=== PATIENT | female | born 1945 | race Caucasian/White ===

== ENCOUNTER 2019-10-23 05:58 | Day surgery (SDC) | payer OTHER, MEDICARE ==
--- NOTE | 2019-10-15 12:07 | RAD REPORT ---
EXAM DESCRIPTION: Stephanie Neves (2 Views)10/15/2019 11:53 am CLINICAL HISTORY: Preop for rotator cuff surgery COMPARISON: 2018 FINDINGS: The lungs appear clear of acute infiltrate. The heart is normal size IMPRESSION: No acute abnormalities displayed
[2019-10-15 12:09] LABS: Absolute Lymphocytes (CBC) 1.6 K/uL (0.7-4.9); Basophils % 0.6 % (0-1.3); Hematocrit 43.5 % (36.0-45.0); Lymphocytes % 20.1 % (15.3-44.8); RBC Red Blood Cell Count 5.59 M/uL (3.86-4.86)
[2019-10-15 12:25] LABS: Protime INR 0.98
[2019-10-15 12:26] LABS: Potassium 3.7 mmol/L (3.5-5.1)
--- OUTSIDE RECORDS SUMMARY | 2019-10-23 05:59 | XMS REPORT | Summary of Care ---
:1945 Author Organization [facility] Address [address] [place], [place] [address]- Encounter HQ June(LLOYD) [id number] Date(s): 06/29/16 - 06/29/16 [facility] [address] [place] [address]- Discharge Disposition: Home or Self Care Attending Physician: Dao Schuler MD Admitting Physician: Dao Schuler MD Referring Physician: Dao Schuler MD Vital Signs No data available for this section Problem List No data available for this section Allergies, Adverse Reactions, Alerts No data available for this section Medications No data available for this section Results CHEM PANEL Most recent to oldest [Reference Range]: 1 eGFR 32 mL/min/1.73m2 1 *NA* (06/29/16 11:10 AM) POC Creatinine [0.5-1.4 mg/dL] 1.6 mg/dL *HI* (06/29/16 11:10 AM) 1Result Comment: The eGFR is calculated using the CKD-EPI formula. In most young, healthy individualsthe eGFR will be >90 mL/min/1.73m2. The eGFR declines with age. An eGFR of 60-89 may be normal in some populations, particularly the elderly, for whom the CKD-EPI formula has not been extensively validated. Use of the eGFR is not recommended in the following populations: Individuals with unstable creatinine concentrations, including patients and those with serious co-morbid conditions. Patients with extremes in muscle mass or diet. The data above are obtained from the National Kidney Disease Education Program (NKDEP) which additionally recommends that when the eGFR is used in patients with extremes of body mass index for purposesof drug dosing, the eGFR should be multiplied by the estimated BMI. Immunizations No data available for this section Procedures No data available for this section Social History No data available for this section Assessment and Plan No data available for this section
--- OUTSIDE RECORDS SUMMARY | 2019-10-23 05:59 | XMS REPORT | Clinical Summary ---
:1945 Author Organization [facility] Address [address] [place] [address] Care Team Providers Name Role Phone Elisabeth Jenkins Primary Care Provider Allergies Not on File Medications Not on file Active Problems Not on file Social History Tobacco Use Types Packs/Day Years Used Date Never Assessed Sex Assigned at Date Recorded Not on file Job Start Date Occupation Industry Not on file Not on file Not on file Travel History Travel Start Travel End No recent travel history available. 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
--- OUTSIDE RECORDS SUMMARY | 2019-10-23 05:59 | XMS REPORT | Continuity of Care Document ---
:1945 Author Organization [employer] Care Team Providers Name Role Phone [employer] Unavailable Un available Problems Problem Status Onset Classification Date Comments Sourc e Date Reported 07 Active [facility] st 6 CHEST PAIN, Active [facility] UNSPECIFIED Medications No Data Provided for This Section Allergies, Adverse Reactions, Alerts No Known Medication Allergies Immunizations No Data Provided for This Section Results Order Results Value Reference Date Interpretation Comments Source Name Range CHEM eGFR 32 06/29/ Result PANEL 2017 Comment: [facility] eGFR is calculated using the CKD-EPI formula. In most young, healthy individuals the eGFR will be >90 mL/min/1.73m2. The eGFR declines with age. An eGFR of 60-89 may be normal in some populations, particularly the elderly, for whom the CKD-EPI formula has not been extensively validated. Use of the eGFR is not recommended in the following populations:<b r/>
Indivi duals with unstable creatinine concentrations , including patients and those with serious co-morbid conditions.

Patient s with extremes in muscle mass or diet.

The data above are obtained from the National Kidney Disease Education Program (NKDEP) which additionally recommends that when the eGFR is used in patients with extremes of body mass index for purposes of drug dosing, the eGFR should be multiplied by the estimated BMI. CHEM POC 1.6 0.5 - 1.4 06/29/ PANEL Creatinine 2017 [facility] Pathology Reports No Data Provided for This Section Diagnostic Reports Report Value Date Source Chest wo contrast CT Study: CT CHEST WITHOUT CONTRAST 06/29/2016 [facility] Clinical Indication: shortne ss of breath gfr too low for iv contrast creat 1.6 gfr 32 Comparison: None Technique: Axial images with sagittal and coronal reconstructions were obtained without contrast, due to compromised renal function. CT Radiation Dose: DLP = 253 mGy-cm. FINDINGS: The lungs are emphysematous. No mass or airspace consolidation is identified. No endobronchial obstructing lesion, bronchiectasis or groundglass opacity is identified. Minor coronary artery calcifications and aortic atherosclerosis are noted. There is no gross hilar or m ediastinal adenopathy. No pleural or pericardial effusion is seen. Images of the upper abdomen are remarkable for gastric bypass surgery and cholecystectomy. IMPRESSION: 1. No acute abnormality. 2. Emphysema. SL: [id number] Consultation Notes No Data Provided for This Section Discharge Summaries No Data Provided for This Section History and Physicals No Data Provided for This Section Vital Signs No Data Provided for This Section Encounters Location Location Encounter Encounter Reason Attending ADM PR Stat Source Details Type Number For Provider Date Date Visit [facility] Outpatient [id number] Dao 06/29 06/30 Shan Schuler /2016 [facility] Procedures No Data Provided for This Section Assessment and Plan No Data Provided for This Section Plan of Care No Data Provided for This Section Social History Social History Date Source No data available for this 06/30/2016 [facility] section Family History No Data Provided for This Section Advance Directives No Data Provided for This Section Functional Status No Data Provided for This Section
--- OUTSIDE RECORDS SUMMARY | 2019-10-23 06:00 | XMS REPORT ---
:1945 Author Organization [facility] t Address [address] [place] [address] [address] [place] [address] Care Team Providers Name Role Phone Unavailable Unavailable Unavailable Problems Condition Condition Condition Status Onset Resolution Last Treatin g Comments Name Details Category Date Date Treatment Clinician Date Primary Primary Problem Active osteoarthri osteoarthri tis of tis of right knee right knee Arthritis Arthritis Problem Active of left of left knee knee Tear of Tear of Problem Active left left rotator rotator cuff, cuff, unspecified unspecified tear tear extent, extent, unspecified unspecified whether whether traumatic traumatic Allergies, Adverse Reactions, Alerts Allergy Allergy Status Severity Reaction(s) Onset Inactive Treating C omments Name Type Date Date Clinician Foradil Adverse Active Info Not Aerolizer Reaction Available Ambien Adverse Active Info Not Reaction Available Medications Ordered Filled Start Stop Current Ordering Indication Dosage Frequency Signature Comments Components Medication Medication Date Date Medication? Clinician (SIG) Name Name Metoprolol Metoprolol Yes Dao as Tartrate Tartrate Cuenca directed Voltaren Voltaren Yes Dao apply Cuenca small amount to affected joint Aspirin Aspirin Yes Dao 1 tablet Cuenca Pilocarpine Pilocarpine Yes Dao 1 drop HCl HCl Cuenca into affected eye Cyanocobala Cyanocobala Yes Dao as min min Cuenca directed Sertraline Sertraline Yes Dao 1 tablet HCl HCl Cuenc[place] Jardiance Jardiance Yes Dao not Cuenca defined Myrbetriq Myrbetriq Yes Dao not Cuenca defined Rosuvastati Rosuvastati Yes Dao 1 tabl et n Calcium n Calcium Cuenca Encounters Start End Encounter Admission Attending Care Care Encounter Date/Time Date/Time Type Type Clinicians Facility Department ID 2019-10-13 2019-10-13 [id number] 09:44:00 09:44:00 [facility] 2019-10-12 2019-10-12 [id number] 10:00:00 10:00:00 [facility] 2019-09-02 2019-09-02 [id number] 11:29:00 11:29:00 [facility] 2019-08-26 2019-08-26 [id number] 09:55:00 09:55:00 [facility] 2019-08-21 2019-08-21 [id number] 08:15:00 08:15:00 [facility] 2019-08-11 2019-08-11 [id number] 08:31:00 08:31:00 [facility] 2019-08-10 2019-08-10 [id number] 09:37:00 09:37:00 [facility] 2019-08-07 2019-08-07 [id number] 15:44:00 15:44:00 [facility] 2019-07-27 2019-07-27 [id number] 09:30:00 09:30:00 [facility] 2018-02-13 2018-02-13 [facility] [id number] 14:30:00 14:30:00 [facility]
--- OUTSIDE RECORDS SUMMARY | 2019-10-23 06:01 | XMS REPORT ---
:1945 Author Organization [employer] Care Team Providers Name Role Phone Dao Cuenca Provider Role Unavailable Allergies No Known Allergies Problems Problem Type Condition Code Onset Dates Condition Statu s Problem Primary osteoarthritis of left knee M17.12 Active Problem Primary osteoarthritis of right M17.11 Active knee Problem Tear of left rotator cuff, M75.102 A ctive unspecified tear extent, unspecified whether traumatic Problem Arthritis of left knee M17.12 Activ e Medications No Known Medications Results No Known Results Summary Purpose [employer] Submission
--- OUTSIDE RECORDS SUMMARY | 2019-10-23 06:01 | XMS REPORT ---
:1945 Author Organization [employer] Care Team Providers Name Role Phone Dao Cuenca Provider Role Unavailable Allergies, Adverse Reactions, Alerts Substance Reaction Event Type Foradil Aerolizer Info Not Available Drug Allergy Ambien Info Not Available Drug Allergy Problems Problem Type Condition Code Onset Dates Condition Statu s Assessment Cervical radiculopathy M54.12 Activ e Problem Primary osteoarthritis of left knee M17.12 Active Problem Primary osteoarthritis of right M17.11 Active knee Problem Tear of left rotator cuff, M75.102 A ctive unspecified tear extent, unspecified whether traumatic Assessment Pain, joint, shoulder, left M25.512 Active Assessment Tear of left rotator cuff, M75.102 A ctive unspecified tear extent, unspecified whether traumatic Problem Arthritis of left knee M17.12 Activ e Medications Medication Code Code Instructions Start End Status Dosage System Date Date Cyanocobalamin [facility] [address]-52 100 MCG Orally Acti ve as directed Aspirin ND 29858823140 81 MG Orally Active 1 table t Once a day Jardiance [facility] [address]-15 Active not defined Sertraline HCl [facility] 85443156192 100 MG Orally Active 1 tablet Once a day Metoprolol ND 39023767862 5 MG/5ML Active as Tartrate Intravenous directed Pilocarpine HCl [facility] 15068145822 1 % Ophthalmic Activ e 1 drop Three times a into day affected eye Tramadol HCl ND 80462823696 50 MG Orally Active 1 tablet every 6 hrs as needed Myrbetriq [facility] [address]-48 Active not defined Toujeo SoloStar [facility] 38054993332 300u/ml Active not subcutaneously defined once daily Rosuvastatin ND 47546575846 10 MG Orally Active 1 tablet Calcium Once a day Voltaren [facility] 22550057575 1 % Transdermal Active melvi ly qid small amount to affected joint Results No Known Results Summary Purpose [employer] Submission
--- OUTSIDE RECORDS SUMMARY | 2019-10-23 06:02 | XMS REPORT ---
:1945 Author Organization [employer] Care Team Providers Name Role Phone Dao Cuenca Provider Role Unavailable Allergies, Adverse Reactions, Alerts Substance Reaction Event Type Foradil Aerolizer Info Not Available Drug Allergy Ambien Info Not Available Drug Allergy Problems Problem Type Condition Code Onset Dates Condition Statu s Assessment Impingement syndrome, shoulder, M75.42 Active left Assessment Bicipital tendinitis of left M75.22 Active shoulder Problem Primary osteoarthritis of left knee M17.12 [...] End Status Dosage System Date Date Cyanocobalamin [facility] [address]-77 100 MCG Orally Acti ve as directed Sertraline HCl [facility] 04869485095 100 MG Orally Active 1 tablet Once a day Metoprolol ND 50968297288 5 MG/5ML Active as Tartrate Intravenous directed Pilocarpine HCl [facility] 84590466840 1 % Ophthalmic Activ e 1 drop Three times a into day affected eye Voltaren [facility] 01767970362 1 % Transdermal Active melvi ly qid small amount to affected joint Jardiance [facility] [address]-50 Active not defined Myrbetriq [facility] [address]-74 Active not defined Rosuvastatin [facility] 53799533084 10 MG Orally Active 1 tablet Calcium Once a day Aspirin ND 41655113476 81 MG Orally Active 1 table t Once a day Results No Known Results Summary Purpose [employer] Submission
--- OUTSIDE RECORDS SUMMARY | 2019-10-23 06:03 | XMS REPORT ---
[...] Start End Status Dosage System Date Date Pilocarpine HCl [facility] 24293526349 1 % Ophthalmic Activ e 1 drop Three times a into day affected eye Myrbetriq [facility] [address]-79 Active not defined Jardiance [facility] [address]-18 Active not defined Metoprolol [facility] 92346088823 5 MG/5ML Active as Tartrate Intravenous directed Rosuvastatin [facility] 66006090684 10 MG Orally Active 1 tablet Calcium Once a day Cyanocobalamin [facility] [address]-73 100 MCG Orally Acti ve as directed Aspirin ND 34733918361 81 MG Orally Active 1 table t Once a day Voltaren [facility] 75520505081 1 % Transdermal Active melvi ly qid small amount to affected joint Sertraline HCl ND 14158109212 100 MG Orally Active 1 tablet Once a day Results No Known Results Summary Purpose [employer] Submission
[2019-10-23] MEDS ORDERED: CEFAZOLIN/SWI 1gm 1 GM/10 ML SYR ONE (06:25)
[2019-10-23] MEDS ORDERED: NA CHLORIDE 0.9% 1,000 ML ONE (06:25)
[2019-10-23] MEDS ORDERED: EPINEPHRINE/PF 1 MG/ML AMP ONE (06:52)
[2019-10-23] MEDS ORDERED: Ringers Lactate 1,000 ML IV ONE (06:52)
[2019-10-23] MEDS ORDERED: LIDOCAINE 2% MPF 5 ML VIAL ONE (06:57)
[2019-10-23] MEDS ORDERED: MIDAZOLAM HCL 2 MG/2 ML INJ ONE (06:57)
[2019-10-23] MEDS ORDERED: propofoL 200 MG/20 ML VIAL IV ONE (06:57)
[2019-10-23] MEDS ORDERED: ROCURONIUM 50 MG/5 ML VIAL IV ONE (06:57)
[2019-10-23] MEDS ORDERED: FENTANYL CITR 250 MCG/5 ML ONE (06:57)
[2019-10-23] MEDS ORDERED: dexAMETHasone 4 MG/ML VIAL ONE (07:22)
[2019-10-23] MEDS ORDERED: ROPLVACAINE HCL 20 ML ONE (07:23)
[2019-10-23] MEDS ORDERED: EPHEDRINE SULF 50 MG/ML VIAL ONE (08:08)
[2019-10-23] MEDS ORDERED: Phenylephrine HCl 10 MG/ML 1 ML VIAL ONE (08:28)
[2019-10-23] MEDS ORDERED: GLYCOPYRROLATE 0.2 MG/ML SYR ONE (08:32)
[2019-10-23] MEDS ORDERED: ALBUMIN HUM 5% 250 ML IV ONE (08:55)
[2019-10-23] MEDS ORDERED: KETOROLAC 30 MG/ML INJ ONE (09:44)
--- NOTE | 2019-10-23 10:19 | P.BOP ---
Preoperative diagnosis: left shoulder rotator cuff tear Postoperative diagnosis: same, left shoulder SLAP tear Primary procedure: left shoulder arthrocopic rotator cuff repair Secondary procedure: left shoulder arthroscopic SLAP debridement Machine Engineer: NONE,NONE Estimated blood loss: <10 cc Specimen: none Findings: see dictation Anesthesia: General Complications: None Implants: 1 - 5.5 mm Arthrex Corkscrew, 2 - 4.75 mm Arthrex Swivelock Fluids & blood products: per anesthesia record Transferred to: Recovery Room Condition: Good
[2019-10-23] MEDS ORDERED: ONDANSETRON 4 MG/2 ML VIAL ONE (10:57)
--- NOTE | 2019-10-23 11:25 | RAD REPORT ---
EXAM DESCRIPTION: RAD - Shoulder 1 View - 10/23/2019 11:19 am CLINICAL HISTORY: S P ROTATOR CUFF REPAIR Status post left shoulder surgery COMPARISON: Shoulder Left Wo Cont dated 08/07/2019 FINDINGS: Single projection of the left shoulder is submitted. No fracture or dislocation seen.
[2019-10-23 11:40] VITALS: TEMP 98.2
[2019-10-23] MEDS ORDERED: HYDROCODONE/APAP 7.5/325 MG TAB ONE (12:17)
[2019-10-23 12:18] VITALS: BP 134/58; O2SAT 96
--- NOTE | 2019-10-24 10:19 | OP ---
Date of Procedure: 10/23/2019 Surgeon: Dao Cuenca MD Preoperative Diagnosis: Left shoulder rotator cuff tear. Postoperative Diagnoses: 1.Left shoulder rotator cuff tear. 2.Left shoulder superior labrum anterior and posterior tear. Surgeries: 1.Left shoulder arthroscopic rotator cuff repair. 2.Left shoulder arthroscopic superior labrum anterior and posterior tear debridement. Anesthesia: General endotracheal. Fluids: Per Anesthesia record. Estimated Blood Loss: Less than 10 cc. Complications: None. Implants: 1.One 5.5 mm Arthrex corkscrew. 2.Two 4.75 mm Arthrex SwiveLocks. Indication For Procedure: Genny is a 74-year-old female presenting to my clinic with signs and sympt oms and MRI findings consistent with rotator cuff tear of the left shoulder. The patient failed cons ervative treatment measures and reported continued pain, loss of function, range of motion as well as weakness. I discussed with the patient at length risks and benefits associated with operative and n onoperative treatment. She expressed understanding and elected to proceed with operative treatment. Description Of Procedure: After informed consent was obtained, the patient was identified in the pre operative holding area. The left upper extremity was marked. The patient was then taken back to the PACU where she underwent an interscalene block to the left upper extremity. She was then taken back to the operating room, transferred to the operating table in supine fashion, placed under general en dotracheal anesthesia. She was then placed in the beach chair position with her extremities well pad ded. Her left upper extremity was then examined. The patient had full range of motion. No instabil ity noted. Description Of Procedure: The patient's left upper extremity was prepped and draped in usual sterile fashion. A time-out was initiated. The correct patient and procedure were confirmed and identified . The patient did receive a preoperative prophylactic antibiotics. Via the posterior portal positio n, a spinal needle was introduced in the glenohumeral joint. The shoulder was injected with 30 cc of normal saline as to distend the capsule. A posterior portal was created and arthroscope was brought in via the posterior portal position. A diagnostic arthroscopy was performed. The patient was note d to have significant fraying over the undersurface of her supraspinatus, some fraying of the superio r edge of her subscapularis, which was debrided using an arthroscopic shaver via the anterior portal. The anterior portal was created under direct visualization. A cannula was placed. The patient was noted to have had a lateral rupture of biceps tendon with no biceps tendon anchor noted at the super ior labrum. There was noted to be a type 2 SLAP tear with some fraying of the superior labrum. The SLAP tear was then debrided using an arthroscopic shaver to stable borders. Anterior and posterior l abrum were found to be stable to probe. No loose bodies were noted in the axillary pouch. The under surface of the supraspinatus was identified. There was significant fraying and a full-thickness tear was noted. A lateral portal was created and an obturator was brought in via the lateral portal and brought into the shoulder joint consistent with a full-thickness rotator cuff tear. The undersurface of the supraspinatus was debrided using an arthroscopic shaver as well as the greater tuberosity to create a bleeding bony bed. The arthroscope was then brought in the subacromial space with a subacro mial bursectomy was performed. The rotator cuff tear was then identified and debrided again on the b ursal side using an arthroscopic shaver. A stab incision was made just lateral to the acromion and a 5.5 mm Arthrex corkscrew medial row anchor was placed. It was double loaded. The suture was then p assed through the supraspinatus in an anterior posterior fashion and horizontal mattress fashion. Th ey were tied down for medial row fixation to increase superior surface area contact of the rotator cu ff onto the greater tuberosity. Lateral row fixation was also selected. The sutures were passed in a crisscross fashion and 2 lateral anchors were placed using the 4.75 mm SwiveLocks. There was good overall reduction of the rotator cuff tear and the greater tuberosity. There was no significant fray ing of the coracoacromial ligament. Arthroscopic instruments were then removed without complication. Wounds were then irrigated thoroughly with normal saline. The subcutaneous tissue was approximated using a 2-0 Vicryl. Skin was approximated using a 3-0 Monocryl. Sterile dressings were placed. Th e patient was placed in a shoulder immobilizer, awakened, and transferred to PACU in stable condition . Postoperative Plan: She will be nonweightbearing of the left upper extremity, will be in the shoulde r immobilizer for 6 weeks. She will follow medium rotator cuff repair protocol beginning at 4 weeks postop. FIGUEROA/HALINA Voice ID: [id number] Report ID: [id number]
== END 2019-10-23 13:00 | disposition home or self-care (01) ==
LOC: OR 05:58
PROVIDERS: ATTEND Orthopaedic Surgery Sports Medicine
PROC: 0RHK44Z Insertion of Internal Fixation Device into Left Shoulder Joint, Percutaneous Endoscopic Approach (ICD-10-PCS; 2019-10-23)
PROC: 0RBK4ZZ Excision of Left Shoulder Joint, Percutaneous Endoscopic Approach (ICD-10-PCS; 2019-10-23)
PROC: 0LQ24ZZ Repair Left Shoulder Tendon, Percutaneous Endoscopic Approach (ICD-10-PCS; principal; 2019-10-23 07:30)
DX: M75.102 Unspecified rotator cuff tear or rupture of left shoulder, not specified as traumatic (principal); S43.432A Superior glenoid labrum lesion of left shoulder, initial encounter; M75.42 Impingement syndrome of left shoulder; M75.22 Bicipital tendinitis, left shoulder; M19.90 Unspecified osteoarthritis, unspecified site; E11.9 Type 2 diabetes mellitus without complications; I10 Essential (primary) hypertension; K21.9 Gastro-esophageal reflux disease without esophagitis; M35.00 Sjogren syndrome, unspecified; D64.9 Anemia, unspecified; F98.8 Other specified behavioral and emotional disorders with onset usually occurring in childhood and adolescence; Z79.82 Long term (current) use of aspirin; Z88.3 Allergy status to other anti-infective agents; Z88.8 Allergy status to other drugs, medicaments and biological substances; Z91.040 Latex allergy status; Z83.3 Family history of diabetes mellitus; Z82.49 Family history of ischemic heart disease and other diseases of the circulatory system
CPT/HCPCS: 85025; 80048; 36415; 85610; 82947 ×2; 85730; 71046; 73020; 29827; 29822; J2704; J0171; J2370; J2250; J3010; P9045; J2795; J0690; J7120; J7030; J2405

== ENCOUNTER 2020-01-11 11:47 | Emergency (ER) | payer OTHER, MEDICARE ==
[2020-01-11 13:20] LABS: Hematocrit 38.1 % (36.0-45.0); Lymphocytes % 20.7 % (15.3-44.8); MPV 9.2 fL (7.6-11.3); RBC Red Blood Cell Count 4.77 M/uL (3.86-4.86)
[2020-01-11 14:10] LABS: BUN Blood Urea Nitrogen 16 mg/dL (7-18); Bicarbonate 23 mmol/L (21-32); C-Reactive Protein 8.05 mg/L (<3.00); Ferritin 22.6 ng/mL (8-388); Glucose Level 136 mg/dL (74-106); Potassium 3.6 mmol/L (3.5-5.1); Sodium Level 139 mmol/L (136-145); Troponin (Emerg Dept Use Only) < 0.02 ng/mL (0.0-0.045)
[2020-01-11] MEDS ORDERED: ACETAMINOPHEN 325 MG TABLET ONE (14:51)
[2020-01-11] MEDS ORDERED: dexAMETHasone 10 MG/ML VIAL ONE (17:30)
[2020-01-11 17:41] VITALS: TEMP 98.6
[2020-01-11 17:48] VITALS: BP 126/63; O2SAT 95
--- OUTSIDE RECORDS SUMMARY | 2020-01-11 21:31 | XMS REPORT | Continuity of Care Document ---
:1945 Author Organization [employer] Care Team Providers Name Role Phone [employer] Unavailable Un available Problems Problem Status Onset Classification Date Comments Sourc e Date Reported 07 Active [facility] st 6 CHEST PAIN, Active [facility] UNSPECIFIED Medications No Data Provided for This [...] CT Study: CT CHEST WITHOUT CONTRAST 06/29/2016 [facility] Clinical Indication: shortne ss of breath gfr [...] 1. No acute abnormality. 2. Emphysema. SL: [id number] Consultation Notes No Data Provided for This Section Discharge Summaries No Data Provided for This Section History and Physicals No Data Provided for This Section Vital Signs No Data Provided for This Section Encounters Location Location Encounter Encounter Reason Attending ADM [place] Stat Source Details Type Number For Provider Date Date Visit [facility] Outpatient [id number] Dao 06/29 06/30 Shan Schuler /2016 [facility] Procedures No Data Provided for This Section Assessment and Plan No Data Provided for This Section Plan of Care No Data Provided for This Section Social History Social History Date Source No data available for this 06/30/2016 [facility] section Family History No Data Provided for This Section Advance Directives No Data Provided for This Section Functional Status No Data Provided for This Section
--- OUTSIDE RECORDS SUMMARY | 2020-01-11 21:31 | XMS REPORT | Clinical Summary ---
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
--- OUTSIDE RECORDS SUMMARY | 2020-01-11 21:32 | XMS REPORT ---
:1945 Author Organization eClinicalWorks Care Team Providers Name Role Phone CuencaDao Provider Role Unavailable Allergies, Adverse Reactions, Alerts [...] Start End Status Dosage System Date Date Rosuvastatin [facility] 52196024640 10 MG Orally Active 1 tablet Calcium Once a day Metoprolol ND 57325824591 5 MG/5ML Active as Tartrate Intravenous directed Aspirin ND 05929873976 81 MG Orally Active 1 table t Once a day Jardiance [facility] [address]-00 Active not defined Cyanocobalamin [facility] [address]-68 100 MCG Orally Acti ve as directed Pilocarpine HCl ND 05357458754 1 % Ophthalmic Activ e 1 drop Three times [place] [address]-59 Active not defined Hydrocodone-Aceta ND 23428531662 7.5-325 MG Oral Ac tive (Schedule minophen II Drug) TK 1 T PO Q 4 H PRN P Voltaren ND 08060991795 1 % Transdermal Active melvi ly qid small amount to affected joint Sertraline HCl ND 00668617410 100 MG Orally Active 1 tablet Once a day Results No Known Results Summary Purpose eClinicalWorks Submission
--- OUTSIDE RECORDS SUMMARY | 2020-01-11 21:32 | XMS REPORT ---
:1945 Author Organization eClinicalWorks Care Team Providers Name Role Phone Dao Cuenca Provider Role Unavailable Allergies No Known Allergies Problems Problem Type Condition Code Onset Dates Condition Statu s Problem Tear of left rotator cuff, M75.102 A ctive unspecified tear extent, unspecified whether traumatic Problem Primary osteoarthritis of left knee M17.12 Active Problem Pain, joint, shoulder, left M25.512 Active Problem Primary osteoarthritis of right M17.11 Active knee Problem Arthritis of left knee M17.12 Activ e Medications No Known Medications Results No Known Results Summary Purpose eClinicalWorks Submission
--- OUTSIDE RECORDS SUMMARY | 2020-01-11 21:32 | XMS REPORT ---
[...] End Status Dosage System Date Date Rosuvastatin [facility] 40467700241 10 MG Orally Active 1 tablet Calcium Once a day Metoprolol ND 49141929363 5 MG/5ML Active as Tartrate Intravenous directed Jardiance [facility] [address]-59 Active not defined Myrbetriq [facility] [address]-76 Active not defined Pilocarpine HCl [facility] 57840614566 1 % Ophthalmic Activ e 1 drop Three times a into day affected eye Cyanocobalamin [facility] [address]-10 100 MCG Orally Acti ve as directed Voltaren ND 74483744646 1 % Transdermal Active melvi ly qid small amount to affected joint Aspirin ND 17499164277 81 MG Orally Active 1 table t Once a day Hydrocodone-Aceta ND 15385241564 7.5-325 MG Oral Ac tive (Schedule minophen II Drug) TK 1 T PO Q 4 H PRN P Sertraline HCl ND 14979002023 100 MG Orally Active 1 tablet Once a day Results No Known Results Summary Purpose eClinicalWorks Submission
--- OUTSIDE RECORDS SUMMARY | 2020-01-11 21:32 | XMS REPORT | Continuity of Care Document ---
:1945 Author Organization [facility] t Address [address] [place] [address] Care Team Providers Name Role Phone Gregory LESTER Primary Care Physician Kory Larios Attending Clinician Tommy Schuler Attending Clinician Tommy Schuler Admitting Clinician Problems Condition Condition Condition Status Onset Resolution Last Treating Co mments Source Name Details Category Date Date Treatment Clinician Date 07 Diagnosis Active 2015-062016-06-29 [facility] 2-27 09:48:00 l 07 00:00: Shan 00 Active 06/12/2016 [facility] Primary Primary Problem Active [facility] osteoarthr osteoarthr Ivette kes - itis of itis [facility] right knee right knee [facility] Arthritis Arthritis Problem Active [facility] left [facility] Tear of Tear of Problem Active [facility] left left [facility] rotator rotator [facility] cuff, cuff, l unspecifie unspecifie Ou tpati d tear d tear ent extent, extent, Clinics unspecifie unspecifie d whether d whether traumatic traumatic Pain, Pain, Problem Active [facility] joint, joint, [facility] - shoulder, shoulder, Krishna glenis left left l [facility] CHEST Diagnosis Active 2016-06-29 [facility] PAIN, 09:48:00 l UNSPECIFIE CHEST Svitlana nn D PAIN, UNSPECIFIE D Active [facility] Allergies, Adverse Reactions, Alerts Allergy Allergy Status Severity Reaction(s) Onset Inactive Treating Comm ents Source Name Type Date Date Clinician Foradil Adverse Active Info Not [facility] Aerolize Reaction Available [facility] Ambien Adverse Active Info Not [facility] Reaction Available [facility] Social History Social Habit Start Date Stop Date Quantity Comments Source Sex Assigned [place] [facility] ethodist Social History 2016-06-30 2016-06-30 [facility] 05:59:00 05:59:00 Medications Ordered Filled Start Stop Current Ordering Indication Dosage Frequency Signature Comments Components Source Medication Medication Date Date Medication? Clinician (SIG) Name Name Metoprolol Metoprolol Yes Dao as [facility] Tartrate Tartrate Cuenca directed [facility] Voltaren Voltaren Yes Dao apply [facility] small [facility] - amount to [facility] affected l joint [facility] Aspirin Aspirin Yes Dao [address] [facility] Pilocarpine Pilocarpine Yes Dao [address] [facility] HCl HCl [facility] into [facility] affected [facility] Cyanocobala Cyanocobala Yes Dao as [facility] min min [facility] directed [facility] Sertraline Sertraline Yes Dao [address] [facility] HCl HCl [facility] Jardiance Jardiance Yes Dao not [facility] defined [facility] Myrbetriq Myrbetriq Yes Dao not [facility] defined [facility] Rosuvastati Rosuvastati Yes Dao [address] [facility] n Calcium n Calcium [facility] Hydrocodone Hydrocodone Yes Dao (Schedule [facility] -Acetaminop -Acetaminop [facility]a II Drug) [facility] hen hen TK 1 T PO [facility] Q 4 H PRN l P Outpati ent Clinics Procedures This patient has no known procedures. Plan of Care Planned Activity Planned Date Details Comments Source Future Scheduled 2020-01-16 INFLUENZA VACCINE Bhargav rodas [facility] 00:00:00 [code = INFLUENZA VACCINE] Future Scheduled 2011 65+ PNEUMOCOCCAL [facility] 00:00:00 VACCINE (1 of 2 - PCV13) [code = 65+ PNEUMOCOCCAL VACCINE (1 of 2 - PCV13)] Future Scheduled 1996 BREAST CANCER [facility] 00:00:00 SCREENING [code = BREAST CANCER SCREENING] Future Scheduled 1996 COLONOSCOPY SCREENING Ho justin [facility] 00:00:00 [code = COLONOSCOPY SCREENING] Future Scheduled 1996 SHINGLES VACCINES (#1) H anne-marie [facility] 00:00:00 [code = SHINGLES VACCINES (#1)] Encounters Start End Encounter Admission Attending Care Care Encounter Source Date/Time Date/Time Type Type Clinicians Facility Department ID 2019-12-24 2019-12-24 [facility] [id number] [facility] 14:32:00 14:32[facility]00 [facility] 2019-11-30 2019-11-30 Out[facility] [id number] [facility] 09:30:00 09:30:00 [facility] 2019-11-30 2019-11-30 Outpatient [facility] [id number] [facility] [facility] 08:27:00 08:27:00 [facility] 2019-11-12 2019-11-12 Outpatient [facility] [id number] [facility] 10:30:00 10:30:00 [facility] 2019-11-04 2019-11-04 [facility] [id number] [facility] 15:17:00 15:17:00 [facility] 2019-10-29 2019-10-29 [facility] [id number] [facility] 09:45:00 09:45:00 [facility] 2019-10-26 2019-10-26 [facility] [id number] [facility] 11:02:00 11:02:00 [facility] 2019-10-13 2019-10-13 [facility] [id number] [facility] [facility] 09:44:00 09:44:00 [facility] 2019-10-12 2019-10-12 [facility] [id number] 10:00:00 10:00:00 [facility] 2019-09-11 2019-09-11 Telephone Gramm, [facility] [id number] 00:00:00 00:00:00 Avril Rico [id number] [place] [id number] [id number] [address] 2019-09-02 2019-09-02 [facility] [id number] [address] 11:29:00 11:29:00 [facility] 2019-08-26 2019-08-26 [facility] [id number] 09:55:00 09:55:00 t [facility] 2019-08-21 2019-08-21 [facility] [id number] 08:15:00 08:15:00 t [facility] 2019-08-11 2019-08-11 [facility] [id number] [facility] 08:31:00 08:31:00 t [facility] 2019-08-10 2019-08-10 [facility] [id number] [facility] 09:37:00 09:37:00 t [facility] 2019-08-07 2019-08-07 [facility] [id number] 15:44:00 15:44:00 t [facility] 2019-07-27 2019-07-27 [facility] [id number] 09:30:00 09:30:00 t [facility] 2019-02-11 2019-02-11 Office Gramm, [facility] [id number] 14:32:34 15:19:14 Visit Avril Rico [id number] [place] [id number] [facility] [id number] [facility] 204 [facility] 2018-02-13 2018-02-13 [place] [place] [id number] 14:30:00 14:30:00 t [facility] 2016-06-29 2016-06-29 Outpatient [place] [id number] 09:39:00 23:59:00 , Dao 00 Tommy Results Test Description Test Time Test Comments Results Result Comments Source CHEM PANEL 2016-06-29 32 Pati garcia 17:10:00 CHEM PANEL 2016-06-29 1.6 Pati garcia 17:10:00
--- OUTSIDE RECORDS SUMMARY | 2020-01-11 21:32 | XMS REPORT ---
[...] Status Dosage System Date Date Pilocarpine HCl [facility] 26050030846 1 % Ophthalmic Activ e 1 drop Three times a into day affected eye Myrbetriq [facility] [address]-09 Active not defined Jardiance [facility] [address]-84 Active not defined Metoprolol [facility] 40184194807 5 MG/5ML Active as Tartrate Intravenous directed Rosuvastatin [facility] 74711783059 10 MG Orally Active 1 tablet Calcium Once a day Cyanocobalamin [facility] [address]-41 100 MCG Orally Acti ve as directed Aspirin ND 19376452558 81 MG Orally Active 1 table t Once a day Voltaren [facility] 27288148951 1 % Transdermal Active melvi ly qid small amount to affected joint Sertraline HCl ND 38790088897 100 MG Orally Active 1 tablet Once a day Results No Known Results Summary Purpose eClinicalWorks Submission
--- OUTSIDE RECORDS SUMMARY | 2020-01-11 21:32 | XMS REPORT ---
:1945 Author Organization eClinicalWorks Care Team Providers Name Role Phone CuencaDao Provider Role Unavailable Allergies, Adverse Reactions, Alerts Substance Reaction Event Type Foradil Aerolizer Info Not Available Drug Allergy Ambien Info Not Available Drug Allergy Problems Problem Type Condition Code Onset Dates Condition Statu s Assessment Bicipital tendinitis of left M75.22 Active shoulder Assessment Tear of left rotator cuff, M75.102 A ctive unspecified tear extent, unspecified whether traumatic Assessment Impingement syndrome, shoulder, M75.42 Active left Problem Tear of left rotator cuff, M75.102 A ctive unspecified tear extent, unspecified whether traumatic Problem Primary osteoarthritis of left knee M17.12 Active Problem Pain, joint, shoulder, left M25.512 Active Assessment Pain in joint of left shoulder M25.512 Active Problem Primary osteoarthritis of right M17.11 Active knee Problem Arthritis of left knee M17.12 Activ e Medications Medication Code Code Instructions Start End Status Dosage System Date Date Pilocarpine HCl [facility] 28900507247 1 % Ophthalmic Activ e 1 drop Three times a into day affected eye Cyanocobalamin [facility] [address]-31 100 MCG Orally Acti ve as directed Aspirin ND 49607299931 81 MG Orally Active 1 table t Once a day Voltaren [facility] 03526689674 1 % Transdermal Active melvi ly qid small amount to affected joint Rosuvastatin [facility] 33864407254 10 MG Orally Active 1 tablet Calcium Once a day Metoprolol ND 12957462028 5 MG/5ML Active as Tartrate Intravenous directed Hydrocodone-Aceta [facility] 29891943507 7.5-325 MG Oral Ac tive (Schedule minophen II Drug) TK 1 T PO Q 4 H PRN P Myrbetriq [facility] [address]-47 Active not defined Jardiance [facility] [address]-64 Active not defined Sertraline HCl ND 07099532386 100 MG Orally Active 1 tablet Once a day Results No Known Results Summary Purpose eClinicalWorks Submission
--- NOTE | 2020-01-11 21:35 | EDPHYS ---
Physician Documentation [facility] Name: Genny Mccall Age: 74 yrs Sex: Female : 1945 Arrival Date: 01/11/2020 Time: 11:50 Bed 20 Private MD: ED Physician Jeff Arredondo HPI: 01/10 12:59 This 74 yrs old Female presents to ER via Ambulatory with complaints of rn Fever, Chest Congestion, Pain All Over, Cough, Vomiting. 12:59 The patient reports fever, that was measured at 99.5 degrees Fahrenheit. Onset: The rn symptoms/episode began/occurred 2 day(s) ago. Modifying factors: there are no obvious modifying factors. Severity of symptoms: At their worst the symptoms were mild in the emergency department the symptoms are unchanged. The patient has not experienced similar symptoms in the past. Reports fever to 99.5, 2 days of cough/sore throat/weakness, reports mild sob. No known contacts of COVID-19.. 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 - Social history:: Smoking status: Patient denies any tobacco usage or history of. Patient/guardian denies using alcohol, street drugs, tobacco products. - Family history:: not pertinent. - Hospitalizations: : No recent hospitalization is reported. ROS: 12:59 Constitutional: + fever Eyes: Negative for injury, pain, redness, and discharge, ENT: + rn sore throat Neck: Negative for injury, pain, and swelling, Cardiovascular: Negative for chest pain, palpitations, and edema, Respiratory: + sob and cough Abdomen/GI: Negative for abdominal pain, nausea, vomiting, diarrhea, and constipation, MS/Extremity: Negative for injury and deformity, Skin: Negative for injury, rash, and discoloration, Neuro: Negative for headache, numbness, tingling, and seizure. Exam: 12:59 Constitutional: This is a well developed, well nourished patient who is awake, alert, rn and in no acute distress. Head/Face: Normocephalic, atraumatic. ENT: No stridor Cardiovascular: Regular rate and rhythm. No pulse deficits. Respiratory: Mild tachypnea, no retractions Abdomen/GI: soft, non-tender MS/ Extremity: Pulses equal, no cyanosis Neuro: Awake and alert, GCS 15 Vital Signs: 12:05 BP 130 / 86; Pulse 68; Resp 17; Temp 98.6; Pulse Ox 97% ; Weight 73.94 kg; Height 5 ft. ll1 5 in. (165.10 cm); Pain 8/10; 13:30 BP 128 / 65; Pulse 63; Resp 17; Pulse Ox 94% on R/A; jl7 14:30 BP 121 / 66; Pulse 67; Resp 19 S; Pulse Ox 95% on R/A; jl7 15:30 BP 126 / 56; Pulse 66; Resp 15; Pulse Ox 93% ; jl7 16:30 BP 131 / 63; Pulse 69; Resp 17; Pulse Ox 97% ; jl7 17:15 BP 126 / 63; Pulse 97; Resp 16; Pulse Ox 95% ; jl7 12:05 Body Mass Index 27.12 (73.94 kg, 165.10 cm) ll1 MDM: 12:11 Patient medically screened. rn 13:03 ED course: + loss of sense of smell and taste. rn 16:46 Differential diagnosis: viral Infection, bacterial infection, pneumonia. Data reviewed: rn vital signs, nurses notes, lab test result(s), radiologic studies, CT scan, plain films, and as a result, I will discharge patient. Counseling: I had a detailed discussion with the patient and/or guardian regarding: the historical points, exam findings, and any diagnostic results supporting the discharge/admit diagnosis, lab results, radiology results, the need for outpatient follow up, to return to the emergency department if symptoms worsen or persist or if there are any questions or concerns that arise at home. Special discussion: I discussed with the patient/guardian in detail that at this point there is no indication for admission to the hospital. It is understood, however, that if the symptoms persist or worsen the patient needs to return immediately for re-evaluation. ED course: No oxygen requirement, most likely COVID given low grade temp and loss of taste and smell, will dc home with steroids given autoimmune disease, and return precautions given, pt with pulse oximeter at home. . 16:46 ED course: Neg CT PE protocol for PE per Dr. May, + mild bilateral ground glass rn opacities, possible early COVID. 01/10 12:20 Order name: Troponin (emerg Dept Use Only); Complete Time: 14:42 rn 01/10 12:20 Order name: Strep; Complete Time: 14:42 rn 01/10 12:20 Order name: Blood Culture Adult (2) rn 01/10 12:20 Order name: BMP; Complete Time: 14:42 rn 01/10 12:20 Order name: C-Reactive Protein; Complete Time: 14:42 rn 01/10 12:20 Order name: CBC with Diff; Complete Time: 13:23 rn 01/10 12:20 Order name: COVID-19 01/10 12:20 Order name: D-Dimer; Complete Time: 14:42 rn 01/10 12:20 Order name: Ferritin; Complete Time: 14:42 rn 01/10 12:20 Order name: Flu; Complete Time: 14:42 01/10 12:20 Order name: Lactate; Complete Time: 14:42 rn 01/10 12:20 Order name: Procalcitonin; Complete Time: 14:42 rn 01/10 12:20 Order name: CXR XRAY rn 01/10 14:26 Order name: Throat Culture EDWA 01/10 12:20 Order name: EKG; Complete Time: 12:21 01/10 12:20 Order name: Cardiac monitoring; Complete Time: 16:01 rn 01/10 12:20 Order name: Droplet/Contact Precautions; Complete Time: 13:11 rn 01/10 12:20 Order name: EKG - Nurse/Tech; Complete Time: 17:30 rn 01/10 12:20 Order name: IV Start; Complete Time: 13:11 rn 01/10 12:20 Order name: Labs collected and sent; Complete Time: 13:11 rn 01/10 12:20 Order name: O2 Per Protocol; Complete Time: 13:11 rn 01/10 12:20 Order name: O2 Sat Monitoring; Complete Time: 13:11 rn 01/10 14:43 Order name: CT Chest For PE Angio rn Administered Medications: 17:25 Drug: Decadron - Dexamethasone 10 mg Route: IVP; Site: right wrist; jl7 17:30 Follow up: Response: No adverse reaction jl7 Disposition: 01/11/20 16:48 Discharged to Home. Impression: Cough, Viral syndrome. - Condition is Stable. - Discharge Instructions: Cough, Adult, COVID-19. - Prescriptions for dexamethasone 6 mg Oral tablet - take 1 tablet by ORAL route once daily for 10 days; 10 tablet. - Medication Reconciliation Form, Thank You Letter, Antibiotic Education, Prescription Opioid Use form. - Follow up: Private Physician; When: As needed; Reason: Recheck today's complaints, Re-evaluation by your physician. - Problem is new. - Symptoms have improved. Signatures: Dispatcher [employer] EDMS Jeff Arredondo MD MD rn Leal, Jahala, RN RN jl7 Enrrique Abreu RN RN ll1 Corrections: (The following items were deleted from the chart) 17:36 16:48 01/11/2020 16:48 Discharged to Home. Impression: Cough; Viral syndrome. Condition jl7 is Stable. Forms are Medication Reconciliation Form, Thank You Letter, Antibiotic Education, Prescription Opioid Use. Follow up: Private Physician; When: As needed; Reason: Recheck today's complaints, Re-evaluation by your physician. Problem is new. Symptoms have improved. rn
--- NOTE | 2020-01-11 21:35 | ER ---
Nurse's Notes [facility] Name: Genny Mccall Age: 74 yrs Sex: Female : 1945 Arrival Date: 01/11/2020 Time: 11:50 Bed 20 Private MD: Diagnosis: Cough;Viral syndrome Presentation: 01/10 12:05 Chief complaint: Patient states: Cough/runny nose since Saturday. + sore throat, fever, ll1 body aches, headache. Fever 99.5 at home. Coronavirus screen: Patient reports a cough. Patient reports shortness of breath or difficulty breathing. Patient denies measured and/or subjective temperature greater than 100.4F prior to today's visit. Patient denies travel on a cruise ship or to a country the [facility] currently lists as an affected area. Patient denies contact with known and/or suspected case of COVID-19. Patient instructed to continue to wear a mask when interacting with others. Patient moved to private room, placed in contact and droplet isolation with eye protection until further assessment. Ebola Screen: Patient denies travel to an Ebola-affected area in the 21 days before illness onset. Initial Sepsis Screen: Does the patient meet any 2 criteria? No. Patient's initial sepsis screen is negative. Risk Assessment: Do you want to hurt yourself or someone else? Patient reports no desire to harm self or others. Onset of symptoms was January 09, 2020. 12:05 Method Of Arrival: Ambulatory ll1 12:05 Acuity: [place] 3 ll1 17:36 Initial Sepsis Screen: Does the patient have a suspected source of infection? No. jl7 Patient's initial sepsis screen is negative. 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 - Social history:: Smoking status: Patient denies any tobacco usage or history of. Patient/guardian denies using alcohol, street drugs, tobacco products. - Family history:: not pertinent. - Hospitalizations: : No recent hospitalization is reported. Screenin:30 Abuse screen: Denies threats or abuse. Denies injuries from another. Nutritional jl7 screening: No deficits noted. Tuberculosis screening: No symptoms or risk factors identified. Fall Risk IV access (20 points). Total Hunter Fall Scale indicates No Risk (0-24 pts). Assessment: 12:30 General: Appears in no apparent distress. uncomfortable, Behavior is calm, cooperative, jl7 appropriate for age. Pain: Complains of pain in sore throat, body aches, TAYLOR Pain currently is 8 out of 10 on a pain scale. Neuro: Level of Consciousness is awake, alert, obeys commands, Oriented to person, place, time, situation. Cardiovascular: Patient's skin is warm and dry. Respiratory: Reports cough that is Airway is patent Respiratory effort is even, unlabored, Respiratory pattern is regular, symmetrical. GI: Abdomen is non-distended. EENT:. Derm: Skin is pink, warm \T\ dry. 13:30 Reassessment: Patient appears in no apparent distress at this time. No changes from jl7 previously documented assessment. Patient and/or family updated on plan of care and expected duration. Pain level reassessed. Patient is alert, oriented x 3, equal unlabored respirations, skin warm/dry/pink. 14:30 Reassessment: Patient appears in no apparent distress at this time. No changes from jl7 previously documented assessment. Patient and/or family updated on plan of care and expected duration. Pain level reassessed. Patient is alert, oriented x 3, equal unlabored respirations, skin warm/dry/pink. 15:30 Reassessment: Patient appears in no apparent distress at this time. No changes from jl7 previously documented assessment. Patient and/or family updated on plan of care and expected duration. Pain level reassessed. Patient is alert, oriented x 3, equal unlabored respirations, skin warm/dry/pink. 16:30 Reassessment: Patient appears in no apparent distress at this time. No changes from jl7 previously documented assessment. Patient and/or family updated on plan of care and expected duration. Pain level reassessed. Patient is alert, oriented x 3, equal unlabored respirations, skin warm/dry/pink. 16:45 Reassessment: Dr. Arredondo at bedside discussing results and POC. 7 Vital Signs: 12:05 BP 130 / 86; Pulse 68; Resp 17; Temp 98.6; Pulse Ox 97% ; Weight 73.94 kg; Height 5 ft. ll1 5 in. (165.10 cm); Pain 8/10; 13:30 BP 128 / 65; Pulse 63; Resp 17; Pulse Ox 94% on R/A; jl7 14:30 BP 121 / 66; Pulse 67; Resp 19 S; Pulse Ox 95% on R/A; jl7 15:30 BP 126 / 56; Pulse 66; Resp 15; Pulse Ox 93% ; jl7 16:30 BP 131 / 63; Pulse 69; Resp 17; Pulse Ox 97% ; jl7 17:15 BP 126 / 63; Pulse 97; Resp 16; Pulse Ox 95% ; jl7 12:05 Body Mass Index 27.12 (73.94 kg, 165.10 cm) ll1 ED Course: 11:50 Patient arrived in ED. fj1 12:07 Triage completed. ll1 12:09 Arm band placed on Patient placed in an exam room, on a stretcher. ll1 12:11 Jeff Arredondo MD is Attending Physician. rn 12:20 Elena Conrad, JAZZ is Primary Nurse. jl7 12:42 Flu and/or RSV swab sent to lab. Strep swab sent to lab. Pt swabbed for COVID-19. jp3 Patient maintains SpO2 saturation greater than 95% on room air. 12:45 First set of blood cultures drawn. jp3 12:55 Initial lab(s) drawn, by me, sent to lab. Second set of blood cultures drawn by me. jp3 Inserted saline lock: 20 gauge in right wrist, using aseptic technique. Blood collected. 13:11 Placed in gown. Bed in low position. Call light in reach. Side rails up X 1. Verbal jp3 reassurance given. Pulse ox on. NIBP on. 13:23 Notified ED physician of a critical lab result(s). D dimer 709. jr10 13:45 CXR XRAY In Process Unspecified. EDMS 14:44 EKG done, by career technical education teacher. reviewed by Jeff Arredondo MD. at1 16:01 Throat Culture Sent. jl7 17:36 No provider procedures requiring assistance completed. IV discontinued, intact, jl7 bleeding controlled, No redness/swelling at site. Pressure dressing applied. Administered Medications: 17:25 Drug: Decadron - Dexamethasone 10 mg Route: IVP; Site: right wrist; jl7 17:30 Follow up: Response: No adverse reaction jl7 Outcome: 16:48 Discharge ordered by . rn 17:36 Discharged to home ambulatory. jl7 17:36 Condition: stable 17:36 Discharge instructions given to patient, Instructed on discharge instructions, follow up and referral plans. medication usage, Demonstrated understanding of instructions, follow-up care, medications, Prescriptions given X 1. 17:36 Patient left the ED. jl7 Addendum: 01/13/2020 17:38 Addendum: COVID-19 Result: Positive result giiven to ED physician to notify pt. a a5 Physician: Rashid Quiroz MD Physician was able to contact pt and pt was notified of positive COVID-19 swab result. Physician answered pt questions. Signatures: Dispatcher [employer] EDMS Jeff Arredondo MD MD rn Calderon, Audri, RN RN aa5 Carol Sandhu, enterprise software engineer EKG Tat1 Elena Conrad RN RN jl7 Nuno Schulte jp3 Flash Pearce1 Enrrique Abreu, RN RN ll1 Tianna Johnston, RN RN jr10
--- NOTE | 2020-01-11 21:47 | RAD REPORT ---
EXAM DESCRIPTION: CT - Chest For Pe Angio - 01/11/2020 9:39 pm CLINICAL HISTORY: Chest pain. COUGH COMPARISON: No comparisons TECHNIQUE: CT angiogram of the pulmonary arteries was performed with MIP. All CT scans are performed using dose optimization technique as appropriate and may include automated exposure control or mA/KV adjustment according to patient size. FINDINGS: No evidence of pulmonary thromboembolism. No acute aortic finding demonstrated. Bilateral ground-glass opacities are nonspecific. No significant pericardial or pleural fluid. No concerning bony finding. Mild left thyroid goiter. IMPRESSION: No evidence of pulmonary thromboembolism. Mild bilateral ground-glass lung opacities are seen which are nonspecific but can be seen in cases of COVID-19.
== END 2020-01-11 17:36 | disposition home or self-care (01) ==
LOC: ER 11:47
DX: U07.1 COVID-19 (principal); B34.9 Viral infection, unspecified; Z88.1 Allergy status to other antibiotic agents; Z88.8 Allergy status to other drugs, medicaments and biological substances; Z91.040 Latex allergy status; Z91.048 Other nonmedicinal substance allergy status
CPT/HCPCS: 93005; 87040 ×2; 87070; 85025; 80048; 36415; 85379; 87081; 83605; 84484; 82728; 84145; 86140; 87804 ×2; 71275; 71045; 96374; 99285; U0001; Q9967; J1100

== ENCOUNTER 2021-02-23 16:06 | Emergency (ER) | payer OTHER ==
--- OUTSIDE RECORDS SUMMARY | 2021-02-23 16:19 | XMS REPORT | Continuity of Care Document ---
:1945 Author Organization [facility] t Address [address] [place] [place] [address] Care Team Providers Name Role Phone Gregory LESTER Primary Care Physician Amaris BUI Attending Clinician Unavailable MERRY HUGHES Attending Clinician Unavailable BRODIE OLMEDO Attending Clinician Unavailable LAB47 Attending Clinician Unavailable Neptali CASTANEDA Attending Clinician Unavailable FADY Attending Clinician Unavailable Chato SCHULZ, T Attending Clinician Unavailable Lab, Fam Pob I Attending Clinician Unavailable Doctor Unassigned, Name Attending Clinician Unavailable Joseph JIN, Kory Attending Clinician Tommy Schuler Attending Clinician Tommy Schuler Admitting Clinician Payers Payer Name Policy Type Policy Number Effective Date Expiration Date Lakisha haywood [employer] - HMO 7 [id number] 2021 00:00:00 2020 R2T Problems Condition Condition Condition Status Onset Resolution Last Treating Co mments Source Name Details Category Date Date Treatment Clinician Date 07 Diagnosis Active 2015-062016-06-29 Mem oria 2-27 09:48:00 l 07 00:00: Shan 00 Active 06/12/2016 [place] CHEST Diagnosis Active 2016-06-29 Mem oria PAIN, 09:48:00 l UNSPECIFIE CHEST Svitlana nn D PAIN, UNSPECIFIE D Active [facility] Allergies, Adverse Reactions, Alerts Allergy Allergy Status Severity Reaction(s) Onset Inactive Treating Comm ents Source Name Type Date Date Clinician Foradil Adverse Active Info Not [facility] Aerolize Reaction Available [facility] Ambien Adverse Active Info Not [facility] Reaction [facility] Social History Social Habit Start Date Stop Date Quantity Comments Source Sex Assigned [birth year] [facility] 00:00:00 00:00:00 Smoking Status Start Date Stop Date Source Unknown if ever smoked [facility] Medications Ordered Filled Start Stop Current Ordering [...] Yes Dao (Schedule [facility] -Acetaminop -Acetaminop Ucenca II Drug) [facility] TK 1 T PO [facility] Q 4 H PRN l P [facility]pat[facility] ent Clinics Procedures This patient has no known procedures. Plan of Care Planned Activity Planned Date Details Comments Source Future Scheduled Test COVID-19 VACCINE (1) [facility] [code = COVID-19 VACCINE (1)] Future Scheduled Test BREAST CANCER SCREENING [facility] [code = BREAST CANCER SCREENING] Future Scheduled Test COLONOSCOPY SCREENING [facility] [code = COLONOSCOPY SCREENING] Future Scheduled Test SHINGLES VACCINES (#1) [facility] [code = SHINGLES VACCINES (#1)] Future Scheduled Test 65+ PNEUMOCOCCAL Me [facility] VACCINE (1 of 1 - PPSV23) [code = 65+ PNEUMOCOCCAL VACCINE (1 of 1 - PPSV23)] Future Scheduled Test INFLUENZA VACCINE [code [facility] = INFLUENZA VACCINE] Encounters Start End Encounter Admission Attending Care Care Encounter Source Date/Time Date/Time Type Type Clinicians Facility Department ID 2021-04-07 2021-04-07 Outpatient ANISHA BUI [id number] Anisha 09:00:00 09:00:00 SILKE Seybol d 2021-02-23 2021-02-23 Outpatient ANISHA HUGHES [id number] Anisha 15:00:00 15:00:00 LD Seybol d 2021-02-23 2021-02-23 Outpatient ANISHA HUGHES [id number] Anisha 00:00:00 00:00:00 LD Seybol d 2021-02-22 2021-02-22 Outpatient ANISHA HUGHES [id number] Anisha 00:00:00 00:00:00 LD Seybol d 2021-02-17 2021-02-17 Outpatient ANISHA HUGHES [id number] Anisha 00:00:00 00:00:00 LD Seybol d 2021-02-16 2021-02-16 Outpatient SUZANNE OLMEDO [id number] Anisha 13:30:00 13:30:00 Seybol d 2021-02-16 2021-02-16 Outpatient ANISHA HUGHES [id number] Anisha 10:45:00 10:45:00 LD Seybol d 2021-02-13 2021-02-13 Outpatient AMRIT JACKSON [id number] Anisha 15:45:00 15:45:00 Seybol d 2021-02-13 2021-02-13 Outpatient AUNG CASTANEDA 100 [id number] Anisha 15:00:00 15:00:00 Seybol d 2021-02-08 2021-02-08 Outpatient ANISHA SHRESTHA [id number] Anisha 14:40:00 14:40:00 LAZ Seybol d 2021-01-24 2021-01-24 Outpatient ANISHA HUGHES [id number] Anisha 00:00:00 00:00:00 LD Seybol d 2021-01-17 2021-01-17 Outpatient ANISHA HUGHES [id number] Anisha 13:30:00 13:30:00 LD Seybol d 2020-05-05 2020-05-05 Outpatient [facility] [id number] [facility] 2020-03-16 2020-03-16 [facility] [id number] [facility] 2020-03-11 2020-03-11 Out[facility] [id number] [facility] 2020-02-17 2020-02-17 Letter GENE Reis [id number] 00:00:00 00:00:00 (Out) Salima T CARMELA [id number] [place] [id number] 2020-02-16 2020-02-16 Laboratory Lab, [facility] [id number] 11:36:48 11:56:48 Only Fam P[facility] I Health [id number] [place] [id number] Professio [id number] nal [address] 2020-02-16 2020-02-16 Orders Doctor GENE [id number] 00:00:00 00:00:00 Only Unassigned, CARMELA [id number] [place] [id number] 2020-01-14 2020-01-14 [facility] [id number] [facility] [address] 09:58:00 09:58:00 [facility] 2020-01-11 2020-01-11 [facility] [id number] [address] 10:11:00 10:11:00 t [facility] 2019-12-24 2019-12-24 [facility] [id number] [address] 14:32:00 14:32:00 t [facility] 2019-11-30 2019-11-30 [facility] [id number] 09:30:00 09:30:00 t [facility] 2019-11-30 2019-11-30 [facility] [id number] [address] 08:27:00 08:27:00 t [facility] 2019-11-12 2019-11-12 [facility] [id number] [address] 10:30:00 10:30:00 t [facility] 2019-11-04 2019-11-04 [facility] [id number] [facility] 15:17:00 15:17:00 t [facility] 2019-10-29 2019-10-29 [facility] [id number] 09:45:00 09:45:00 t [facility] 2019-10-26 2019-10-26 [facility] [id number] 11:02:00 11:02:00 t [facility] 2019-10-13 2019-10-13 [facility] [id number] 09:44:00 09:44:00 t [facility] 2019-10-12 2019-10-12 [facility] [id number] 10:00:00 10:00:00 t [facility] 2019-09-11 2019-09-11 [facility], [facility] [id number] 00:00:00 00:00:00 Avril Rico [id number] [place] [id number] [facility] [id number] [address] 2019-09-02 2019-09-02 [facility] [id number] 11:29:00 11:29:00 t [facility] 2019-08-26 2019-08-26 [facility] [id number] 09:55:00 09:55:00 t [facility] 2019-08-21 2019-08-21 [facility] [id number] [address] 08:15:00 08:15:00 t [facility] 2019-08-11 2019-08-11 [facility] [id number] 08:31:00 08:31:00 t [facility] 2019-08-10 2019-08-10 [facility] [id number] 09:37:00 09:37:00 t Bone [facility] 2019-08-07 2019-08-07 [facility] [id number] 15:44:00 15:44:00 t [facility] 2019-07-27 2019-07-27 [facility] [id number] 09:30:00 09:30:00 t [facility] Clin[facility] 2019-02-11 2019-02-11 Office [facility], [facility] [id number] 14:32:34 15:19:14 Visit Avril Horn Trisha [id number] [place] [id number] [facility] [id number] 204 [facility] 2018-02-13 2018-02-13 [facility] [id number] 14:30:00 14:30:00 [facility] Clin[facility] 2016-06-29 2016-06-30 Outpatient [facility] [id number] [facility] 15:39:00 05:59:00 chris Torrez 00 l [facility] 2016-06-29 2016-06-29 Outpatient [place] [facility] [id number] 09:39:00 23:59:00 Dao Results Test Description Test Time Test Comments Results Result Comments Source CHEM PANEL 2016-06-29 32 Pati garcia 17:10:00 CHEM PANEL 2016-06-29 1.6 Pati garcia 17:10:00
[2021-02-23 19:14] LABS: Absolute Lymphocytes (CBC) 1.2 K/uL (0.7-4.9); Basophils % 0.3 % (0-1.3); Hematocrit 35.8 % (36.0-45.0); Lymphocytes % 17.2 % (15.3-44.8); MPV 7.9 fL (7.6-11.3); RBC Red Blood Cell Count 4.53 M/uL (3.86-4.86)
[2021-02-23 19:23] LABS: Albumin 3.4 g/dL (3.4-5.0); Bilirubin Direct 0.2 mg/dL (0-0.2); Bilirubin Total 0.7 mg/dL (0.2-1.0); Potassium 4.1 mmol/L (3.5-5.1); Protein, Total 6.6 g/dL (6.4-8.2)
[2021-02-23] MEDS ORDERED: DIPHENHYDRAMINE 50 MG/ML VIAL ONE (19:24)
[2021-02-23] MEDS ORDERED: FAMOTIDINE 20 MG/2 ML VIAL IV ONE (19:24)
[2021-02-23 19:32] LABS: Protime INR 1.11
--- NOTE | 2021-02-23 20:06 | RAD REPORT ---
EXAM DESCRIPTION: US - Extrem Venous W Compress Clarence - 02/23/2021 7:32 pm CLINICAL HISTORY: Pain COMPARISON: None. TECHNIQUE: Real-time sonographic evaluation of the bilateral lower extremity deep venous systems was performed. FINDINGS: Normal compressibility, flow augmentation, phasic flow and spontaneous flow is identified in both the left and right lower extremity deep venous systems. No intraluminal filling defects seen. IMPRESSION: No DVT in either lower extremity.
--- NOTE | 2021-02-23 20:55 | EDPHYS ---
Physician Documentation [facility] Name: Genny Mccall Age: 75 yrs Sex: Female : 1945 Arrival Date: 02/23/2021 Time: 16:10 Bed 17 Private MD: ED Physician Rashid Quiroz HPI: 02/23 18:05 This 75 yrs old Female presents to ER via Ambulatory with complaints of Leg jmm Pain, Leg Swelling. 20:47 Onset: The symptoms/episode began/occurred gradually, 1 day(s) ago. Modifying factors: jmm The symptoms are alleviated by nothing. the symptoms are aggravated by nothing. Associated signs and symptoms: Pertinent positives: swelling. This is a 75-year-old female with a history of diabetes mellitus that presents to the emergency department with complaints of bilateral leg swelling and pain as well as itching. Patient states she has had similar episodes to her trunk.. Historical: - Allergies: 16:17 Ciprofloxacin; tw2 16:17 formoterol fumarate; tw2 16:17 Latex, Natural Rubber; tw2 16:17 zolpidem; tw2 - Home Meds: 16:17 pilocarpine HCl 5 mg oral tab 1 tab 3 times per day [Active]; Omeprazole Oral [Active]; tw2 Zoloft 100 mg Oral tab 1 tab once daily [Active]; 16:20 albuterol sulfate 2 mg Oral tab 1 tab 3 times per day [Active]; amlodipine 2.5 mg tab 1 tw2 tab once daily [Active]; aspirin 81 mg Oral chew 1 tab once daily [Active]; azelastine 137 mcg (0.1 %) nasal spra 1 spray 2 times per day [Active]; cholecalciferol (vitamin D3) 50 mcg (2,000 unit) oral cap [Active]; magnesium oxide 250 mg magnesium Oral tab [Active]; metoprolol tartrate 25 mg Oral tab 1 tab once daily [Active]; montelukast 10 mg oral tab 1 tab once daily [Active]; multivitamin with minerals oral [Active]; Novolin N NPH U-100 Insulin 100 unit/mL Sub-Q crtg 12 units [Active]; - PMHx: 16:17 R BBB, irrregular heart rate; schrogrens; Diabetes mellitus; Gastroesophageal reflux tw2 disease; - Social history:: Smoking status: . ROS: 20:47 Constitutional: Negative for fever, chills, and weight loss, Cardiovascular: Negative [facility] for chest pain, palpitations, and edema, Respiratory: Negative for shortness of breath, cough, wheezing, and pleuritic chest pain. 20:47 MS/extremity: Positive for pain, swelling. 20:47 All other systems are negative. Exam: 20:47 Constitutional: This is a well developed, well nourished patient who is awake, alert, jmm and in no acute distress. Head/Face: atraumatic. Eyes: EOMI, no conjunctival erythema appreciated ENT: Moist Mucus Membranes Neck: Trachea midline, Supple Chest/axilla: Normal chest wall appearance and motion. Cardiovascular: Regular rate and rhythm. No edema appreciated Respiratory: Normal respirations, no respiratory distress appreciated Abdomen/GI: Non distended, soft Back: Normal ROM 20:47 Musculoskeletal/extremity: Mild edema noted to the legs bilaterally, full dorsalis pulses appreciated bilaterally, compartments are soft, neurovascular intact. 20:47 Skin: Purpura are noted bilaterally to the legs diffusely, nontender to palpation, do not sasha. 20:47 Neuro: Orientation: is normal, Mentation: is normal, Memory: is normal. 20:47 Psych: Behavior/mood is pleasant, cooperative. Vital Signs: 16:24 BP 119 / 47; Pulse 100; Resp 20; Temp 98.6(TE); Pulse Ox 97% on R/A; Weight 77.29 kg; tw2 Height 5 ft. 5 in. (165.10 cm) (R); Pain 9/10; 17:55 BP 113 / 66; Pulse 86; Resp 18 S; Pulse Ox 98% on R/A; jd3 19:08 BP 127 / 64; Pulse 81; Resp 16 S; Pulse Ox 98% on R/A; jd3 21:17 BP 107 / 61; Pulse 83; Resp 16 S; Temp 98.6(O); Pulse Ox 97% on R/A; Pain 0/10; bb 16:24 Body Mass Index 28.36 (77.29 kg, 165.10 cm) tw2 MDM: 18:05 Patient medically screened. [facility] 20:47 Data reviewed: vital signs, nurses notes. Counseling: I had a detailed discussion with vanessa the patient and/or guardian regarding: the historical points, exam findings, and any diagnostic results supporting the discharge/admit diagnosis, lab results, radiology results, the need for outpatient follow up, to return to the emergency department if symptoms worsen or persist or if there are any questions or concerns that arise at home. ED course: Patient is alert nontoxic in appearance in the ED. Ultrasound reveals no signs of DVT. 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 Will treat with medication to help with this. Patient is otherwise advised to follow-up with hematology. Patient understood and agrees plan of care.. 02/23 18:09 Order name: Basic Metabolic Panel; Complete Time: 19:24 [facility] 02/23 18:09 Order name: CBC with Diff; Complete Time: 19:37 [facility] 02/23 18:09 Order name: Hepatic Function; Complete Time: 19:24 [facility] 02/23 18:09 Order name: Lipase; Complete Time: 19:24 [facility] 02/23 18:09 Order name: US Extremity Venous W Compression Clarence; Complete Time: 20:08 [facility] 02/23 18:12 Order name: PT-INR; Complete Time: 19:37 [facility] 02/23 18:09 Order name: IV Saline Lock; Complete Time: 18:50 [facility] 02/23 18:09 Order name: Labs collected and sent; Complete Time: 18:50 [facility] Administered Medications: 19:12 Drug: Pepcid (famotidine) 20 mg Route: IVP; Site: left antecubital; jd3 21:18 Follow up: Response: No adverse reaction bb 19:13 Drug: Benadryl (diphenhydrAMINE) 12.5 mg Route: IVP; Site: left antecubital; jd3 21:18 Follow up: Response: No adverse reaction bb Disposition: 02/24 04:48 Co-signature as Attending Physician, Rashid Quiroz MD I agree with the assessment and kdr plan of care. Disposition Summary: 02/23/21 20:55 Discharge Ordered Location: Home jmm Condition: Stable jmm Diagnosis - Purpura jmm Followup: jmm - With: Private Physician - When: 2 - 3 days - Reason: Recheck today's complaints, Continuance of care, Re-evaluation by your physician Discharge Instructions: - Discharge Summary Sheet jmm - Henoch-Schonlein Purpura, Adult jmm Forms: - Medication Reconciliation Form [facility] - Thank You Letter jm - Antibiotic Education [facility] - Prescription Opioid Use [facility] Prescriptions: - Hydroxyzine HCl 25 mg Oral Tablet - take 1 tablet by ORAL route every 6 hours As needed; 30 tablet; Refills: 0, [facility] Product Selection Permitted - Medrol (Kunal) 4 mg Oral Tablets, Dose Pack - take 1 tablet by ORAL route as directed - follow package instructions; 1 [facility] packet; Refills: 0, Product Selection Permitted Signatures: Dispatcher [employer] Rashid Pendleton MD MD kdr Mickail, Joel, PA PA jmm Wise, Tara RN RN tw2 Talha Abreu RN RN jRadha Márquez RN bb Corrections: (The following items were deleted from the chart) 02/23 16:24 16:17 Home Meds: nanolin 12 units once nightly; tw2 tw2
--- NOTE | 2021-02-23 20:55 | ER ---
Nurse's Notes [facility] Name: Genny Mccall Age: 75 yrs Sex: Female : 1945 Arrival Date: 02/23/2021 Time: 16:10 Bed 17 Private MD: Diagnosis: Purpura Presentation: 02/23 16:16 Chief complaint: Patient states: i have this redness and swelling on both my legs. it tw2 is up to my pubic area and on my back. my feet are swollen and i am having a hard time breathing. Coronavirus screen: difficulty breathing, Client presents with at least one sign or symptom that may indicate coronavirus-19. Standard/surgical mask placed on the client. Provider contacted for isolation considerations. Coronavirus screen: congestion, cough unrelated to allergies. Ebola Screen: Patient denies travel to an Ebola-affected area in the 21 days before illness onset. Initial Sepsis Screen: Does the patient meet any 2 criteria? HR > 90 bpm. No. Patient's initial sepsis screen is negative. Does the patient have a suspected source of infection? No. Patient's initial sepsis screen is negative. Risk Assessment: Do you want to hurt yourself or someone else? Patient reports no desire to harm self or others. Onset of symptoms was February 23, 2021. 16:16 Method Of Arrival: Ambulatory tw2 16:16 Acuity: [place] 3 tw2 Triage Assessment: 16:24 General: Appears in no apparent distress. obese, well groomed, Behavior is calm, tw2 cooperative, appropriate for age. Pain: Complains of pain in right leg and left leg. Historical: - Allergies: 16:17 Ciprofloxacin; tw2 16:17 formoterol fumarate; tw2 16:17 Latex, Natural Rubber; tw2 16:17 zolpidem; tw2 - Home Meds: 16:17 pilocarpine HCl 5 mg oral tab 1 tab 3 times per day [Active]; Omeprazole Oral [Active]; tw2 Zoloft 100 mg Oral tab 1 tab once daily [Active]; 16:20 albuterol sulfate 2 mg Oral tab 1 tab 3 times per day [Active]; amlodipine 2.5 mg tab 1 tw2 tab once daily [Active]; aspirin 81 mg Oral chew 1 tab once daily [Active]; azelastine 137 mcg (0.1 %) nasal spra 1 spray 2 times per day [Active]; cholecalciferol (vitamin D3) 50 mcg (2,000 unit) oral cap [Active]; magnesium oxide 250 mg magnesium Oral tab [Active]; metoprolol tartrate 25 mg Oral tab 1 tab once daily [Active]; montelukast 10 mg oral tab 1 tab once daily [Active]; multivitamin with minerals oral [Active]; Novolin N NPH U-100 Insulin 100 unit/mL Sub-Q crtg 12 units [Active]; - PMHx: 16:17 R BBB, irrregular heart rate; schrogrens; Diabetes mellitus; Gastroesophageal reflux tw2 disease; - Social history:: Smoking status: . Screenin:55 Abuse screen: Denies threats or abuse. Nutritional screening: No deficits noted. jd3 Tuberculosis screening: No symptoms or risk factors identified. Fall Risk Ambulatory Aid- None/Bed Rest/Nurse Assist (0 pts). Gait- Normal/Bed Rest/Wheelchair (0 pts) Mental Status- Oriented to own ability (0 pts). Total Hunter Fall Scale indicates No Risk (0-24 pts). Assessment: 17:51 General: Appears in no apparent distress. comfortable, Behavior is calm, cooperative, jd3 appropriate for age. Pain: Complains of pain in left hip, right hip, right leg and left leg Quality of pain is described as aching, radiating, tender. Neuro: Level of Consciousness is awake, alert, obeys commands, Oriented to person, place, time, situation. Cardiovascular: Denies chest pain, Capillary refill < 3 seconds Patient's skin is warm and dry. Respiratory: Reports cough that is dry, X 2 days Airway is patent Respiratory effort is even, unlabored, Respiratory pattern is regular, symmetrical. GI: No signs and/or symptoms were reported involving the gastrointestinal system. : No signs and/or symptoms were reported regarding the genitourinary system. EENT: No signs and/or symptoms were reported regarding the EENT system. Derm: Skin is intact, Skin is dry, Skin is normal, Skin temperature is warm Rash noted that is on right leg and left leg. Musculoskeletal: Circulation, motion, and sensation intact. Range of motion: intact in all extremities. 18:50 Reassessment: Patient appears in no apparent distress at this time. Patient and/or jd3 family updated on plan of care and expected duration. Pain level reassessed. Patient is alert, oriented x 3, equal unlabored respirations, skin warm/dry/pink. 21:16 Reassessment: Patient is alert, oriented x 3, equal unlabored respirations, skin bb warm/dry/pink. pt verbalized understanding of and agrees to plan of care discharge instructions given pt ambulated with steady gait to exit accompanied by spouse. Vital Signs: 16:24 BP 119 / 47; Pulse 100; Resp 20; Temp 98.6(TE); Pulse Ox 97% on R/A; Weight 77.29 kg; tw2 Height 5 ft. 5 in. (165.10 cm) (R); Pain 9/10; 17:55 BP 113 / 66; Pulse 86; Resp 18 S; Pulse Ox 98% on R/A; jd3 19:08 BP 127 / 64; Pulse 81; Resp 16 S; Pulse Ox 98% on R/A; jd3 21:17 BP 107 / 61; Pulse 83; Resp 16 S; Temp 98.6(O); Pulse Ox 97% on R/A; Pain 0/10; bb 16:24 Body Mass Index 28.36 (77.29 kg, 165.10 cm) tw2 ED Course: 16:10 Patient arrived in ED. as 16:17 Triage completed. tw2 16:24 Arm band placed on. tw2 17:09 Talha Abreu, RN is Primary Nurse. jd3 17:28 Jl Benz PA is PHCP. [facility] 17:29 Rashid Quiroz MD is Attending Physician. [facility] 17:55 Patient has correct armband on for positive identification. Bed in low position. Call jd3 light in reach. Side rails up X 1. Adult w/ patient. Pulse ox on. NIBP on. Warm blanket given. 18:50 Inserted saline lock: 22 gauge in left antecubital area, using aseptic technique. Blood jd3 collected. 19:32 US Extremity Venous W Compression Clarence In Process Unspecified. EDMS 21:16 No provider procedures requiring assistance completed. IV discontinued, intact, bb bleeding controlled, No redness/swelling at site. Pressure dressing applied. Administered Medications: 19:12 Drug: Pepcid (famotidine) 20 mg Route: IVP; Site: left antecubital; jd3 21:18 Follow up: Response: No adverse reaction bb 19:13 Drug: Benadryl (diphenhydrAMINE) 12.5 mg Route: IVP; Site: left antecubital; jd3 21:18 Follow up: Response: No adverse reaction bb Outcome: 20:55 Discharge ordered by MD. mendez 21:17 Discharged to home ambulatory, with family. bb 21:17 Condition: stable 21:17 Discharge instructions given to patient, Instructed on discharge instructions, follow up and referral plans. medication usage, Demonstrated understanding of instructions, follow-up care, medications, Prescriptions given X 1. 21:18 Patient left the ED. bb Signatures: Dispatcher [employer] EDMS Jl Benz PA PA jmm Martinez, Amelia as Ballard, Brenda RN RN bb Sabrina Marcos, RN RN tw2 Talha Abreu RN RN jd3 Corrections: (The following items were deleted from the chart) 16:24 16:17 Home Meds: nanolin 12 units once nightly; tw
[2021-02-23 21:25] VITALS: TEMP 98.6
[2021-02-23 21:29] VITALS: BP 107/61; O2SAT 97
== END 2021-02-23 21:18 | disposition home or self-care (01) ==
LOC: ER 16:06
DX: D69.2 Other nonthrombocytopenic purpura (principal); E11.9 Type 2 diabetes mellitus without complications; K21.9 Gastro-esophageal reflux disease without esophagitis; I45.10 Unspecified right bundle-branch block; Z88.3 Allergy status to other anti-infective agents; Z88.8 Allergy status to other drugs, medicaments and biological substances; Z91.040 Latex allergy status
CPT/HCPCS: 85025; 80048; 36415; 85610; 80076; 83690; 93970; 96375; 96374; 99284; J1200

== ENCOUNTER 2022-03-08 11:43 | Emergency (ER) | payer OTHER ==
--- OUTSIDE RECORDS SUMMARY | 2022-03-08 11:50 | XMS REPORT | Continuity of Care Document ---
:1945 Author Organization [facility] t Address [address] [place] [address] Dr. Horner [address] [place] [address] Care Team Providers Name Role Phone Greta Younger Primary Care Physician GRETA WARNER Attending Clinician Unavailable AUNG CASTANEDA Attending Clinician Unavailable SHRUTHI RUBY Attending Clinician Unavailable RAVEN COY Attending Clinician Unavailable LD HUGHES Attending Clinician Unavailable DOREEN MISTRY Attending Clinician Unavailable LAB90 Attending Clinician Unavailable Raven Lerma Attending Clinician Ld Hughes MD Attending Clinician [phone] Yordan Ho DO Attending Clinician YORDAN HO Attending Clinician Unavailable JOSE A PITTS Attending Clinician Unavailable MD MARINA Attending Clinician Unavailable [id number] Attending Clinician Unavailable TESTING, PL COVID Attending Clinician Unavailable Aung Castaneda DO Attending Clinician SILKE BUI Attending Clinician Unavailable Candido RN,Hunter GAFFNEY Attending Clinician Unavailable HUNTER REY Attending Clinician Unavailable EDUARDO OLMEDO Attending Clinician Unavailable LAB47 Attending Clinician Unavailable LAZ SHRESTHA Attending Clinician Unavailable LENY GALLAGHER Attending Clinician Unavailable AVRIL SPRAGUE Attending Clinician Unavailable Chato SCHULZ, Salima Landis Attending Clinician Unavailable Lab, Adc Fam Pob I Attending Clinician Unavailable Alicia Montemayor Attending Clinician ALICIA STONE Attending Clinician Unavailable Doctor Unassigned, [place] Attending Clinician Unavailable Avril Larios Attending Clinician Dao Schuler Attending Clinician [phone] Dao Schuler Admitting Clinician Payers Payer Name Policy Type Policy Number Effective Date Expiration Date Lakisha haywood [place] [place] 7 [id number] 2021 00:00:00 MEDICARE PART A \\T\\ [id number] 2011 B 00:00:00 [facility] [id number] 2017 MEDICARE SUPPLEMENT 00:00:00 Problems Condition Condition Condition Status Onset Resolution Last Treating Co mments Source Name Details Category Date Date Treatment Clinician Date 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 Seybold vasculitis vasculitis 00:00: 00 GERD GERD Disease Active Anisha (gastroeso (gastroeso 9-02 Se ybold phageal phageal 00:00: reflux reflux 00 disease) disease) DM type 2 DM type 2 Disease Active Wendy sey with with 9 Seybold diabetic diabetic 00:00: mixed mixed 00 hyperlipid hyperlipid emia emia Mixed Mixed Disease Active Anisha hyperlipid hyperlipid 8-30 Se ybold emia emia 00:00: 00 Diabetes Diabetes Disease Active Kelse y mellitus mellitus 8-25 Seybol d type 2 type 2 00:00: without without 00 retinopath retinopath y y Essential Essential Disease Active Wendy sey hypertensi hypertensi 8-03 Se ybold on on 00:00: 00 RENA RENA Disease Active Overview: Univer s (stress (stress 8-30 Added ity of urinary urinary 00:00: automatic [place] incontinen incontinen 00 ally from Medical ce, ce, request Branch female) female) for surgery [id number] Diagnosis Active 2015-062016-06-29 Mem oria Active 08-13 09:48:00 l 06/12/2016 00:00: Keven rodas 00 [facility] CHEST CHEST Diagnosis Active 2016-06-29 Mem oria PAIN, PAIN, 09:48:00 l UNSPECIFIE UNSPECIFIE He donna D D Active [facility] Allergies, Adverse Reactions, Alerts Allergy Allergy Status Severity Reaction(s) Onset Inactive Treating Comm ents Source Name Type Date Date Clinician Atorvast Propensi Active Myalgia 2020-06 Kelse y atin ty to 1-15 Seybold adverse 00:00: reaction 00 s to drug Acyclovi Propensi Active Rash 2017-0 Univer s r ty to 8-15 ity of adverse 00:00: [place] reaction 00 Medical s to Branch drug Ciproflo Propensi Active Rash 2017-0 Univer s xacin ty to 8-15 ity of adverse 00:00: [place] reaction 00 Medical s to Branch drug Atorvast Propensi Active Other - See 0 U nivers atin ty to comments 8-15 ity of adverse 00:00: [place] reaction 00 Medical s to Branch drug Ketorola Propensi Active Rash 2017-0 Univer s c ty to 8-15 ity of adverse 00:00: [place] reaction 00 Medical s to Branch drug ACYCLOVI DRUG Active Rash 2018-0 Univers R INGREDI 8-15 ity of 00:00: [place] 00 Medical Branch CIPROFLO DRUG Active Rash 2017-0 Univers XACIN INGREDI 8-15 ity of 00:00: [place] 00 Medical Branch ATORVAST DRUG Active Other-Cmnt [id number] Univ ers ATIN INGREDI 8-15 ity of 00:00: [place] 00 Medical Branch KETOROLA DRUG Active Rash 2018-0 Univers C INGREDI 8-15 ity of 00:00: [place] 00 Medical Branch Adhesive Propensi Active Rash 2018-0 Univer s Tape-Giselle ty to 8-13 ity of icones adverse 00:00: [place] reaction 00 Medical s Branch Latex Propensi Active Rash 2018-0 Univers ty to 8-13 ity of adverse 00:00: [place] reaction 00 Medical s Branch ADHESIVE DRUG Active Rash 2017-0 Univers TAPE-GISELLE 8-13 ity of ICONES 00:00: [place] 00 Medical Branch LATEX DRUG Active Rash 2018-0 Univers INGREDI 8-13 ity of 00:00: [place] 00 Medical Branch Mirtazap Propensi Active Other - See Night U nivers ine ty to comments 01-10 daigle ity of adverse 00:00: [place] reaction 00 Medical s Branch MIRTAZAP DRUG Active Hallucinates Un kitty INE INGREDI 01-10 ity of 00:00: [place] 00 Medical Branch Zolpidem Propensi Active Hallucinatio Univers Tartrate ty to ns 11-14 ity of adverse 00:00: [place] reaction 00 Medical s to Branch drug ZOLPIDEM DRUG Active Med Hallucinates Un kitty TARTRATE INGREDI 11-14 ity of 00:00: [place] 00 Medical Branch Zolpidem Propensi Active Hallucinatio Anisha ty to ns 09-23 Seybold adverse 00:00: reaction 00 s Foradil Adverse Active Info Not Common Aerolize Reaction Available [facility] Ambien Adverse Active Info Not Common Reaction Available Spiri t [facility] Social History Social Habit Start Date Stop Date Quantity Comments Source Exposure to Yes Anisha harry SARS-CoV-2 (event) Tobacco use and 2021-01-17 2021-01-17 Smokeless tobacco Ke lucioey Seybold exposure 00:00:00 00:00:00 non-user Alcohol intake 2019-02-11 2019-02-11 Current University of 00:00:00 00:00:00 non-drinker of [facility] alcohol (finding) Branch Sex Ass[birth year] [facility] 00:00:00 00:00:00 Smoking Status Start Date Stop Date Source Tobacco smoking consumption unknown [facility] Never smoked tobacco Anisha Treviño old Medications Ordered Filled Start Stop Current Ordering Indication Dosage Frequency Signature Comments Components Source Medication Medication Date Date Medication? Clinician (SIG) Name Name Multiple 2021- No [id number] Take by Anisha Vitamin 11-16 00 mouth Seybold (MULTIVITAM 13:39: 00:00 IN ADULT 40 :00 OR) Aspirin 81 Yes [id number] 81mg Take 81 mg Anisha MG oral 11-16 by mouth Seybold Tablet 13:26: daily Delayed 34 Response Azelastine Yes 1{spray 1 spray by Anisha HCl 0.15 % 11-16 } nasal Seybold nasal 13:26: route 2 Solution 34 times daily Diclofenac Yes every 6 Kathleen ey Sodium 1 % 11-16 (six) Seybold apply 13:26: hours externally 34 Gel Magnesium Yes Take by Kelse y 250 MG oral 11-16 mouth Seybold Tablet 13:26: 34 Mupirocin Yes [id number] Apply 1 Anisha (BACTROBAN) 11-16 applicatio Se ybold 2 % apply 00:00: n externally 00 topically Ointment 2 times daily Amoxicillin 2021- No [id number] 1{tbl} Take 1 Anisha -Pot 11-16 tablet by Seybold Clavulanate 00:00: 04:59 mouth 3 500-125 MG 00 :00 times oral Tablet daily for 10 days Triamcinolo 2021- No [id number] Apply 1 Anisha ne 11-16 applicatio Seybold Acetonide 00:00: 04:59 n 0.1 % apply 00 :00 topically externally 2 times Cream daily for 7 days Aspirin 81 Yes [id number] 81mg Take 81 mg Anisha MG oral 5-05 00 by mouth Seybold Tablet 10:05: daily Delayed 44 Response Azelastine Yes 1{spray 1 spray by Anisha HCl 0.15 % 10-19 } nasal Seybold nasal 10:05: route 2 Solution 44 times daily Diclofenac Yes every 6 Kathleen ey Sodium 1 % 05 (six) Seybold apply 10:05: hours externally 44 Gel Magnesium Yes Take by Kelse y 250 MG oral 5-05 mouth Seybold Tablet 10:05: 44 Metoprolol Yes 25mg Take 1 Kelse y Tartrate 25 4-15 tablet (25 Se ybold MG oral 00:00: mg total) Tablet 00 by mouth daily with food Metoprolol Yes 25mg Take 1 Kelse y Tartrate 25 4-15 tablet (25 Se ybold MG oral 00:00: mg total) Tablet 00 by mouth daily with food Aspirin 81 Yes [id number] 81mg Take 81 mg Anisha MG oral 06-29 00 by mouth Seybold Tablet 11:11: daily Delayed 07 Response Multiple Yes [id number] Take by Anisha Vitamin 06-29 00 mouth Seybold (MULTIVITAM 11:11: IN ADULT 07 OR) Azelastine 0 Yes 1{spray 1 spray by Anisha HCl 0.15 % 06-29 } nasal Seybold nasal 11:11: route 2 Solution 07 times daily Cholecalcif Yes Take by Wendy sey andrei 50 MCG 06-29 mouth Seybold (1999) 11:11: oral 07 Capsule Diclofenac Yes every 6 Kathleen ey Sodium 06-29 (six) Seybold (Voltaren) 11:11: hours 1 % apply 07 externally Gel Magnesium Yes Take by Tawanna y 250 MG oral 06-29 mouth Seybold Tablet 11:11: 07 Multiple Yes [id number] Take by Anisha Vitamin 06-29 00 mouth Seybold (MULTIVITAM 11:11: IN ADULT 07 OR) Cholecalcif Yes Take by Wendy sey andrei 50 MCG 06-29 mouth Seybold (1999) 11:11: oral 07 Capsule Cholecalcif Yes Take by Wendy sey andrei 50 MCG 06-29 mouth Seybold (1999) 11:11: oral 07 Capsule Celecoxib Yes [id number] 200mg Take 1 Anisha (CeleBREX) 06-29 9104 capsule Seybol d 200 MG oral 00:00: (200 mg Capsule 00 total) by mouth 2 times daily Celecoxib Yes [id number] 200mg Take 1 Anisha (CeleBREX) 06-29 4105 capsule Seybol d 200 MG oral 00:00: (200 mg Capsule 00 total) by mouth 2 times daily Celecoxib 2021-0 2021- No [id number] 200mg Take 1 Anisha (CeleBREX) 06-29-02 4105 capsule Seybo ld 200 MG oral 00:00: 00:00 (200 mg Capsule 00 :00 total) by mouth 2 times daily Aspirin 81 2020-06 Yes [id number] 81mg Take 81 mg Anisha MG oral 2-16 00 by mouth Seybold Tablet 10:52: daily Delayed 56 Response Multiple 2020-06 Yes [id number] Take by Anisha Vitamin 2-16 00 mouth Seybold (MULTIVITAM 10:52: IN ADULT 56 OR) Azelastine 2020-06 Yes 1{spray 1 spray by Anisha HCl 0.15 % 2-16 } nasal Seybold nasal 10:52: route 2 Solution 56 times daily Cholecalcif 2020-06 Yes Take by Wendy sey andrei 50 MCG 2-16 mouth Seybold (1999) 10:52: oral 56 Capsule Diclofenac 2020-06 Yes every 6 Kathleen ey Sodium 2-16 (six) Seybold (Voltaren) 10:52: hours 1 % apply 56 externally Gel Magnesium 2020-06 Yes Take by Kelse y 250 MG oral 2-16 mouth Seybold Tablet 10:52: 56 Aspirin 81 2020-06 Yes [id number] 81mg Take 81 mg Anisha MG oral 1-15 00 by mouth Seybold Tablet 13:30: daily Delayed 57 Response Multiple 2020-06 Yes [id number] Take by Anisha Vitamin 1-15 00 mouth Seybold (MULTIVITAM 13:30: IN ADULT 57 OR) Azelastine 2020-06 Yes 1{spray 1 spray by Anisha HCl 0.15 % -15 } nasal Seybold nasal 13:30: route 2 Solution 57 times daily Cholecalcif 2020-06 Yes Take by Wendy sey andrei 50 MCG 1-15 mouth Seybold (1999) 13:30: oral 57 Capsule Diclofenac 2020-06 Yes every 6 Kathleen ey Sodium 1-15 (six) Seybold (Voltaren) 13:30: hours 1 % apply 57 externally Gel Magnesium 2020-06 Yes Take by Kelse y 250 MG oral 1-15 mouth Seybold Tablet 13:30: 57 Aspirin 2020-06- No 1{tbl} Take 1 Kelse y Buf,CaCarb- 1-15 11-15 tablet by Se ybold MgCarb-MgO, 13:29: 00:00 mouth 81 MG oral 34 :00 daily Tablet Sertraline 2020-06 Yes 100mg Take 1 Kathleen ey HCl 100 MG 0-25 tablet Seybold oral Tablet 00:00: (100 mg 00 total) by mouth daily Pravastatin 2020-06 Yes 40mg Take 1 Kathleen ey Sodium 40 0-25 tablet (40 Seyb old MG oral 00:00: mg total) Tablet 00 by mouth daily Sertraline 2020-06 Yes 100mg Take 1 Kathleen ey HCl 100 MG 0-25 tablet Seybold oral Tablet 00:00: (100 mg 00 total) by mouth daily Pravastatin 2020-06 Yes 40mg Take 1 Kathleen ey Sodium 40 0-25 tablet (40 Seyb old MG oral 00:00: mg total) Tablet 00 by mouth daily Sertraline 2020-06 Yes 100mg Take 1 Kathleen ey HCl 100 MG 0-25 tablet Seybold oral Tablet 00:00: (100 mg 00 total) by mouth daily Pravastatin 2020-06 Yes 40mg Take 1 Kathleen ey Sodium 40 0-25 tablet (40 Seyb old MG oral 00:00: mg total) Tablet 00 by mouth daily Sertraline 2020-06 Yes 100mg Take 1 Kathleen ey HCl 100 MG 0-25 tablet Seybold oral Tablet 00:00: (100 mg 00 total) by mouth daily Pravastatin 2020-06 Yes 40mg Take 1 Kathleen ey Sodium 40 0-25 tablet (40 Seyb old MG oral 00:00: mg total) Tablet 00 by mouth daily Sertraline 2020-06 Yes 100mg Take 1 Kathleen ey HCl 100 MG 0-25 tablet Seybold oral Tablet 00:00: (100 mg 00 total) by mouth daily Pravastatin 2020-06 Yes 40mg Take 1 Kathleen ey Sodium 40 0-25 tablet (40 Seyb old MG oral 00:00: mg total) Tablet 00 by mouth daily Montelukast 2020-06- No 10mg Take 10 mg Anisha (SINGULAIR) 0-20 10-20 by mouth Sey bold 10 MG oral 13:39: 00:00 Tablet 32 :00 tablet Pravastatin 2020-06- No Kelse y Sodium 10 0-20 10-20 Seybold MG oral 13:38: 00:00 Tablet 48 :00 Aspirin 81 2020-06 Yes [id number] 81mg Take 81 mg Anisha MG oral 0-20 00 by mouth Seybold Tablet 13:37: daily Delayed 27 Response Multiple 2020-06 Yes [id number] Take by Anisha Vitamin 0-20 00 mouth Seybold (MULTIVITAM 13:37: IN ADULT 27 OR) Aspirin 2020-06 Yes 1{tbl} Take 1 Anisha Buf,CaCarb- 0-20 tablet by Dee bold MgCarb-MgO, 13:37: mouth 81 MG oral 27 daily Tablet Azelastine 2020-06 Yes 1{spray 1 spray by Anisha HCl 0.15 % 0-20 } nasal Seybold nasal 13:37: route 2 Solution 27 times daily Cholecalcif 2020-06 Yes Take by Wendy griffiny andrei 50 MCG 0-20 mouth Seybold (1999 [place]) 13:37: oral 27 Capsule Diclofenac 2020-06 Yes every 6 Kathleen ey Sodium 0-20 (six) Seybold (Voltaren) 13:37: hours 1 % apply 27 externally Gel Magnesium 2020-06 Yes Take by Tawanna y 250 MG oral 0-20 mouth Seybold Tablet 13:37: 27 Pravastatin 2020-06 Yes [id number] 40mg Take 1 Anisha Sodium 40 0-18 tablet (40 Seyb old MG oral 00:00: mg total) Tablet 00 by mouth daily Sertraline 2020-06 Yes 100mg Take 1 Kathleen ey HCl 100 MG 0-18 tablet Seybold oral Tablet 00:00: (100 mg 00 total) by mouth daily Pravastatin 2020-06- No [id number] 40mg Take 1 Anisha Sodium 40 0-18 10-20 tablet (40 Sey bold MG oral 00:00: 00:00 mg total) Tablet 00 :00 by mouth daily Sertraline 2020-06- No 100mg Take 1 Wendy sey HCl 100 MG 0-18 10-20 tablet Seybol d oral Tablet 00:00: 00:00 (100 mg 00 :00 total) by mouth daily Metoprolol 2020-06 Yes 25mg Take 1 Kelse y Tartrate 25 0-04 tablet (25 Se ybold MG oral 00:00: mg total) Tablet 00 by mouth daily with food Glucose 2020-06 Yes 1{each} 1 each by Sudhir muse Blood 0-04 other Seybold (OneTouch 00:00: route 3 Ultra) in 00 times vitro Strip daily TEST Metoprolol 2020-06 Yes 25mg Take 1 Kelse y Tartrate 25 0-04 tablet (25 Se ybold MG oral 00:00: mg total) Tablet 00 by mouth daily with food Glucose 2020-06 Yes 1{each} 1 each by Ke lsey Blood 0-04 other Seybold (OneTouch 00:00: route 3 Ultra) in 00 times vitro Strip daily TEST Metoprolol 2020-06 Yes 25mg Take 1 Kelse y Tartrate 25 0-04 tablet (25 Se ybold MG oral 00:00: mg total) Tablet 00 by mouth daily with food Glucose 2020-06 Yes 1{each} 1 each by Ke lsey Blood 0-04 other Seybold (OneTouch 00:00: route 3 Ultra) in 00 times vitro Strip daily TEST Metoprolol 2020-06 Yes 25mg Take 1 Kelse y Tartrate 25 0-04 tablet (25 Se ybold MG oral 00:00: mg total) Tablet 00 by mouth daily with food Glucose 2020-06 Yes 1{each} 1 each by Ke lsey Blood 0-04 other Seybold (OneTouch 00:00: route 3 Ultra) in 00 times vitro Strip daily TEST Metoprolol 2020-06 Yes 25mg Take 1 Kelse y Tartrate 25 0-04 tablet (25 Se ybold MG oral 00:00: mg total) Tablet 00 by mouth daily with food Glucose 2020-06 Yes 1{each} 1 each by Ke lsey Blood 0-04 other Seybold (OneTouch 00:00: route 3 Ultra) in 00 times vitro Strip daily TEST Glucose 2020-06 Yes 1{each} 1 each by Ke lsey Blood 0-04 other Seybold (OneTouch 00:00: route 3 Ultra) in 00 times vitro Strip daily TEST Glucose 2020-06 Yes 1{each} 1 each by Ke lsey Blood 0-04 other Seybold (OneTouch 00:00: route 3 Ultra) in 00 times vitro Strip daily TEST Amoxicillin Yes [id number] 500mg Take 1 Anisha 500 MG oral 9-17 capsule Seybo ld Capsule 00:00: (500 mg 00 total) by mouth 3 times daily Amoxicillin Yes [id number] 500mg Take 1 Anisha 500 MG oral 9-17 capsule Seybo ld Capsule 00:00: (500 mg 00 total) by mouth 3 times daily Amoxicillin 2020- No [id number] 500mg Take 1 Anisha 500 MG oral 03-03 11-15 capsule Seyb old Capsule 00:00: 00:00 (500 mg 00 :00 total) by mouth 3 times daily Cyanocobala 2020- No Inject Wendy ray (VIT 02-23 into the Seybol d B12) 1000 14:31: 00:00 muscle MCG/ML 33 :00 once injection Solution Multiple 2020- No 2{each} Take 2 Wendy dee Vitamins-Mi 02-23 each by Seyb old nerals 14:31: 00:00 mouth (Alive 33 :00 daily Womens Gummy) oral Chewable Tablet Empaglifloz 2020- No Tawanna y in 02-23 Seybold (Jardiance) 14:31: 00:00 10 MG oral 33 :00 Tablet Mirabegron 2020- No Anisha ER 02-23 Seybold (Myrbetriq) 14:31: 00:00 25 MG oral 33 :00 TABLET SR 24 HR Magnesium Yes Take by Tawanna y 250 MG oral 02 mouth Seybold Tablet 10:22: 12 Pravastatin Yes Anisha Sodium 10 02-16 Seybold MG oral 10:22: Tablet 12 Magnesium Yes Take by Tawanna y 250 MG oral -02 mouth Seybold Tablet 10:22: 12 Pravastatin Yes Anisha Sodium 10 02-16 Seybold MG oral 10:22: Tablet 12 Aspirin Yes 1{tbl} Take 1 Anisha Buf,CaCarb- 02-16 tablet by Dee montez MgCarb-MgO, 10:20: mouth 81 MG oral 16 daily Tablet Azelastine Yes 1{spray 1 spray by Anisha HCl 0.15 % 02-16 } nasal Seybold nasal 10:20: route 2 Solution 16 times daily Cholecalcif Yes Take by Wendy fitch andrei 50 MCG 02-16 mouth Seybold (2000 [place]) 10:20: oral 16 Capsule Diclofenac Yes every 6 Kathleen ey Sodium 02-16 (six) Seybold (Voltaren) 10:20: hours 1 % apply 16 externally Gel Montelukast Yes 10mg Take 10 mg Anisha (SINGULAIR) 02-16 by mouth Seyb old 10 MG oral 10:20: Tablet 16 tablet Aspirin 81 Yes 81mg Take 81 mg K elsey MG oral 02 by mouth Seybold Tablet 10:20: daily Delayed 16 Response Multiple Yes Take by Anisha Vitamin 02-16 mouth Seybold (MULTIVITAM 10:20: IN ADULT 16 OR) Aspirin Yes 1{tbl} Take 1 Anisha Buf,CaCarb- 02-16 tablet by Dee bold MgCarb-MgO, 10:20: mouth 81 MG oral 16 daily Tablet Azelastine Yes 1{spray 1 spray by Anisha HCl 0.15 % 02-16 } nasal Seybold nasal 10:20: route 2 Solution 16 times daily Cholecalcif Yes Take by Wendy fitch andrei 50 MCG 02-16 mouth Seybold (1999 [place]) 10:20: oral 16 Capsule Diclofenac Yes every 6 Kathleen ey Sodium 02-16 (six) Seybold (Voltaren) 10:20: hours 1 % apply 16 externally Gel Montelukast Yes 10mg Take 10 mg Anisha (SINGULAIR) 02-16 by mouth Seyb old 10 MG oral 10:20: Tablet 16 tablet Aspirin 81 Yes [id number] 81mg Take 81 mg Anisha MG oral 02-16 00 by mouth Seybold Tablet 10:20: daily Delayed 16 Response Multiple Yes [id number] Take by Anisha Vitamin 02-16 00 mouth Seybold (MULTIVITAM 10:20: IN ADULT 16 OR) Insulin Pen Yes [id number] Takes Anisha Needle 31G 02-13 00 insulin Seybol d X 5 MM does 00:00: once not apply 00 nightly Misc B-D Yes Anisha ULTRAFINE 30 Seybold III SHORT 00:00: PEN 31G X 8 00 MM does not apply Misc Pravastatin Yes [id number] 20mg Take 1 Anisha Sodium 20 02-13 00 tablet (20 Seyb old MG oral 00:00: mg total) Tablet 00 by mouth daily Insulin 2020-0 Yes [id number] Takes up Anisha NPH, 8-30 00 to 15 Seybold Human,, 00:00: units SQ Isophane, 00 once (NovoLIN N nightly at FlexPen) bedtime 100 UNIT/ML subcutaneou s Suspension Pen-injecto r Insulin Pen 2020-0 Yes [id number] Takes Anisha Needle 31G 8-30 00 insulin Seybol d X 5 MM does 00:00: once not apply 00 nightly Misc B-D 2020-0 Yes Anisha ULTRAFINE 8-30 Seybold III SHORT 00:00: PEN 31G X 8 00 MM does not apply Misc Insulin 2020-0 Yes [id number] Takes up Anisha NPH, 8-30 00 to 15 Seybold Human,, 00:00: units SQ Isophane, 00 once (NovoLIN N nightly at FlexPen) bedtime 100 UNIT/ML subcutaneou s Suspension Pen-injecto r Insulin Pen 2020-0 Yes [id number] Takes Anisha Needle 31G 8-30 00 insulin Seybol d X 5 MM does 00:00: once not apply 00 nightly Misc B-D 2020-0 Yes Anisha ULTRAFINE 8-30 Seybold III SHORT 00:00: PEN 31G X 8 00 MM does not apply Misc Insulin 2020-0 Yes [id number] Takes up Anisha NPH, 8-30 00 to 15 Seybold Human,, 00:00: units SQ Isophane, 00 once (NovoLIN N nightly at FlexPen) bedtime 100 UNIT/ML subcutaneou s Suspension Pen-injecto r Insulin Pen 2020-0 Yes [id number] Takes Anisha Needle 31G 8-30 00 insulin Seybol d X 5 MM does 00:00: once not apply 00 nightly Misc B-D 2020-0 Yes Anisha ULTRAFINE 8-30 Seybold III SHORT 00:00: PEN 31G X 8 00 MM does not apply Misc Insulin 2020-0 Yes [id number] Takes up Anisha NPH, 8-30 00 to 15 Seybold Human,, 00:00: units SQ Isophane, 00 once (NovoLIN N nightly at FlexPen) bedtime 100 UNIT/ML subcutaneou s Suspension Pen-injecto r Insulin Pen 0 Yes [id number] Takes Anisha Needle 31G 8-30 00 insulin Seybol d X 5 MM does 00:00: once not apply 00 nightly Misc B-D 2020-0 Yes Anisha ULTRAFINE 8-30 Seybold III SHORT 00:00: PEN 31G X 8 00 MM does not apply Misc Insulin 2020-0 Yes [id number] Takes up Anisha NPH, 8 to 15 Seybold Human,, 00:00: units SQ Isophane, 00 once (NovoLIN N nightly at FlexPen) bedtime 100 UNIT/ML subcutaneou s Suspension Pen-injecto r Insulin Pen Yes [id number] Takes Anisha Needle 31G 8-30 00 insulin Seybol d X 5 MM does 00:00: once not apply 00 nightly Misc B-D 0 Yes Anisha ULTRAFINE 8-30 Seybold III SHORT 00:00: PEN 31G X 8 00 MM does not apply Misc Insulin 0 Yes [id number] Takes up Anisha NPH, 02-13 to 15 Seybold Human,, 00:00: units SQ Isophane, 00 once (NovoLIN N nightly at FlexPen) bedtime 100 UNIT/ML subcutaneou s Suspension Pen-injecto r Insulin Pen 0 Yes [id number] Takes Anisha Needle 31G 8-30 00 insulin Seybol d X 5 MM does 00:00: once not apply 00 nightly Misc B-D 0 Yes Anisha ULTRAFINE 8-30 Seybold III SHORT 00:00: PEN 31G X 8 00 MM does not apply Misc Pravastatin 0 Yes [id number] 20mg Take 1 Anisha Sodium 20 02-13 tablet (20 Seyb old MG oral 00:00: mg total) Tablet 00 by mouth daily Insulin Yes [id number] Takes up Anisha NPH, 8 00 to 15 Seybold Human,, 00:00: units SQ Isophane, 00 once (NovoLIN N nightly at FlexPen) bedtime 100 UNIT/ML subcutaneou s Suspension Pen-injecto r Insulin Pen Yes [id number] Takes Anisha Needle 31G 02-13 00 insulin Seybol d X 5 MM does 00:00: once not apply 00 nightly Misc B-D Yes Anisha ULTRAFINE 02-13 Seybold III SHORT 00:00: PEN 31G X 8 00 MM does not apply Misc Pravastatin Yes [id number] 20mg Take 1 Anisha Sodium 20 02-13 tablet (20 Seyb old MG oral 00:00: mg total) Tablet 00 by mouth daily Insulin Yes [id number] Takes up Anisha NPH, 02-13 00 to 15 Seybold Human,, 00:00: units SQ Isophane, 00 once (NovoLIN N nightly at FlexPen) bedtime 100 UNIT/ML subcutaneou s Suspension Pen-injecto r Pravastatin 2020- No [id number] 20mg Take 1 Anisha Sodium 20 02-13- 00 tablet (20 Sey bold MG oral 00:00: 00:00 mg total) Tablet 00 :00 by mouth daily Montelukast Yes 10mg Take 1 Kathleen ey (SINGULAIR) 8-11 tablet (10 Se ybold 10 MG oral 00:00: mg total) Tablet 00 by mouth tablet daily Montelukast Yes 10mg Take 1 Kathleen ey (SINGULAIR) 8-11 tablet (10 Se ybold 10 MG oral 00:00: mg total) Tablet 00 by mouth tablet daily Montelukast Yes 10mg Take 1 Kathleen ey (SINGULAIR) 8-11 tablet (10 Se ybold 10 MG oral 00:00: mg total) Tablet 00 by mouth tablet daily Montelukast Yes 10mg Take 1 Kathleen ey (SINGULAIR) 8-11 tablet (10 Se ybold 10 MG oral 00:00: mg total) Tablet 00 by mouth tablet daily Montelukast Yes 10mg Take 1 Kathleen ey (SINGULAIR) 8-11 tablet (10 Se ybold 10 MG oral 00:00: mg total) Tablet 00 by mouth tablet daily Sertraline Yes 50mg Take 0.5 Wendy sey HCl 100 MG 8-11 tablets Seybol d oral Tablet 00:00: (50 mg 00 total) by mouth daily PILOCARPINE Yes [id number] 5mg Take 1 Anisha HCL, ORAL, 8-11 tablet (5 Seyb old 5 MG oral 00:00: mg total) Tablet 00 by mouth 3 times daily Montelukast Yes 10mg Take 1 Kathleen ey (SINGULAIR) 8-11 tablet (10 Se ybold 10 MG oral 00:00: mg total) Tablet 00 by mouth tablet daily Montelukast Yes 10mg Take 1 Kathleen ey (SINGULAIR) 8-11 tablet (10 Se ybold 10 MG oral 00:00: mg total) Tablet 00 by mouth tablet daily PILOCARPINE Yes [id number] 5mg Take 1 Anisha HCL, ORAL, 8-11 tablet (5 Seyb old 5 MG oral 00:00: mg total) Tablet 00 by mouth 3 times daily Montelukast Yes 10mg Take 1 Kathleen ey (SINGULAIR) 8-11 tablet (10 Se ybold 10 MG oral 00:00: mg total) Tablet 00 by mouth tablet daily PILOCARPINE No [id number] 5mg Take 1 Anisha HCL, ORAL, 8-11 10-20 tablet (5 Sey bold 5 MG oral 00:00: 00:00 mg total) Tablet 00 :00 by mouth 3 times daily Alcohol Yes USE TWO Anisha Swabs 7-08 TIMES Seybold (Alcohol 00:00: DAILY Prep) 70 % 00 does not apply Pads Blood Yes See Admin Anisha Glucose 7-08 Instructio Seybol d Calibration 00:00: ns (OT 00 ULTRA/FASTT K CNTRL SOLN) in vitro Solution Blood Yes See Admin Anisha Glucose 7-08 Instructio Seybol d Monitoring 00:00: ns Suppl (ONE 00 TOUCH ULTRA 2) w/Device does not apply Kit Lancet Yes See Admin Anisha Devices 7-08 Instructio Seybol d (Easy Mini 00:00: ns Eject 00 Lancing Device) does not apply Misc Easy 2020-0 Yes 2 times Anisha Comfort 7-08 daily TEST Seybol d Lancets 00:00: does not 00 apply Misc Alcohol Yes USE TWO Anisha Swabs 7-08 TIMES Seybold (Alcohol 00:00: DAILY Prep) 70 % 00 does not apply Pads Blood 2021-0 Yes See Admin Anisha Glucose 7-08 Instructio Seybol d Calibration 00:00: ns (OT 00 ULTRA/FASTT K CNTRL SOLN) in vitro Solution Blood 2021-0 Yes See Admin Anisha Glucose 7-08 Instructio Seybol d Monitoring 00:00: ns Suppl (ONE 00 TOUCH ULTRA 2) w/Device does not apply Kit Lancet 2021-0 Yes See Admin Anisha Devices 7-08 Instructio Seybol d (Easy Mini 00:00: ns Eject 00 Lancing Device) does not apply Misc Easy 2021-0 Yes 2 times Anisha Comfort 7-08 daily TEST Seybol d Lancets 00:00: does not 00 apply Misc Alcohol 2021-0 Yes USE TWO Anisha Swabs 7-08 TIMES Seybold (Alcohol 00:00: DAILY Prep) 70 % 00 does not apply Pads Blood 2021-0 Yes See Admin Anisha Glucose 7-08 Instructio Seybol d Calibration 00:00: ns (OT 00 ULTRA/FASTT K CNTRL SOLN) in vitro Solution Blood 2021-0 Yes See Admin Anisha Glucose 7-08 Instructio Seybol d Monitoring 00:00: ns Suppl (ONE 00 TOUCH ULTRA 2) w/Device does not apply Kit Lancet 2021-0 Yes See Admin Anisha Devices 7-08 Instructio Seybol d (Easy Mini 00:00: ns Eject 00 Lancing Device) does not apply Misc Easy 2021-0 Yes 2 times Anisha Comfort 7-08 daily TEST Seybol d Lancets 00:00: does not 00 apply Misc Alcohol 2021-0 Yes USE TWO Anisha Swabs 7-08 TIMES Seybold (Alcohol 00:00: DAILY Prep) 70 % 00 does not apply Pads Blood 2021-0 Yes See Admin Anisha Glucose 7-08 Instructio Seybol d Calibration 00:00: ns (OT 00 ULTRA/FASTT K CNTRL SOLN) in vitro Solution Blood 2021-0 Yes See Admin Anisha Glucose 7-08 Instructio Seybol d Monitoring 00:00: ns Suppl (ONE 00 TOUCH ULTRA 2) w/Device does not apply Kit Lancet 2021-0 Yes See Admin Anisha Devices 7-08 Instructio Seybol d (Easy Mini 00:00: ns Eject 00 Lancing Device) does not apply Misc Easy 2021-0 Yes 2 times Anisha Comfort 7-08 daily TEST Seybol d Lancets 00:00: does not 00 apply Misc Alcohol 2021-0 Yes USE TWO Anisha Swabs 7-08 TIMES Seybold (Alcohol 00:00: DAILY Prep) 70 % 00 does not apply Pads Blood 2021-0 Yes See Admin Anisha Glucose 7-08 Instructio Seybol d Calibration 00:00: ns (OT 00 ULTRA/FASTT K CNTRL SOLN) in vitro Solution Blood 2021-0 Yes See Admin Anisha Glucose 7-08 Instructio Seybol d Monitoring 00:00: ns Suppl (ONE 00 TOUCH ULTRA 2) w/Device does not apply Kit Lancet 2021-0 Yes See Admin Anisha Devices 7-08 Instructio Seybol d (Easy Mini 00:00: ns Eject 00 Lancing Device) does not apply Misc Easy 2021-0 Yes 2 times Anisha Comfort 7-08 daily TEST Seybol d Lancets 00:00: does not 00 apply Misc Alcohol 2021-0 Yes USE TWO Anisha Swabs 7-08 TIMES Seybold (Alcohol 00:00: DAILY Prep) 70 % 00 does not apply Pads Blood 2021-0 Yes See Admin Anisha Glucose 7-08 Instructio Seybol d Calibration 00:00: ns (OT 00 ULTRA/FASTT K CNTRL SOLN) in vitro Solution Blood 2021-0 Yes See Admin Anisha Glucose 7-08 Instructio Seybol d Monitoring 00:00: ns Suppl (ONE 00 TOUCH ULTRA 2) w/Device does not apply Kit Lancet 2021-0 Yes See Admin Anisha Devices 7-08 Instructio Seybol d (Easy Mini 00:00: ns Eject 00 Lancing Device) does not apply Misc Easy 2021-0 Yes 2 times Anisha Comfort 7-08 daily TEST Seybol d Lancets 00:00: does not 00 apply Misc Alcohol 2021-0 Yes USE TWO Anisha Swabs 7-08 TIMES Seybold (Alcohol 00:00: DAILY Prep) 70 % 00 does not apply Pads Blood 2021-0 Yes See Admin Anisha Glucose 7-08 Instructio Seybol d Calibration 00:00: ns (OT 00 ULTRA/FASTT K CNTRL SOLN) in vitro Solution Blood 2020-0 Yes See Admin Anisha Glucose 7-08 Instructio Seybol d Monitoring 00:00: ns Suppl (ONE 00 TOUCH ULTRA 2) w/Device does not apply Kit Lancet 2020-0 Yes See Admin Anisha Devices 7-08 Instructio Seybol d (Easy Mini 00:00: ns Eject 00 Lancing Device) does not apply Misc Easy 2020-0 Yes 2 times Anisha Comfort 7-08 daily TEST Seybol d Lancets 00:00: does not 00 apply Misc Alcohol 2020-0 Yes USE TWO Anisha Swabs 7-08 TIMES Seybold (Alcohol 00:00: DAILY Prep) 70 % 00 does not apply Pads Blood 2020-0 Yes See Admin Anisha Glucose 7-08 Instructio Seybol d Calibration 00:00: ns (OT 00 ULTRA/FASTT K CNTRL SOLN) in vitro Solution Blood 2020-0 Yes See Admin Anisha Glucose 7-08 Instructio Seybol d Monitoring 00:00: ns Suppl (ONE 00 TOUCH ULTRA 2) w/Device does not apply Kit OneTouch 2020-0 Yes 2 times Anisha Ultra in 7-08 daily TEST Seybo ld vitro Strip 00:00: 00 Lancet 2020-0 Yes See Admin Anisha Devices 7-08 Instructio Seybol d (Easy Mini 00:00: ns Eject 00 Lancing Device) does not apply Misc Easy 2020-0 Yes 2 times Anisha Comfort 7-08 daily TEST Seybol d Lancets 00:00: does not 00 apply Misc Metoprolol 2020-0 Yes 20mg Take 20 mg K elsey Tartrate 25 6-14 by mouth Seyb old MG oral 00:00: daily with Tablet 00 food Omeprazole 2020-0 Yes 40mg Take 40 mg K elsey 40 MG oral 6-08 by mouth Seybo ld Delayed 00:00: daily Release 00 Capsule Omeprazole 2020-0 Yes 40mg Take 40 mg K elsey 40 MG oral 6-08 by mouth Seybo ld Delayed 00:00: daily Release 00 Capsule Omeprazole 2020-0 Yes 40mg Take 40 mg K elsey 40 MG oral 6-08 by mouth Seybo ld Delayed 00:00: daily Release 00 Capsule Omeprazole 2020-0 Yes 40mg Take 40 mg K elsey 40 MG oral 6-08 by mouth Seybo ld Delayed 00:00: daily Release 00 Capsule Omeprazole 2020-0 Yes 40mg Take 40 mg K elsey 40 MG oral 6-08 by mouth Seybo ld Delayed 00:00: daily Release 00 Capsule Omeprazole 2020-0 Yes 40mg Take 40 mg K elsey 40 MG oral 6-08 by mouth Seybo ld Delayed 00:00: daily Release 00 Capsule Omeprazole 2020-0 Yes 40mg Take 40 mg K elsey 40 MG oral 6-08 by mouth Seybo ld Delayed 00:00: daily Release 00 Capsule Omeprazole 2020-0 Yes 40mg Take 40 mg K elsey 40 MG oral 6-08 by mouth Seybo ld Delayed 00:00: daily Release 00 Capsule Sertraline 2020-0 Yes 50mg Take 50 mg K elsey HCl 100 MG 4-07 by mouth Seybo ld oral Tablet 00:00: daily 00 Sertraline 2020-0 Yes 100mg Take 100 Ke lsey HCl 100 MG 4-07 mg by Seybold oral Tablet 00:00: mouth 00 daily Sertraline 2020-0 Yes 50mg Take 50 mg K elsey HCl 100 MG 4-07 by mouth Seybo ld oral Tablet 00:00: daily 00 oxybutynin 2020-0 Yes [id number] 5mg Take 1 Univers XL 5 mg 24 3-27 tablet by ity of hr tablet 00:00: mouth [place] 00 daily. Medical Branch oxybutynin 2020-0 Yes [id number] 5mg Take 1 Univers XL 5 mg 24 3-27 tablet by ity of hr tablet 00:00: mouth [place] 00 daily. Medical Branch oxybutynin 2020-0 Yes [id number] 5mg Take 1 [facility] XL 5 mg 24 3-27 tablet by ity of hr tablet 00:00: mouth [place] 00 daily. Medical Branch oxybutynin 2020-0 Yes [id number] 5mg Take 1 [facility] XL 5 mg 24 3-27 tablet by ity of hr tablet 00:00: mouth [place] 00 daily. Medical Branch Amlodipine 2018-06 Yes TAKE 1 Kelse y Besylate 0-22 TABLET BY Seybol d 2.5 MG oral 00:00: MOUTH Tablet 00 EVERY DAY. HOLD IF TOP BLOOD PRESSURE NUMBER IS LESS THAN 140. Amlodipine 2018-06 Yes TAKE 1 Kelse y Besylate 0-22 TABLET BY Seybol d 2.5 MG oral 00:00: MOUTH Tablet 00 EVERY DAY. HOLD IF TOP BLOOD PRESSURE NUMBER IS LESS THAN 140. Amlodipine 2018-06 Yes TAKE 1 Kelse y Besylate 0-22 TABLET BY Seybol d 2.5 MG oral 00:00: MOUTH Tablet 00 EVERY DAY. HOLD IF TOP BLOOD PRESSURE NUMBER IS LESS THAN 140. Amlodipine 2018-06- No TAKE 1 Kathleen ey Besylate 0-22 11-15 TABLET BY Seybo ld 2.5 MG oral 00:00: 00:00 MOUTH Tablet 00 :00 EVERY DAY. HOLD IF TOP BLOOD PRESSURE NUMBER IS LESS THAN 140. mirabegron 2018-06 Yes [id number] 50mg Take 1 U nivers (MYRBETRIQ) 0-21 tablet by ity of 50 mg 00:00: mouth [place] tablet 00 daily. [facility] Branch mirabegron 2018-06 Yes [id number] 50mg Take 1 U nivers (MYRBETRIQ) 0-21 tablet by ity of 50 mg 00:00: mouth [place] tablet 00 daily. [facility] Branch mirabegron 2018-06 Yes [id number] 50mg Take 1 U nivers (MYRBETRIQ) 0-21 tablet by ity of 50 mg 00:00: mouth [place] tablet 00 daily. [facility] Branch mirabegron 2018-06 Yes [id number] 50mg Take 1 U nivers (MYRBETRIQ) 0-21 tablet by ity of 50 mg 00:00: mouth [place] tablet 00 daily. [facility] Branch PILOCARPINE 2018-06 Yes TK 1 T PO K elsey HCL, ORAL, 0-15 TID. Seybold 5 MG oral 00:00: Tablet 00 PILOCARPINE 2018-06 Yes TK 1 T PO K elsey HCL, ORAL, 0-15 TID. Seybold 5 MG oral 00:00: Tablet 00 PILOCARPINE 2018-06 Yes TK 1 T PO K elsey HCL, ORAL, 0-15 TID. Seybold 5 MG oral 00:00: Tablet 00 PILOCARPINE 2018-06 Yes TK 1 T PO K elsey HCL, ORAL, 0-15 TID. Seybold 5 MG oral 00:00: Tablet 00 PILOCARPINE 2018-06 Yes TK 1 T PO K elsey HCL, ORAL, 0-15 TID. Seybold 5 MG oral 00:00: Tablet 00 PILOCARPINE 2018-06 Yes TK 1 T PO K elsey HCL, ORAL, 0-15 TID. Seybold 5 MG oral 00:00: Tablet 00 PILOCARPINE 2018-06 Yes TK 1 T PO K elsey HCL, ORAL, 0-15 TID. Seybold 5 MG oral 00:00: Tablet 00 PILOCARPINE 2018-06 Yes TK 1 T PO K elsey HCL, ORAL, 0-15 TID. Seybold 5 MG oral 00:00: Tablet 00 conjugated Yes [id number] .5g Insert 0.5 Univers estrogens 8-28 101 g into ity of (PREMARIN) 00:00: vagina 2 [place] 0.625 00 (two) Medical mg/gram times per Branch vaginal week cream (dryness). conjugated Yes [id number] .5g Insert 0.5 Univers estrogens 8-28 101 g into ity of (PREMARIN) 00:00: vagina 2 [place] 0.625 00 (two) Medical mg/gram times per Branch vaginal week cream (dryness). conjugated Yes [id number] .5g Insert 0.5 [facility] estrogens 8-28 101 g into ity of (PREMARIN) 00:00: vagina 2 [place] 0.625 00 (two) Medical mg/gram times per Branch vaginal week cream (dryness). conjugated Yes [id number] .5g Insert 0.5 [facility] estrogens 8-28 101 g into ity of (PREMARIN) 00:00: vagina 2 [place] 0.625 00 (two) Medical mg/gram times per Branch vaginal week cream (dryness). conjugated Yes [id number] .5g Insert 0.5 [facility] estrogens 8-28 101 g into ity of (PREMARIN) 00:00: vagina 2 [place] 0.625 00 (two) Medical mg/gram times per Branch vaginal week cream (dryness). conjugated Yes [id number] .5g Insert 0.5 [facility] estrogens 8-28 101 g into ity of (PREMARIN) 00:00: vagina 2 [place] 0.625 00 (two) Medical mg/gram times per Branch vaginal week cream (dryness). ESTROGENS, Yes INSERT 0.5 K elsey CONJUGATED 8-28 GRAMS Seybold VAGINAL 00:00: VAGINALLY (Premarin) 00 TWICE 0.625 MG/GM WEEKLY. vaginal Cream ESTROGENS, Yes INSERT 0.5 K elsey CONJUGATED 8-28 GRAMS Seybold VAGINAL 00:00: VAGINALLY (Premarin) 00 TWICE 0.625 MG/GM WEEKLY. vaginal Cream ESTROGENS, Yes INSERT 0.5 K elsey CONJUGATED 8-28 GRAMS Seybold VAGINAL 00:00: VAGINALLY (Premarin) 00 TWICE 0.625 MG/GM WEEKLY. vaginal Cream ESTROGENS, Yes INSERT 0.5 K elsey CONJUGATED 8-28 GRAMS Seybold VAGINAL 00:00: VAGINALLY (Premarin) 00 TWICE 0.625 MG/GM WEEKLY. vaginal Cream ESTROGENS, Yes INSERT 0.5 K elsey CONJUGATED 8-28 GRAMS Seybold VAGINAL 00:00: VAGINALLY (Premarin) 00 TWICE 0.625 MG/GM WEEKLY. vaginal Cream ESTROGENS, Yes INSERT 0.5 K elsey CONJUGATED 8-28 GRAMS Seybold VAGINAL 00:00: VAGINALLY (Premarin) 00 TWICE 0.625 MG/GM WEEKLY. vaginal Cream ESTROGENS, Yes INSERT 0.5 K elsey CONJUGATED 8-28 GRAMS Seybold VAGINAL 00:00: VAGINALLY (Premarin) 00 TWICE 0.625 MG/GM WEEKLY. vaginal Cream ESTROGENS, Yes INSERT 0.5 K elsey CONJUGATED 8-28 GRAMS Seybold VAGINAL 00:00: VAGINALLY (Premarin) 00 TWICE 0.625 MG/GM WEEKLY. vaginal Cream Omeprazole Yes TK 1 C PO Ke lsey 40 MG oral 8-05 ONCE D. Seybol d Delayed 00:00: Release 00 Capsule Omeprazole Yes TK 1 C PO Ke lsey 40 MG oral 8-05 ONCE D. Seybol d Delayed 00:00: Release 00 Capsule Omeprazole 2020- No TK 1 C PO K elsey 40 MG oral 8-05 10-20 ONCE D. Seybo ld Delayed 00:00: 00:00 Release 00 :00 Capsule mirabegron Yes [id number] 50mg Take 1 U nivers (MYRBETRIQ) 2-20 tablet by ity of 50 mg 00:00: mouth [place] tablet 00 daily. [facility] Branch mirabegron Yes [id number] 50mg Take 1 U nivers (MYRBETRIQ) 2-20 tablet by ity of 50 mg 00:00: mouth [place] tablet 00 daily. Medical Branch conjugated Yes [id number] .5g Insert 0.5 Univers estrogens 2-20 101 g into ity of (PREMARIN) 00:00: vagina 2 [place] 0.625 00 (two) Medical mg/gram times per Branch vaginal week cream (dryness). mirabegron Yes [id number] 50mg Take 1 U nivers (MYRBETRIQ) 2-20 tablet by ity of 50 mg 00:00: mouth [place] tablet 00 daily. Medical Branch conjugated 2019- No [id number] .5g Insert 0.5 Univers estrogens 2-20 08-28 101 g into ity of (PREMARIN) 00:00: 00:00 vagina 2 [place] 0.625 00 :00 (two) Medical mg/gram times per Branch vaginal week cream (dryness). conjugated 2018- No [id number] .5g Insert 0.5 Univers estrogens 2-20 08-28 101 g into ity of (PREMARIN) 00:00: 00:00 vagina 2 [place] 0.625 00 :00 (two) Medical mg/gram times per Branch vaginal week cream (dryness). SERTraline Yes 100mg Take 100 Un kitty (ZOLOFT) 1-18 mg by ity of 100 mg 19:30: mouth [place] tablet 45 daily. Medical Branch omeprazole Yes 40mg Take 40 mg U nivers (PRILOSEC) 1-18 by mouth ity o f 20 mg 19:30: daily. [place] capsule 45 Medical Branch aspirin 81 Yes 81mg Take 81 mg U nivers mg EC 1-18 by mouth ity of tablet 19:30: daily. [place] [address] Medical Branch metoprolol Yes [id number] 50mg Take 50 mg Univers succinate 1-18 by mouth ity of XL 50 mg 24 19:30: [place]. [place] hr tablet 45 [facility] insulin Yes 14U inject 14 Unive rs degludec 1-18 Units ity of (TRESIBA 19:30: [place] FLEXTOUCH 45 skin. Medical U-100 SC) Branch SERTraline 2019-0 Yes 100mg Take 100 Un kitty (ZOLOFT) 1-18 mg by ity of 100 mg 19:30: mouth [place] tablet 45 daily. Medical Branch omeprazole 2018-0 Yes 40mg Take 40 mg U nivers (PRILOSEC) 1-18 by mouth ity o f 20 mg 19:30: daily. [place] capsule 45 Medical Branch aspirin 81 0 Yes 81mg Take 81 mg U nivers mg EC 1-18 by mouth ity of tablet 19:30: daily. [place] [address] Medical Branch metoprolol 0 Yes [id number] 50mg Take 50 mg Univers succinate 1-18 by mouth ity of XL 50 mg 24 19:30: daily. [place] hr tablet 45 [facility] insulin 0 Yes 14U inject 14 Unive rs degludec 1-18 Units ity of (TRESIBA 19:30: [place] FLEXTOUCH 45 skin. Medical U-100 SC) Branch SERTraline 0 Yes 100mg Take 100 Un kitty (ZOLOFT) 1-18 mg by ity of 100 mg 19:30: mouth [place] tablet 45 daily. Medical Branch omeprazole 0 Yes 40mg Take 40 mg U nivers (PRILOSEC) 1-18 by mouth ity o f 20 mg 19:30: daily. [place] [address] Medical Branch aspirin 81 0 Yes 81mg Take 81 mg U nivers mg EC 1-18 by mouth ity of tablet 19:30: daily. [place] [address] Medical Branch metoprolol 0 Yes [id number] 50mg Take 50 mg Univers succinate 1-18 by mouth ity of XL 50 mg 24 19:30: daily. [place] hr tablet 45 [facility] insulin 2018-0 Yes 14U inject 14 Unive rs degludec 1-18 Units ity of (TRESIBA 19:30: [place] FLEXTOUCH 45 skin. Medical U-100 SC) Branch SERTraline 2018-0 Yes 100mg Take 100 Un kitty (ZOLOFT) 1-18 mg by ity of 100 mg 19:30: mouth [place] tablet 45 daily. Medical Branch omeprazole 2018-0 Yes 40mg Take 40 mg U nivers (PRILOSEC) 1-18 by mouth ity o f 20 mg 19:30: daily. [place] capsule 45 Medical Branch aspirin 81 Yes 81mg Take 81 mg U nivers mg EC 1-18 by mouth ity of tablet 19:30: daily. [place] [address] Medical Branch metoprolol 0 Yes [id number] 50mg Take 50 mg Univers succinate 1-18 by mouth ity of XL 50 mg 24 19:30: daily. [place] tablet 45 [facility] Branch insulin 2018-0 Yes 14U inject 14 Unive rs degludec 1-18 Units ity of (TRESIBA 19:30: under the [facility] FLEXTOUCH 45 skin. Medical U-100 SC) Branch SERTraline 0 Yes 100mg Take 100 Un kitty (ZOLOFT) 1-18 mg by ity of 100 mg 19:30: mouth [place] tablet 45 daily. Medical Branch omeprazole Yes 40mg Take 40 mg U nivers (PRILOSEC) 1-18 by mouth ity o f 20 mg 19:30: daily. [place] capsule [address] [place] [address] Branch aspirin 81 Yes 81mg Take 81 mg U nivers mg EC 1-18 by mouth ity of tablet 19:30: daily. [address] Branch metoprolol Yes [id number] 50mg Take 50 mg Univers succinate 1-18 by mouth ity of XL 50 mg 24 19:30: daily. [place] tablet 45 [facility] Branch insulin 0 Yes 14U inject 14 Unive rs degludec 1-18 Units ity of (TRESIBA 19:30: [facility] skin. Medical U-100 SC) Branch SERTraline 0 Yes 100mg Take 100 Un kitty (ZOLOFT) 1-18 mg by ity of 100 mg 19:30: mouth [place] tablet 45 daily. Medical Branch omeprazole 0 Yes 40mg Take 40 mg U nivers (PRILOSEC) 1-18 by mouth ity o f 20 mg 19:30: daily. [place] capsule Medical Branch aspirin 81 0 Yes 81mg Take 81 mg U nivers mg EC 1-18 by mouth ity of tablet 19:30: daily. [address] Branch metoprolol Yes [id number] 50mg Take 50 mg Univers succinate 1-18 by mouth ity of XL 50 mg 24 19:30: daily. [place] hr tablet 45 [facility] Branch insulin 2019-0 Yes 14U inject 14 Unive rs degludec 1-18 Units ity of (TRESIBA 19:30: [place] the [place] FLEXTOUCH 45 skin. Medical U-100 SC) Branch SERTraline Yes 100mg Take 100 Un kitty (ZOLOFT) 1-18 mg by ity of 100 mg 19:30: mouth [place] tablet 45 daily. Medical Branch omeprazole Yes 40mg Take 40 mg U nivers (PRILOSEC) 1-18 by mouth ity o f 20 mg 19:30: daily. [place] [address] Medical Branch aspirin 81 Yes 81mg Take 81 mg U nivers mg EC 1-18 by mouth ity of tablet 19:30: daily. [place] [address] Medical Branch metoprolol Yes [id number] 50mg Take 50 mg Univers succinate -18 by mouth ity of XL 50 mg 24 19:30: daily. [facility] hr tablet 45 Medical Branch insulin Yes 14U inject 14 Unive rs degludec 1-18 Units ity of (TRESIBA 19:30: [facility] FLE[facility]CH [facility] skin. Medical U-100 SC) Branch multivit-mi 2017-06 Yes 2{each} Take 2 U nivers n-FA-herbal 1-14 Each by ity o f no.245 18:17: mouth [place] (ALIVE 58 daily. Medical WOMEN'S Branch GUMMY VITAMINS) 200 mcg- 37.5 mg Chew PILOCARPINE 2017-06 Yes Take by Uni vers HCL ORAL 1-14 mouth. ity of 18:17: [place] [address] Medical Branch dulaglutide 2017-06 Yes [id number] inject Univers (TRULICITY) 1-14 under the ity of 0.75 mg/0.5 18:17: skin. [place] mL PnIj 58 Medical Branch cyanocobala 2017-06 Yes [id number] by Un kitty min 1,000 1-14 Intramuscu ity of mcg/mL 18:17: lar route [place] injection 58 once now. Medic al Branch montelukast 2017-06 Yes [id number] 10mg Take 10 mg Univers 10 mg 1-14 by mouth. ity of tablet 18:17: [place] [address] Medical Branch Cholecalcif 2017-06 Yes [id number] Take by Univers andrei, 1-14 mouth. ity of Vitamin D3, 18:17: [place] (VITAMIN 58 Medical D3) 2,000 [place] unit capsule Magnesium 2017-06 Yes [id number] Take by U nivers 250 mg Tab 1-14 mouth. ity of 18:17: [address] docusate 2017-06 Yes [id number] 100mg Take 100 Univers (STOOL 1-14 mg by ity of SOFTENER) 18:17: mouth [place] 100 mg 58 daily. Medical capsule Branch OMEGA 2017-06 Yes [id number] Take by Unive rs 3-DHA-EPA-F 1-14 mouth. ity of REINA OIL 18:17: [address] Branch L gasseri/B 2017-06 Yes [id number] Take by Univers bifidum/B 1-14 mouth. ity of longum 18:17: [place] (PROBIOTIC [address] [place] [address] COLON CARE [place] ORAL) insulin 2017-06 Yes 50U inject [address] [facility] glargine 1-14 Units ity of (TOUJEO 18:17: under the [place] SOLOSTAR 58 skin Medical U-300 daily. [place] INSULIN) 300 unit/mL (1.5 mL) InPn multivit-mi 2017-06 Yes 2{each} Take 2 U nivers n-FA-herbal 1-14 Each by ity o f no.245 18:17: mouth [place] (ALIVE 58 daily. Medical WOMEN'S [place] GUMMY VITAMINS) 200 mcg- 37.5 mg Chew PILOCARPINE 2017-06 Yes Take by Uni vers HCL ORAL 1-14 mouth. ity of 18:17: [address] dulaglutide 2017-06 Yes [id number] inject Univers (TRULICITY) 1-14 under the ity of 0.75 mg/0.5 18:17: skin. [place] mL PnIj [address] [place] [address] cyanocobala 2017-06 Yes [id number] by Un kitty min 1,000 1-14 Intramuscu ity of mcg/mL 18:17: lar route [place] injection 58 once now. Medic al [place] montelukast 2017-06 Yes [id number] 10mg Take 10 mg Univers 10 mg 1-14 by mouth. ity of tablet 18:17: [address] Cholecalcif 2017-06 Yes [id number] Take by Univers andrei, 1-14 mouth. ity of Vitamin D3, 18:17: [place] (VITAMIN 58 Medical D3) 2,000 Branch unit capsule Magnesium 2017-06 Yes [id number] Take by U nivers 250 mg Tab 1-14 mouth. ity of 18:17: [address] docusate 2017-06 Yes [id number] 100mg Take 100 Univers (STOOL 1-14 mg by ity of SOFTENER) 18:17: mouth [place] 100 mg 58 daily. Medical capsule Branch OMEGA 2017-06 Yes [id number] Take by [facility] rs 3-DHA-EPA-F 1-14 mouth. ity of REINA OIL 18:17: [place] ORAL Medical Branch L gasseri/B 2017-06 Yes [id number] Take by [place] [facility] bifidum/B 1-14 mouth. ity of longum 18:17: [place] (PROBIOTIC Medical COLON CARE Branch ORAL) insulin 2017-06 Yes 50U inject 50 [facility] rs glargine 1-14 Units ity of (TOUJEO 18:17: under the [place] SOLOSTAR 58 skin Medical U-300 daily. [place] INSULIN) 300 unit/mL (1.5 mL) InPn multivit-mi 2017-06 Yes 2{each} Take 2 U nivers n-FA-herbal 1-14 Each by ity o f no.245 18:17: mouth [place] (ALIVE 58 daily. Medical WOMEN'S Branch GUMMY VITAMINS) 200 mcg- 37.5 mg Chew PILOCARPINE 2017-06 Yes Take by Uni vers HCL ORAL 1-14 mouth. ity of 18:17: [address] dulaglutide 2017-06 Yes [id number] inject Univers (TRULICITY) 1-14 under the ity of 0.75 mg/0.5 18:17: skin. [place] mL PnIj [address] [place] [address] Branch cyanocobala 2017-06 Yes [id number] by Un kitty min 1,000 1-14 Intramuscu ity of mcg/mL 18:17: lar route [place] injection 58 once now. Medic al Branch montelukast 2017-06 Yes [id number] 10mg Take 10 mg Univers 10 mg 1-14 by mouth. ity of tablet 18:17: [address] Cholecalcif 2017-06 Yes [id number] Take by [place] [facility] andrei, 1-14 mouth. ity of Vitamin D3, 18:17: [place] (VITAMIN Medical D3) 2,000 Branch unit capsule Magnesium 2017-06 Yes [id number] Take by U nivers 250 mg Tab 1-14 mouth. ity of 18:17: [address] docusate 2017-06 Yes [id number] 100mg Take 100 Univers (STOOL 1-14 mg by ity of SOFTENER) 18:17: mouth [place] 100 mg 58 daily. Medical capsule Branch OMEGA 2017-06 Yes [id number] Take by [facility] rs 3-DHA-EPA-F 1-14 mouth. ity of REINA OIL 18:17: [place] ORAL [address] [place] [address] Branch L gasseri/B 2017-06 Yes [id number] Take by [place] [facility] bifidum/B 1-14 mouth. ity of longum 18:17: [place] (PROBIOTIC Medical COLON CARE Branch ORAL) insulin 2017-06 Yes 50U inject 50 [facility] rs glargine 1-14 Units ity of (TOUJEO 18:17: under the [place] SOLOSTAR skin Medical U-300 daily. [place] INSULIN) 300 unit/mL (1.5 mL) InPn multivit-mi 2017-06 Yes 2{each} Take 2 U nivers n-FA-herbal 1-14 Each by ity o f no.245 18:17: mouth [place] (ALIVE 58 daily. Medical WOMEN'S Branch GUMMY VITAMINS) 200 mcg- 37.5 mg Chew PILOCARPINE 2017-06 Yes Take by Uni vers HCL ORAL 1-14 mouth. ity of 18:17: [address] dulaglutide 2017-06 Yes [id number] inject Univers (TRULICITY) 1-14 under the ity of 0.75 mg/0.5 18:17: skin. [place] mL PnIj [address] [place] [address] cyanocobala 2017-06 Yes [id number] by Un kitty min 1,000 1-14 Intramuscu ity of mcg/mL 18:17: lar route [place] injection 58 once now. Medic al [place] montelukast 2017-06 Yes [id number] 10mg Take 10 mg Univers 10 mg 1-14 by mouth. ity of tablet 18:17: [address] Cholecalcif 2017-06 Yes [id number] Take by [place] [facility] andrei, 1-14 mouth. ity of Vitamin D3, 18:17: [place] (VITAMIN Medical D3) 2,000 [place] unit capsule Magnesium 2017-06 Yes [id number] Take by U nivers 250 mg Tab 1-14 mouth. ity of 18:17: [address] docusate 2017-06 Yes [id number] 100mg Take 100 Univers (STOOL 1-14 mg by ity of SOFTENER) 18:17: mouth [place] 100 mg 58 daily. Medical capsule Branch OMEGA 2017-06 Yes [id number] Take by [facility] 3-DHA-EPA-F 1-14 mouth. ity of REINA OIL 18:17: [place] ORAL [address] [place] [address] Branch L gasseri/B 2017-06 Yes [id number] Take by [facility] bifidum/B 1-14 mouth. ity of longum 18:17: [place] (PROBIOTIC [address] [place] [address] COLON CARE [place] ORAL) insulin 2017-06 Yes 50U inject 50 [facility] rs glargine 1-14 Units ity of (TOUJEO 18:17: under the [place] SOLOSTAR skin Medical U-300 daily. [place] INSULIN) 300 unit/mL (1.5 mL) InPn multivit-mi 2017-06 Yes 2{each} Take 2 U nivers n-FA-herbal 1-14 Each by ity o f no.245 18:17: mouth [place] (ALIVE 58 daily. Medical WOMEN'S Branch GUMMY VITAMINS) 200 mcg- 37.5 mg Chew PILOCARPINE 2017-06 Yes Take by Un kitty HCL ORAL 1-14 mouth. ity of 18:17: [address] dulaglutide 2017-06 Yes [id number] inject Univers (TRULICITY) 1-14 under the ity of 0.75 mg/0.5 18:17: skin. [place] mL PnIj [address] [place] [address] cyanocobala 2017-06 Yes [id number] by Un kitty min 1,000 1-14 Intramuscu ity of mcg/mL 18:17: lar route [place] injection 58 once now. Medic al [place] montelukast 2017-06 Yes [id number] 10mg Take 10 mg Univers 10 mg 1-14 by mouth. ity of tablet 18:17: [address] Cholecalcif 2017-06 Yes [id number] Take by [facility] andrei, 1-14 mouth. ity of Vitamin D3, 18:17: [place] (VITAMIN [address] [place] [address] D3) 2,000 [place] unit capsule Magnesium 2017-06 Yes [id number] Take by U nivers 250 mg Tab 1-14 mouth. ity of 18:17: [address] docusate 2017-06 Yes [id number] 100mg Take 100 [facility] (STOOL 1-14 mg by ity of SOFTENER) 18:17: mouth [place] 100 mg 58 daily. Medical capsule Branch OMEGA 2017-06 Yes [id number] Take by Unive rs 3-DHA-EPA-F 1-14 mouth. ity of REINA OIL 18:17: [address] Branch L gasseri/B 2017-06 Yes [id number] Take by Univers bifidum/B 1-14 mouth. ity of longum 18:17: [place] (PROBIOTIC Medical COLON CARE Branch ORAL) insulin 2017-06 Yes 50U inject 50 Unive rs glargine 1-14 Units ity of (TOUJEO 18:17: under the [place] SOLOSTAR 58 skin Medical U-300 daily. [place] INSULIN) 300 unit/mL (1.5 mL) InPn multivit-mi 2017-06 Yes 2{each} Take 2 U nivers n-FA-herbal 1-14 Each by ity o f no.245 18:17: mouth [place] (ALIVE 58 daily. Medical WOMEN'S [place] GUMMY VITAMINS) 200 mcg- 37.5 mg Chew PILOCARPINE 2017-06 Yes Take by Uni vers HCL ORAL 1-14 mouth. ity of 18:17: [address] dulaglutide 2017-06 Yes [id number] inject Univers (TRULICITY) 1-14 under the ity of 0.75 mg/0.5 18:17: skin. [place] mL PnIj [address] [place] [address] cyanocobala 2017-06 Yes [id number] by Un kitty min 1,000 1-14 Intramuscu ity of mcg/mL 18:17: lar route [place] injection 58 once now. Medic al [place] montelukast 2017-06 Yes [id number] 10mg Take 10 mg Univers 10 mg 1-14 by mouth. ity of tablet 18:17: [address] Cholecalcif 2017-06 Yes [id number] Take by [facility] andrei, 1-14 mouth. ity of Vitamin D3, 18:17: [place] (VITAMIN [address] [place] [address] D3) 2,000 [place] unit capsule Magnesium 2017-06 Yes [id number] Take by U nivers 250 mg Tab 1-14 mouth. ity of 18:17: [address] docusate 2017-06 Yes [id number] 100mg Take 100 Univers (STOOL 1-14 mg by ity of SOFTENER) 18:17: mouth [place] 100 mg 58 daily. Medical capsule Branch OMEGA 2017-06 Yes [id number] Take by [facility] rs 3-DHA-EPA-F 1-14 mouth. ity of REINA OIL 18:17: [place] ORAL [address] [place] [address] Branch L gasseri/B 2017-06 Yes [id number] Take by [facility] bifidum/B 1-14 mouth. ity of longum 18:17: [place] (PROBIOTIC Medical COLON CARE Branch ORAL) insulin 2017-06 Yes 50U inject 50 [facility] rs glargine 1-14 Units ity of (TOUJEO 18:17: under the [place] SOLOSTAR 58 skin Medical U-300 daily. Branch INSULIN) 300 unit/mL (1.5 mL) In multivit-mi 2017-06 Yes 2{each} Take 2 U nivers n-FA-herbal 1-14 Each by ity o f no.245 18:17: mouth [place] (ALIVE 58 daily. Medical WOMEN'S Branch GUMMY VITAMINS) 200 mcg- 37.5 mg Chew PILOCARPINE 2017-06 Yes Take by [facility] [place] [facility] vers HCL ORAL 1-14 mouth. ity of 18:17: [address] dulaglutide 2017-06 Yes [id number] inject Univers (TRULICITY) 1-14 under the ity of 0.75 mg/0.5 18:17: skin. [place] mL PnIj [address] [place] [address] cyanocobala 2017-06 Yes [id number] by Un kitty min 1,000 1-14 Intramuscu ity of mcg/mL 18:17: lar route [place] injection 58 once now. Medic al Branch montelukast 2017-06 Yes [id number] 10mg Take 10 mg Univers 10 mg 1-14 by mouth. ity of tablet 18:17: [address] Cholecalcif 2017-06 Yes [id number] Take by [facility] andrei, 1-14 mouth. ity of Vitamin D3, 18:17: [place] (VITAMIN Medical D3) 2,000 [place] unit capsule Magnesium 2017-06 Yes [id number] Take by U nivers 250 mg Tab 1-14 mouth. ity of 18:17: [address] docusate 2017-06 Yes [id number] 100mg Take 100 Univers (STOOL 1-14 mg by ity of SOFTENER) 18:17: mouth [place] 100 mg 58 daily. Medical capsule Branch OMEGA 2017-06 Yes [id number] Take by [facility] rs 3-DHA-EPA-F 1-14 mouth. ity of REINA OIL 18:17: [place] ORAL 58 Medical Branch L gasseri/B 2017-06 Yes [id number] Take by Univers bifidum/B 1-14 mouth. ity of longum 18:17: [place] (PROBIOTIC 58 Medical COLON CARE Branch ORAL) insulin 2017-06 Yes 50U inject 50 Unive rs glargine 1-14 Units ity of (TOUJEO 18:17: under the [place] SOLOSTAR 58 skin Medical U-300 daily. Branch INSULIN) 300 unit/mL (1.5 mL) InPn docusate 2017-06 Yes 100mg Take 1 Univer s 100 mg 1-14 capsule by ity of capsule 00:00: mouth [place] 00 daily. Medical Branch traMADOL 50 2017-06 Yes 50mg Take 1 Univ ers mg tablet 1-14 tablet by ity o f 00:00: mouth [place] 00 every 6 Medical (six) Branch hours as needed for Pain (scale 4-6) or Pain (scale 7-10). HYDROcodone 2017-06 Yes 1{tbl} Take 1 Un kitty -acetaminop 1-14 tablet by ity of hen 5-325 00:00: mouth [place] mg tablet 00 every 6 Medical (six) Branch hours as needed for Pain (scale 7-10). docusate 2017-06 Yes 100mg Take 1 Univer s 100 mg 1-14 capsule by ity of capsule 00:00: mouth [place] 00 daily. Medical Branch traMADOL 50 2017-06 Yes 50mg Take 1 Univ ers mg tablet 1-14 tablet by ity o f 00:00: mouth [place] 00 every 6 Medical (six) Branch hours as needed for Pain (scale 4-6) or Pain (scale 7-10). HYDROcodone 2017-06 Yes 1{tbl} Take 1 Un kitty -acetaminop 1-14 tablet by ity of hen 5-325 00:00: mouth [place] mg tablet 00 every 6 Medical (six) Branch hours as needed for Pain (scale 7-10). docusate 2017-06 Yes 100mg Take 1 Univer s 100 mg 1-14 capsule by ity of capsule 00:00: mouth [place] 00 daily. Medical Branch traMADOL 50 2017-06 Yes 50mg Take 1 Univ ers mg tablet 1-14 tablet by ity o f 00:00: mouth [place] 00 every 6 Medical (six) Branch hours as needed for Pain (scale 4-6) or Pain (scale 7-10). HYDROcodone 2017-06 Yes 1{tbl} Take 1 Un kitty -acetaminop 1-14 tablet by ity of hen 5-325 00:00: mouth [place] mg tablet 00 every 6 Medical (six) Branch hours as needed for Pain (scale 7-10). docusate 2017-06 Yes 100mg Take 1 Univer s 100 mg 1-14 capsule by ity of capsule 00:00: mouth [place] 00 daily. Medical Branch traMADOL 50 2017-06 Yes 50mg Take 1 Univ ers mg tablet 1-14 tablet by ity o f 00:00: mouth [place] 00 every 6 Medical (six) Branch hours as needed for Pain (scale 4-6) or Pain (scale 7-10). HYDROcodone 2017-06 Yes 1{tbl} Take 1 Un kitty -acetaminop 1-14 tablet by ity of hen 5-325 00:00: mouth [place] mg tablet 00 every 6 Medical (six) Branch hours as needed for Pain (scale 7-10). docusate 2017-06 Yes 100mg Take 1 Univer s 100 mg 1-14 capsule by ity of capsule 00:00: mouth [place] 00 daily. Medical Branch traMADOL 50 2017-06 Yes 50mg Take 1 Univ ers mg tablet 1-14 tablet by ity o f 00:00: mouth [place] 00 every 6 Medical (six) Branch hours as needed for Pain (scale 4-6) or Pain (scale 7-10). HYDROcodone 2017-06 Yes 1{tbl} Take 1 Un kitty -acetaminop 1-14 tablet by ity of hen 5-325 00:00: mouth [place] mg tablet 00 every 6 Medical (six) Branch hours as needed for Pain (scale 7-10). docusate 2017-06 Yes 100mg Take 1 Univer s 100 mg 1-14 capsule by ity of capsule 00:00: mouth [place] 00 daily. Medical Branch traMADOL 50 2017-06 Yes 50mg Take 1 Univ ers mg tablet 1-14 tablet by ity o f 00:00: mouth [place] 00 every 6 Medical (six) Branch hours as needed for Pain (scale 4-6) or Pain (scale 7-10). HYDROcodone 2017-06 Yes 1{tbl} Take 1 Un kitty -acetaminop 1-14 tablet by ity of hen 5-325 00:00: mouth [place] mg tablet 00 every 6 Medical (six) Branch hours as needed for Pain (scale 7-10). docusate 2017-06 Yes 100mg Take 1 Univer s 100 mg 1-14 capsule by ity of capsule 00:00: mouth [place] 00 daily. Medical Branch traMADOL 50 2017-06 Yes 50mg Take 1 Univ ers mg tablet 1-14 tablet by ity o f 00:00: mouth [place] 00 every 6 Medical (six) Branch hours as needed for Pain (scale 4-6) or Pain (scale 7-10). HYDROcodone 2017-06 Yes 1{tbl} Take 1 Un kitty -acetaminop 1-14 tablet by ity of hen 5-325 00:00: mouth [place] mg tablet 00 every 6 Medical (six) Branch hours as needed for Pain (scale 7-10). Docusate 2017-06- No 100mg Take 100 Wendy sey Sodium 1-14 09-09 mg by [place] (DSS) 100 00:00: 00:00 mouth MG oral 00 :00 daily Capsule Albuterol Yes Comments: Wendy griffiny HFA 108 (90 5-26 | Filled [employer]) 00:00: Date: October MCG/ACT IN 2016 AERS 12:00AM | Patient Notes: INL 1 TO 2 PFS PO Q 4 H PRF SOB OR WHZ Duration: 16 Albuterol 0 Yes Comments: Wendy griffiny HFA 108 (90 5-26 | Filled [employer]) 00:00: Date: October MCG/ACT 2016 AERS 12:00AM | Patient Notes: INL 1 TO 2 PFS PO Q 4 H PRF SOB OR WHZ Duration: 16 Albuterol 0 Yes Comments: Wendy sey HFA 108 (90 5-26 | Filled [employer]) 00:00: Date: October MCG/ACT IN 2016 AERS 12:00AM | Patient Notes: INL 1 TO 2 PFS PO Q 4 H PRF SOB OR WHZ Duration: 16 Albuterol 2016-0 Yes Comments: Wendy sey HFA 108 (90 5-26 | Filled [employer]) 00:00: Date: October MCG/ACT 2016 AERS 12:00AM | Patient Notes: INL 1 TO 2 PFS PO Q 4 H PRF SOB OR WHZ Duration: 16 Albuterol 2017 Yes Comments: Wendy KEEN 108 (90 5-26 | Filled [employer]) 00:00: Date: October MCG/ACT IN 2016 AERS 12:00AM | Patient Notes: INL 1 TO 2 PFS PO Q 4 H PRF SOB OR WHZ Duration: 16 Albuterol 2017 Yes Comments: Wendy KEEN 108 (90 526 | Filled [employer]) 00:00: Date: October MCG/ACT 2016 AERS 12:00AM | Patient Notes: INL 1 TO 2 PFS PO Q 4 H PRF SOB OR WHZ Duration: 16 Albuterol 2017 Yes Comments: Wendy KEEN 108 (90 526 | Filled [employer]) 00:00: Date: October MCG/ACT 2016 AERS 12:00AM | Patient Notes: INL 1 TO 2 PFS PO Q 4 H PRF SOB OR WHZ Duration: 16 Albuterol Yes Comments: Wendy KEEN 108 (90 526 | Filled [employer]) 00:00: Date: October MCG/ACT 2016 AERS 12:00AM | Patient Notes: INL 1 TO 2 PFS PO Q 4 H PRF SOB OR WHZ Duration: 16 Metoprolol Metoprolol Yes [place] as Common Tartrate Tartrate [place] directed Spi rit [facility] Voltaren Voltaren Yes [place] apply Com mon [place] [facility] amount to - [facility] Aspirin Aspirin Yes [place]ao 1 tablet Co mmon [place] [facility] Pilocarpine Pilocarpine Yes Dao 1 drop Common HCl HCl [place] into Spirit affected - [facility] eye [facility] Cyanocobala Cyanocobala Yes [place]ao as Common min min [place] directed [facility] Sertraline Sertraline Yes Dao 1 tablet Common HCl HCl [place] [facility] Jardiance Jardiance Yes Dao not Co mmon [place] defined [facility] Myrbetriq Myrbetriq Yes Dao not Co mmon [place] defined [facility] Rosuvastati Rosuvastati Yes Dao 1 tablet Common n Calcium n Calcium [place] Spiri t - [facility] Hydrocodone Hydrocodone Yes Dao (Schedule Common -Acetaminop -Acetaminop [place] II Drug) Spirit hen hen TK 1 T PO - [facility] Q 4 H PRN [facility] Immunizations Ordered Immunization Filled Immunization Date Status Commen ts Source Name Name Influenza Virus 2021-02-16 Completed Anisha Se ybold Vaccine, 00:00:00 Quadrivalent, High Dose, Age 65 And Up Influenza Virus 2021-02-16 Completed Anisha Se ybold Vaccine, 00:00:00 Quadrivalent, High Dose, Age 65 And Up Influenza Virus 2021-02-16 Completed Anisha Se ybold Vaccine, 00:00:00 Quadrivalent, High Dose, Age 65 And Up Influenza Virus 2021-02-16 Completed Anisha Se ybold Vaccine, 00:00:00 Quadrivalent, High Dose, Age 65 And Up Influenza Virus 2021-02-16 Completed Anisha Se ybold Vaccine, 00:00:00 Quadrivalent, High Dose, Age 65 And Up Influenza Virus 2021-02-16 Completed Anisha Se ybold Vaccine, 00:00:00 Quadrivalent, High Dose, Age 65 And Up Influenza Virus 2021-02-16 Completed Anisha Se ybold Vaccine, 00:00:00 Quadrivalent, High Dose, Age 65 And Up Influenza Virus 2021-02-16 Completed Anisha Se ybold Vaccine, 00:00:00 Quadrivalent, High Dose, Age 65 And Up Covid-19 Vaccine 2020-09-11 Completed Anisha pazbold (Moderna), Mrna-lnp, 00:00:00 Tray Protein, Pf, 100 Mcg/0.5ml,IM Covid-19 Vaccine 2020-09-11 Completed Anisha S eybold (Moderna), Mrna-lnp, 00:00:00 Tray Protein, Pf, 100 Mcg/0.5ml,IM Covid-19 Vaccine 2020-09-11 Completed Anisha S eybold (Moderna), Mrna-lnp, 00:00:00 Tray Protein, Pf, 100 Mcg/0.5ml,IM Covid-19 Vaccine 2020-09-11 Completed Anisha S eybold (Moderna), Mrna-lnp, 00:00:00 Tray Protein, Pf, 100 Mcg/0.5ml,IM Covid-19 Vaccine 2020-09-11 Completed Anisha Banuelos eybold (Moderna), Mrna-lnp, 00:00:00 Tray Protein, Pf, 100 Mcg/0.5ml,IM Covid-19 Vaccine 2020-09-11 Completed Anisha Banuelos eybold (Moderna), Mrna-lnp, 00:00:00 Tray Protein, Pf, 100 Mcg/0.5ml,IM Covid-19 Vaccine 2020-09-11 Completed Anisha Banuelos eybold (Moderna), Mrna-lnp, 00:00:00 Tray Protein, Pf, 100 Mcg/0.5ml,IM Covid-19 Vaccine 2020-09-11 Completed Anisha pazbold (Moderna), Mrna-lnp, 00:00:00 Tray Protein, Pf, 100 Mcg/0.5ml,IM Covid-19 Vaccine 2020-09-11 Completed Anisha eliasld (Moderna), Mrna-lnp, 00:00:00 Tray Protein, Pf, 100 Mcg/0.5ml,IM Covid-19 Vaccine 2020-09-11 Completed Anisha pazbold Moderna (Spikevax), 00:00:00 Mrna-lnp, Tray Protein, Pf Covid-19 Vaccine 2020-09-11 Completed Anisha pazbold Moderna (Spikevax), 00:00:00 Mrna-lnp, Tray Protein, Pf Covid-19 Vaccine 2020-09-11 Completed Anisha pazboarpan Moderna (Spikevax), 00:00:00 Mrna-lnp, Tray Protein, Pf Covid-19 Vaccine 2020-09-11 Completed Anisha Banuelos eybold Moderna (Spikevax), 00:00:00 Mrna-lnp, Tray Protein, Pf Covid-19 Vaccine 2020-09-11 Completed Anisha Banuelos eybold (Moderna), Mrna-lnp, 00:00:00 Tray Protein, Pf, 100 Mcg/0.5ml,IM Covid-19 Vaccine 2020-08-14 Completed Anisha Banuelos eybold (Moderna), Mrna-lnp, 00:00:00 Tray Protein, Pf, 100 Mcg/0.5ml,IM Covid-19 Vaccine 2020-08-14 Completed Anisha S eybold (Moderna), Mrna-lnp, 00:00:00 Tray Protein, Pf, 100 Mcg/0.5ml,IM Covid-19 Vaccine 2020-08-14 Completed Anisha S eybold (Moderna), Mrna-lnp, 00:00:00 Tray Protein, Pf, 100 Mcg/0.5ml,IM Covid-19 Vaccine 2020-08-14 Completed Anisha S eybold (Moderna), Mrna-lnp, 00:00:00 Tray Protein, Pf, 100 Mcg/0.5ml,IM Covid-19 Vaccine 2020-08-14 Completed Anisha S eybold (Moderna), Mrna-lnp, 00:00:00 Tray Protein, Pf, 100 Mcg/0.5ml,IM Covid-19 Vaccine 2020-08-14 Completed Anisha S eybold (Moderna), Mrna-lnp, 00:00:00 Tray Protein, Pf, 100 Mcg/0.5ml,IM Covid-19 Vaccine 2020-08-14 Completed Anisha S eybold (Moderna), Mrna-lnp, 00:00:00 Tray Protein, Pf, 100 Mcg/0.5ml,IM Covid-19 Vaccine 2020-08-14 Completed Anisha S eybold (Moderna), Mrna-lnp, 00:00:00 Tray Protein, Pf, 100 Mcg/0.5ml,IM Covid-19 Vaccine 2020-08-14 Completed Anisha S eybold (Moderna), Mrna-lnp, 00:00:00 Tray Protein, Pf, 100 Mcg/0.5ml,IM Covid-19 Vaccine 2020-08-14 Completed Anisha S eybold Moderna (Spikevax), 00:00:00 Mrna-lnp, Tray Protein, Pf Covid-19 Vaccine 2020-08-14 Completed Anisha S eybold Moderna (Spikevax), 00:00:00 Mrna-lnp, Tray Protein, Pf Covid-19 Vaccine 2020-08-14 Completed Anisha S eybold Moderna (Spikevax), 00:00:00 Mrna-lnp, Tray Protein, Pf Covid-19 Vaccine 2020-08-14 Completed Anisha bates Moderna (Spikevax), 00:00:00 Mrna-lnp, Tray Protein, Pf Covid-19 Vaccine 2020-08-14 Completed Anisha bates (Moderna), Mrna-lnp, 00:00:00 Tray Protein, Pf, 100 Mcg/0.5ml,IM Shingles SQ 2019-06-01 Completed Anisha Seybol d (Zostavax) 00:00:00 Shingles SQ 2019-06-01 Completed Anisha Seybol d (Zostavax) 00:00:00 Shingles SQ 2019-06-01 Completed Anisha Seybol d (Zostavax) 00:00:00 Shingles SQ 2019-06-01 Completed Anisha Seybol d (Zostavax) 00:00:00 Shingles SQ 2019-06-01 Completed Anisha Seybol d (Zostavax) 00:00:00 Shingles SQ 2019-06-01 Completed Anisha Seybol d (Zostavax) 00:00:00 Shingles SQ 2019-06-01 Completed Anisha Seybol d (Zostavax) 00:00:00 Shingles SQ 2019-06-01 Completed Anisha Seybol d (Zostavax) 00:00:00 Influenza Virus 2019-04-04 Completed Anisha Se ybold Vaccine, High Dose, 00:00:00 Age 65 And Up Influenza Virus 2019-04-04 Completed Anisha Se ybold Vaccine, High Dose, 00:00:00 Age 65 And Up Influenza Virus 2019-04-04 Completed Anisha Se ybold Vaccine, High Dose, 00:00:00 Age 65 And Up Influenza Virus 2019-04-04 Completed Anisha Se ybold Vaccine, High Dose, 00:00:00 Age 65 And Up Influenza Virus 2019-04-04 Completed Anisha Se ybold Vaccine, High Dose, 00:00:00 Age 65 And Up Influenza Virus 2019-04-04 Completed Anisha Se ybold Vaccine, High Dose, 00:00:00 Age 65 And Up Influenza Virus 2019-04-04 Completed Anisha Se ybold Vaccine, High Dose, 00:00:00 Age 65 And Up Influenza Virus 2019-04-04 Completed Anisha Se ybold Vaccine, High Dose, 00:00:00 Age 65 And Up Influenza Virus 2017-09-03 Completed Anisha Se ybold Vaccine, High Dose, 00:00:00 Age 65 And Up Influenza Virus 2017-09-03 Completed Anisha Se ybold Vaccine, High Dose, 00:00:00 Age 65 And Up Influenza Virus 2017-09-03 Completed Anisha Se ybold Vaccine, High Dose, 00:00:00 Age 65 And Up Influenza Virus 2017-09-03 Completed Anisha Se ybold Vaccine, High Dose, 00:00:00 Age 65 And Up Influenza Virus 2017-09-03 Completed Anisha Se ybold Vaccine, High Dose, 00:00:00 Age 65 And Up Influenza Virus 2017-09-03 Completed Anisha Se ybold Vaccine, High Dose, 00:00:00 Age 65 And Up Influenza Virus 2017-09-03 Completed Anisha Se ybold Vaccine, High Dose, 00:00:00 Age 65 And Up Influenza Virus 2017-09-03 Completed Anisha Se ybold Vaccine, High Dose, 00:00:00 Age 65 And Up Influenza Virus 2016-03-07 Completed Anisha Se ybold Vaccine, High Dose, 00:00:00 Age 65 And Up Influenza Virus 2016-03-07 Completed Anisha Se ybold Vaccine, High Dose, 00:00:00 Age 65 And Up Influenza Virus 2016-03-07 Completed Anisha Se ybold Vaccine, High Dose, 00:00:00 Age 65 And Up Influenza Virus 2016-03-07 Completed Anisha Se ybold Vaccine, High Dose, 00:00:00 Age 65 And Up Influenza Virus 2016-03-07 Completed Anisha Se ybold Vaccine, High Dose, 00:00:00 Age 65 And Up Influenza Virus 2016-03-07 Completed Anisha Se ybold Vaccine, High Dose, 00:00:00 Age 65 And Up Influenza Virus 2016-03-07 Completed Anisha Se ybold Vaccine, High Dose, 00:00:00 Age 65 And Up Influenza Virus 2016-03-07 Completed Anisha Se ybold Vaccine, High Dose, 00:00:00 Age 65 And Up Influenza Virus 2015-04-17 Completed Anisha Se ybold Vaccine, High Dose, 00:00:00 Age 65 And Up Influenza Virus 2015-04-17 Completed Anisha Se ybold Vaccine, High Dose, 00:00:00 Age 65 And Up Influenza Virus 2015-04-17 Completed Anisha Se ybold Vaccine, High Dose, 00:00:00 Age 65 And Up Influenza Virus 2015-04-17 Completed Anisha Se ybold Vaccine, High Dose, 00:00:00 Age 65 And Up Influenza Virus 2015-04-17 Completed Anisha Se ybold Vaccine, High Dose, 00:00:00 Age 65 And Up Influenza Virus 2015-04-17 Completed Anisha Se ybold Vaccine, High Dose, 00:00:00 Age 65 And Up Influenza Virus 2015-04-17 Completed Anisha Se ybold Vaccine, High Dose, 00:00:00 Age 65 And Up Influenza Virus 2015-04-17 Completed Anisha Se ybold Vaccine, High Dose, 00:00:00 Age 65 And Up Vital Signs Vital Name Observation Time Observation Value Comments Source Systolic blood 2021-11-16 18:22:00 128 mm[Hg] Anisha Seybold pressure Diastolic blood 2021-11-16 18:22:00 64 mm[Hg] Kelse y Seybold pressure Heart rate 2021-11-16 18:22:00 77 /min Anisha S eybold Body temperature 2021-11-16 18:22:00 36.56 Re Kathleen ey Seybold Respiratory rate 2021-11-16 18:22:00 16 /min Kathleen ey Seybold Body height 2021-11-16 18:22:00 165.1 cm Anisha S eybold Body weight 2021-11-16 18:22:00 79.379 kg Anisha S eybold BMI 2021-11-16 18:22:00 29.12 kg/m2 Anisha S eybold Body weight 2021-10-19 15:05:00 78.472 kg Anisha S eybold BMI 2021-10-19 15:05:00 28.79 kg/m2 Anisha S eybold Systolic blood 2021-06-29 17:09:00 117 mm[Hg] Anisha Seybold pressure Diastolic blood 2021-06-29 17:09:00 62 mm[Hg] Kelse y Seybold pressure Heart rate 2021-06-29 17:09:00 68 /min Anisha S eybold Body temperature 2021-06-29 17:09:00 36.78 Re Kathleen ey Seybold Respiratory rate 2021-06-29 17:09:00 16 /min Kathleen ey Seybold Body height 2021-06-29 17:09:00 165.1 cm Anisha S eybold Body weight 2021-06-29 17:09:00 79.017 kg Anisha S eybold BMI 2021-06-29 17:09:00 28.99 kg/m2 Anisha S eybold Systolic blood 2021-06-01 16:47:00 152 mm[Hg] Anisha Seybold pressure Diastolic blood 2021-06-01 16:47:00 72 mm[Hg] Kelse y Seybold pressure Heart rate 2021-06-01 16:47:00 80 /min Anisha S eybold Body temperature 2021-06-01 16:47:00 36.56 Re Kathleen ey Seybold Respiratory rate 2021-06-01 16:47:00 16 /min Kathleen ey Seybold Body height 2021-06-01 16:47:00 165.1 cm Anisha S eybold Body weight 2021-06-01 16:47:00 78.472 kg Anisha S eybold BMI 2021-06-01 16:47:00 28.79 kg/m2 Anisha S eybold Systolic blood 2021-05-01 19:24:00 126 mm[Hg] Anisha Seybold pressure Diastolic blood 2021-05-01 19:24:00 79 mm[Hg] Kelse y Seybold pressure Heart rate 2021-05-01 19:24:00 68 /min Anisha S eybold Respiratory rate 2021-05-01 19:24:00 16 /min Kathleen ey Seybold Body height 2021-05-01 19:24:00 165.1 cm Anisha S eybold Body weight 2021-05-01 19:24:00 77.111 kg Anisha S eybold BMI 2021-05-01 19:24:00 28.29 kg/m2 Anisha S eybold Systolic blood 2021-04-05 18:32:00 128 mm[Hg] Anisha Seybold pressure Diastolic blood 2021-04-05 18:32:00 76 mm[Hg] Kelse y Seybold pressure Heart rate 2021-04-05 18:32:00 79 /min Anisha pazbold Body temperature 2021-04-05 18:32:00 36.67 Re Kathleen paz Seybold Respiratory rate 2021-04-05 18:32:00 20 /min Kathleen paz Seybold Body height 2021-04-05 18:32:00 165.1 cm Anisha pazboarpan Body weight 2021-04-05 18:32:00 77.111 kg Anisha pazbold BMI 2021-04-05 18:32:00 28.29 kg/m2 Anisha Banuelos eybold Systolic blood 2021-02-23 19:28:00 138 mm[Hg] Anisha Seybold pressure Diastolic blood 2021-02-23 19:28:00 74 mm[Hg] Kelse y Seybold pressure Heart rate 2021-02-23 19:28:00 98 /min Anisha pazboarpan Body temperature 2021-02-23 19:28:00 36.89 Re Kathleen paz Seybold Respiratory rate 2021-02-23 19:28:00 16 /min Kathleen paz Seybmonika Body height 2021-02-23 19:28:00 165.1 cm Anisha pazboarpan Body weight 2021-02-23 19:28:00 77.293 kg Anisha pazboarpan BMI 2021-02-23 19:28:00 28.36 kg/m2 Anisha pazboarpan Oxygen saturation in 2021-02-23 19:28:00 95 /min Anisha Pringle Arterial blood by Pulse oximetry Systolic blood 2019-02-11 19:52:00 135 mm[Hg] [facility] Diastolic blood 2019-02-11 19:52:00 77 mm[Hg] Unive [facility] Heart rate 2019-02-11 19:52:00 80 /min [facility] Body temperature 2019-02-11 19:52:[address] [facility] 2019-02-11 19:49:00 18 /min [facility] Body height 2019-02-11 19:49:00 167.6 cm [facility] Body weight 2019-02-11 19:49:00 83.462 kg [facility] BMI 2019-02-11 19:49:00 29.70 kg/m2 [facility] Systolic blood 2019-02-11 19:52:00 135 mm[Hg] Univer [facility]ity [facility] Diastolic blood 2019-02-11 19:52:00 77 mm[Hg] [facility] 2019-02-11 19:52:00 80 /min [facility] Body temperature 2019-02-11 19:52:00 36.83 Re Chi [facility] 2019-02-11 19:49:00 18 /min [facility] Body height 2019-02-11 19:49:00 167.6 cm [facility] Body weight 2019-02-11 19:49:00 83.462 kg [facility] BMI 2019-02-11 19:49:00 29.70 kg/m2 [facility] Procedures Procedure Date / Time Performing Clinician Source Performed EXTERNAL IMAGING 2021-06-29 20:14:00 Raven Coy REAGENT STRIP/BLOOD 2021-05-01 19:31:00 Aung Castaneda eybold GLUCOSE LS RAPID STREP ASSAY-LAB 2021-02-23 20:15:01 Ld Hughes TEST Somogyi PATIENT QUESTIONNAIRE 2020-02-16 05:01:00 Doctor Unassigned, No [facility] POCT URINALYSIS AUTO 2019-02-11 20:02:00 Avril Sprague [facility] ASSIGNMENT OF BENEFITS 2019-02-11 19:32:20 Doctor Unassigned, No [facility] Plan of Care Planned Activity Planned Date Details Comments Source Future Scheduled 2022 HEPATITIS B VACCINES Met [facility] Test 01:57:16 (1 of 3 - 3-dose series) [code = HEPATITIS B VACCINES (1 of 3 - 3-dose series)] Future Scheduled 2022 COVID-19 VACCINE (#1) [facility] Test 01:57:16 [code = COVID-19 VACCINE (#1)] Future Scheduled 2022 [facility]ING [facility] 01:57:16 [code = COLONOSCOPY SCREENING] Future Scheduled 2022 SHINGLES VACCINES (1 [facility] Test 01:57:16 of 2) [code = SHINGLES VACCINES (1 of 2)] Future Scheduled 2022 65+ [facility]OC[facility] [facility] Test 01:57:16 VACCINE (1 - PCV) [code = 65+ PNEUMOCOCCAL VACCINE (1 - PCV)] Future Scheduled 2022 [facility]ZA [facility]ACCINE [facility] 01:57:16 [code = INFLUENZA VACCINE] Future Scheduled 2021-07-18 65+ [facility] Test 15:18:23 VACCINE (1 of 1 - PPSV23) [code = 65+ PNEUMOCOCCAL VACCINE (1 of 1 - PPSV23)] Future Scheduled 2021-07-18 [facility]INE [facility] 15:18:23 [code = INFLUENZA VACCINE] Future Scheduled 2021-07-18 COVID-19 VACCINE (1) [facility] Test 15:18:23 [code = COVID-19 VACCINE (1)] Future Scheduled 2021-07-18 [facility] Test 15:18:23 SCREENING [code = BREAST CANCER SCREENING] Future Scheduled 2021-07-18 COLONOSCOPY SCREENING [facility] Test 15:18:23 [code = COLONOSCOPY SCREENING] Future Scheduled 2021-07-18 SHINGLES VACCINES (#1) [facility] Test 15:18:23 [code = SHINGLES VACCINES (#1)] Future Scheduled COVID-19 VACCINE (1) [facility] Test [code = COVID-19 VACCINE (1)] Future Scheduled [facility] Test SCREENING [code = BREAST CANCER SCREENING] Future Scheduled COLONOSCOPY SCREENING Me [facility] Test [code = COLONOSCOPY SCREENING] Future Scheduled SHINGLES VACCINES (#1) [facility] [code = SHINGLES VACCINES (#1)] Future Scheduled 65+ [facility]OCO[facility]AL [facility] Test VACCINE (1 of 1 - PPSV23) [code = 65+ PNEUMOCOCCAL VACCINE (1 of 1 - PPSV23)] Future Scheduled IN[facility]UENZA [facility]ACCINE [facility] Test [code = INFLUENZA VACCINE] Encounters Start End Encounter Admission Attending Care Care Encounter Source Date/Time Date/Time Type Type Clinicians Facility Department ID 2021-07-[address] [facility] [id number] Common 14:37:16 GRETA [facility] 2021-07-12 Outpatient TIMMY STSRIRAM STLMLC [id number] Common 14:37:06 GRETA [facility] 2021-07-12 Outpatient TIMMY STSRIRAM STLMLC [id number] Common 11:32:37 GRETA [id number] [facility] 2021-07-12 Outpatient WARNER, STSRIRAM STLMLC [id number] Common 11:13:10 GRETA 87081 [facility] 2021-07-12 Outpatient TIMMY STSRIRAM STLMLC [id number] Common 11:11:31 GRETA 71444 [facility] 2021-07-12 Outpatient TIMMY STSRIRAM STLC [id number] Common 11:06:40 GRETA 16486 [facility] 2022-04-09 2022-04-09 Outpatient AUNG CASTANEDA [id number] Ansiha 10:45:00 10:45:00 Seybol d 2022-04-03 2022-04-03 Outpatient ANISHA RUBY [id number] Anisha 11:30:00 11:30:00 SHRUTHI Seybo ld 2022 2022 Outpatient ANISHA COY [id number] Anisha 00:00:00 00:00:00 RAVEN Seybol d 2022-03-07 2022-03-07 Outpatient ANISHA HUGHES [id number] Anisha 00:00:00 00:00:00 LD Seybol d 2022-03-06 2022-03-06 Outpatient ANISHA HUGHES [id number] Anisha 00:00:00 00:00:00 LD Seybol d 2022-03-03 2022-03-03 Outpatient DOREEN MISTRY [id number] Anisha 00:00:00 00:00:00 Seybol d 2022-03-02 2022-03-02 Outpatient LAB90 ANISHA JACKSON [id number] Anisha 10:45:00 10:45:00 Seybol d 2022-03-02 2022-03-02 Outpatient ANISHA COY ANISHA [id number] Anisha 09:30:00 09:30:00 RAVEN Seybol d 2022-03-01 2022-03-01 Outpatient SAUL ANISHA JACKSON [id number] Anisha 00:00:00 00:00:00 LD Seybol d 2022-03-01 2022-03-01 Outpatient ANISHA COY ANISHA [id number] Anisha 00:00:00 00:00:00 RAVEN Seybol d 2022-02-21 2022-02-21 Outpatient LAB90 ANISHA JACKSON [id number] Anisha 10:50:00 10:50:00 Seybol d 2022-02-21 2022-02-21 Office Eduardo Coy 1.2.840.114 [id number] Anisha 09:30:00 10:30:00 Visit Raven Dawn 350.1.13.13 Se ybold 1.2.7.2.686 [id number] 2022-02-20 2022-02-20 Outpatient ANNELIESE ANISHA JACKSON [id number] Anisha 09:30:00 09:30:00 RAVEN Seybol d 2022-02-05 2022-02-05 Outpatient AUNG CASTANEDA ANISHA JACKSON [id number] Anisha 13:30:00 13:30:00 Seybol d 2021-12-25 2021-12-25 Outpatient LEONELAUNG ANISHA JACKSON [id number] Anisha 10:15:00 10:15:00 Seybol d 2021-12-22 2021-12-22 Outpatient SAUL ANISHA JACKSON [id number] Anisha 00:00:00 00:00:00 LD Seybol d 2021-11-27 2021-11-27 Outpatient AUNG CASTANEDA ANISHA JACKSON [id number] Anisha 08:45:00 08:45:00 Seybol d 2021-11-16 2021-11-16 Office Eduardo Hughes 1.2.840.114 [id number] Anisha 13:30:00 14:00:00 Visit Ld Dawn 350.1.13.13 Se ybold Somogyi 1.2.7.2.686 [id number] 2021-10-19 2021-10-19 Office JOSE A Ho 1.2.840.114 [id number] Anisha 11:00:00 11:20:00 Visit Yordan Wolff 350.1.13.13 Seybold 1.2.7.2.686 [id number] 2021-10-19 2021-10-19 Outpatient ANISHA JACKSON [id number] Anisha 09:45:00 09:45:00 Seybol d 2021-10-18 2021-10-18 Outpatient ANISHA HO [id number] Anisha 00:00:00 00:00:00 YORDAN Seybol d 2021-10-16 2021-10-16 Outpatient ANISHA HUGHES [id number] Anisha 00:00:00 00:00:00 LD Seybol d 2021-10-10 2021-10-10 Outpatient ANISHA PITTS [id number] Anisha 15:00:00 15:00:00 JOSE A Seybo ld 2021-10-09 2021-10-09 Outpatient ANISHA HUGHES [id number] Anisha 00:00:00 00:00:00 LD Seybol d 2021-07-11 2021-07-11 Outpatient SHELLY JACKSON [id number] Anisha 00:00:00 00:00:00 MD GENTRY Seybol d 2021-06-29 2021-06-29 Outpatient LAB90 ANISHA JACKSON [id number] Anisha 11:50:00 11:50:00 Seybol d 2021-06-29 2021-06-29 Office Eduardo Coy 1.2.840.114 [id number] Anisha 11:00:00 11:30:00 Visit Raven Dawn 350.1.13.13 Se ybold 1.2.7.2.686 [id number] 2021-06-27 2021-06-27 Outpatient IJI86-TLH ANISHA JACKSON [id number] Anisha 16:35:00 16:35:00 Seybol d 2021-06-27 2021-06-27 Outpatient TESTING, PL ANISHA JACKSON [id number] Anisha 15:50:00 15:50:00 Seybol d 2021-06-27 2021-06-27 Outpatient ANISHA HUGHES [id number] Anisha 10:00:00 10:00:00 LD Seybol d 2021-06-27 2021-06-27 Outpatient ANISHA HUGHES [id number] Anisha 00:00:00 00:00:00 LD Seybol d 2021-06-20 2021-06-20 Outpatient ANISHA HUGHES [id number] Anisha 10:15:00 10:15:00 LD Seybol d 2021-06-14 2021-06-14 Outpatient ANISHA HUGHES [id number] Anisha 08:45:00 08:45:00 LD Seybol d 2021-06-08 2021-06-08 Outpatient MYKELSEYONL ANISHA JACKSON [id number] Anisha 00:00:00 00:00:00 MD GENTRY Seybol d 2021-06-01 2021-06-01 Outpatient LAB90 ANISHA JACKSON [id number] Anisha 11:45:00 11:45:00 Seybol d 2021-06-01 2021-06-01 Office Eduardo Hughes 1.2.840.114 [id number] Anisha 11:00:00 11:30:00 Visit Ld Dawn 350.1.13.13 Se ybold Somogyi 1.2.7.2.686 [id number] 2021-05-31 2021-05-31 Outpatient ANISHA JACKSON [id number] Anisha 14:30:00 14:30:00 Seybol d 2021-05-01 2021-05-01 Office Aung Castaneda 1.2.840.114 [id number] Anisha 12:47:27 13:02:27 Visit Neptali 350.1.13.13 Se ybold 1.2.7.2.686 [id number] 2021-04-27 2021-04-27 Outpatient ANISHA HUGHES [id number] Anisha 00:00:00 00:00:00 LD Seybol d 2021-04-24 2021-04-24 Outpatient ANISHA HUGHES [id number] Anisha 00:00:00 00:00:00 LD Seybol d 2021-04-07 2021-04-07 Outpatient RAMYAANISHA [id number] Anisha 09:00:00 09:00:00 SILKE Seybol d 2021-04-05 2021-04-05 Office Eduardo Hughes 1.2.840.114 [id number] Anisha 13:22:17 13:52:17 Visit Ld Dawn 350.1.13.13 Se ybold Ramesh 1.2.7.2.686 [id number] 2021-04-05 2021-04-05 Outpatient ANISHA HUGHES [id number] Anisha 00:00:00 00:00:00 LD Seybol d 2021-04-04 2021-04-04 Education Hunter Rey 1.2.840.114 [id number] Anisha 09:42:50 10:42:50 Hunter Rey 350.1.13.13 Seybold 1.2.7.2.686 [id number] 2021-04-03 2021-04-03 Outpatient AUNG CASTANEDA [id number] Anisha 09:45:00 09:45:00 Seybol d 2021-03-27 2021-03-27 Outpatient HUNTER REY [id number] Anisha 11:30:00 11:30:00 Seybol d 2021-03-21 2021-03-21 Outpatient AUNG CASTANEDA [id number] Anisha 00:00:00 00:00:00 Seybol d 2021-03-01 2021-03-01 Outpatient AUNG CASTANEDA [id number] Anisha 00:00:00 00:00:00 Seybol d 2021-03-01 2021-03-01 Outpatient ANISHA HUGHES [id number] Anisha 00:00:00 00:00:00 LD Seybol d 2021-02-27 2021-02-27 Outpatient AUNG CASTANEDA ANISHA JACKSON [id number] Anisha 00:00:00 00:00:00 Seybol d 2021-02-23 2021-02-23 Office Eduardo Hughes 1.2.840.114 [id number] Anisha 13:31:23 14:01:23 Visit Ld Dawn 350.1.13.13 [address] [place] 1.2.7.2.686 [id number] 2021-02-23 2021-02-23 Outpatient ANISHA HUGHES [id number] Anisha 00:00:00 00:00:00 LD Seybol d 2021-02-22 2021-02-22 Outpatient ANISHA HUGHES [id number] Anisha 00:00:00 00:00:00 LD Seybol d 2021-02-17 2021-02-17 Outpatient ANISHA HUGHES [id number] Anisha 00:00:00 00:00:00 LD Seybol d 2021-02-16 2021-02-16 Outpatient EDUARDO OLMEDO ANISHA JACKSON [id number] Anisha 13:30:00 13:30:00 Seybol d 2021-02-16 2021-02-16 Outpatient ANISHA HUGHES [id number] Anisha 10:45:00 10:45:00 LD Seybol d 2021-02-13 2021-02-13 Outpatient [facility] ANISHA JACKSON [id number] Anisha 15:45:00 15:45:00 Seybol d 2021-02-13 2021-02-13 Outpatient AUNG CASTANEDA ANISHA JACKSON [id number] Anisha 15:00:00 15:00:00 Seybol d 2021-02-08 2021-02-08 Outpatient ANISHA SHRESTHA [id number] Anisha 14:40:00 14:40:00 LAZ Seybol d 2021-01-24 2021-01-24 Outpatient ANISHA HUGHES [id number] Anisha 00:00:00 00:00:00 LD Seybol d 2021-01-17 2021-01-17 Outpatient WENDY HUGHESSEY ANISHA [id number] Anisha 13:30:00 13:30:00 LD Menezes kamryn 2020-09-11 2020-09-11 Outpatient [facility] [id number] Univers 13:30:00 13:30:00 [facility] 2020-08-14 2020-08-14 Outpatient R ELLIOTT, [facility] [id number] Univers 13:25:00 13:25:00 LENY [facility] 2020-05-05 2020-05-05 Outpatient STLMLC STLMLC [id number] Common 00:00:00 00:00:00 [facility] 2020-03-16 2020-03-16 Outpatient STLMLC STLMLC [id number] Common 00:00:00 00:00:00 [facility] 2020-03-11 2020-03-11 Outpatient STLMLC STLMLC [id number] Common 00:00:00 00:00:00 [facility] 2020-03-09 2020-03-09 Outpatient R DARCIE, [facility] [id number] Univers 10:30:00 10:30:00 [facility] [id number] [facility] 2020-03-09 2020-03-09 Outpatient R DARCIE, [facility] [id number] Univers 10:30:00 10:30:00 [facility] 2020-02-17 2020-02-17 Outpatient R DARCIE, [facility] [id number] Univers 15:00:00 15:00:00 [facility] 2020-02-17 2020-02-17 Letter GENE Reis 1.2.840.114 [id number] Univers 00:00:00 00:00:00 (Out) Salima CASEY 350.1.13.10 [facility] 4.2.7.2.686 Davonte as [phone] [address] 2020-02-17 2020-02-17 GENE Lemons 1.2.840.114 [id number] 00:00:00 00:00:00 (Out) Salima CASEY 350.1.13.10 [facility] 42.7.2.686 [id number] 2020-02-16 2020-02-16 Laboratory Lab, [facility] Fam Pob I [facility] 1.2. 840.114 [id number] Univers 11:36:48 11:56:48 Only [facility] 350.1.13.10 ity of [place] 4.2.7.2.686 Davonte as Professio [phone] Me dical [address] Office [address] 2020-02-16 2020-02-16 Laboratory Lab, [facility] 1.2.840.114 [id number] 11:36:48 11:56:48 Only Fam Pob I Health 350.1.13.10 [place] 4.2.7.2.686 Professio [phone] [address] 2020-02-16 2020-02-16 Outpatient R [facility] [id number] Univers 11:40:00 11:40:[address] [facility] 2020-02-16 2020-02-16 Outpatient R ALFONSO [facility] [id number] Univers 11:40:00 11:40:[address] [facility] 2020-02-16 2020-02-16 Orders Doctor GENE 1.2.840.114 [id number] Univers 00:00:00 00:00:00 Only Unassigned, CARMELA 350.1.13.10 [facility]y [facility] [place] [facility] 4.2.7.2.686 Davonte as [phone] [address] 2020-02-16 2020-02-16 Orders Doctor GENE 1.2.840.114 [id number] 00:00:00 00:00:00 Only Unassigned, CARMELA 350.1.13.10 [facility] 4.2.7.2.686 [id number] 2020-02-01 2020-02-01 Outpatient R [facility] [id number] Univers 14:20:00 14:20:[id number] [facility] 2020-02-01 2020-02-01 Outpatient R [facility] [id number] Univers 14:20:00 14:20:[address] [facility] 2020-01-21 2020-01-21 Outpatient [facility]H [facility] PDPFEIQ SIV COH 00:00:00 00:00:00 [id number] 2020-01-14 2020-01-14 [facility] [id number] Common 09:58:00 09:58:00 [facility] 2020-01-11 2020-01-11 [facility] [id number] Common 10:11:00 10:11:00 t [facility] 2019-12-24 2019-12-24 [facility] [id number] Common 14:32:00 14:32:00 t [facility] Bone [facility] Spiri t [facility] - [facility] 2019-11-30 2019-11-30 [facility] [id number] Common 09:30:00 09:30:00 t [facility] Bone and Spiri t and [facility] - [facility] 2019-11-30 2019-11-30 [facility] [id number] Common 08:27:00 08:27:00 t [facility] Bone [facility] Sp[facility] t [facility] - [facility] 2019-11-12 2019-11-12 Out[facility] [id number] Common 10:30:00 10:30:00 t [facility] Bone [facility] Spiri t [facility] - [facility] 2019-11-04 2019-11-04 [facility] [id number] Common 15:17:00 15:17:00 t [facility] Bone [facility] Sp[facility] t [facility] - [facility] 2019-10-29 2019-10-29 [facility] [id number] Common 09:45:00 09:45:00 t [facility] Sp[facility] - [facility] 2019-10-26 2019-10-26 [facility] [id number] Common 11:02:00 11:02:00 t [facility] Bone and Spiri t [facility] - [facility] 2019-10-13 2019-10-13 Outpatient [facility] [place] [id number] Common 09:44:00 09:44:00 t Bone Bone and Spiri t and Joint [facility] - [facility] 2019-10-12 2019-10-12 Outpatient [facility] [id number] Common 10:00:00 10:00:00 t [facility] Bone [facility] Sp[facility] t [facility] - [facility] 2019-09-11 2019-09-11 Telephone Gramm, [facility] [id number] [facility] 00:00:00 00:00:00 Avril Rico 350.1.13.10 [place]y of [place] 4.2.7.2.686 Kelli s Professio [phone] [address] 2019-09-11 2019-09-11 Telephone Gramm, [facility] [id number] 00:00:00 00:00:00 Avril Rico 350.1.13.10 [place] 4.2.7.2.[address] Professio [phone] [address] 2019-09-02 2019-09-02 Outpatient [facility] [id number] Common 11:29:00 11:29:00 t Bone Bone and Spiri t and [facility] - [facility] 2019-08-26 2019-08-26 Outpatient [facility] [id number] Common 09:55:00 09:55:00 t Bone Bone and Spiri t and Joint [facility] - [facility] 2019-08-21 2019-08-21 Outpatient [facility] [id number] Common 08:15:00 08:15:00 t Bone Bone and Spiri t and Joint [facility] - [facility] 2019-08-11 2019-08-11 Outpatient [facility] [id number] Common 08:31:00 08:31:00 t Bone Bone and Spiri t and Joint [facility] 2019-08-10 2019-08-10 Out[facility] [id number] Common 09:37:00 09:37:00 t Bone Bone and Spiri t and Joint [facility] - [facility] 2019-08-07 2019-08-07 Outpatient [facility] [id number] Common 15:44:00 15:44:00 t Bone Bone and Spiri t and Joint [facility] - [facility] 2019-07-27 2019-07-27 Outpatient [facility] [id number] Common 09:30:00 09:30:00 t Bone Bone and Spiri t and Joint [facility] - [facility] 2019-02-11 2019-02-11 Office [facility], [facility] 1.2.840.[id number] [place] [address] 14:32:34 15:19:14 Visit Avril Rico 350.1.13.10 ity [facility] 4.2.7.2.686 [place] Professio [phone] [facility] [address] [facility] 2019-02-11 2019-02-11 Office Darcie, [facility] 1.2.840.114 [id number] 14:32:34 15:19:14 Visit Avril Rico 350.1.13.10 [place] 4.2.7.2.686 Professio [phone] [address] 2019-02-11 2019-02-11 Orders Doctor GENE 1.2.840.[id number] [place] [address] 00:00:00 00:00:00 Only Unassigned, CARMELA 350.1.13.10 ity of [facility] 4.2.7.2.686 Davonte as [phone] [place] [address] [place] 2018-02-13 2018-02-13 Outpatient Miguel [facility] [id number] Common 14:30:00 14:30:00 t Bone Bone and Spiri t and Joint [facility] - [facility] 2016-06-29 2016-06-30 Outpatient [facility] [id number] [facility] 15:39:00 05:59:00 chris Torrez 00 l [facility] 2016-06-29 2016-06-30 Outpatient [facility] [id number] Memoria 15:39:00 05:59:00 r Shan 00 l [facility] 2016-06-29 2016-06-29 Outpatient Debiit [facility] [id number] 09:39:00 23:59:00 , Dao 00 Tommy Results Test Description Test Time Test Comments Results Result Comments Source EXTERNAL IMAGING 2021-06-29 21:21:00 Test Item Value Reference Range Interpretation Comme nts Radiology Study observation (narrative) (test code = 88538-1) CLIFFORD (test code = CLIFFORD) [facility] Rad Knee Right 3 view. Clinical History: ?M25.561, M79.605, m79.604 Exam Description: ?Rad Knee Right 3 view 06/29/2021 1414 Comparison: ?No comparisons Findings: ?No acute fracture. ?No malalignment. ?No significant focal degenerative changes. ? Impression: ?No acute osseous abnormality involving the right knee. Dictated and signed by: ?Suresh Camarena Lab Interpretation (test code = 36175-9) Normal Anisha SeyboldEXTERNAL [id number] 20:59:00 Test Item Value Reference Range Interpretation Comments Radiology Study observation (narrative) (test code = 13070-6) CLIFFORD (test code = CLIFFORD) [facility] Rad-Pelvis ?06/29/2021 1414Clinical History : ?M25.561, M79.605, M79.604 Comparison: ?No comparisons Findings: ?No acuter fracture. ?No malalignment. ?No significant focal degenerative changes. ?Rounded calcified structure overlying the right aspect of the sacrum may be a bone islans. IMPRESSION: ?No acute osseous abnormality involving the bony pelvis. Dictated and Signed By: ?Suresh Camarena Exam Description: ?Rad Lumbar Spine 3 Views 06/29/2021 1414 Clinical History: ?M25.251, M79.605, M79.604 Comparison: ?No comparisons. Findings: ?No acute fracture. ?Mild dextroscoliotic curvature centered at L3. ?Moderate to severe disc height loss at L4-5 and L5-S1 and moderate height loss at T12-L1. ?Surgical clips in the right upper quadrant. ?Facet degenerative changes are present in the lower levels. Impression: ?No acute osseous abnormality involving the lumbar spine. ?Moderate degenerative disc disease. Dictated and signed by: ?Suresh Camarena Lab Interpretation (test Normal code = 34277-2) Anisha mckennamonikaREAGENT STRIP/BLOOD [id number] 19:31:00 Test Item Value Reference Range Interpretation Comments BLOOD SUGAR (test code = 173660) 118 mg/dL 65-99 A Lab Interpretation (test code = Abnormal 54411-3) Anisha Farias RAPID STREP ASSAY-LAB [id number] 20:32:08 Test Item Value Reference Range Interpretation Comments STREP GP A AG, IA (test Negative Negative Infe ction due to code = 99976-1) Strep A kike ot be ruled-out becau se the antigen present in the sample may be below the detec tion limit of the te st. Specimen has be en sent for confir mation of negative. Lab Interpretation (test Normal code = 34603-8) Anisha HudsonoldPOCT URINALYSIS, [id number] 20:03:00 Test Item Value Reference Range Interpretation Comments POCT U SP GRAV (test code = 1.020 mg/dl 1.005-1.025 3255) POCT PH U (test code = 3254) 5.5 mg/dl 5-8 POCT U LEUK EST (test code = Trace Negative - Negative 3263) POCT U NIT (test code = 3262) Negative Negative - Negative POCT U PROT (test code = Negative Negative - Negative 3259) POCT U GLU (test code = 3256) Negative Negative - Negative POCT U KETONE (test code = Negative Negative - Negative 3258) POCT U UROBILI (test code = 0.2 mg/dl 0.2-1 3260) POCT U BILI (test code = Negative Negative - Negative 3261) POCT U BLD (test code = 3257) Negative Negative - Negative POCT U COLOR (test code = Yellow 3266) POCT U APPEAR (test code = clear 3267) Lab Interpretation (test code Abnormal = 33996-5) [facility] [id number] 20:03:00 Test Item Value Reference Range Interpretation Comments POCT U SP GRAV (test code = 1.020 mg/dl 1.005-1.025 3255) POCT PH U (test code = 3254) 5.5 mg/dl 5-8 POCT U LEUK EST (test code = Trace Negative - Negative 3263) POCT U NIT (test code = 3262) Negative Negative - Negative POCT U PROT (test code = Negative Negative - Negative 3259) POCT U GLU (test code = 3256) Negative Negative - Negative POCT U KETONE (test code = Negative Negative - Negative 3258) POCT U UROBILI (test code = 0.2 mg/dl 0.2-1 3260) POCT U BILI (test code = Negative Negative - Negative 3261) POCT U BLD (test code = 3257) Negative Negative - Negative POCT U COLOR (test code = Yellow 3266) POCT U APPEAR (test code = clear 3267) Lab Interpretation (test code Abnormal = 80926-9) [facility] [id number] 17:10:00 Test Item Value Reference Range Interpretation Comments eGFR (test code = eGFR) 32 [facility] [id number] 17:10:00 Test Item Value Reference Range Interpretation Comments POC Creatinine (test code = POC 1.6 0.5-1.4 Creatinine) [facility] [id number] 17:10:00 Test Item Value Reference Range Interpretation Comments eGFR (test code = eGFR) 32 [facility]2017-01-13 17:10:00 Test Item Value Reference Range Interpretation Comments POC Creatinine (test code = POC 1.6 0.5-1.4 Creatinine) [facility]"
[2022-03-08] MEDS ORDERED: ALBUTEROL 2.5 MG/3 ML NEB SOL ONE (13:04)
[2022-03-08] MEDS ORDERED: IPRATROPIUM BROM 0.5MG/2.5ML ONE (13:04)
--- NOTE | 2022-03-08 13:19 | RAD REPORT ---
EXAM DESCRIPTION: RAD - Chest Single View - 03/08/2022 12:41 pm CLINICAL HISTORY: DYSPNEA, recent positive COVID test, shortness of breath COMPARISON: Two view chest 06/01/2021 TECHNIQUE: AP portable chest image was obtained 03/08/2022 12:41 pm . FINDINGS: No consolidation or acute lung parenchymal process seen. Interstitial pattern is similar t o the comparison. Heart and vasculature are normal. No measurable pleural effusion and no pneumothorax. No acute bony abnormality seen. No acute aortic findings suspected. IMPRESSION: No acute cardiopulmonary process. No significant change from comparison study.
--- NOTE | 2022-03-08 13:28 | ER ---
Nurse's Notes [facility] Name: Genny Mccall Age: 77 yrs Sex: Female : 1945 Arrival Date: 03/08/2022 Time: 11:46 Bed 17 Private MD: Diagnosis: Coronavirus infection, unspecified Presentation: 03/08 12:02 Chief complaint: Patient states: tested positive for COVID today and she has SOB and iw heaviness in her chest , s/s started yesterday. Coronavirus screen: Client presents with at least one sign or symptom that may indicate coronavirus-19. Ebola Screen: Patient negative for fever greater than or equal to 101.5 degrees Fahrenheit, and additional compatible Ebola Virus Disease symptoms Patient denies exposure to infectious person. Patient denies travel to an Ebola-affected area in the 21 days before illness onset. No symptoms or risks identified at this time. Initial Sepsis Screen: Does the patient meet any 2 criteria? No. Patient's initial sepsis screen is negative. Does the patient have a suspected source of infection? No. Patient's initial sepsis screen is negative. Risk Assessment: Do you want to hurt yourself or someone else? Patient reports no desire to harm self or others. Onset of symptoms was March 08, 2022. 12:02 Method Of Arrival: Ambulatory iw 12:02 Acuity: [place] 4 iw 12:05 Acuity: [place] 3 iw Historical: - Allergies: 12:04 Ciprofloxacin; iw 12:04 formoterol fumarate; iw 12:04 Latex, Natural Rubber; iw 12:04 zolpidem; iw - PMHx: 12:04 diabetes mellitus; R BBB, irrregular heart rate; Gastroesophageal reflux disease; iw Sjogrens; - Immunization history:: Client reports receiving the 2nd dose of the Covid vaccine. - Social history:: Smoking status: Patient denies any tobacco usage or history of. Screenin:00 Abuse screen: Denies threats or abuse. Denies injuries from another. Nutritional iw screening: No deficits noted. Tuberculosis screening: No symptoms or risk factors identified. Fall Risk None identified. Assessment: 12:15 General: Appears in no apparent distress. comfortable, Behavior is calm, cooperative, iw appropriate for age. Pain: Denies pain. Vital Signs: 12:02 BP 186 / 74; Pulse 67; Resp 22 S; Temp 98.1; Pulse Ox 99% on R/A; iw 12:15 BP 175 / 68; Pulse 70; Resp 22; Pulse Ox 97% on R/A; Pain 0/10; iw 13:00 BP 162 / 80; Pulse 68; Resp 18; Pulse Ox 99% ; Pain 0/10; iw 13:25 BP 165 / 74; Pulse 68; Resp 16; Pulse Ox 99% ; Pain 0/10; iw ED Course: 11:46 Patient arrived in ED. rg4 11:48 Wendy Goff FNP [facility]. jh7 11:48 Asad Parry MD is Attending Physician. 7 11:59 Donna Sebastian, RN is Primary Nurse. ko1 12:04 Triage completed. iw 12:05 Arm band placed on. iw 12:43 XRAY Chest (1 view) In Process Unspecified. EDMS 13:00 Patient has correct armband on for positive identification. Bed in low position. Call iw light in reach. Side rails up X 1. 13:00 No provider procedures requiring assistance completed. Patient did not have IV access iw during this emergency room visit. Administered Medications: 12:57 Drug: Albuterol - atroVENT (ipratropium) (3:1) (2.5 mg - 0.5 mg) 3 ml Route: Nebulizer; iw Medication: 13:00 VIS not applicable for this client. iw Outcome: 13:27 Discharge ordered by . [facility] 13:39 Discharged to home ambulatory, with family. iw 13:39 Condition: good 13:39 Discharge instructions given to patient, family, Instructed on discharge instructions, follow up and referral plans. medication usage, Demonstrated understanding of instructions, follow-up care, medications, Prescriptions given X 2. 13:46 Patient left the ED. iw Signatures: Dispatcher [employer] EDMS Kate Holder, RN RN Brenda Herrera rg4 Wendy Goff FNP [facility]7 Donna Sebastian, RN RN ko1 Corrections: (The following items were deleted from the chart) 12:05 12:04 PMHx: schrogrens; iw iw
--- NOTE | 2022-03-08 13:28 | EDPHYS ---
Physician Documentation [facility] Name: Genny Mccall Age: 77 yrs Sex: Female : 1945 Arrival Date: 03/08/2022 Time: 11:46 Bed 17 Private MD: ED Physician Asad Parry HPI: 03/08 12:05 This 77 yrs old Female presents to ER via Ambulatory with complaints of Covid. jh7 12:05 Onset: The symptoms/episode began/occurred 1 day(s) ago. Associated signs and symptoms: jh7 Pertinent positives: cough, headache, nasal discharge, shortness of breath. Patient reports upper respiratory symptoms starting yesterday and states that she took a COVID test this morning which was positive. Reports cough, congestion, and some shortness of breath.. Historical: - Allergies: 12:04 Ciprofloxacin; iw 12:04 formoterol fumarate; iw 12:04 Latex, Natural Rubber; iw 12:04 zolpidem; iw - PMHx: 12:04 diabetes mellitus; R BBB, irrregular heart rate; Gastroesophageal reflux disease; iw Sjogrens; - Immunization history:: Client reports receiving the 2nd dose of the Covid vaccine. - Social history:: Smoking status: Patient denies any tobacco usage or history of. ROS: 12:05 Constitutional: Negative for fever, chills, and weight loss, Eyes: Negative for injury, jh7 pain, redness, and discharge, Cardiovascular: Negative for chest pain, palpitations, and edema, Abdomen/GI: Negative for abdominal pain, nausea, vomiting, diarrhea, and constipation, Back: Negative for injury and pain, MS/Extremity: Negative for injury and deformity, Skin: Negative for injury, rash, and discoloration. 12:05 ENT: Positive for nasal discharge, sinus congestion, Negative for sore throat. 12:05 Respiratory: Positive for cough, shortness of breath, Negative for wheezing. 12:05 Neuro: Positive for headache, Negative for altered mental status, dizziness, loss of consciousness, numbness, syncope, tingling, weakness. 12:05 All other systems are negative. Exam: 12:05 Constitutional: This is a well developed, well nourished patient who is awake, alert, jh7 and in no acute distress. Head/Face: Normocephalic, atraumatic. Neck: Trachea midline, no thyromegaly or masses palpated, and no cervical lymphadenopathy. Supple, full range of motion without nuchal rigidity, or vertebral point tenderness. No Meningismus. Cardiovascular: Regular rate and rhythm with a normal S1 and S2. No gallops, murmurs, or rubs. Normal PMI, no JVD. No pulse deficits. Abdomen/GI: Soft, non-tender, with normal bowel sounds. No distension or tympany. No guarding or rebound. No evidence of tenderness throughout. Back: No spinal tenderness. No costovertebral tenderness. Full range of motion. Skin: Warm, dry with normal turgor. Normal color with no rashes, no lesions, and no evidence of cellulitis. MS/ Extremity: Pulses equal, no cyanosis. Neurovascular intact. Full, normal range of motion. Neuro: Awake and alert, GCS 15, oriented to person, place, time, and situation. Motor strength 5/5 in all extremities. Sensory grossly intact. Normal gait. 12:05 ENT: Nose: nasal drainage, and is seen coming from both nares, that is clear, that is thin, Posterior pharynx: post nasal drainage. 12:05 Respiratory: the patient does not display signs of respiratory distress, Respirations: normal, Breath sounds: decreased breath sounds, that are mild, are located in both bases. Vital Signs: 12:02 BP 186 / 74; Pulse 67; Resp 22 S; Temp 98.1; Pulse Ox 99% on R/A; iw 12:15 BP 175 / 68; Pulse 70; Resp 22; Pulse Ox 97% on R/A; Pain 0/10; iw 13:00 BP 162 / 80; Pulse 68; Resp 18; Pulse Ox 99% ; Pain 0/10; iw 13:25 BP 165 / 74; Pulse 68; Resp 16; Pulse Ox 99% ; Pain 0/10; iw MDM: 11:55 Patient medically screened. [place] 13:25 Differential diagnosis: viral Infection, bacterial infection, URI, pneumonia. Data [facility] reviewed: vital signs, nurses notes, radiologic studies, plain films. Data interpreted: Pulse oximetry: is 99 %. Interpretation: normal. Counseling: I had a detailed discussion with the patient and/or guardian regarding: the historical points, exam findings, and any diagnostic results supporting the discharge/admit diagnosis, to return to the emergency department if symptoms worsen or persist or if there are any questions or concerns that arise at home. Medication response: albuterol nebulizer treatment(s) markedly relieved the patient's wheezing. Response to treatment: the patient's symptoms have markedly improved after treatment. 03/08 12:09 Order name: ENRIQUE Chest (1 view); Complete Time: 13:20 [facility] Administered Medications: 12:57 Drug: Albuterol - atroVENT (ipratropium) (3:1) (2.5 mg - 0.5 mg) 3 ml Route: Nebulizer; iw Disposition Summary: 03/08/22 13:27 Discharge Ordered Location: Home [facility] Problem: new [facility] Symptoms: have improved [facility] Condition: Stable [facility] Diagnosis - Coronavirus infection, unspecified [facility] Followup: [facility] - With: Private Physician - When: 2 - 3 days - Reason: Recheck today's complaints Discharge Instructions: - Discharge Summary Sheet [facility] - COVID-19 [facility] - COVID-19 Frequently Asked Questions [facility] Forms: - Medication Reconciliation Form [facility] - Thank You Letter [facility] Prescriptions: - ProAir HFA 90 mcg/actuation Inhalation HFA aerosol inhaler - inhale 2 puff by INHALATION route every 4-6 hours As needed; 1 Inhaler; [facility] Refills: 0, Product Selection Permitted - Tessalon Perles 100 mg Oral Capsule - take 1 capsule by ORAL route every 8 hours As needed; 15 capsule; Refills: 0, jh7 Product Selection Permitted Signatures: Dispatcher [employer] Asad Taylor MD MD cha Williams, Irene, RN RN iw Wendy Goff FNP FNP [facility] Corrections: (The following items were deleted from the chart) 12:05 12:04 PMHx: serinas; iw
[2022-03-10 04:46] VITALS: TEMP 98.1
[2022-03-10 04:59] VITALS: BP 162/80; O2SAT 99
== END 2022-03-08 13:46 | disposition home or self-care (01) ==
LOC: ER 11:43
DX: U07.1 COVID-19 (principal); Z88.1 Allergy status to other antibiotic agents; Z88.8 Allergy status to other drugs, medicaments and biological substances; Z91.040 Latex allergy status; Z91.048 Other nonmedicinal substance allergy status
CPT/HCPCS: 71045; 94640; 99284

== ENCOUNTER 2022-05-04 06:51 | Emergency (ER) | payer OTHER ==
--- OUTSIDE RECORDS SUMMARY | 2022-05-04 07:00 | XMS REPORT | Continuity of Care Document ---
:1945 Author Organization [facility] t Address [address] [place] [address] Care Team Providers Name Role Phone Greta Younger Primary Care Physician GRETA WARNER Attending Clinician Unavailable ANGELITA CORDOVA Attending Clinician Unavailable BRADLEY BROUSSARD Attending Clinician Unavailable SHRUTHI RUBY Attending Clinician Unavailable LAZ SHRESTHA Attending Clinician Unavailable [id number] Attending Clinician Unavailable AUNG CASTANEDA Attending Clinician Unavailable SLADE MAN Attending Clinician Unavailable LD HUGHES Attending Clinician Unavailable [id number] Attending Clinician Unavailable RAVEN COY Attending Clinician Unavailable DOREEN MISTRY Attending Clinician Unavailable LAB90 Attending Clinician Unavailable Raven Lerma Attending Clinician Ld Hughes MD Attending Clinician [phone] Yordan Ho DO Attending Clinician YORDAN HO Attending Clinician Unavailable JOSE A PITTS Attending Clinician Unavailable MD MARINA Attending Clinician Unavailable [id number] Attending Clinician Unavailable TESTING, PL COVID Attending Clinician Unavailable Aung Castaneda DO Attending Clinician SILKE BUI Attending Clinician Unavailable Candido SCHULZ,Hunter GAFFNEY Attending Clinician Unavailable HUNTER REY Attending Clinician Unavailable EDUARDO OLMEDO Attending Clinician Unavailable LENY GALLAGHER Attending Clinician Unavailable AVRIL SPRAGUE Attending Clinician Unavailable Salima Reis RN Attending Clinician Unavailable Lab, Adc Fam Pob I Attending Clinician Unavailable Chase PAYROLL ACCOUNTING CLERK, Alicia Attending Clinician ALICIA STONE Attending Clinician Unavailable Doctor Unassigned, [place] Attending Clinician Unavailable Josehp PAYROLL ACCOUNTING CLERK, Avril Horn Attending Clinician Dao Schuler Attending Clinician Dao Schuler Admitting Clinician [phone] Payers Payer Name Policy Type Policy Number Effective Date Expiration Date S yobany [employer] JAMUL HMO 7 [id number] 2021 00:00:00 MEDICARE PART A [id number] 2011 \\T\\ B 00:00:00 [place] [id number] 2017 HEALTHCARE 00:00:00 MEDICARE SUPPLEMENT [facility] [id number] [place] [address] [id number] [facility] [id number] [place] [address] [id number] [facility] [id number] [place] [address] [id number] [facility] Problems Condition Condition Condition Status Onset Resolution Last Treating Co mments Source Name Details Category Date Date Treatment Clinician Date Neuropathy Neuropathy Disease Active 2021-06 Last K elsey 15 Assessmen Pino 00:00: t & Plan: - 00 Formattin Externa g of this l note might be different from the original. - query pre-diabe tic vs Sjogren's -related, will need to rule out other reversibl e causes- B12/folat e/MMA, SPEP, B1, B6, SSA/SSB- neuropath ic pain medicatio ns unlikely to be helpful given relative infrequen cy of symptoms, would consider topical PRN as warranted - establish f/u with rheumatol ogy pending Sjogren's testing 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 Shubham Anisha instabilit instabilit 1-15 Assessmen Seybold y y 00:00: t & Plan: - 00 Formattin Externa g of this l note might be different from the original. - suspect related to neuropath y (sensory +/- autonomic )- advised patient to check orthostat ic VS at home, discuss with PCP vs cardiolog ist regarding BP managemen t as warranted - would benefit from shower chair, grab bars- PT referral Skin tear Skin tear Disease Active 2021-06 Brijesh sey of right of right 0-17 Seybol d hand hand 00:00: - without without 00 Externa complicati complicati l on on Acute pain Acute pain Disease Active 2021-06 K elsey of right of right 0-17 Seybol d shoulder shoulder 00:00: - 00 Externa l At risk At risk Disease Active Anisha for falls for falls 02-21 Seyb old 00:00: - 00 Externa l Repeated Repeated Disease Active Kelse y falls falls 9 Seybold 00:00: - 00 Externa l 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 00:00: - 00 Externa l GERD GERD Disease Active Anisha (gastroeso (gastroeso 02-16 Se ybold phageal phageal 00:00: - reflux reflux 00 Externa disease) disease) l DM type 2 DM type 2 Disease Active Brijesh sey with with 02-16 Seybold diabetic diabetic 00:00: - mixed mixed 00 Externa hyperlipid hyperlipid l emia emia Mixed Mixed Disease Active Anisha hyperlipid hyperlipid 8 Se ybold emia emia 00:00: - 00 Externa l Diabetes Diabetes Disease Active Kelse y mellitus mellitus 8-25 Seybol d type 2 type 2 00:00: without without 00 retinopath retinopath y y Essential Essential Disease Active Brijesh sey hypertensi hypertensi 8-03 Se ybold on on 00:00: - 00 Externa l RENA RENA Disease Active Overview: Univer s (stress (stress 02-13 Added ity of urinary urinary 00:00: automatic [place] incontinen incontinen 00 ally from Medical ce, ce, request Branch female) female) for surgery [id number] 07 Active Diagnosis Active 2015-062016-06-29 Memoria 06/12/2016 2-27 09:48:00 l 00:00: [facility] 00 [id number] Tear of Problem Active Common left [facility] rotator - [facility] Medical extent, Center unspecifie d whether traumatic [id number] Pain, Problem Active Commo n [id number] joint, [facility] shoulder, - [facility] [id number] Arthritis Problem Active Co mmon [id number] of left Spirit knee - [facility] Osteoarthr Primary Problem Active Comm on itis of osteoarthr Spiri t knee itis of - [facility] left knee [facility] CHEST CHEST Diagnosis Active 2016-06-29 Mem oria PAIN, PAIN, 09:48:00 l UNSPECIFIE UNSPECIFIE He rmann D D Active [facility] Allergies, Adverse Reactions, Alerts Allergy Allergy Status Severity Reaction(s) Onset Inactive Treating Comm ents Source Name Type Date Date Clinician Atorvast Propensi Active Myalgia 2020-06 Kelse y atin ty to 1-15 Seybold adverse 00:00: - reaction 00 Externa s to l drug Acyclovi Propensi Active Rash Univer s r ty to 8-15 ity of adverse 00:00: [place] reaction 00 Medical s to Branch drug Ciproflo Propensi Active Rash Univer s xacin ty to 8-15 ity of adverse 00:00: [place] reaction 00 Medical s to Branch drug Atorvast Propensi Active Other - See U nivers atin ty to comments 8-15 ity of adverse 00:00: [place] reaction 00 Medical s to Branch drug Ketorola Propensi Active Rash Univer s c ty to 8-15 ity of adverse 00:00: [place] reaction 00 Medical s to Branch drug ACYCLOVI DRUG Active Rash Univers R INGREDI 8-15 ity of 00:00: [place] 00 Medical Branch CIPROFLO DRUG Active Rash Univers XACIN INGREDI 8-15 ity of 00:00: [place] 00 Medical Branch ATORVAST DRUG Active Other-Cmnt 2018-0 Univ ers ATIN INGREDI 8-15 ity of [...] Medical s Branch ADHESIVE DRUG Active Rash 2018-0 Univers TAPE-GISELLE 8-13 ity of ICONES 00:00: [place] 00 Medical Branch LATEX DRUG Active Rash 2018-0 Univers INGREDI 8-13 ity of 00:00: [place] 00 Medical Branch Mirtazap Propensi Active Other - See 2018-0 Night U nivers ine ty to comments 7-27 daigle ity of adverse 00:00: [place] reaction 00 Medical s Branch MIRTAZAP DRUG Active Hallucinates 2018-0 Un kitty INE INGREDI 7-27 ity of 00:00: [place] 00 Medical Branch Zolpidem Propensi Active Hallucinatio 2015-0 Univers Tartrate ty to ns 5-31 ity of adverse 00:00: [place] reaction 00 Medical s to Branch drug ZOLPIDEM DRUG Active Med Hallucinates 2016-0 Un kitty TARTRATE INGREDI 5-31 ity of 00:00: [place] 00 Medical Branch Zolpidem Propensi Active Hallucinatio 2011-0 Anisha ty to ns 4-09 Seybold adverse 00:00: - reaction 00 Externa s l zolpidem zolpidem Active Unknown Commo n Spirit - [facility] Social History Social Habit Start Date Stop Date Quantity Comments Source History of Common Spirit - Tobacco Use [facility] Exposure to Yes Anisha harry SARS-CoV-2 (event) Tobacco use and 2021-01-17 2021-01-17 Smokeless tobacco Sudhir muse Seybold - exposure 00:00:00 00:00:00 non-user External Alcohol intake 2019-02-11 2019-02-11 Current University of 00:00:00 00:00:00 non-drinker of [facility] alcohol (finding) Branch Sex Ass[birth year] [facility] 00:00:00 00:00:00 Smoking Status Start Date Stop Date Source Tobacco smoking consumption unknown [facility] Never smoked tobacco Anisha Seyb old - External Medications Ordered Filled Start Stop Current Ordering Indication Dosage Frequency Signature Comments Components Source Medication Medication Date Date Medication? Clinician (SIG) Name Name Aspirin 81 2021-06 Yes [id number] 81mg Take 81 mg Anisha MG oral 1-15 00 by mouth Seybold Tablet 09:38: daily - Delayed 31 Externa Response l Magnesium 2021-06 Yes Take by Kelse y 250 MG oral 1-15 mouth Seybold Tablet 09:38: - 31 Externa l Cyanocobala 2021-[address] Kelse y min 1-15 under the Seybold (Vitamin 09:38: tongue - B-12) 2500 31 Externa MCG l sublingual SL Tab Cholecalcif 2021-06 Yes Take by Brijesh sey andrei 1-15 mouth Seybold (Vitamin 09:38: - D3) 25 MCG 31 Externa (1000 UT) l oral Capsule Loratadine 2021-06 Yes 10mg Take 10 mg K elsey 10 MG oral 1-15 by mouth Seybo ld Capsule 09:38: daily - 31 Externa l NovoLIN N 2021-06 Yes [id number] Inject 14 Anisha FlexPen 100 1-03 00 units Seybold UNIT/ML 00:00: twice a - subcutaneou 00 day Externa s l Suspension Pen-injecto r Mupirocin 2021-06 Yes [id number] Apply 1 Anisha (BACTROBAN) 0-17 applicatio Se ybold 2 % apply 00:00: n - externally 00 topically Exte rna Ointment 2 times l daily PILOCARPINE 2021-06 Yes [id number] 5mg Take 1 Anisha HCL, ORAL, 0-04 tablet (5 Seyb old 5 MG oral 00:00: mg total) - Tablet 00 by mouth 3 Externa times l daily Aspirin 81 2021-06 Yes [id number] 81mg Take 81 mg Anisha MG oral 0-03 00 by mouth Seybold Tablet 12:50: daily - Delayed 45 Externa Response l Magnesium 2021-06 Yes Take by Kelse y 250 MG oral 0-03 mouth Seybold Tablet 12:50: - 45 Externa l Cyanocobala 2021-[address] Tawanna y min 0-03 under the Seybold (Vitamin 12:50: tongue - B-12) 2500 45 Externa MCG l sublingual SL Tab Cholecalcif 2021-06 Yes Take by Brijesh sey andrei 0-03 mouth Seybold (Vitamin 12:50: - D3) 25 MCG 45 Externa (1000 UT) l oral Capsule Loratadine 2021-06 Yes 10mg Take 10 mg K elsey 10 MG oral 0-03 by mouth Seybo ld Capsule 12:50: daily - 45 Externa l Lidocaine 2021-06 Yes [id number] 5mL Q.25D Swish and Anisha Viscous 0-03 swallow 5 Seybold HCl, 00:00: mL every 6 - Nystatin 00 hours as Externa (Magic needed l Mouthwash-E qual Ratio) Lidocaine 2021-06 Yes [id number] 5mL Q.25D Swish and Anisha Viscous 0-03 swallow 5 Seybold HCl, 00:00: mL every 6 - Nystatin 00 hours as Externa (Magic needed l Mouthwash-E qual Ratio) PILOCARPINE 2021-06 Yes [id number] 5mg Take 1 Anisha HCL, ORAL, 0-02 tablet (5 Seyb old 5 MG oral 00:00: mg total) - Tablet 00 by mouth 3 Externa times l daily Aspirin 81 Yes [id number] 81mg Take 81 mg Anisha MG oral 03-14 00 by mouth Seybold Tablet 09:47: daily - Delayed 46 Externa Response l Magnesium Yes Take by Tawanna y 250 MG oral 03-14 mouth Seybold Tablet 09:47: - 46 Externa l Cyanocobala Yes Place Tawanna y min 9 under the Seybold (Vitamin 09:47: tongue - B-12) 2500 46 Externa MCG l sublingual SL Tab Cholecalcif Yes Take by Brijesh sey andrei 03-14 mouth Seybold (Vitamin 09:47: - D3) 25 MCG 46 Externa (1000 UT) l oral Capsule Loratadine Yes 10mg Take 10 mg K elsey 10 MG oral 03-14 by mouth Seybo ld Capsule 09:47: daily - 46 Externa l Benzonatate 2021-0 Yes [id number] TAKE 1 Anisha 100 MG oral 9-28 CAPSULE BY Se ybold Capsule 00:00: MOUTH - 00 EVERY 8 Externa HOURS l NEEDED FOR COUGH AND CONGESTION Benzonatate 2021-0 Yes [id number] TAKE 1 Anisha 100 MG oral 9-28 CAPSULE BY Se ybold Capsule 00:00: MOUTH - 00 EVERY 8 Externa HOURS l NEEDED FOR COUGH AND CONGESTION Benzonatate 2021-0 Yes [id number] TAKE 1 Anisha 100 MG oral 9-28 CAPSULE BY Se ybold Capsule 00:00: MOUTH - 00 EVERY 8 Externa HOURS l NEEDED FOR COUGH AND CONGESTION Albuterol 2021-0 Yes [id number] 2{puff} Q.25D Inhale 2 Anisha HFA 108 (90 9-23 puffs into Se ybold Base) 00:00: the lungs - MCG/ACT IN 00 every 6 Pump And Blower Operator a AERS hours as l needed for wheezing Guaifenesin 2021-0 Yes [id number] 1200mg Take 2 Anisah (Mucinex) 9-23 tablets Seybold 600 MG oral 00:00: (1,200 mg - Tablet 12 00 total) by Exter na Hour mouth 2 l Sustained times Release daily Albuterol 2021-0 Yes [id number] 2{puff} Q.25D Inhale 2 Anisha HFA 108 (90 9-23 puffs into Se ybold Base) 00:00: the lungs - MCG/ACT IN 00 every 6 Pump And Blower Operator a AERS hours as l needed for wheezing Guaifenesin 2021-0 Yes [id number] 1200mg Take 2 Anisha (Mucinex) 9-23 tablets Seybold 600 MG oral 00:00: (1,200 mg - Tablet 12 00 total) by Exter na Hour mouth 2 l Sustained times Release daily Albuterol 2021-0 Yes [id number] 2{puff} Q.25D Inhale 2 Anisha HFA 108 (90 9-23 puffs into Se ybold Base) 00:00: the lungs - MCG/ACT IN 00 every 6 Pump And Blower Operator a AERS hours as l needed for wheezing Guaifenesin 2021-0 Yes [id number] 1200mg Take 2 Anisha (Mucinex) 9-23 tablets Seybold 600 MG oral 00:00: (1,200 mg - Tablet 12 total) by Exter na Hour mouth 2 l Sustained times Release daily PAXLOVID 2021- No [id number] Take two Anisha STANDARD 03-09 150 mg Seybold (30) 00:00: 00:00 nirmatrelv - (300/100) 00 :00 ir (pink) Exter na Therapy tablets l Pack with one 100 mg ritonavir (white) tablet by mouth two times daily for 5 days Dexamethaso 2021- No [id number] 4mg Take 1 Anisha ne 03-09 tablet (4 Seybold (DECADRON) 00:00: 00:00 mg total) - 4 MG oral 00 :00 by mouth Pump And Blower Operator a tablet daily l (with breakfast) Benzonatate 2021- No TAKE 1 Brijesh sey 100 MG oral 03-09 CAPSULE BY S eybold Capsule 00:00: 00:00 MOUTH - 00 :00 EVERY 8 Externa HOURS l NEEDED FOR COUGH AND CONGESTION Amoxicillin 2021- No [id number] 1{tbl} Take 1 Anisha -Pot 03-02 tablet by Seybold Clavulanate 00:00: 00:00 mouth 2 - 875-125 MG 00 :00 times Externa oral Tablet daily l Montelukast Yes TAKE 1 Kathleen ey (SINGULAIR) 8-16 TABLET BY Sey bold 10 MG oral 00:00: MOUTH - Tablet 00 EVERY DAY Externa tablet l Montelukast Yes TAKE 1 Kathleen ey (SINGULAIR) 8-16 TABLET BY Sey bold 10 MG oral 00:00: MOUTH - Tablet 00 EVERY DAY Externa tablet l Montelukast Yes TAKE 1 Kathleen ey (SINGULAIR) 8-16 TABLET BY Sey bold 10 MG oral 00:00: MOUTH - Tablet 00 EVERY DAY Externa tablet l Pravastatin Yes TAKE 1 Kathleen ey Sodium 40 8-15 TABLET BY Seybo ld MG oral 00:00: MOUTH - Tablet 00 EVERY DAY Externa l Pravastatin Yes TAKE 1 Kathleen ey Sodium 40 8-15 TABLET BY Seybo ld MG oral 00:00: MOUTH - Tablet 00 EVERY DAY Externa l Pravastatin 0 Yes TAKE 1 Kathleen ey Sodium 40 8-15 TABLET BY Seybo ld MG oral 00:00: MOUTH - Tablet 00 EVERY DAY Externa l OneTouch 2021-0 Yes 1{each} 1 EACH BY Lauryn Arantechemanuel Ultra in 7-15 OTHER Seybold vitro Strip 00:00: ROUTE 3 - 00 TIMES Externa DAILY TEST l OneTouch 0 Yes 1{each} 1 EACH BY Lauryn [employer] Ultra in 7-15 OTHER Seybold vitro Strip 00:00: ROUTE 3 - 00 TIMES Externa DAILY TEST l OneTouch 0 Yes 1{each} 1 EACH BY Nomios Ultra in 7-15 OTHER Seybold vitro Strip 00:00: ROUTE 3 - 00 TIMES Externa DAILY TEST l Sertraline Yes TAKE 1 Kelse y HCl 100 MG 7-13 TABLET BY Seyb old oral Tablet 00:00: MOUTH - 00 EVERY DAY Externa l Sertraline 0 Yes TAKE 1 Kelse y HCl 100 MG 7-13 TABLET BY Seyb old oral Tablet 00:00: MOUTH - 00 EVERY DAY Externa l Sertraline 0 Yes TAKE 1 Kelse y HCl 100 MG 7-13 TABLET BY Seyb old oral Tablet 00:00: MOUTH - 00 EVERY DAY Externa l Multiple 2021-0 2021- No [id number] Take by Anisha Vitamin 11-1602 00 mouth Seybold (MULTIVITAM 13:39: 00:00 IN ADULT 40 :00 OR) Aspirin 81 2021-0 Yes [id number] 81mg Take 81 mg Anisha MG oral 11-16 00 by mouth Seybold Tablet 13:26: daily Delayed 34 Response Azelastine Yes 1{spray 1 spray by Anisha HCl 0.15 % 11-16 } nasal Seybold nasal 13:26: route 2 Solution 34 times daily Diclofenac 2021-0 Yes every 6 Kathleen ey Sodium 1 % 11-16 (six) Seybold apply 13:26: hours externally 34 Gel Magnesium Yes Take by Kelse y 250 MG oral 11-16 mouth Seybold Tablet 13:26: 34 Mupirocin 0 Yes [id number] Apply 1 Anisha (BACTROBAN) 11-16 applicatio Se ybold 2 % apply 00:00: n externally 00 topically Ointment 2 times daily Amoxicillin 2021-0 2021- No [id number] 1{tbl} Take 1 Anisha -Pot 11-16 tablet by Seybold Clavulanate 00:00: 04:59 mouth 3 500-125 MG 00 :00 times oral Tablet daily for 10 days Triamcinolo 2021-0 2021- No [id number] Apply 1 Anisha ne 11-16 applicatio Seybold Acetonide 00:00: 04:59 n 0.1 % apply 00 :00 topically externally 2 times Cream daily for 7 days Aspirin 81 Yes [id number] 81mg Take 81 mg Anisha MG oral 5-05 00 by mouth Seybold Tablet 10:05: daily Delayed 44 Response Azelastine Yes 1{spray 1 spray by Anisha HCl 0.15 % 05 } nasal Seybold nasal 10:05: route 2 Solution 44 times daily Diclofenac Yes every 6 Kathleen ey Sodium 1 % 05 (six) Seybold apply 10:05: hours externally 44 Gel Magnesium Yes Take by Kelse y 250 MG oral 5-05 mouth Seybold Tablet 10:05: 44 Metoprolol 2021-0 Yes 25mg Take 1 Kelse y Tartrate 25 4-15 tablet (25 Se ybold MG oral 00:00: mg total) Tablet 00 by mouth daily with food Metoprolol 2021-0 Yes 25mg Take 1 Kelse y Tartrate 25 4-15 tablet (25 Se ybold MG oral 00:00: mg total) Tablet 00 by mouth daily with food Metoprolol 2021-0 Yes 25mg Take 1 Kelse y Tartrate 25 4-15 tablet (25 Se ybold MG oral 00:00: mg total) - Tablet 00 by mouth Externa daily with l food Metoprolol 2021-0 Yes 25mg Take 1 Kelse y Tartrate 25 4-15 tablet (25 Se ybold MG oral 00:00: mg total) - Tablet 00 by mouth Externa daily with l food Metoprolol 2021-0 Yes 25mg Take 1 Kelse y Tartrate 25 4-15 tablet (25 Se ybold MG oral 00:00: mg total) - Tablet 00 by mouth Externa daily with l food Aspirin 81 2021-0 Yes [id number] 81mg Take 81 mg Anisha MG oral 06-29 00 by mouth Seybold Tablet 11:11: daily Delayed 07 Response Multiple 2021- Yes [id number] Take by Anisha Vitamin 06-29 00 mouth Seybold (MULTIVITAM 11:11: IN ADULT 07 OR) Azelastine 2021-0 Yes 1{spray 1 spray by Anisha HCl 0.15 % 06-29 } nasal Seybold nasal 11:11: route 2 Solution 07 times daily Cholecalcif Yes Take by Brijesh sey andrei 50 MCG 06-29 mouth Seybold (1999) 11:11: oral 07 Capsule Diclofenac Yes every 6 Kathleen ey Sodium 06-29 (six) Seybold (Voltaren) 11:11: hours 1 % apply 07 externally Gel Magnesium Yes Take by Tawanna y 250 MG oral 06-29 mouth Seybold Tablet 11:11: 07 Multiple 0 Yes [id number] Take by Anisha Vitamin 06-29 00 mouth Seybold (MULTIVITAM 11:11: IN ADULT 07 OR) Cholecalcif Yes Take by Brijesh sey andrei 50 MCG 06-29 mouth Seybold (1999) 11:11: oral 07 Capsule Cholecalcif Yes Take by Brijesh sey andrei 50 MCG -13 mouth Seybold (1999) 11:11: oral 07 Capsule Celecoxib 2021-0 Yes [id number] 200mg Take 1 Anisha (CeleBREX) 06-29 9104 capsule Seybol d 200 MG oral 00:00: (200 mg Capsule 00 total) by mouth 2 times daily Celecoxib 2021-0 Yes [id number] 200mg Take 1 Anisha (CeleBREX) 06-29 4105 capsule Seybol d 200 MG oral 00:00: (200 mg Capsule 00 total) by mouth 2 times daily Celecoxib 2021-0 2021- No [id number] 200mg Take 1 Anisha (CeleBREX) 06-29 06-02 4105 capsule Seybo ld 200 MG oral 00:00: 00:00 (200 mg Capsule 00 :00 total) by mouth 2 times daily Aspirin 81 2020-06 Yes [id number] 81mg Take 81 mg Anisha MG oral 2-16 00 by mouth Seybold Tablet 10:52: daily Delayed 56 Response Multiple 2020-06 Yes [id number] Take by Anisha Vitamin 2-16 00 mouth Seybold (MULTIVITAM 10:52: IN ADULT 56 OR) Azelastine 2020-06 Yes 1{spray 1 spray by Anisha HCl 0.15 % 2-16 } nasal Seybold nasal 10:52: route 2 Solution 56 times daily Cholecalcif 2020-06 Yes Take by Brijesh sey andrei 50 MCG 2-16 mouth Seybold (1999) 10:52: oral 56 Capsule Diclofenac 2020-06 Yes every 6 Kathleen ey Sodium 2-16 (six) Seybold (Voltaren) 10:52: hours 1 % apply 56 externally Gel Magnesium 2020-06 Yes Take by Kelse y 250 MG oral 2-16 mouth Seybold Tablet 10:52: 56 Aspirin 81 2020-06 Yes [id number] 81mg Take 81 mg Anisha MG oral 1-15 00 by mouth Seybold Tablet 13:30: daily Delayed 57 Response Multiple 2020-06 Yes [id number] Take by Anisha Vitamin 1-15 00 mouth Seybold (MULTIVITAM 13:30: IN ADULT 57 OR) Azelastine 2020-06 Yes 1{spray 1 spray by Anisha HCl 0.15 % -15 } nasal Seybold nasal 13:30: route 2 Solution 57 times daily Cholecalcif 2020-06 Yes Take by Brijesh sey andrei 50 MCG 1-15 mouth Seybold (1999) 13:30: oral 57 Capsule Diclofenac 2020-06 Yes every 6 Kathleen ey Sodium 1-15 (six) Seybold (Voltaren) 13:30: hours 1 % apply 57 externally Gel Magnesium 2020-06 Yes Take by Kelse y 250 MG oral 1-15 mouth Seybold Tablet 13:30: 57 Aspirin 2020-06- 1{tbl} Take 1 Kelse y Buf,CaCarb- 1-15 [...] Tablet 48 :00 Aspirin 81 2020-06 Yes [id number] 81mg Take 81 mg Anisha MG oral 0-20 00 by mouth Seybold Tablet 13:37: daily Delayed 27 Response Multiple 2020-06 Yes [id number] Take by Anisha Vitamin 0-20 00 mouth Seybold (MULTIVITAM 13:37: IN ADULT 27 OR) Aspirin 2020-06 Yes 1{tbl} Take 1 Anisha Buf,CaCarb- 0-20 tablet by Dee montez MgCarb-MgO, 13:37: mouth 81 MG oral 27 daily Tablet Azelastine 2020-06 Yes 1{spray 1 spray by Anisha HCl 0.15 % 0-20 } nasal Seybold nasal 13:37: route 2 Solution 27 times daily Cholecalcif 2020-06 Yes Take by Brijesh fitch andrei 50 MCG 0-20 mouth Seybold (1999 UT) 13:37: oral 27 Capsule Diclofenac 2020-06 Yes every 6 Kathleen ey Sodium 0-20 (six) Seybold (Voltaren) 13:37: hours 1 % apply 27 externally Gel Magnesium 2020-06 Yes Take by Tawanna y 250 MG oral 0-20 mouth Seybold Tablet 13:37: 27 Pravastatin 2020-06 Yes [id number] 40mg Take 1 Anisha Sodium 40 0-18 tablet (40 Seyb old MG oral 00:00: mg total) Tablet 00 by mouth daily Sertraline 2020-06 Yes 100mg Take 1 Kathleen ey HCl 100 MG 0-18 tablet Seybold oral Tablet 00:00: (100 mg 00 total) by mouth daily Pravastatin 2020-06- No [id number] 40mg Take 1 Anisha Sodium 40 0-18 10-20 tablet (40 Sey bold MG oral 00:00: 00:00 mg total) Tablet 00 :00 by mouth daily Sertraline 2020-06- No 100mg Take 1 Brijesh sey HCl 100 MG 0-18 10-20 tablet [...] times vitro Strip daily TEST Amoxicillin Yes [id number] 500mg Take 1 Anisha 500 MG oral 9-17 capsule Seybo ld Capsule 00:00: (500 mg 00 total) by mouth 3 times daily Amoxicillin Yes [id number] 500mg Take 1 Anisha 500 MG oral 9-17 capsule Seybo ld Capsule 00:00: (500 mg 00 total) by mouth 3 times daily Amoxicillin 2020- No [id number] 500mg Take 1 Anisha 500 MG oral 03-03 11-15 capsule Seyb old Capsule 00:00: 00:00 (500 mg 00 :00 total) by mouth 3 times daily Cyanocobala 2020- No Inject Brijesh fitch min (VIT 02-23 into the Seybol d B12) 1000 14:31: 00:00 muscle MCG/ML 33 :00 once injection Solution Multiple 2020- No 2{each} Take 2 Brijesh dee Vitamins-Mi 02-23 each by Seyb old [...] 16 times daily Cholecalcif Yes Take by Brijesh fitch andrei 50 MCG 02-16 mouth Seybold (2000 UT) 10:20: oral 16 Capsule Diclofenac Yes every 6 Kathleen ey Sodium 9- (six) Seybold (Voltaren) 10:20: hours 1 % apply 16 externally Gel Montelukast Yes 10mg Take 10 mg Anisha (SINGULAIR) 902 by mouth Seyb old 10 MG oral [...] 16 times daily Cholecalcif Yes Take by Brijesh griffiny andrei 50 MCG 02-16 mouth Seybold (1999 UT) 10:20: oral 16 Capsule Diclofenac Yes every 6 Kathleen ey Sodium 9- (six) Seybold (Voltaren) 10:20: hours 1 % apply 16 externally Gel Montelukast Yes 10mg Take 10 mg Anisha (SINGULAIR) 02-16 by mouth Seyb old 10 MG oral 10:20: Tablet 16 tablet Aspirin 81 Yes [id number] 81mg Take 81 mg Anisha MG oral 02-16 00 by mouth Seybold Tablet 10:20: daily Delayed 16 Response Multiple Yes [id number] Take by Anisha Vitamin 02-16 00 mouth Seybold (MULTIVITAM 10:20: IN ADULT 16 OR) Insulin Pen Yes [id number] Takes Anisha Needle 31G 8 00 insulin Seybol d X 5 MM does 00:00: once not apply 00 nightly Misc B-D Yes Anisha ULTRAFINE 30 Seybold III SHORT 00:00: PEN 31G X 8 00 MM does not apply Misc Pravastatin Yes [id number] 20mg Take 1 Anisha Sodium 20 02-13 tablet (20 Seyb old MG oral 00:00: mg total) Tablet 00 by mouth daily Insulin 2020-0 Yes [id number] Takes up Anisha NPH, 8 00 to 15 Seybold Human,, 00:00: units SQ Isophane, 00 once (NovoLIN N nightly at FlexPen) bedtime 100 UNIT/ML subcutaneou s Suspension Pen-injecto r Insulin Pen 2020-0 Yes [id number] Takes Anisha Needle 31G 8-30 00 insulin Seybol d X 5 MM does 00:00: once not apply 00 nightly Misc B-D 2020-0 Yes Anisha ULTRAFINE 8-30 Seybold III SHORT 00:00: PEN 31G X 8 00 MM does not apply Misc Insulin 2020-0 Yes [id number] Takes up Anisha NPH, 02-13 to 15 Seybold Human,, 00:00: units SQ Isophane, 00 once (NovoLIN N nightly at FlexPen) bedtime 100 UNIT/ML subcutaneou s Suspension Pen-injecto r Insulin Pen 2020-0 Yes [id number] Takes Anisha Needle 31G 8-30 00 insulin Seybol d X 5 MM does 00:00: once not apply 00 nightly Misc B-D 2020-0 Yes Anisha ULTRAFINE 8-30 Seybold III SHORT 00:00: PEN 31G X 8 00 MM does not apply Misc Insulin 2020-0 Yes [id number] Takes up Anisha NPH, 02-13 to 15 Seybold Human,, 00:00: units SQ Isophane, 00 once (NovoLIN N nightly at FlexPen) bedtime 100 UNIT/ML subcutaneou s Suspension Pen-injecto r Insulin Pen 2020-0 Yes [id number] Takes Anisha Needle 31G 8-30 00 insulin Seybol d X 5 MM does 00:00: once not apply 00 nightly Misc B-D 2020-0 Yes Anisha ULTRAFINE 8-30 Seybold III SHORT 00:00: PEN 31G X 8 00 MM does not apply Misc Insulin 2020-0 Yes [id number] Takes up Anisha NPH, 8 to 15 Seybold Human,, 00:00: units SQ Isophane, 00 once (NovoLIN N nightly at FlexPen) bedtime 100 UNIT/ML subcutaneou s Suspension Pen-injecto r Insulin Pen 0 Yes [id number] Takes Anisha Needle 31G 8-30 00 insulin Seybol d X 5 MM does 00:00: once not apply 00 nightly Misc B-D 2020-0 Yes Anisha ULTRAFINE 8-30 Seybold III SHORT 00:00: PEN 31G X 8 00 MM does not apply Misc Insulin 0 Yes [id number] Takes up Anisha NPH, 02-13 to 15 Seybold Human,, 00:00: units SQ Isophane, 00 once (NovoLIN N nightly at FlexPen) bedtime 100 UNIT/ML subcutaneou s Suspension Pen-injecto r Insulin Pen 0 Yes [id number] Takes Anisha Needle 31G 8-30 00 insulin Seybol d X 5 MM does 00:00: once not apply 00 nightly Misc B-D 0 Yes Anisha ULTRAFINE 8-30 Seybold III SHORT 00:00: PEN 31G X 8 00 MM does not apply Misc Insulin 0 Yes [id number] Takes up Anisha NPH, 02-13 to 15 Seybold Human,, 00:00: units SQ Isophane, 00 once (NovoLIN N nightly at FlexPen) bedtime 100 UNIT/ML subcutaneou s Suspension Pen-injecto r Insulin Pen 0 Yes [id number] Takes Anisha Needle 31G 8-30 00 insulin Seybol d X 5 MM does 00:00: once not apply 00 nightly Misc B-D 0 Yes Anisha ULTRAFINE 8-30 Seybold III SHORT 00:00: PEN 31G X 8 00 MM does not apply Misc Pravastatin 2020-0 Yes [id number] 20mg Take 1 Anisha Sodium 20 02-13 tablet (20 Seyb old MG oral 00:00: mg total) Tablet 00 by mouth daily Insulin Yes [id number] Takes up Anisha NPH, 02-13 to 15 Seybold Human,, 00:00: units SQ Isophane, 00 once (NovoLIN N nightly at FlexPen) bedtime 100 UNIT/ML subcutaneou s Suspension Pen-injecto r Insulin Pen Yes [id number] Takes Anisha Needle 31G 8-30 00 insulin Seybol d X 5 MM does 00:00: once not apply 00 nightly Misc Insulin Yes [id number] Takes up Anisha NPH, 8 00 to 15 Seybold Human,, 00:00: units SQ - Isophane, 00 once Externa (NovoLIN N nightly at l FlexPen) bedtime 100 UNIT/ML subcutaneou s Suspension Pen-injecto r Insulin Pen Yes [id number] Takes Anisha Needle 31G 8-30 00 insulin Seybol d X 5 MM does 00:00: once - not apply 00 nightly Externa Misc l B-D Yes Anisha ULTRAFINE 8-30 Seybold III SHORT 00:00: - PEN 31G X 8 00 Externa MM does not l apply Misc Insulin Yes [id number] Takes up Anisha NPH, 02-13 to 15 Seybold Human,, 00:00: units SQ - Isophane, 00 once Externa (NovoLIN N nightly at l FlexPen) bedtime 100 UNIT/ML subcutaneou s Suspension Pen-injecto r Insulin Pen Yes [id number] Takes Anisha Needle 31G 8-30 00 insulin Seybol d X 5 MM does 00:00: once - not apply 00 nightly Externa Misc l B-D Yes Anisha ULTRAFINE 8-30 Seybold III SHORT 00:00: - PEN 31G X 8 00 Externa MM does not l apply Misc Insulin Pen Yes [id number] Takes Anisha Needle 31G 8-30 00 insulin Seybol d X 5 MM does 00:00: once - not apply 00 nightly Externa Misc l B-D Yes Anisha ULTRAFINE 8-30 Seybold III SHORT 00:00: - PEN 31G X 8 00 Externa MM does not l apply Misc B-D Yes Anisha ULTRAFINE 8-30 Seybold III SHORT 00:00: PEN 31G X 8 00 MM does not apply Misc Pravastatin Yes [id number] 20mg Take 1 Anisha Sodium 20 8-30 00 tablet (20 Seyb old MG oral 00:00: mg total) Tablet 00 by mouth daily Insulin Yes [id number] Takes up Anisha NPH, 02-13 00 to 15 Seybold Human,, 00:00: units SQ Isophane, 00 once (NovoLIN N nightly at FlexPen) bedtime 100 UNIT/ML subcutaneou s Suspension Pen-injecto r Pravastatin 202- No [id number] 20mg Take 1 Anisha Sodium 20 02-13 00 tablet (20 Sey bold MG oral [...] tablet daily Sertraline Yes 50mg Take 0.5 Brijesh sey HCl 100 MG 8-11 tablets Seybol d oral Tablet 00:00: (50 mg 00 total) by mouth daily PILOCARPINE Yes [id number] 5mg Take 1 Anisha HCL, ORAL, 8-11 tablet (5 Seyb old 5 MG oral 00:00: mg total) Tablet 00 by mouth 3 times daily Montelukast Yes 10mg Take 1 Kathleen ey (SINGULAIR) 8-11 tablet (10 Se ybold 10 MG oral 00:00: mg total) Tablet 00 by mouth tablet daily Montelukast 2020-0 Yes 10mg Take 1 Kathleen ey (SINGULAIR) 8-11 tablet (10 Se ybold 10 MG oral 00:00: mg total) Tablet 00 by mouth tablet daily PILOCARPINE 2020-0 Yes [id number] 5mg Take 1 Anisha HCL, ORAL, 8-11 tablet (5 Seyb old 5 MG oral 00:00: mg total) Tablet 00 by mouth 3 times daily Montelukast 2020-0 Yes 10mg Take 1 Kathleen ey (SINGULAIR) 8-11 tablet (10 Se ybold 10 MG oral 00:00: mg total) Tablet 00 by mouth tablet daily PILOCARPINE 2020-0 2020- No [id number] 5mg Take 1 Anisha HCL, ORAL, 8-11 10-20 tablet (5 Sey bold 5 MG oral 00:00: 00:00 mg total) Tablet 00 :00 by mouth 3 times daily Alcohol 2020-0 Yes USE TWO Anisha Swabs [...] K CNTRL SOLN) in vitro Solution Blood 1-0 Yes See Admin Anisah Glucose 7-08 Instructio Seybol d Monitoring 00:00: ns Suppl (ONE 00 TOUCH ULTRA 2) w/Device does not apply Kit Lancet 2021-0 Yes See Admin Anisha Devices 7-08 Instructio Seybol d (Easy Mini 00:00: ns Eject 00 Lancing Device) does not apply Misc Easy 2021-0 Yes 2 times Anisha Comfort 7-08 daily TEST Seybol d Lancets 00:00: does not 00 apply Misc Alcohol 1-0 Yes USE TWO Anisha Swabs 7-08 TIMES [...] 7-08 Instructio Seybol d Calibration 00:00: ns - (OT 00 Externa ULTRA/FASTT l K CNTRL SOLN) in vitro Solution Blood 2020-0 Yes See Admin Anisha Glucose 7-08 Instructio Seybol d Monitoring 00:00: ns - Suppl (ONE 00 Externa TOUCH ULTRA l 2) w/Device does not apply Kit Lancet 2020-0 Yes See Admin Anisha Devices 7-08 Instructio Seybol d (Easy Mini 00:00: ns - Eject 00 Externa Lancing l Device) does not apply Misc Easy 2020-0 Yes 2 times Anisha Comfort 7-08 daily TEST Seybol d Lancets 00:00: - does not 00 Externa apply Misc l Blood 2020-0 Yes See Admin Anisha Glucose 7-08 Instructio Seybol d Calibration 00:00: ns (OT 00 ULTRA/FASTT K CNTRL SOLN) in vitro Solution Blood 2020-0 Yes See Admin Anisha Glucose 7-08 Instructio Seybol d Monitoring 00:00: ns Suppl (ONE 00 TOUCH ULTRA 2) w/Device does not apply Kit Blood 2020-0 Yes See Admin Anisha Glucose 7-08 Instructio Seybol d Calibration 00:00: ns - (OT 00 Externa ULTRA/FASTT l K CNTRL SOLN) in vitro Solution Blood 2020-0 Yes See Admin Anisha Glucose 7-08 Instructio Seybol d Monitoring 00:00: ns - Suppl (ONE 00 Externa TOUCH ULTRA l 2) w/Device does not apply Kit Lancet 2020-0 Yes See Admin Anisha Devices 7-08 Instructio Seybol d (Easy Mini 00:00: ns - Eject 00 Externa Lancing l Device) does not apply Misc Easy 2020-0 Yes 2 times Anisha Comfort 7-08 daily TEST Seybol d Lancets 00:00: - does not 00 Externa apply Misc l OneTouch 2020-0 Yes 2 times Anisha Ultra in 7-08 daily TEST Seybo ld vitro Strip 00:00: 00 Lancet 2020-0 Yes See Admin Anisha Devices 7-08 Instructio Seybol d (Easy Mini 00:00: ns Eject 00 Lancing Device) does not apply Misc Blood 2020-0 Yes See Admin Anisha Glucose 7- Instructio Seybol d Calibration 00:00: ns - (OT 00 Externa ULTRA/FASTT l K CNTRL SOLN) in vitro Solution Blood 2020-0 Yes See Admin Anisha Glucose 7-08 Instructio Seybol d Monitoring 00:00: ns - Suppl (ONE 00 Externa TOUCH ULTRA l 2) w/Device does not apply Kit Lancet 2020-0 Yes See Admin Anisha Devices -08 Instructio Seybol d (Easy Mini 00:00: ns - Eject 00 Externa Lancing l Device) does not apply Misc Easy 2020-0 Yes 2 times Anisha Comfort 7-08 daily TEST Seybol d Lancets 00:00: - does not 00 Externa apply Misc l Easy 2020-0 Yes 2 times Anisha Comfort [...] Delayed 00:00: daily Release 00 Capsule Omeprazole 2021-0 Yes 40mg Take 40 mg K elsey 40 MG oral 6-08 by mouth Seybo ld Delayed 00:00: daily Release 00 Capsule Omeprazole 1-0 Yes 40mg Take 40 mg K elsey 40 MG oral 6-08 by mouth Seybo ld Delayed 00:00: daily Release 00 Capsule Omeprazole 1-0 Yes 40mg Take 40 mg K elsey 40 MG oral 6-08 by mouth Seybo ld Delayed 00:00: daily - Release 00 Externa Capsule l Omeprazole 1-0 Yes 40mg Take 40 mg K elsey 40 MG oral 6-08 by mouth Seybo ld Delayed 00:00: daily - Release 00 Externa Capsule l Omeprazole 1-0 Yes 40mg Take 40 mg K elsey 40 MG oral 6-08 by mouth Seybo ld Delayed 00:00: daily - Release 00 Externa Capsule l Omeprazole 1-0 Yes 40mg Take 40 mg K elsey 40 MG oral 6-08 by mouth Seybo ld Delayed 00:00: daily Release 00 Capsule Sertraline 1-0 Yes 50mg Take 50 mg K elsey HCl 100 MG 4-07 by mouth Seybo ld oral Tablet 00:00: daily 00 Sertraline 2021-0 Yes 100mg Take 100 Ke lsey HCl 100 MG 4-07 mg by Seybold oral Tablet 00:00: mouth 00 daily Sertraline 1-0 Yes 50mg Take 50 mg K elsey HCl 100 MG 4-07 by mouth Seybo ld oral Tablet 00:00: daily 00 oxybutynin 2020-0 Yes [id number] 5mg Take 1 [facility] XL 5 mg 24 3-27 tablet by ity of hr tablet 00:00: mouth [place] 00 daily. Medical Branch oxybutynin 2020-0 Yes [id number] 5mg Take 1 [facility] XL 5 mg 24 3-27 tablet by ity of hr tablet 00:00: mouth [place] 00 daily. Medical Branch oxybutynin 2020-0 Yes [id number] 5mg Take 1 [facility] XL 5 mg 24 3-27 tablet by ity of hr tablet 00:00: mouth [place] 00 daily. Medical Branch oxybutynin 2020-0 Yes [id number] 5mg Take 1 [facility] XL 5 mg [...] IS LESS THAN 140. mirabegron 2018-06 Yes [id number] 50mg Take 1 U nivers (MYRBETRIQ) 0-21 tablet by ity of 50 mg 00:00: mouth [place] tablet 00 daily. Medical Branch mirabegron 2018-06 Yes [id number] 50mg Take 1 U nivers (MYRBETRIQ) 0-21 tablet by ity of 50 mg 00:00: mouth [place] tablet 00 daily. [facility] Branch mirabegron 2018-06 Yes [id number] 50mg Take 1 U nivers (MYRBETRIQ) 0-21 tablet by ity of 50 mg 00:00: mouth [place] tablet 00 daily. [facility] Branch mirabegron 2018-06 Yes [id number] 50mg Take 1 U nivers (MYRBETRIQ) 0-21 tablet by ity of 50 mg 00:00: mouth [place] tablet 00 daily. Medical Branch PILOCARPINE 2018-06 Yes TK 1 T [...] 0-15 TID. Seybold 5 MG oral 00:00: - Tablet 00 Externa l PILOCARPINE 2018-06 Yes TK 1 T PO K elsey HCL, ORAL, 0-15 TID. Seybold 5 MG oral 00:00: Tablet 00 conjugated Yes [id number] .5g Insert 0.5 Univers estrogens 8-28 101 g into ity of (PREMARIN) 00:00: vagina 2 [place] 0.625 00 (two) Medical mg/gram times per Branch vaginal week cream (dryness). conjugated 2018- Yes [id number] .5g Insert 0.5 [facility] estrogens 8-28 101 g into ity of (PREMARIN) 00:00: vagina 2 [place] 0.625 00 (two) Medical mg/gram times per Branch vaginal week cream (dryness). conjugated Yes [id number] .5g Insert 0.5 [facility] estrogens 8-28 101 g into ity of (PREMARIN) 00:00: vagina 2 [place] 0.625 00 (two) Medical mg/gram times per Branch vaginal week cream (dryness). conjugated 2018- Yes [id number] .5g Insert 0.5 [facility] estrogens 8-28 101 g into ity of (PREMARIN) 00:00: vagina 2 [place] 0.625 00 (two) Medical mg/gram times per Branch vaginal week cream (dryness). conjugated 2018- Yes [id number] .5g Insert 0.5 [facility] estrogens 8-28 101 g into ity of (PREMARIN) 00:00: vagina 2 [place] 0.625 00 (two) Medical mg/gram times per Branch vaginal week cream (dryness). conjugated Yes [id number] .5g Insert 0.5 Univers estrogens 8-28 101 [...] CONJUGATED 8-28 GRAMS Seybold VAGINAL 00:00: VAGINALLY - (Premarin) 00 TWICE Externa 0.625 MG/GM WEEKLY. l vaginal Cream ESTROGENS, Yes INSERT 0.5 K elsey CONJUGATED 8-28 GRAMS Seybold VAGINAL 00:00: VAGINALLY - (Premarin) 00 TWICE Externa 0.625 MG/GM WEEKLY. l vaginal Cream ESTROGENS, Yes INSERT 0.5 K elsey CONJUGATED 8-28 GRAMS Seybold VAGINAL 00:00: VAGINALLY (Premarin) 00 TWICE 0.625 MG/GM WEEKLY. vaginal Cream ESTROGENS, Yes INSERT 0.5 K elsey CONJUGATED 8-28 GRAMS Seybold VAGINAL 00:00: VAGINALLY - (Premarin) 00 TWICE Externa 0.625 MG/GM WEEKLY. l vaginal Cream Omeprazole Yes TK 1 C PO Ke lsey 40 MG oral 8-05 ONCE D. Seybol d Delayed 00:00: Release 00 Capsule Omeprazole Yes TK 1 C PO Ke lsey 40 MG oral 8-05 ONCE D. Seybol d Delayed 00:00: Release 00 Capsule Omeprazole 2021- No TK 1 C PO K elsey 40 MG oral 8-05 10-20 ONCE D. Seybo ld Delayed 00:00: 00:00 Release 00 :00 Capsule mirabegron Yes [id number] 50mg Take 1 U nivers (MYRBETRIQ) 2-20 tablet by ity of 50 mg 00:00: mouth [place] tablet 00 daily. Medical Branch mirabegron Yes [id number] 50mg Take 1 U nivers (MYRBETRIQ) 2-20 tablet by ity of 50 mg 00:00: mouth [place] tablet 00 daily. Medical Branch conjugated Yes [id number] .5g Insert 0.5 [facility] estrogens 2-20 101 g into ity of (PREMARIN) 00:00: vagina 2 [place] 0.625 00 (two) Medical mg/gram times per Branch vaginal week cream (dryness). mirabegron Yes [id number] 50mg Take 1 U nivers (MYRBETRIQ) 2-20 tablet by ity of 50 mg 00:00: mouth [place] tablet 00 daily. Medical Branch conjugated 2019- No [id number] .5g Insert 0.5 [facility] estrogens 2-20 08-28 101 g into ity of (PREMARIN) 00:00: 00:00 vagina 2 [place] 0.625 00 :00 (two) Medical mg/gram times per Branch vaginal week cream (dryness). conjugated 2019- No [id number] .5g Insert 0.5 Univers estrogens 2-20 08-28 101 g into ity of (PREMARIN) 00:00: 00:00 vagina 2 [place] 0.625 00 :00 (two) Medical mg/gram times per Branch vaginal week cream (dryness). SERTraline 0 Yes 100mg Take 100 Un kitty (ZOLOFT) 1-18 mg by ity of 100 mg 19:30: mouth [place] tablet 45 daily. Medical Branch omeprazole 0 Yes 40mg Take 40 mg U nivers (PRILOSEC) 1-18 by mouth ity o f 20 mg 19:30: daily. [place] capsule [address] [place] [address] Branch aspirin 81 0 Yes 81mg Take 81 mg U nivers mg EC 1-18 by mouth ity of tablet 19:30: daily. [address] Branch metoprolol Yes [id number] 50mg Take 50 mg Univers succinate 1-18 by mouth ity of XL 50 mg 24 19:30: daily. [place] tablet 45 [facility] Branch insulin 0 Yes 14U inject 14 [...] ity o f 20 mg 19:30: daily. [address] aspirin 81 0 Yes 81mg Take 81 mg U nivers mg EC 1-18 by mouth ity of tablet 19:30: daily. [address] Branch metoprolol 0 Yes [id number] 50mg Take 50 mg Univers succinate 1-18 by mouth ity of XL 50 mg 24 19:30: [place]. [place] tablet 45 [facility] Branch insulin 0 Yes 14U inject 14 [...] ity o f 20 mg 19:30: daily. [place] capsule Medical Branch aspirin 81 Yes 81mg Take 81 mg U nivers mg EC 1-18 by mouth ity of tablet 19:30: daily. [address] Branch metoprolol 0 Yes [id number] 50mg Take 50 mg Univers succinate 1-18 by mouth ity of XL 50 mg 24 19:30: [facility] Branch insulin 0 Yes 14U inject 14 Unive rs degludec 1-18 Units ity of (TRESIBA 19:30: under the [facility] [place] [facility] FLEXTOUCH 45 skin. Medical U-100 SC) Branch SERTraline Yes 100mg Take 100 Un kitty (ZOLOFT) 1-18 mg by ity of 100 mg 19:30: mouth [place] tablet 45 daily. Medical Branch omeprazole Yes 40mg Take 40 mg U nivers (PRILOSEC) 1-18 by mouth ity o f 20 mg 19:30: daily. [address] Branch aspirin 81 Yes 81mg Take 81 mg U nivers mg EC 1-18 by mouth ity of tablet 19:30: daily. [address] Branch metoprolol Yes [id number] 50mg Take 50 mg Univers succinate 1-18 by mouth ity of XL 50 mg 24 19:30: [facility]. [facility] Branch insulin 0 Yes 14U inject 14 Unive rs degludec 1-18 Units ity of (TRESIBA 19:30: under the [facility] [place] [facility] FLEXTOUCH 45 skin. Medical U-100 SC) Branch SERTraline 0 Yes 100mg Take 100 Un kitty (ZOLOFT) 1-18 mg by ity of 100 mg 19:30: mouth [place] tablet 45 daily. Medical Branch omeprazole Yes 40mg Take 40 mg U nivers (PRILOSEC) 1-18 by mouth ity o f 20 mg 19:30: daily. [address] Branch aspirin 81 Yes 81mg Take 81 mg U nivers mg EC 1-18 by mouth ity of tablet 19:30: daily. [address] Branch metoprolol Yes [id number] 50mg Take 50 mg Univers succinate 1-18 by mouth ity of XL 50 mg 24 19:30: [place]. [place] tablet 45 [facility] Branch insulin 0 Yes 14U inject 14 Unive rs degludec 1-18 Units ity of (TRESIBA 19:30: under the [facility] s FLEXTOUCH 45 skin. Medical U-100 SC) Branch SERTraline Yes 100mg Take 100 Un kitty (ZOLOFT) 1-18 mg by ity of 100 mg 19:30: mouth [place] tablet 45 daily. Medical Branch omeprazole 0 Yes 40mg Take 40 mg U nivers (PRILOSEC) 1-18 by mouth ity o f 20 mg 19:30: daily. [place] capsule [address] [place] [address] Branch aspirin 81 Yes 81mg Take 81 mg U nivers mg EC 1-18 by mouth ity of tablet 19:30: daily. [address] Branch metoprolol Yes [id number] 50mg Take 50 mg Univers succinate 1-18 by mouth ity of XL 50 mg 24 19:30: [facility]. [facility] 45 [facility] insulin 0 Yes 14U inject 14 Unive rs degludec 1-18 Units ity of (TRESIBA 19:30: under the [facility] [place] [facility] FLEXTOUCH 45 skin. Medical U-100 SC) Branch SERTraline 0 Yes 100mg Take 100 Un kitty (ZOLOFT) 1-18 mg by ity of 100 mg 19:30: mouth [place] tablet 45 daily. Medical Branch omeprazole Yes 40mg Take 40 mg U nivers (PRILOSEC) 1-18 by mouth ity o f 20 mg 19:30: daily. [place] capsule [address] [place] [address] Branch aspirin 81 0 Yes 81mg Take 81 mg U nivers mg EC 1-18 by mouth ity of tablet 19:30: daily. [address] Branch metoprolol Yes [id number] 50mg Take 50 mg Univers succinate 1-18 by mouth ity of XL 50 mg 24 19:30: daily. [place] hr tablet 45 [facility] insulin 0 Yes 14U inject 14 Unive rs degludec 1-18 Units ity of (TRESIBA 19:30: under the [facility] s FLEXTOUCH 45 skin. Medical U-100 SC) Branch multivit-mi 2017-06 Yes 2{each} Take 2 U nivers n-FA-herbal 1-14 Each by ity o f no.245 18:17: mouth [place] (ALIVE 58 daily. Medical WOMEN'S Branch GUMMY VITAMINS) 200 mcg- 37.5 mg Chew PILOCARPINE 2017-06 Yes Take by Uni vers HCL ORAL 1-14 mouth. ity of 18:17: [address] dulaglutide 2017-06 Yes [id number] inject Univers (TRULICITY) 1-14 under the ity of 0.75 mg/0.5 18:17: skin. [place] mL PnIj 58 [facility] Branch cyanocobala 2017-06 Yes [id number] by Un kitty min 1,000 1-14 Intramuscu ity of mcg/mL 18:17: lar route [place] injection 58 once now. Medic al [place] montelukast 2017-06 Yes [id number] 10mg Take 10 mg Univers 10 mg 1-14 by mouth. ity of tablet 18:17: [address] Cholecalcif 2017-06 Yes [id number] Take by [facility] andrei, 1-14 mouth. ity of Vitamin D3, 18:17: [place] (VITAMIN 58 Medical D3) 2,000 [place] unit capsule Magnesium 2017-06 Yes [id number] Take by U nivers 250 mg Tab 1-14 mouth. ity of 18:17: [address] docusate 2017-06 Yes [id number] 100mg Take 100 Univers (STOOL 1-14 mg by ity of SOFTENER) 18:17: mouth [place] 100 mg 58 daily. Medical capsule Branch OMEGA 2017-06 Yes [id number] Take by [facility], Txe rs 3-DHA-EPA-F 1-14 mouth. ity of REINA OIL 18:17: [address] Branch L gasseri/B 2017-06 Yes [id number] Take by [facility] bifidum/B 1-14 mouth. ity of longum 18:17: [place] (PROBIOTIC Medical COLON CARE Branch ORAL) insulin 2017-06 Yes 50U inject 50 Unive rs glargine 1-14 Units ity of (TOUJEO 18:17: under the [place] SOLOSTAR 58 skin Medical U-300 daily. [place] INSULIN) 300 unit/mL (1.5 mL) InPn multivit-mi 2017-06 Yes 2{each} Take 2 U nivers n-FA-herbal 1-14 Each by ity o f no.245 18:17: mouth [place] (ALIVE 58 daily. Medical WOMEN'S Branch GUMMY VITAMINS) 200 mcg- 37.5 mg Chew PILOCARPINE 2017-06 Yes Take by Uni vers HCL ORAL 1-14 mouth. ity of 18:17: [address] dulaglutide 2017-06 Yes [id number] inject Univers (TRULICITY) 1-14 under the ity of 0.75 mg/0.5 18:17: skin. [place] mL PnIj [address] [place] [address] Branch cyanocobala 2017-06 Yes [id number] by Un kitty min 1,000 1-14 Intramuscu ity of mcg/mL 18:17: lar route [place] injection 58 once now. Medic al Branch montelukast 2017-06 Yes [id number] 10mg Take 10 mg Univers 10 mg 1-14 by mouth. ity of tablet 18:17: [address] Cholecalcif 2017-06 Yes [id number] Take by [facility] andrei, 1-14 mouth. ity of Vitamin D3, 18:17: [place] (VITAMIN [address] [place] [address] D3) 2,000 [place] unit capsule Magnesium 2017-06 Yes [id number] Take by U nivers 250 mg Tab 1-14 mouth. ity of 18:17: [address] docusate 2017-06 Yes [id number] 100mg Take 100 Univers (STOOL 1-14 mg by ity of SOFTENER) 18:17: mouth [place] 100 mg 58 daily. Medical capsule Branch OMEGA 2017-06 Yes [id number] Take by [facility], Txe rs 3-DHA-EPA-F 1-14 mouth. ity of REINA OIL 18:17: [address] Branch L gasseri/B 2017-06 Yes [id number] Take by [facility] bifidum/B 1-14 mouth. ity of longum 18:17: [place] (PROBIOTIC [address] [place] [address] COLON CARE Branch ORAL) insulin 2017-06 Yes 50U inject 50 Unive rs glargine 1-14 Units ity of (TOUJEO 18:17: under the [place] SOLOSTAR 58 skin Medical U-300 daily. [place] INSULIN) 300 unit/mL (1.5 mL) InPn multivit-mi 2017-06 Yes 2{each} Take 2 U nivers n-FA-herbal 1-14 Each by ity o f no.245 18:17: mouth [place] (ALIVE 58 daily. Medical WOMENS [place] GUMMY VITAMINS) 200 mcg- 37.5 mg Chew PILOCARPINE 2017-06 Yes Take by Uni vers HCL ORAL 1-14 mouth. ity of 18:17: [address] dulaglutide 2017-06 Yes [id number] inject Univers (TRULICITY) 1-14 under the ity of 0.75 mg/0.5 18:17: skin. [place] mL PnIj [address] [place] [address] cyanocobala 2017-06 Yes [id number] by Un kitty min 1,000 1-14 Intramuscu ity of mcg/mL 18:17: lar route [place] injection 58 once now. Medic al Branch montelukast 2017-06 Yes [id number] 10mg Take 10 mg Univers 10 mg 1-14 by mouth. ity of tablet 18:17: [address] Cholecalcif 2017-06 Yes [id number] Take by [facility] andrei, 1-14 mouth. ity of Vitamin D3, 18:17: [place] (VITAMIN [address] [place] [address] D3) 2,000 [place] unit capsule Magnesium 2017-06 Yes [id number] Take by U nivers 250 mg Tab 1-14 mouth. ity of 18:17: [address] docusate 2017-06 Yes [id number] 100mg Take 100 Univers (STOOL 1-14 mg by ity of SOFTENER) 18:17: mouth [place] 100 mg 58 daily. Medical capsule [place] OMEGA 2017-06 Yes [id number] Take by [facility], Txe rs 3-DHA-EPA-F 1-14 mouth. ity of REINA OIL 18:17: [address] L gasseri/B 2017-06 Yes [id number] Take by [facility] bifidum/B 1-14 mouth. ity of longum 18:17: [place] (PROBIOTIC Medical COLON CARE Branch ORAL) insulin 2017-06 Yes 50U inject 50 Unive rs glargine 1-14 Units ity of (TOUJEO 18:17: under the [place] SOLOSTAR 58 skin Medical U-300 daily. [place] INSULIN) 300 unit/mL (1.5 mL) InPn multivit-mi 2017-06 Yes 2{each} Take 2 U nivers n-FA-herbal 1-14 Each by ity o f no.245 18:17: mouth [place] (ALIVE 58 daily. [facility] WOMENS [place] GUMMY VITAMINS) 200 mcg- 37.5 mg Chew PILOCARPINE 2017-06 Yes Take by Uni vers HCL ORAL 1-14 mouth. ity of 18:17: [address] dulaglutide 2017-06 Yes [id number] inject Univers (TRULICITY) 1-14 under the ity of 0.75 mg/0.5 18:17: skin. [place] mL PnIj [address] [place] [address] Branch cyanocobala 2017-06 Yes [id number] by Un kitty min 1,000 1-14 Intramuscu ity of mcg/mL 18:17: lar route [place] injection 58 once now. Medic al Branch montelukast 2017-06 Yes [id number] 10mg Take 10 mg Univers 10 mg 1-14 by mouth. ity of tablet 18:17: [address] Cholecalcif 2017-06 Yes [id number] Take by [facility] andrei, 1-14 mouth. ity of Vitamin D3, 18:17: [place] (VITAMIN [address] [place] [address] D3) 2,000 [place] unit capsule Magnesium 2017-06 Yes [id number] Take by U nivers 250 mg Tab 1-14 mouth. ity of 18:17: [address] docusate 2017-06 Yes [id number] 100mg Take 100 Univers (STOOL 1-14 mg by ity of SOFTENER) 18:17: mouth [place] 100 mg 58 daily. Medical capsule Branch OMEGA 2017-06 Yes [id number] Take by [facility] 3-DHA-EPA-F 1-14 mouth. ity of REINA OIL 18:17: [address] L gasseri/B 2017-06 Yes [id number] Take by [facility] bifidum/B 1-14 mouth. ity of longum 18:17: [place] (PROBIOTIC Medical COLON CARE Branch ORAL) insulin 2017-06 Yes 50U inject [address] [facility], Txe rs glargine 1-14 Units ity of (TOUJEO 18:17: under the [place] SOLOSTAR 58 skin Medical U-300 daily. Branch INSULIN) 300 unit/mL (1.5 mL) InPn multivit-mi 2017-06 Yes 2{each} Take 2 U nivers n-FA-herbal 1-14 Each by ity o f no.245 18:17: mouth [place] (ALIVE 58 daily. Medical WOMEN'S Branch GUMMY VITAMINS) 200 mcg- 37.5 mg Chew PILOCARPINE 2017-06 Yes Take by Uni vers HCL ORAL 1-14 mouth. ity of 18:17: [address] Branch dulaglutide 2017-06 Yes [id number] inject Univers (TRULICITY) 1-14 under the ity of 0.75 mg/0.5 18:17: skin. [place] mL PnIj [address] [place] [address] cyanocobala 2017-06 Yes [id number] by Un kitty min 1,000 1-14 Intramuscu ity of mcg/mL 18:17: lar route [place] injection 58 once now. Medic al Branch montelukast 2017-06 Yes [id number] 10mg Take 10 mg Univers 10 mg 1-14 by mouth. ity of tablet 18:17: [address] Branch Cholecalcif 2017-06 Yes [id number] Take by [facility] andrei, 1-14 mouth. ity of Vitamin D3, 18:17: [place] (VITAMIN [address] [place] [address] D3) 2,000 [place] unit capsule Magnesium 2017-06 Yes [id number] Take by U nivers 250 mg Tab 1-14 mouth. ity of 18:17: [address] docusate 2017-06 Yes [id number] 100mg Take 100 Univers (STOOL 1-14 mg by ity of SOFTENER) 18:17: mouth [place] 100 mg 58 daily. Medical capsule Branch OMEGA 2017-06 Yes [id number] Take by [facility] rs 3-DHA-EPA-F 1-14 mouth. ity of REINA OIL 18:17: [address] L gasseri/B 2017-06 Yes [id number] Take by [facility] bifidum/B 1-14 mouth. ity of longum 18:17: [place] (PROBIOTIC [address] [place] [address] COLON CARE [place] ORAL) insulin 2017-06 Yes 50U inject [address] [facility], Txe rs glargine 1-14 Units ity of (TOUJEO 18:17: under the [place] SOLOSTAR 58 skin Medical U-300 daily. [place] INSULIN) 300 unit/mL (1.5 mL) InPn multivit-mi 2017-06 Yes 2{each} Take 2 U nivers n-FA-herbal 1-14 Each by ity o f no.245 18:17: mouth [place] (ALIVE 58 daily. Medical WOMEN'S Branch GUMMY VITAMINS) 200 mcg- 37.5 mg Chew PILOCARPINE 2017-06 Yes Take by Uni vers HCL ORAL 1-14 mouth. ity of 18:17: [address] dulaglutide 2017-06 Yes [id number] inject Univers (TRULICITY) 1-14 under the ity of 0.75 mg/0.5 18:17: skin. [place] mL PnIj [address] [place] [address] cyanocobala 2017-06 Yes [id number] by Un kitty min 1,000 1-14 Intramuscu ity of mcg/mL 18:17: lar route [place] injection 58 once now. Medic al Branch montelukast 2017-06 Yes [id number] 10mg Take 10 mg Univers 10 mg 1-14 by mouth. ity of tablet 18:17: [address] Cholecalcif 2017-06 Yes [id number] Take by [facility] andrei, 1-14 mouth. ity of Vitamin D3, 18:17: [place] (VITAMIN [address] [place] [address] D3) 2,000 [place] unit capsule Magnesium 2017-06 Yes [id number] Take by U nivers 250 mg Tab 1-14 mouth. ity of 18:17: [address] docusate 2017-06 Yes [id number] 100mg Take 100 Univers (STOOL 1-14 mg by ity of SOFTENER) 18:17: mouth [place] 100 mg 58 daily. Medical capsule Branch OMEGA 2017-06 Yes [id number] Take by [facility], Txe rs 3-DHA-EPA-F 1-14 mouth. ity of REINA OIL 18:17: [address] L gasseri/B 2017-06 Yes [id number] Take by [facility] bifidum/B 1-14 mouth. ity of longum 18:17: [place] (PROBIOTIC [address] [place] [address] COLON CARE [place] ORAL) insulin 2017-06 Yes 50U inject [address] [facility], Txe rs glargine 1-14 Units ity of (TOUJEO 18:17: under the [place] SOLOSTAR 58 skin Medical U-300 daily. [place] INSULIN) 300 unit/mL (1.5 mL) InPn multivit-mi 2017-06 Yes 2{each} Take 2 U nivers n-FA-herbal 1-14 Each by ity o f no.245 18:17: mouth [place] (ALIVE 58 daily. Medical WOMEN'S [place] GUMMY VITAMINS) 200 mcg- 37.5 mg Chew PILOCARPINE 2017-06 Yes Take by Uni vers HCL ORAL 1-14 mouth. ity of 18:17: [address] dulaglutide 2017-06 Yes [id number] inject Univers (TRULICITY) 1-14 under the ity of 0.75 mg/0.5 18:17: skin. [place] mL PnIj Medical Branch cyanocobala 2017-06 Yes [id number] by Un kitty min 1,000 1-14 Intramuscu ity of mcg/mL 18:17: lar route [place] injection 58 once now. Medic al Branch montelukast 2017-06 Yes [id number] 10mg Take 10 mg Univers 10 mg 1-14 by mouth. ity of tablet 18:17: [place] [address] Medical Branch Cholecalcif 2017-06 Yes [id number] Take by [facility] andrei, 1-14 mouth. ity of Vitamin D3, 18:17: [place] (VITAMIN [address] [place] [address] D3) 2,000 Branch unit capsule Magnesium 2017-06 Yes [id number] Take by U nivers 250 mg Tab 1-14 mouth. ity of 18:17: [place] [address] Medical Branch docusate 2017-06 Yes [id number] 100mg Take 100 Univers (STOOL 1-14 mg by ity of SOFTENER) 18:17: mouth [place] 100 mg 58 daily. Medical capsule Branch OMEGA 2017-06 Yes [id number] Take by [facility], Txe rs 3-DHA-EPA-F 1-14 mouth. ity of REINA OIL 18:17: [place] ORAL Medical Branch L gasseri/B 2017-06 Yes [id number] Take by [facility] bifidum/B 1-14 mouth. ity of longum 18:17: [place] (PROBIOTIC Medical COLON CARE Branch ORAL) insulin 2017-06 Yes 50U inject 50 Unive rs glargine 1-14 Units ity of (TOUJEO 18:17: under the [place] SOLOSTAR 58 skin Medical U-300 daily. Branch [...] 7-10). Docusate 2017-06- No 100mg Take 100 Brijesh sey Sodium 1-14 09-09 mg by [place] (DSS) 100 00:00: 00:00 mouth MG oral 00 :00 daily Capsule Albuterol Yes Comments: Brijesh sey HFA 108 (90 5-26 | Filled [employer]) 00:00: Date: October MCG/ACT IN 2016 AERS 12:00AM | Patient Notes: INL 1 TO 2 PFS PO Q 4 H PRF SOB OR WHZ Duration: 16 Albuterol 2017-0 Yes Comments: Brijesh fitch HFA 108 (90 5-26 | Filled [employer]) 00:00: Date: October MCG/ACT IN 2016 AERS 12:00AM | Patient Notes: INL 1 TO 2 PFS PO Q 4 H PRF SOB OR WHZ Duration: 16 Albuterol 2017-0 Yes Comments: Brijesh fitch HFA 108 (90 5-26 | Filled [employer]) 00:00: Date: October MCG/ACT IN 2016 AERS 12:00AM | Patient Notes: INL 1 TO 2 PFS PO Q 4 H PRF SOB OR WHZ Duration: 16 Albuterol 2017-0 Yes Comments: Brijesh fitch HFA 108 (90 5-26 | Filled [employer]) 00:00: Date: October MCG/ACT IN 2016 AERS 12:00AM | Patient Notes: INL 1 TO 2 PFS PO Q 4 H PRF SOB OR WHZ Duration: 16 Albuterol 2017-0 Yes Comments: Brijesh ficth HFA 108 (90 5-26 | Filled [employer]) 00:00: Date: October MCG/ACT IN 2016 AERS 12:00AM | Patient Notes: INL 1 TO 2 PFS PO Q 4 H PRF SOB OR WHZ Duration: 16 Albuterol 2017-0 Yes Comments: Brijesh fitch HFA 108 (90 5-26 | Filled [employer]) 00:00: Date: October MCG/ACT IN 2016 AERS 12:00AM | Patient Notes: INL 1 TO 2 PFS PO Q 4 H PRF SOB OR WHZ Duration: 16 Albuterol 2017-0 Yes Comments: Brijesh fitch HFA 108 (90 5-26 | Filled [employer]) 00:00: Date: October MCG/ACT IN 2016 AERS 12:00AM | Patient Notes: INL 1 TO 2 PFS PO Q 4 H PRF SOB OR WHZ Duration: 16 Albuterol 2017-0 Yes Comments: Brijesh fitch HFA 108 (90 5-26 | Filled [employer]) 00:00: Date: October MCG/ACT IN 2016 AERS 12:00AM | Patient Notes: INL 1 TO 2 PFS PO Q 4 H PRF SOB OR WHZ Duration: 16 Pilocarpine Pilocarpine Yes Dao 1 drop Common HCl HCl [place] into Spirit affected - [facility] eye [facility] Cyanocobala Cyanocobala Yes Dao as Common min min [place] directed [facility] Sertraline Sertraline Yes Dao 1 tablet Common HCl HCl [place] [facility] Jardiance Jardiance Yes Dao not Co mmon [place] defined [facility] Myrbetriq Myrbetriq Yes Dao not Co mmon [place] defined [facility] Rosuvastati Rosuvastati Yes Dao 1 tablet Common n Calcium n Calcium [place] [facility] Hydrocodone Hydrocodone Yes Dao (Schedule Common -Acetaminop -Acetaminop [place] II Drug) Spirit hen hen TK 1 T PO - [facility] Q 4 H PRN [facility] Doxycycline Doxycycline No Doxycyclin Hyclate Hyclate e Hyclate Dexamethaso Dexamethaso No Dexamethas ne ne one Aspirin 81 Aspirin 81 No 1{table QD Aspirin 81 MG MG t} MG Oxybutynin Oxybutynin No Oxybutynin Chloride ER Chloride ER Chloride ER Cyanocobala Cyanocobala No Cyanocobal min 100 MCG min 100 MCG segura 100 MCG Rosuvastati Rosuvastati No 1{table QD Rosuvastat n Calcium n Calcium t} in Calcium 10 MG 10 MG 10 MG Tramadol Tramadol No Tramadol HCl HCl HCl Metoprolol Metoprolol No Metoprolol Tartrate 5 Tartrate 5 Tartrate 5 MG/5ML MG/5ML MG/5ML Voltaren 1 Voltaren 1 No QID Voltaren 1 % % % Montelukast Montelukast No Montelukas Sodium Sodium t Sodium Omeprazole Omeprazole No Omeprazole Hydrocodone Hydrocodone No Hydrocodon -Acetaminop -Acetaminop e-Acetamin hen 7.5-325 hen 7.5-325 ophen MG MG 7.5-325 MG Jardiance Jardiance No Jardiance Myrbetriq Myrbetriq No Myrbetriq Sertraline Sertraline No 1{table QD Sertraline HCl 100 MG HCl 100 MG t} HCl 100 MG Pilocarpine Pilocarpine No 1{drop_ TID [place] HCl 1 % HCl 1 % into_af e HCl 1 % fected_ eye} Pravastatin Pravastatin No Pravastati Sodium Sodium n Sodium Doxycycline Doxycycline No Doxycyclin Hyclate Hyclate e Hyclate Dexamethaso Dexamethaso No Dexamethas ne ne one Aspirin 81 Aspirin 81 No 1{table QD Aspirin 81 MG MG t} MG Oxybutynin Oxybutynin No Oxybutynin Chloride ER Chloride ER Chloride ER Cyanocobala Cyanocobala No Cyanocobal min 100 MCG min 100 MCG segura 100 MCG Rosuvastati Rosuvastati No 1{table QD Rosuvastat n Calcium n Calcium t} in Calcium 10 MG 10 MG 10 MG Tramadol Tramadol No Tramadol HCl HCl HCl Metoprolol Metoprolol No Metoprolol Tartrate 5 Tartrate 5 Tartrate 5 MG/5ML MG/5ML MG/5ML Voltaren 1 Voltaren 1 No QID Voltaren 1 % % % Montelukast Montelukast No Montelukas Sodium Sodium t Sodium Omeprazole Omeprazole No Omeprazole Hydrocodone Hydrocodone No Hydrocodon -Acetaminop -Acetaminop e-Acetamin hen 7.5-325 hen 7.5-325 ophen MG MG 7.5-325 MG Jardiance Jardiance No Jardiance Myrbetriq Myrbetriq No Myrbetriq Sertraline Sertraline No 1{table QD Sertraline HCl 100 MG HCl 100 MG t} HCl 100 MG [place] Pilocarpine No 1{drop_ TID [place] HCl 1 % HCl 1 % into_af e HCl 1 % fected_ eye} Pravastatin Pravastatin No Pravastati Sodium Sodium n Sodium Myrbetriq Myrbetriq No Myrbetriq Common [facility] - [facility] Sertraline Sertraline No 1{table QD Sertraline Common HCl 100 MG HCl 100 MG t} HCl 100 MG Spirit - [facility] Hydrocodone Hydrocodone No Hydrocodon Common -Acetaminop -Acetaminop e-Acetamin Spirit hen 7.5-325 hen 7.5-325 ophen - CHI MG MG 7.5-325 MG [facility] Voltaren 1 Voltaren 1 No QID Voltaren 1 Common % % % [facility] Pilocarpine Pilocarpine No 1{drop_ TID Pilocarpin Common HCl 1 % HCl 1 % into_af e HCl 1 % S pirit fected_ [facility] eye} [facility] Montelukast Montelukast No Montelukas Common Sodium Sodium t Sodium [facility] Oxybutynin Oxybutynin No Oxybutynin Common Chloride ER Chloride ER Chloride Spirit ER [facility] Tramadol Tramadol No Tramadol Com mon HCl HCl HCl [facility] Doxycycline Doxycycline No Doxycyclin Common Hyclate Hyclate e Hyclate Spir it [facility] Omeprazole Omeprazole No Omeprazole Common [facility] Metoprolol Metoprolol No Metoprolol Common Tartrate 5 Tartrate 5 Tartrate 5 Spirit MG/5ML MG/5ML MG/5ML [facility] Dexamethaso Dexamethaso No Dexamethas Common ne ne one [facility] Aspirin 81 Aspirin 81 No 1{table QD Aspirin 81 Common MG MG t} MG [facility] Jardiance Jardiance No Jardiance Common [facility] Rosuvastati Rosuvastati No 1{table QD Rosuvastat Common n Calcium n Calcium t} in Calcium Spirit 10 MG 10 MG 10 MG [facility] Pravastatin Pravastatin No Pravastati Common Sodium Sodium n Sodium [facility] Cyanocobala Cyanocobala No Cyanocobal Common min 100 MCG min 100 MCG segura 100 Spirit MCG [facility] Metoprolol Metoprolol Yes Dao as Common Tartrate Tartrate [place] directed Spi rit [facility] Voltaren Voltaren Yes Dao apply Com mon [place] small Spirit amount to - [facility] affected [facility] Aspirin Aspirin Yes Dao 1 tablet Co mmon [place] [facility] Immunizations Ordered Immunization Filled Immunization Date Status Commen ts Source Name Name Tdap- (Boostrix, 2022-04-02 Completed Anisha bates Adacel) 00:00:00 - External Influenza Virus 2022-02-21 Completed Anisha Se ybold Vaccine, 00:00:00 - External Quadrivalent, High Dose, Age 65 And Up Influenza Virus 2022-02-21 Completed Anisha Se ybold Vaccine, 00:00:00 - External Quadrivalent, High Dose, Age 65 And Up Influenza Virus 2022-02-21 Completed Anisha Se ybold Vaccine, 00:00:00 - External Quadrivalent, High Dose, Age 65 And Up [...] 2021-02-16 Completed Anisha Se ybold Vaccine, 00:00:00 - External Quadrivalent, High Dose, Age 65 And Up Influenza Virus 2021-02-16 Completed Anisha Se ybold Vaccine, 00:00:00 - External Quadrivalent, High Dose, Age 65 And Up Influenza Virus 2021-02-16 Completed Anisha Se ybold Vaccine, 00:00:00 - External Quadrivalent, High Dose, Age 65 And Up Influenza Virus 2021-02-16 Completed Anisha Se ybold Vaccine, 00:00:00 Quadrivalent, High Dose, Age 65 And Up Covid-19 Vaccine 2020-09-11 Completed Anisha bates (Moderna), Mrna-lnp, 00:00:00 Tray [...] Pf, 100 Mcg/0.5ml,IM Covid-19 Vaccine 2020-09-11 Completed Anihsa Banuelos eybold (Moderna), Mrna-lnp, 00:00:00 Tray Protein, [...] Protein, Pf Covid-19 Vaccine 2020-09-11 Completed Anisha S eybold Moderna (Spikevax), 00:00:00 Mrna-lnp, Tray Protein, Pf Covid-19 Vaccine 2020-09-11 Completed Anisha S eybold Moderna (Spikevax), 00:00:00 Mrna-lnp, Tray Protein, Pf Covid-19 Vaccine 2020-09-11 Completed Anisha bates Moderna (Spikevax), 00:00:00 Mrna-lnp, Tray Protein, Pf Covid-19 Vaccine 2020-09-11 Completed Anisha bates Moderna (Spikevax), 00:00:00 - Ext ernal Mrna-lnp, Tray Protein, Pf Covid-19 Vaccine 2020-09-11 Completed Anisha bates Moderna (Spikevax), 00:00:00 - Ext ernal Mrna-lnp, Tray Protein, Pf Covid-19 Vaccine 2020-09-11 Completed Anisha bates Moderna (Spikevax), 00:00:00 - Ext ernal Mrna-lnp, Tray Protein, Pf Covid-19 Vaccine 2020-09-11 Completed Anisha bates Moderna (Spikevax), 00:00:00 - Ext ernal Mrna-lnp, Tray Protein, Pf Covid-19 Vaccine 2020-09-11 Completed Anisha bates Moderna (Spikevax), 00:00:00 - Ext ernal Mrna-lnp, Tray Protein, Pf Covid-19 Vaccine 2020-09-11 Completed Anisha bates Moderna (Spikevax), 00:00:00 - Ext ernal Mrna-lnp, Tray Protein, Pf Covid-19 Vaccine 2020-09-11 Completed Anisha bates (Moderna), Mrna-lnp, 00:00:00 Tray Protein, Pf, 100 Mcg/0.5ml,IM Covid-19 Vaccine 2020-08-14 Completed Anisha bates (Moderna), Mrna-lnp, 00:00:00 Tray Protein, Pf, 100 Mcg/0.5ml,IM Covid-19 Vaccine 2020-08-14 Completed Anisha bates (Moderna), Mrna-lnp, 00:00:00 Tray Protein, Pf, 100 Mcg/0.5ml,IM Covid-19 Vaccine 2020-08-14 Completed Anisha bates (Moderna), Mrna-lnp, 00:00:00 Tray Protein, Pf, 100 Mcg/0.5ml,IM Covid-19 Vaccine 2020-08-14 Completed Anisha bates (Moderna), Mrna-lnp, 00:00:00 Tray Protein, Pf, 100 Mcg/0.5ml,IM Covid-19 Vaccine 2020-08-14 Completed Anisha bates (Moderna), Mrna-lnp, 00:00:00 Tray Protein, Pf, 100 Mcg/0.5ml,IM Covid-19 Vaccine 2020-08-14 Completed Anisha bates (Moderna), Mrna-lnp, 00:00:00 Tray Protein, Pf, 100 Mcg/0.5ml,IM Covid-19 Vaccine 2020-08-14 Completed Anisha bates Moderna (Spikevax), 00:00:00 Mrna-lnp, Tray Protein, Pf Covid-19 Vaccine 2020-08-14 Completed Anisha Banuelos branditc Moderna (Spikevax), 00:00:00 Mrna-lnp, Tray Protein, Pf Covid-19 Vaccine 2020-08-14 Completed Anisha bates Moderna (Spikevax), 00:00:00 Mrna-lnp, Tray Protein, Pf Covid-19 Vaccine 2020-08-14 Completed Anisha bates Moderna (Spikevax), 00:00:00 Mrna-lnp, Tray Protein, Pf Covid-19 Vaccine 2020-08-14 Completed Anisha Banuelos branditc Moderna (Spikevax), 00:00:00 - Ext ernal Mrna-lnp, Tray Protein, Pf Covid-19 Vaccine 2020-08-14 Completed Anisha bates Moderna (Spikevax), 00:00:00 - Ext ernal Mrna-lnp, Tray Protein, Pf Covid-19 Vaccine 2020-08-14 Completed Anisha Banuelos branditc Moderna (Spikevax), 00:00:00 - Ext ernal Mrna-lnp, Tray Protein, Pf Covid-19 Vaccine 2020-08-14 Completed Anisha Banuelos branditc Moderna (Spikevax), 00:00:00 - Ext ernal Mrna-lnp, Tray Protein, Pf Covid-19 Vaccine 2020-08-14 Completed Anisha bates Moderna (Spikevax), 00:00:00 - Ext ernal Mrna-lnp, Tray Protein, Pf Covid-19 Vaccine 2020-08-14 Completed Anisha bates Moderna (Spikevax), 00:00:00 - Ext ernal Mrna-lnp, Tray Protein, Pf Covid-19 Vaccine 2020-08-14 Completed Anisha pazbold (Moderna), Mrna-lnp, 00:00:00 Tray Protein, Pf, 100 Mcg/0.5ml,IM Covid-19 Vaccine 2020-08-14 Completed Anisha Banuelos eybold (Moderna), Mrna-lnp, 00:00:00 Tray Protein, Pf, 100 Mcg/0.5ml,IM Covid-19 Vaccine 2020-08-14 Completed Anisha Banuelos eybold (Moderna), Mrna-lnp, 00:00:00 Tray Protein, Pf, 100 Mcg/0.5ml,IM Covid-19 Vaccine 2020-08-14 Completed Anisha pazbold (Moderna), Mrna-lnp, 00:00:00 Tray Protein, Pf, 100 Mcg/0.5ml,IM Shingles 2019-06-01 Completed Anisha Seybol d (Zostavax) 00:00:00 Shingles 2019-06-01 Completed Anisha Seybol d (Zostavax) 00:00:00 Shingles 2019-06-01 Completed Anisha Seybol d (Zostavax) 00:00:00 Shingles 2019-06-01 Completed Anisha Seybol d (Zostavax) 00:00:00 Shingles 2019-06-01 Completed Anisha Seybol d (Zostavax) 00:00:00 Shingles SQ 2019-06-01 Completed Anisha Seybol d (Zostavax) 00:00:00 Shingles SQ 2019-06-01 Completed Anisha Seybol d (Zostavax) 00:00:00 Shingles 2019-06-01 Completed Anisha Seybol d (Zostavax) 00:00:00 - External Shingles 2019-06-01 Completed Anisha Seybol d (Zostavax) 00:00:00 - External Shingles 2019-06-01 Completed Anisha Seybol d (Zostavax) 00:00:00 - External Shingles SQ 2019-06-01 Completed Anisha Seybol d [...] Anisha Se ybold Vaccine, High Dose, 00:00:00 - Ext ernal Age 65 And Up Influenza Virus 2019-04-04 Completed Anisha Se ybold Vaccine, High Dose, 00:00:00 - Ext ernal Age 65 And Up Influenza Virus 2019-04-04 Completed Anisha Se ybold Vaccine, High Dose, 00:00:00 - Ext ernal Age 65 And Up Influenza Virus 2019-04-04 Completed Anisha Se ybold Vaccine, High Dose, 00:00:00 Age 65 And Up Hyalgan 20 mg Hyalgan 20 mg 2018-02-13 Completed Common S pirit - 14:27:00 [facility] Hyalgan 20 mg Hyalgan 20 mg 2018-02-13 Completed Common S pirit - 14:27:00 [facility] Hyalgan 20 mg Hyalgan 20 mg 2018-02-13 Completed Common S pirit - 14:27:00 [facility] Hyalgan 20 mg Hyalgan 20 mg 2018-02-13 Completed Common S pirit - 14:26:00 [facility] Hyalgan 20 mg Hyalgan 20 mg 2018-02-13 Completed Common S pirit - 14:26:00 [facility] Hyalgan 20 mg Hyalgan 20 mg 2018-02-13 Completed Common S pirit - 14:26:00 [facility] Hyalgan 20 mg Hyalgan 20 mg 2018-02-06 Completed Common S pirit - 10:02:00 [facility] Hyalgan 20 mg Hyalgan 20 mg 2018-02-06 Completed Common S pirit - 10:02:00 [facility] Hyalgan 20 mg Hyalgan 20 mg 2018-02-06 Completed Common S pirit - 10:02:00 [facility] Hyalgan 20 mg Hyalgan 20 mg 2018-02-06 Completed Common S pirit - 10:00:00 [facility] Hyalgan 20 mg Hyalgan 20 mg 2018-02-06 Completed Common S pirit - 10:00:00 [facility] Hyalgan 20 mg Hyalgan 20 mg 2018-02-06 Completed Common S pirit - 10:00:00 [facility] Hyalgan 20 mg Hyalgan 20 mg 2018-01-21 Completed Common S pirit - 15:51:00 [facility] Hyalgan 20 mg Hyalgan 20 mg 2018-01-21 Completed Common S pirit - 15:51:00 [facility] Hyalgan 20 mg Hyalgan 20 mg 2018-01-21 Completed Common S pirit - 15:51:00 [facility] Hyalgan 20 mg Hyalgan 20 mg 2018-01-21 Completed Common S pirit - 15:46:00 [facility] Hyalgan 20 mg Hyalgan 20 mg 2018-01-21 Completed Common S pirit - 15:46:00 [facility] Hyalgan 20 mg Hyalgan 20 mg 2018-01-21 Completed Common S pirit - 15:46:00 [facility] Influenza Virus 2017-09-03 Completed Anisha Griffni ybold Vaccine, High Dose, 00:00:00 Age 65 And Up Influenza Virus 2017-09-03 Completed Anisha Griffin ybold Vaccine, High Dose, 00:00:00 Age 65 And Up Influenza Virus 2017-09-03 Completed Anisha Griffin ybold Vaccine, High Dose, 00:00:00 Age 65 And Up Influenza Virus 2017-09-03 Completed Anisha Griffin ybold Vaccine, High Dose, 00:00:00 Age 65 [...] Anisha Se ybold Vaccine, High Dose, 00:00:00 - Ext ernal Age 65 And Up Influenza Virus 2017-09-03 Completed Anisha Se ybold Vaccine, High Dose, 00:00:00 - Ext ernal Age 65 And Up Influenza Virus 2017-09-03 Completed Anisha Se ybold Vaccine, High Dose, 00:00:00 - Ext ernal Age 65 And Up Influenza Virus 2017-09-03 [...] Anisha Se ybold Vaccine, High Dose, 00:00:00 - Ext ernal Age 65 And Up Influenza Virus 2016-03-07 Completed Anisha Se ybold Vaccine, High Dose, 00:00:00 - Ext ernal Age 65 And Up Influenza Virus 2016-03-07 Completed Anisha Se ybold Vaccine, High Dose, 00:00:00 - Ext ernal Age 65 And Up Influenza Virus 2016-03-07 [...] Anisha Se ybold Vaccine, High Dose, 00:00:00 - Ext ernal Age 65 And Up Influenza Virus 2015-04-17 Completed Anisha Se ybold Vaccine, High Dose, 00:00:00 - Ext ernal Age 65 And Up Influenza Virus 2015-04-17 Completed Anisha Se ybold Vaccine, High Dose, 00:00:00 - Ext ernal Age 65 And Up Influenza Virus 2015-04-17 Completed Anisha Se ybold Vaccine, High Dose, 00:00:00 Age 65 And Up Vital Signs Vital Name Observation Time Observation Value Comments Source Systolic blood 2022-05-01 15:35:00 135 mm[Hg] Anisha Griffinybold - pressure External Diastolic blood 2022-05-01 15:35:00 73 mm[Hg] Tawanna castellanos Seybold - pressure External Heart rate 2022-05-01 15:35:00 74 /min Anisha bates - External Body temperature 2022-05-01 15:35:00 37.06 Re Kathleen paz Seybold - External Respiratory rate 2022-05-01 15:35:00 18 /min Kathleen paz Seybold - External Body height 2022-05-01 15:35:00 165.1 cm Anisha bates - External Body weight 2022-05-01 15:35:00 76.204 kg Anisha S eybold - External BMI 2022-05-01 15:35:00 27.96 kg/m2 Anisha S eybold - External Systolic blood 2022-03-19 17:49:00 118 mm[Hg] Anisha Seybold - pressure External Diastolic blood 2022-03-19 17:49:00 65 mm[Hg] Brijeshse y Seybold - pressure External Heart rate 2022-03-19 17:49:00 98 /min Anisha S eybold - External Body temperature 2022-03-19 17:49:00 36.61 Re Kathleen ey Seybold - External Respiratory rate 2022-03-19 17:49:00 14 /min Kathleen ey Seybold - External Body height 2022-03-19 17:49:00 165.1 cm Anisha Banuelos eybold - External Body weight 2022-03-19 17:49:00 74.39 kg Anisha Banuelos eybold - External BMI 2022-03-19 17:49:00 27.29 kg/m2 Anisha Banuelos eybold - External Oxygen saturation in 2022-03-19 17:49:00 99 /min Anisha Seybold - Arterial blood by External Pulse oximetry Systolic blood 2022-03-14 14:41:00 144 mm[Hg] Anisha Seybold - pressure External Diastolic blood 2022-03-14 14:41:00 80 mm[Hg] Tawanna y Seybold - pressure External Heart rate 2022-03-14 14:41:00 64 /min Anisha Banuelos eybold - External Body temperature 2022-03-14 14:41:00 36.78 Re Kathleen ey Seybold - External Respiratory rate 2022-03-14 14:41:00 14 /min Kathleen ey Seybold - External Body height 2022-03-14 14:41:00 165.1 cm Anisha Banuelos eybold - External Body weight 2022-03-14 14:41:00 77.111 kg Anisha S eybold - External BMI 2022-03-14 14:41:00 28.29 kg/m2 Anisha Banuelos eybold - External Oxygen saturation in 2022-03-14 14:41:00 97 /min Anisha Seybold - Arterial blood by External Pulse oximetry Systolic blood 2021-11-16 18:22:00 128 mm[Hg] Anisha [...] Heart rate 2021-04-05 18:32:00 79 /min Anisha S eybold Body temperature 2021-04-05 18:32:00 36.67 Re Kathleen ey Seybold Respiratory rate 2021-04-05 18:32:00 20 /min Kathleen ey Seybold Body height 2021-04-05 18:32:00 165.1 cm Anisha S eybold Body weight 2021-04-05 18:32:00 77.111 kg Anisha S eybold BMI 2021-04-05 18:32:00 28.29 kg/m2 Anisha S eybold Systolic blood 2021-02-23 19:28:00 138 mm[Hg] Anisha Seybold pressure Diastolic blood 2021-02-23 19:28:00 74 mm[Hg] Kelse y Seybold pressure Heart rate 2021-02-23 19:28:00 98 /min Anisha pazboarpan Body temperature 2021-02-23 19:28:00 36.89 Re Kathleen ey Seybmonika Respiratory rate 2021-02-23 19:28:00 16 /min Kathleen Pringle Body height 2021-02-23 19:28:00 165.1 cm Anisha bates Body weight 2021-02-23 19:28:00 77.293 kg Anisha pazboarpan BMI 2021-02-23 19:28:00 28.36 kg/m2 Anisha bates Oxygen saturation in 2021-02-23 19:28:00 95 /min Anisha Pringle Arterial blood by Pulse oximetry temperature 2020-05-05 10:00:00 97.3 [degF] [facility] bmi 2020-05-05 10:00:00 27.39 [facility] blood pressure 2020-05-05 10:00:00 130 mm[Hg] [facility] blood pressure 2020-05-05 10:00:00 75 mm[Hg] [facility] diastolic [facility] height 2020-05-05 10:00:00 65 [in_i] [facility] weight 2020-05-05 10:00:00 164.6 [lb_av] [facility] height 2020-03-11 10:30:00 65 [in_i] [facility] weight 2020-03-11 10:30:00 167 [lb_av] [facility] temperature 2020-03-11 10:30:00 97.5 [degF] [facility] bmi 2020-03-11 10:30:00 27.79 kg/m2 [facility] S [facility] blood pressure 2020-03-11 10:30:00 132 mm[Hg] [facility] blood pressure 2020-03-11 10:30:00 84 mm[Hg] [facility] - diastolic [facility] Systolic blood 2019-02-11 19:52:00 135 mm[Hg] [facility] Diastolic blood 2019-02-11 19:52:00 77 mm[Hg] Unive rsity of pressure [facility] Heart rate 2019-02-11 19:52:00 80 /min [facility] Body temperature 2019-02-11 19:52:00 36.83 Re Univ ers[facility] Respiratory rate 2019-02-11 19:49:00 18 /min Univ [facility] Body height 2019-02-11 19:49:00 167.6 cm [facility] Body weight 2019-02-11 19:49:00 83.462 kg [facility] BMI 2019-02-11 19:49:00 29.70 kg/m2 [facility] Systolic blood 2019-02-11 19:52:00 135 mm[Hg] Univer sity of pressure [facility] Diastolic blood 2019-02-11 19:52:00 77 mm[Hg] Unive rsity of pressure [facility] Heart rate 2019-02-11 19:52:00 80 /min [facility] Body temperature 2019-02-11 19:52:[address] [facility] [place] ers[facility] Respiratory rate 2019-02-11 19:49:00 18 /min Univ [facility] Body height 2019-02-11 19:49:00 167.6 cm [facility] Body weight 2019-02-11 19:49:00 83.462 kg [facility] BMI 2019-02-11 19:49:00 29.70 kg/m2 [facility] Procedures Procedure Date / Time Performing Clinician Source Performed EXTERNAL IMAGING 2021-06-29 20:14:00 Raven Coy REAGENT STRIP/BLOOD 2021-05-01 19:31:00 Aung Castaneda eybold GLUCOSE LS RAPID STREP ASSAY-LAB 2021-02-23 20:15:01 Ld Hughes TEST Somogyi PATIENT QUESTIONNAIRE 2020-02-16 05:01:00 Doctor Unassigned, No General acute hospital POCT URINALYSIS AUTO 2019-02-11 20:02:00 Avril Sprague [facility] ASSIGNMENT OF BENEFITS 2019-02-11 19:32:20 Doctor Unassigned, No General acute hospital Plan of Care Planned Activity Planned Date Details Comments Source Future Scheduled 2022-04-19 HEPATITIS B VACCINES Met [facility] Test 02:29:57 (1 of 3 - 3-dose series) [code = HEPATITIS B VACCINES (1 of 3 - 3-dose series)] Future Scheduled 2022-04-19 COVID-19 VACCINE (#1) [facility] Test 02:29:57 [code = COVID-19 VACCINE (#1)] Future Scheduled 2022-04-19 COLONOSCOPY SCREENING [facility] Test 02:29:57 [code = COLONOSCOPY SCREENING] Future Scheduled 2022-04-19 SHINGLES VACCINES (1 Met [facility] Test 02:29:57 of 2) [code = SHINGLES VACCINES (1 of 2)] Future Scheduled 2022-04-19 65+ PNEUMOCOCCAL [facility] Test 02:29:57 VACCINE (1 - PCV) [code = 65+ PNEUMOCOCCAL VACCINE (1 - PCV)] Future Scheduled 2022-04-19 INFLUENZA VACCINE [facility] Test 02:29:57 [code = INFLUENZA VACCINE] Future Scheduled 2022 COLONOSCOPY SCREENING [facility] Test 01:57:16 [code = COLONOSCOPY SCREENING] Future Scheduled 2022 SHINGLES VACCINES (1 Met [facility] Hospital Test 01:57:16 of 2) [code = SHINGLES VACCINES (1 of 2)] Future Scheduled 2022 65+ PNEUMOCOCCAL [facility] Test 01:57:16 VACCINE (1 - PCV) [code = 65+ PNEUMOCOCCAL VACCINE (1 - PCV)] Future Scheduled 2022 INFLUENZA VACCINE Method [facility] Hospital Test 01:57:16 [code = INFLUENZA VACCINE] Future Scheduled 2022 HEPATITIS B VACCINES Met [facility] Test 01:57:16 (1 of 3 - 3-dose series) [code = HEPATITIS B VACCINES (1 of 3 - 3-dose series)] Future Scheduled 2022 COVID-19 VACCINE (#1) [facility] Test 01:57:16 [code = COVID-19 VACCINE (#1)] Future Scheduled 2021-07-18 BREAST CANCER [facility] Test 15:18:23 SCREENING [code = BREAST CANCER SCREENING] Future Scheduled 2021-07-18 COLONOSCOPY SCREENING [facility] Test 15:18:23 [code = COLONOSCOPY SCREENING] Future Scheduled 2021-07-18 SHINGLES VACCINES (#1) [facility] Test 15:18:23 [code = SHINGLES VACCINES (#1)] Future Scheduled 2021-07-18 65+ [facility]OCOCC[address] [facility] Test 15:18:23 VACCINE (1 of 1 - PPSV23) [code = 65+ PNEUMOCOCCAL VACCINE (1 of 1 - PPSV23)] Future Scheduled 2021-07-18 INFLUENZA VACCINE [facility] Test 15:18:23 [code = INFLUENZA VACCINE] Future Scheduled 2021-07-18 COVID-19 [facility] ([facility]:18:23 [code = COVID-19 VACCINE (1)] Future Scheduled COVID-19 [facility]ACCINE (1[facility] [code = COVID-19 VACCINE (1)] Future Scheduled BREAST CANCER [facility] Test SCREENING [code = BREAST CANCER SCREENING] Future Scheduled COLONOSCOPY SCREENING [facility] Test [code = COLONOSCOPY SCREENING] Future [...] Facility Department ID 2021-07-12 Outpatient AMIRA WARNER [facility] [id number] Common 14:37:[address] [facility] 2021-07-12 Outpatient AMIRA WARNER [facility] [id number] Common 14:37:[address] [facility] 2021-07-[address] [facility] [id number] Common 11:32:[address] [facility] 2021-07-12 [facility] [id number] Common 11:13:[address] [facility] 2021-07-12 Out[facility] [id number] Common 11:11:[address] [facility] 2021-07-12 [facility] [id number] Common 11:06:[address] [facility] 2022-09-26 2022-09-26 Outpatient ANISHA CORDOVA [id number] Anisha 14:45:00 14:45:00 JALAJA Seybol d 2022-05-15 2022-05-15 Outpatient ANISHA BROUSSARD [id number] Anisha 10:45:00 10:45:00 BRADLEY Seyb old 2022-05-08 2022-05-08 Outpatient ANISHA RUBY [id number] Anisha 14:15:00 14:15:00 SHRUTHI Seybo ld 2022-05-08 2022-05-08 Outpatient ANISHA SHRESTHA [id number] Anisha 10:40:00 10:40:00 LAZ Seybol d 2022-05-01 2022-05-01 Outpatient AMRIT JACKSON [id number] Anisha 11:15:00 11:15:00 Seybol d 2022-05-01 2022-05-01 Outpatient ANISHA BROUSSARD [id number] Anisha 10:30:00 10:30:00 BRADLEY Seyb old 2022-04-19 2022-04-19 Outpatient ANISHA CORDOVA [id number] Anisha 00:00:00 00:00:00 JALAJA Seybol d 2022-04-11 2022-04-11 Outpatient ANISHA CORDOVA [id number] Anisha 10:45:00 10:45:00 JALAJA Seybol d 2022-04-09 2022-04-09 Outpatient AUNG CASTANEDA [id number] Anisha 10:45:00 10:45:00 Seybol d 2022-04-03 2022-04-03 Outpatient ANISHA RUBY [id number] Anisah 11:30:00 11:30:00 SHRUTHI Seybo ld 2022-04-02 2022-04-02 Outpatient ANISHA MAN [id number] Anisha 11:15:00 11:15:00 SLADE Seybol d 2022-03-28 2022-03-28 Outpatient ANISHA CORDOVA [id number] Anisha 15:45:00 15:45:00 JALAJA Seybol d 2022-03-20 2022-03-20 Outpatient ANISHA HUGHES [id number] Anisha 00:00:00 00:00:00 LD Seybol d 2022-03-19 2022-03-19 Outpatient HDT24-SQZ ANISHA JACKSON [id number] Anisha 13:55:00 13:55:00 Seybol d 2022-03-19 2022-03-19 Outpatient ANISHA COY [id number] Anisha 13:00:00 13:00:00 RAVEN Seybol d 2022-03-14 2022-03-14 Outpatient ANISHA COY [id number] Anisha 10:00:00 10:00:00 RAVEN Seybol d 2022-03-09 2022-03-09 Outpatient ANISHA COY [id number] Anisha 00:00:00 00:00:00 RAVEN Seybol d 2022 2022 Outpatient ANISHA COY [id number] Anisha 00:00:00 00:00:00 RAVEN Seybol d 2022-03-07 2022-03-07 Outpatient ANISHA HUGHES [id number] Anisha 00:00:00 00:00:00 LD Seybol d 2022-03-06 2022-03-06 Outpatient ANISHA HUGHES [id number] Anisha 00:00:00 00:00:00 LD Seybol d 2022-03-03 2022-03-03 Outpatient DOREEN MISTRY [id number] Anisha 00:00:00 00:00:00 Seybol d 2022-03-022022-03-02 Outpatient LAB90 ANISHA JACKSON [id number] Anisha 10:45:00 10:45:00 Seybol d 2022-03-02 2022-03-02 Outpatient ANNELIESE ANISHA JACKSON [id number] Anisha 09:30:00 09:30:00 RAVEN Seybol d 2022-03-01 2022-03-01 Outpatient ANISHA HUGHES [id number] Anisha 00:00:00 00:00:00 LD Seybol d 2022-03-01 2022-03-01 Outpatient ANNELIESE ANISHA JACKSON [id number] Anisha 00:00:00 00:00:00 RAVEN Seybol d 2022-02-21 2022-02-21 Outpatient LAB90 ANISHA JACKSON [id number] Anisha 10:50:00 10:50:00 Seybol d 2022-02-21 2022-02-21 Office Eduardo Coy 1.2.840.114 [id number] Anisha 09:30:00 10:30:00 Visit Raven Dawn 350.1.13.13 Se ybold 1.2.7.2.686 [id number] 2022-02-20 2022-02-20 Outpatient NATIVIDADGwyn ANISHA JACKSON [id number] Anisha 09:30:00 09:30:00 RAVEN Seybol d 2022-02-05 2022-02-05 Outpatient AUNG CASTANEDA [id number] Anisha 13:30:00 13:30:00 Seybol d 2021-12-25 2021-12-25 Outpatient AUNG CASTANEDA [id number] Anisha 10:15:00 10:15:00 Seybol d 2021-12-22 2021-12-22 Outpatient ANISHA HUGHES [id number] Anisha 00:00:00 00:00:00 LD Seybol d 2021-11-27 2021-11-27 Outpatient AUNG CASTANEDA [id number] Anisha 08:45:00 08:45:00 Seybol d 2021-11-16 2021-11-16 Office Eduardo Hughes 1.2.840.114 [id number] Anisha 13:30:00 14:00:00 Visit Ld Dawn 350.1.13.13 Se ybold Somogyi 1.2.7.2.686 [id number] 2021-10-19 2021-10-19 Office JOSE A Ho 1.2.840.114 [id number] Anisha 11:00:00 11:20:00 Visit Yordan Wolff 350.1.13.13 Seybold 1.2.7.2.686 [id number] 2021-10-19 2021-10-19 Outpatient ANISHA JACKSON [id number] Anisha 09:45:00 09:45:00 Seybol d 2021-10-18 2021-10-18 Outpatient ANISHA HO [id number] Anisha 00:00:00 00:00:00 YORDAN Seybol d 2021-10-16 2021-10-16 Outpatient ANISHA HUGHES [id number] Anisha 00:00:00 00:00:00 LD Seybol d 2021-10-10 2021-10-10 Outpatient ANISHA PITTS [id number] Anisha 15:00:00 15:00:00 JOSE A Seybo ld 2021-10-09 2021-10-09 Outpatient ANISHA HUGHES [id number] Anisha 00:00:00 00:00:00 LD Seybol d 2021-07-11 2021-07-11 Outpatient SHELLY JACKSON [id number] Anisha 00:00:00 00:00:00 MD GENTRY Seybol d 2021-06-29 2021-06-29 Outpatient LAB90 ANISHA JACKSON [id number] Anisha 11:50:00 11:50:00 Seybol d 2021-06-29 2021-06-29 Office Eduardo Coy 1.2.840.114 [id number] Anisha 11:00:00 11:30:00 Visit Raven Dawn 350.1.13.13 Se ybold 1.2.7.2.686 [id number] 2021-06-27 2021-06-27 Outpatient XPI74-JBU ANISHA JACKSON [id number] Anisha 16:35:00 16:35:00 Seybol d 2021-06-27 2021-06-27 Outpatient TESTING, PL ANISHA JACKSON [id number] Anisha 15:50:00 15:50:00 Seybol d 2021-06-27 2021-06-27 Outpatient ANISHA HUGHES [id number] Anisha 10:00:00 10:00:00 LD Seybol d 2021-06-27 2021-06-27 Outpatient ANISHA HUGHES [id number] Anisha 00:00:00 00:00:00 LD Seybol d 2021-06-20 2021-06-20 Outpatient ANISHA HUGHES [id number] Anisha 10:15:00 10:15:00 LD Seybol d 2021-06-14 2021-06-14 Outpatient ANISHA HUGHES [id number] Anisha 08:45:00 08:45:00 LD Seybol d 2021-06-08 2021-06-08 Outpatient MYKELSEYONL ANISHA JACKSON [id number] Anisha 00:00:00 00:00:00 MD GENTRY Seybol d 2021-06-01 2021-06-01 Outpatient LAB90 ANISHA JACKSON [id number] Anisha 11:45:00 11:45:00 Seybol d 2021-06-01 2021-06-01 Office Eduardo Hughes 1.2.840.114 [id number] Anisha 11:00:00 11:30:00 Visit Ld Dawn 350.1.13.13 Se ybold Somogyi 1.2.7.2.686 [id number] 2021-05-31 2021-05-31 Outpatient ANISHA JACKSON [id number] Anisha 14:30:00 14:30:00 Seybol d 2021-05-01 2021-05-01 Office Aung Castaneda 1.2.840.114 [id number] Anisha 12:47:27 13:02:27 Visit Neptali 350.1.13.13 Se ybold 1.2.7.2.686 [id number] 2021-04-27 2021-04-27 Outpatient ANISHA HUGHES [id number] Anisha 00:00:00 00:00:00 LD Seybol d 2021-04-24 2021-04-24 Outpatient ANISHA HUGHES [id number] Anisha 00:00:00 00:00:00 LD Seybol d 2021-04-07 2021-04-07 Outpatient ANISHA BUI [id number] Anisha 09:00:00 09:00:00 SILKE Seybol d 2021-04-05 2021-04-05 Office Eduardo Hughes 1.2.840.114 [id number] Anisha 13:22:17 13:52:17 Visit Ld Dawn 350.1.13.13 Se ybold Ramesh 1.2.7.2.686 [id number] 2021-04-05 2021-04-05 Outpatient ANISHA HUGHES [id number] Anisha 00:00:00 00:00:00 LD Seybol d 2021-04-04 2021-04-04 Education Hunter Rey 1.2.840.114 [id number] Anisha 09:42:50 10:42:50 Hunter Rey 350.1.13.13 Seybold 1.2.7.2.686 [id number] 2021-04-03 2021-04-03 Outpatient AUNG CASTANEDA [id number] Anisha 09:45:00 09:45:00 Seybol d 2021-03-27 2021-03-27 Outpatient HUNTER REY [id number] Anisha 11:30:00 11:30:00 Seybol d 2021-03-21 2021-03-21 Outpatient AUNG CASTANEDA [id number] Anisha 00:00:00 00:00:00 Seybol d 2021-03-01 2021-03-01 Outpatient AUNG CASTANEDA [id number] Anisha 00:00:00 00:00:00 Seybol d 2021-03-01 2021-03-01 Outpatient ANISHA HUGHES [id number] Anisha 00:00:00 00:00:00 LD Seybol d 2021-02-27 2021-02-27 Outpatient AUNG CASTANEDA ANISHA JACKSON [id number] Anisha 00:00:00 00:00:00 Seybol d 2021-02-23 2021-02-23 Office Saul, Eduardo 1.2.840.114 [id number] Anisha 13:31:23 14:01:23 Visit Ld Dawn 350.1.13.13 Se segundo Winstonbrig[place] 1.2.7.2.686 [id number] 2021-02-23 2021-02-23 Outpatient ANISHA HUGHES [id number] Anisha 00:00:00 00:00:00 LD Seybol d 2021-02-22 2021-02-22 Outpatient ANISHA HUGHES [id number] Anisha 00:00:00 00:00:00 LD Seybol d 2021-02-17 2021-02-17 Outpatient ANISHA HUGHES [id number] Anisha 00:00:00 00:00:00 LD Seybol d 2021-02-16 2021-02-16 Outpatient EDUARDO OLMEDO ANISHA JACKSON [id number] Anisha 13:30:00 13:30:00 Seybol d 2021-02-16 2021-02-16 Outpatient ANISHA HUGHES [id number] Anisha 10:45:00 10:45:00 LD Seybol d 2021-02-13 2021-02-[address] [facility] ANISHA JACKSON [id number] Anisha 15:45:00 15:45:00 Seybol d 2021-02-13 2021-02-13 Outpatient AUNG CASTANEDA ANISHA JACKSON [id number] Anisha 15:00:00 15:00:00 Seybol d 2021-02-08 2021-02-08 Outpatient ANISHA SHRESTHA [id number] Anisha 14:40:00 14:40:00 LAZ Seybol d 2021-01-24 2021-01-24 Outpatient ANISHA HUGHES [id number] Anisha 00:00:00 00:00:00 LD Seybol d 2021-01-17 2021-01-17 Outpatient SAULANISHA ANISHA [id number] Anisha 13:30:00 13:30:00 LD Griffinybol d 2020-09-11 2020-09-11 Outpatient [facility] [id number] Univers 13:30:00 13:30:00 [facility] 2020-08-14 2020-08-14 Outpatient R ELLIOTT, [facility] [id number] Univers 13:25:00 13:25:00 LENY [facility] 2020-05-05 2020-05-05 OFFICE STLMLC STLMLC [id number] Co mmon 00:00:00 00:00:00 VISIT EST Spir it PT LEVEL 3 [facility] 2020-03-16 2020-03-16 (TEL) STLMLC STLMLC [id number] Co mmon 00:00:00 00:00:00 [facility] 2020-03-11 2020-03-11 OFFICE STLMLC STLMLC [id number] Co mmon 00:00:00 00:00:00 VISIT EST Spir it PT LEVEL 3 - [facility] 2020-03-09 2020-03-09 Outpatient R GRAMM, [facility] [id number] Univers 10:30:00 10:30:00 [facility] 2020-02-17 2020-02-17 Outpatient R GRAMM, [facility] [id number] Univers 15:00:00 15:00:00 [facility] 2020-02-17 2020-02-17 Letter GENE Reis 1.2.840.114 [id number] Univers 00:00:00 00:00:00 (Out) Salima CASEY 350.1.13.10 [facility] 4.2.7.2.686 Davonte as [id number] [address] 2020-02-17 2020-02-17 GENE Lemons 1.2.840.114 [id number] 00:00:00 00:00:00 (Out) Salima CASEY 350.1.13.10 [facility] 4.2.7.2.686 [id number] [facility] 2020-02-16 2020-02-16 Laboratory Lab, Adc Fam Pob I [facility] 1.2. 840.114 [id number] Univers 11:36:48 11:56:48 Only Alicia [facility] 350.1.13.10 [facility]y of [place] 4.2.7.2.686 Davonte as Professio [phone] Hi dical [address] Office [address] 2020-02-16 2020-02-16 Laboratory Lab, [facility] 1.2.840.114 [id number] 11:36:48 11:56:48 Only Fam Pob I Health 350.1.13.10 [place] 4.2.7.2.686 Professio [id number] nal [facility] Office [address] 2020-02-16 2020-02-16 Outpatient R MICHAELRENEA [facility] [id number] Univers 11:40:00 11:40:00 [facility] 2020-02-16 2020-02-16 Orders Doctor MILLS 1.2.840.114 [id number] Univers 00:00:00 00:00:00 Only Unassigned, CARMELA 350.1.13.10 ity of [facility] 4.2.7.2.686 Davonte as [id number] [address] 2020-02-16 2020-02-16 Orders Doctor GENE 1.2.840.114 [id number] 00:00:00 00:00:00 Only Unassigned, CAREMLA 350.1.13.10 [facility] 4.2.7.2.686 [id number] 2020-02-01 2020-02-01 Outpatient R [facility] [id number] Univers 14:20:00 14:20:00 ity [facility] 2020-01-21 2020-01-21 Outpatient COH [facility] PDPFEIQ SIV COH 00:00:00 00:00:00 -[id number] 2020-01-14 2020-01-14 Outpatient Miguel Angel Hand [id number] Common 09:58:00 09:58:00 t [facility] Bone [facility] Sp[facility] t [facility] 2020-01-11 2020-01-11 Outpatient Miguel Angel Hand [id number] Common 10:11:00 10:11:00 t Bone Bone and Spiri t and Joint [facility] - [facility] 2019-12-24 2019-12-24 [facility] [id number] Common 14:32:00 14:32:00 t Bone Bone and Spiri t and Joint Joint - [facility] 2019-11-30 2019-11-30 Outpatient [facility] [id number] Common 09:30:00 09:30:00 t Bone Bone and Spiri t and Joint Joint - [facility] 2019-11-30 2019-11-30 Outpatient [facility] [id number] Common 08:27:00 08:27:00 t Bone Bone and Spiri t and Joint Joint - [facility] 2019-11-12 2019-11-12 Outpatient [facility] [id number] Common 10:30:00 10:30:00 t Bone Bone and Spiri t and Joint Joint - [facility] 2019-11-04 2019-11-04 Outpatient [facility] [id number] Common 15:17:00 15:17:00 t Bone Bone and Spiri t and Joint Joint - [facility] 2019-10-29 2019-10-29 Outpatient [facility] [id number] Common 09:45:00 09:45:00 t Bone Bone and Spiri t and Joint [facility] - [facility] 2019-10-26 2019-10-26 Outpatient [facility] [id number] Common 11:02:00 11:02:00 t Bone Bone and Spiri t and Joint [facility] 2019-10-13 2019-10-13 Outpatient [facility] [id number] Common 09:44:00 09:44:00 t Bone Bone and Spiri t and Joint Joint - [facility] 2019-10-12 2019-10-12 Outpatient [facility] [id number] Common 10:00:00 10:00:00 t Bone Bone and Spiri t and Joint [facility] - [facility] 2019-09-11 2019-09-11 Telephone Gramm, [facility] [id number] [facility] 00:00:00 00:00:00 Avril Horn Trisha 350.1.13.10 ity of [place] 4.2.7.2.686 [place] Professio [phone] Hi dical [address] 2019-09-11 2019-09-11 Telephone Gramm, [facility] [id number] 00:00:00 00:00:00 Avril Horn [place] 350.1.13.10 [place] 4.2.7.2.[address] Professio [phone] [address] 2019-09-02 2019-09-02 Outpatient Brazvanessa Hand 30 [id number] Common 11:29:00 11:29:00 t Bone Bone and Spiri t and Joint [facility] - [facility] 2019-08-26 2019-08-26 Outpatient Brazvanessa Michellet [id number] Common 09:55:00 09:55:00 t Bone Bone and Spiri t and Joint [facility] - [facility] 2019-08-21 2019-08-21 Outpatient Brazvanessa Michellet [id number] Common 08:15:00 08:15:00 t Bone Bone and Spiri t and Joint [facility] - [facility] 2019-08-11 2019-08-11 Outpatient Brazvanessa [facility] 29 [id number] Common 08:31:00 08:31:00 t Bone Bone and Spiri t and Joint [facility] - [facility] 2019-08-10 2019-08-10 Outpatient Brazvanessa Michellet [id number] Common 09:37:00 09:37:00 t Bone Bone and Spiri t and Joint Joint - [facility] 2019-08-07 2019-08-07 Outpatient Brazvanessa Michellet [id number] Common 15:44:00 15:44:00 t Bone Bone and Spiri t and Joint Joint - [facility] 2019-07-27 2019-07-27 Outpatient [facility] [id number] Common 09:30:00 09:30:00 t Bone Bone and Spiri t and Joint [facility] - [facility] 2019-02-11 2019-02-11 Office [facility], [facility] 1.2.840.[id number] [place] [address] 14:32:34 15:19:14 Visit Avril Rico 350.1.13.10 it[place] of [place].2.7.2.[place] Profess[place] [phone] [facility] 204 [facility] 2019-02-11 2019-02-11 Office Gramm, [facility] 1.2.840.114 [id number] 14:32:34 15:19:14 Visit Avril Rico 350.1.13.10 [place] 4.2.7.2.686 Professio [phone] [facility] 204 [facility] 2019-02-11 2019-02-11 Orders Doctor GENE [id number] [facility] 00:00:00 00:00:00 Only Unassigned, CARMELA 350.1.13.10 ity of [facility] 4.2.7.2.686 [place] [phone] [address] 2018-02-13 2018-02-13 [facility] 15 [id number] Common 14:30:00 14:30:00 [facility] 2016-06-29 2016-06-30 Outpatient [facility] [id number] Mem[facility] 15:39:00 05:59:00 r Shan 00 l [facility] 2016-06-29 2016-06-30 Outpatient [facility] access hospital [id number] Mem[facility] 15:39:00 05:59:00 r Shan 00 l [facility] 2016-06-29 2016-06-29 Outpatient [facility] 571 [id number] 09:39:00 23:59:00 , Dao Sanders Results Test Description Test Time Test Comments Results Result Comments Source EXTERNAL IMAGING 2021-06-29 21:21:00 Test Item Value Reference Range Interpretation Comme nts Radiology Study observation (narrative) (test code = 79723-7) CLIFFORD (test code = CLIFFORD) [facility] Rad Knee Right 3 view. Clinical History: ?M25.561, M79.605, m79.604 Exam Description: ?Rad Knee Right 3 view 06/29/2021 1414 Comparison: ?No comparisons Findings: ?No acute fracture. ?No malalignment. ?No significant focal degenerative changes. ? Impression: ?No acute osseous abnormality involving the right knee. Dictated and signed by: ?Suresh Camarena Lab Interpretation (test code = 51631-8) Normal Anisha SeyboldEXTERNAL [id number] 20:59:00 Test Item Value Reference Range Interpretation Comments Radiology Study observation (narrative) (test code = 04463-7) CLIFFORD (test code = CLIFFORD) [facility] ?06/29/2021 1414Clinical History : ?M25.561, [...] Camarena Lab Interpretation (test Normal code = 32706-8) Anisha SeyboldREAGENT STRIP/BLOOD [id number] 19:31:00 Test Item Value Reference Range Interpretation Comments BLOOD SUGAR (test code = 671234) 118 mg/dL 65-99 A Lab Interpretation (test code = Abnormal 14112-4) Anisha GriffinNelly RAPID STREP ASSAY-LAB [id number] 20:32:08 Test Item Value Reference Range Interpretation Comments STREP GP A AG, IA (test Negative Negative Infe ction due to code = 82465-6) Strep A kike ot be ruled-out becau se the antigen present in the sample may be below the detec tion limit of the te st. Specimen has be en sent for confir mation of negative. Lab Interpretation (test Normal code = 34288-6) Anisha GriffinmckennamonikaPOCT URINALYSIS, [id number] 20:03:00 Test Item Value Reference Range Interpretation [...] 3267) Lab Interpretation (test code Abnormal = 07402-0) [facility] [id number] 20:03:00 Test Item Value Reference Range Interpretation [...] 3267) Lab Interpretation (test code Abnormal = 08735-5) [facility] [id number] 17:10:00 Test Item Value Reference Range Interpretation Comments eGFR (test code = eGFR) 32 [facility] [id number] 17:10:00 Test Item Value Reference Range Interpretation Comments POC Creatinine (test code = POC 1.6 0.5-1.4 Creatinine) [facility]2017-01-13 17:10:00 Test Item Value Reference Range Interpretation Comments eGFR (test code = eGFR) 32 [facility]2017-01-13 17:10:00 Test Item Value Reference Range Interpretation Comments POC Creatinine (test code = POC 1.6 0.5-1.4 Creatinine) [facility]"
[2022-05-04] MEDS ORDERED: NEOMY/POLY/HC 1% OTIC DROPS ONE (07:59)
--- NOTE | 2022-05-04 08:28 | RAD REPORT ---
EXAM DESCRIPTION: CT - Head Brain Wo Cont - 05/04/2022 8:16 am CLINICAL HISTORY: Headache, new or worsening COMPARISON: No comparisons TECHNIQUE: Axial 5 mm thick images of the head were obtained without IV contrast. All CT scans are performed using dose optimization technique as appropriate and may include automated exposure control or mA/KV adjustment according to patient size. FINDINGS: No intracranial hemorrhage, mass, edema or shift of mid-line structures. No acute infarcti on changes seen. No abnormal extra-axial fluid collections. Volume loss is minimal. Ventricles are no rmal size. Patient has advanced white matter chronic ischemic changes throughout both cerebral hemisp heres. Basal ganglia and thalamic tissues appear spared. Significant brainstem chronic ischemic bullard e not seen. Mastoid air cells are clear. Middle ears are normally aerated. No gross abnormality in either externa l auditory canal. Patchy mucosal thickening in the paranasal sinuses. No air-fluid levels. No acute bony findings. IMPRESSION: Patient has prominent chronic ischemic change in the cerebral white matter but no acute intracranial finding. The mastoid air cells and middle ears are clear. Sinuses show mild mucosal thickening without air-flu id level.
[2022-05-04] MEDS ORDERED: MORPHINE 2 MG/ML SYR ONE ×2 (08:34→09:38)
[2022-05-04] MEDS ORDERED: CEFTRIAXONE 1000 MG/VIAL ONE (08:35)
[2022-05-04] MEDS ORDERED: KETOROLAC 30 MG/ML INJ ONE (08:35)
[2022-05-04] MEDS ORDERED: ONDANSETRON 4 MG/2 ML VIAL ONE (08:35)
[2022-05-04] MEDS ORDERED: SMZ./TMP. 800/160 MG TABLET ONE (08:35)
[2022-05-04] MEDS ORDERED: NA CHLORIDE 0.9% 50 ML IV ONE (08:35)
[2022-05-04] MEDS ORDERED: DOXYCYCLINE 100 MG CAP PO ONE (08:35)
[2022-05-04 08:57] LABS: Absolute Lymphocytes (CBC) 1.7 K/uL (0.7-4.9); Hematocrit 37.6 % (36.0-45.0); Lymphocytes % 18.1 % (15.3-44.8); MCV 83.9 fL (80-100); MPV 8.3 fL (7.6-11.3); RBC Red Blood Cell Count 4.49 M/uL (3.86-4.86)
[2022-05-04 09:17] LABS: Albumin 3.4 g/dL (3.4-5.0); Bilirubin Total 0.4 mg/dL (0.2-1.0); Potassium 4.2 mmol/L (3.5-5.1); Protein, Total 6.6 g/dL (6.4-8.2); Troponin High Sensitivity 8.9 pg/mL (<58.9)
--- NOTE | 2022-05-04 09:28 | ER ---
Nurse's Notes [facility] Name: Genny Mccall Age: 77 yrs Sex: Female : 1945 Arrival Date: 05/04/2022 Time: 06:55 Bed 13 Private MD: Diagnosis: Other otitis externa, left ear;Impacted cerumen, left ear-mild Presentation: 05/04 07:17 Chief complaint: Patient states: L ear/ head pain that began during the night. Denies ss fever. Coronavirus screen: Client denies travel out of the [place] in the last 14 days. Ebola Screen: Patient denies exposure to infectious person. Patient denies travel to an Ebola-affected area in the 21 days before illness onset. Initial Sepsis Screen: Does the patient meet any 2 criteria? No. Patient's initial sepsis screen is negative. Does the patient have a suspected source of infection? No. Patient's initial sepsis screen is negative. Risk Assessment: Do you want to hurt yourself or someone else? Patient reports no desire to harm self or others. Onset of symptoms was May 03, 2022. 07:17 Method Of Arrival: Ambulatory ss 07:17 Acuity: [place] 3 ss Historical: - Allergies: 07:15 Ciprofloxacin; ss 07:15 zolpidem; ss 07:15 Latex, Natural Rubber; ss 07:15 formoterol fumarate; ss - PMHx: 07:15 diabetes mellitus; Gastroesophageal reflux disease; R BBB, irrregular heart rate; ss Sjogrens; - Immunization history:: Client reports receiving the 2nd dose of the Covid vaccine. - Social history:: Smoking status: Patient denies any tobacco usage or history of. Screenin:41 Abuse screen: Denies threats or abuse. Nutritional screening: No deficits noted. vg1 Tuberculosis screening: No symptoms or risk factors identified. Fall Risk None identified. Assessment: 07:25 General: Appears in no apparent distress. comfortable, Behavior is calm, cooperative. vg1 Pain: Complains of pain in left ear and throat Pain currently is 10 out of 10 on a pain scale. Pain began "during the night". Neuro: Level of Consciousness is awake, alert, obeys commands, Oriented to person, place, time, situation, Reports headache. Cardiovascular: Patient's skin is warm and dry. Respiratory: Airway is patent Respiratory effort is even, unlabored. GI: Patient currently denies nausea, vomiting. : No signs and/or symptoms were reported regarding the genitourinary system. EENT: Derm: Skin is pink, warm \\T\\ dry. Musculoskeletal: Circulation, motion, and sensation intact. Vital Signs: 07:15 BP 170 / 78; Pulse 90; Resp 16; Temp 98.8(TE); Pulse Ox 98% ; Weight 76.2 kg (R); Height 5 ft. 5 in. (165.10 cm); Pain 10/10; 07:30 BP 148 / 75; Pulse 80; Resp 15; Pulse Ox 96% on R/A; vg1 09:45 BP 147 / 80; Pulse 79; Resp 16; Pulse Ox 96% on R/A; kr3 07:15 Body Mass Index 27.96 (76.20 kg, 165.10 cm) ED Course: 06:55 Patient arrived in ED. bp1 07:13 Asad Parry MD is Attending Physician. siomara 07:15 Arm band placed on right wrist. ss 07:17 Triage completed. ss 07:24 Tatiana Herrera, RN is Primary Nurse. vg1 07:41 Patient has correct armband on for positive identification. Bed in low position. Call vg1 light in reach. Side rails up X 1. Adult w/ patient. 08:18 CT Head Brain wo Cont In Process Unspecified. EDMS 08:33 EKG done, by ED staff, reviewed by Asad Parry MD. jw7 08:53 Initial lab(s) drawn, by ky, sent to lab. Inserted saline lock: 20 gauge in right mw1 forearm, using aseptic technique. Blood collected. 09:27 Shwetha Coronel MD is Referral Physician. siomara 09:57 No provider procedures requiring assistance completed. IV discontinued, intact, kr3 bleeding controlled, No redness/swelling at site. Pressure dressing applied. Administered Medications: 08:54 Drug: Bactrim (trimethoprim-sulfamethoxazole) (160 mg-800 mg (DS) 1 tablet Route: PO; vg1 09:54 Follow up: Response: No adverse reaction kr3 08:54 Drug: Doxycycline 200 mg Route: PO; vg1 09:54 Follow up: Response: No adverse reaction kr3 08:55 Drug: Zofran (Ondansetron) 4 mg Route: IVP; Site: right forearm; vg1 09:53 Follow up: Response: No adverse reaction kr3 08:57 Drug: Ketorolac 15 mg Route: IVP; Site: right forearm; vg1 09:58 Follow up: Response: No adverse reaction kr3 08:59 Drug: morphine 2 mg Route: IVP; Infused Over: 4 mins; Site: right forearm; vg1 09:53 Follow up: Response: No adverse reaction; RASS: Alert and Calm (0) kr3 09:04 Drug: Rocephin (cefTRIAXone) 1 grams Route: IV; Rate: per protocol; Site: right forearm;vg1 09:53 Follow up: Response: No adverse reaction; IV Status: Completed infusion; IV Intake: kr3 100ml 09:05 Drug: Cortisporin (neomycin-polymyxin) Drops 4 drops Route: Otic; Site: left ear; vg1 09:53 Follow up: Response: No adverse reaction; RASS: Alert and Calm (0) kr3 09:54 Follow up: Response: No adverse reaction kr3 09:40 Drug: morphine 2 mg Route: IVP; Infused Over: 4 mins; Site: right wrist; kr3 09:54 Follow up: Response: No adverse reaction; RASS: Alert and Calm (0) kr3 Medication: 07:41 VIS not applicable for this client. vg1 Intake: 09:53 IV: 100ml; Total: 100ml. kr3 Outcome: 09:27 Discharge ordered by . siomara 09:55 Patient left the ED. kr3 09:57 Discharged to home ambulatory. kr3 09:57 Condition: stable 09:57 Discharge instructions given to patient, Instructed on discharge instructions, follow up and referral plans. medication usage, Demonstrated understanding of instructions, follow-up care, medications, Prescriptions given X 4. Signatures: Dispatcher [employer] Asad Taylor MD MD cha Smirch, Shelby, RN RN Junaid Argueta1 Tatiana Herrera RN RN vg1 Nadia Bonilla Jodi jw7 Daria Mueller RN RN kr3 Corrections: (The following items were deleted from the chart) 07:41 07:39 General: Appears in no apparent distress. comfortable, Behavior is calm, vg1 cooperative, vg1 07:41 07:39 Pain: Complains of pain in left ear and throat Pain currently is 10 out of 10 on 1 a pain scale. Pain began "during the night" 1 07:39 Neuro: Level of Consciousness is awake, alert, obeys commands, Oriented to 1 person, place, time, situation, Reports headache [facility] 07:39 Cardiovascular: Patient's skin is warm and dry. 1 [facility] 07:39 Respiratory: Airway is patent Respiratory effort is even, unlabored, 1 [facility] 07:39 GI: Patient currently denies nausea, vomiting, 1 1 07:39 : No signs and/or symptoms were reported regarding the genitourinary system. [id number] : 07:39 EENT: 1 [facility] 07:39 Derm: Skin is pink, warm \\T\\ dry. 1 1 07:39 Musculoskeletal: Circulation, motion, and sensation intact. 1 [facility]
--- NOTE | 2022-05-04 09:28 | EDPHYS ---
Physician Documentation [facility] Name: Genny Mccall Age: 77 yrs Sex: Female : 1945 Arrival Date: 05/04/2022 Time: 06:55 Bed 13 Private MD: EVE Physician Asad Parry HPI: 05/04 07:59 This 77 yrs old Female presents to ER via Ambulatory with complaints of Ear siomara Pain. 07:59 The patient presents with pain, that is acute, swelling, tenderness. The complaints siomara affect the left ear. Onset: The symptoms/episode began/occurred 2 day(s) ago. Modifying factors: The symptoms are alleviated by covering ear, the symptoms are aggravated by. Associated signs and symptoms: The patient has no apparent associated signs or symptoms. Severity of symptoms: At their worst the symptoms were mild moderate in the emergency department the symptoms are unchanged. The patient has not experienced similar symptoms in the past. Historical: - Allergies: 07:15 Ciprofloxacin; ss 07:15 zolpidem; ss 07:15 Latex, Natural Rubber; ss 07:15 formoterol fumarate; ss - PMHx: 07:15 diabetes mellitus; Gastroesophageal reflux disease; R BBB, irrregular heart rate; ss Sjogrens; - Immunization history:: Client reports receiving the 2nd dose of the Covid vaccine. - Social history:: Smoking status: Patient denies any tobacco usage or history of. ROS: 08:00 Constitutional: Negative for fever, chills, and weight loss, Eyes: Negative for injury, siomara pain, redness, and discharge, Neck: Negative for injury, pain, and swelling, Cardiovascular: Negative for chest pain, palpitations, and edema, Respiratory: Negative for shortness of breath, cough, wheezing, and pleuritic chest pain, Abdomen/GI: Negative for abdominal pain, nausea, vomiting, diarrhea, and constipation, Back: Negative for injury and pain, : Negative for injury, bleeding, discharge, and swelling, MS/Extremity: Negative for injury and deformity, Skin: Negative for injury, rash, and discoloration, Neuro: Negative for headache, weakness, numbness, tingling, and seizure, Psych: Negative for depression, anxiety, suicide ideation, homicidal ideation, and hallucinations, Allergy/Immunology: Negative for hives, rash, and allergies, Endocrine: Negative for neck swelling, polydipsia, polyuria, polyphagia, and marked weight changes, Hematologic/Lymphatic: Negative for swollen nodes, abnormal bleeding, and unusual bruising. 08:00 ENT: Positive for ear pain. Exam: 08:00 Constitutional: This is a well developed, well nourished patient who is awake, alert, siomara and in no acute distress. Head/Face: Normocephalic, atraumatic. Eyes: Pupils equal round and reactive to light, extra-ocular motions intact. Lids and lashes normal. Conjunctiva and sclera are non-icteric and not injected. Cornea within normal limits. Periorbital areas with no swelling, redness, or edema. Neck: Trachea midline, no thyromegaly or masses palpated, and no cervical lymphadenopathy. Supple, full range of motion without nuchal rigidity, or vertebral point tenderness. No Meningismus. Chest/axilla: Normal chest wall appearance and motion. Nontender with no deformity. No lesions are appreciated. Cardiovascular: Regular rate and rhythm with a normal S1 and S2. No gallops, murmurs, or rubs. Normal PMI, no JVD. No pulse deficits. Respiratory: Lungs have equal breath sounds bilaterally, clear to auscultation and percussion. No rales, rhonchi or wheezes noted. No increased work of breathing, no retractions or nasal flaring. Abdomen/GI: Soft, non-tender, with normal bowel sounds. No distension or tympany. No guarding or rebound. No evidence of tenderness throughout. Back: No spinal tenderness. No costovertebral tenderness. Full range of motion. Skin: Warm, dry with normal turgor. Normal color with no rashes, no lesions, and no evidence of cellulitis. MS/ Extremity: Pulses equal, no cyanosis. Neurovascular intact. Full, normal range of motion. Neuro: Awake and alert, GCS 15, oriented to person, place, time, and situation. Cranial nerves II-XII grossly intact. Motor strength 5/5 in all extremities. Sensory grossly intact. Cerebellar exam normal. Normal gait. Psych: Awake, alert, with orientation to person, place and time. Behavior, mood, and affect are within normal limits. 08:00 ENT: Ear canal(s): erythema, swelling, that is minimal, of the left canal. 08:48 Cardiovascular: siomara 08:48 ECG was reviewed by the Attending Physician. Vital Signs: 07:15 BP 170 / 78; Pulse 90; Resp 16; Temp 98.8(TE); Pulse Ox 98% ; Weight 76.2 kg (R); ss Height 5 ft. 5 in. (165.10 cm); Pain 10/10; 07:30 BP 148 / 75; Pulse 80; Resp 15; Pulse Ox 96% on R/A; vg1 09:45 BP 147 / 80; Pulse 79; Resp 16; Pulse Ox 96% on R/A; kr3 07:15 Body Mass Index 27.96 (76.20 kg, 165.10 cm) ss MDM: 07:13 Patient medically screened. [facility] 08:01 Differential diagnosis: otitis media, otitis externa. Data reviewed: vital signs, [facility] nurses notes, lab test result(s), EKG, radiologic studies, CT scan. Data interpreted: media monitor: rate is 80 beats/min, rhythm is regular, Pulse oximetry: on room air is 96 %. Counseling: I had a detailed discussion with the patient and/or guardian regarding: the historical points, exam findings, and any diagnostic results supporting the discharge/admit diagnosis, lab results, radiology results, the need for outpatient follow up, for definitive care, an ENT specialist. 05/04 07:57 Order name: CBC with Diff; Complete Time: 09:16 [facility] 05/04 07:57 Order name: Comprehensive Metabolic Panel; Complete Time: 09:26 [facility] 05/04 07:57 Order name: Troponin High Sensitivity; Complete Time: 09:26 [facility] 05/04 07:57 Order name: CT Head Brain wo Cont; Complete Time: 09:16 [facility] 05/04 07:57 Order name: EKG; Complete Time: 07:58 [facility] 05/04 07:57 Order name: EKG - Nurse/Tech; Complete Time: 08:34 [facility] EC:48 Rate is 74 beats/min. Rhythm is regular. QRS [place] is Normal. [place] interval is normal. QRS siomara interval is normal. QT interval is normal. No Q waves. T waves are Normal. No ST changes noted. Clinical impression: NSR w/ Non-specific ST/T Changes and No evidence of ischemia. Interpreted by me. Reviewed by me. Administered Medications: 08:54 Drug: Bactrim (trimethoprim-sulfamethoxazole) (160 mg-800 mg (DS) 1 tablet Route: PO; vg1 09:54 Follow up: Response: No adverse reaction kr3 08:54 Drug: Doxycycline 200 mg Route: PO; vg1 09:54 Follow up: Response: No adverse reaction kr3 08:55 Drug: Zofran (Ondansetron) 4 mg Route: IVP; Site: right forearm; vg1 09:53 Follow up: Response: No adverse reaction kr3 08:57 Drug: Ketorolac 15 mg Route: IVP; Site: right forearm; vg1 09:58 Follow up: Response: No adverse reaction kr3 08:59 Drug: morphine 2 mg Route: IVP; Infused Over: 4 mins; Site: right forearm; vg1 09:53 Follow up: Response: No adverse reaction; RASS: Alert and Calm (0) kr3 09:04 Drug: Rocephin (cefTRIAXone) 1 grams Route: IV; Rate: per protocol; Site: right forearm;vg1 09:53 Follow up: Response: No adverse reaction; IV Status: Completed infusion; IV Intake: kr3 100ml 09:05 Drug: Cortisporin (neomycin-polymyxin) Drops 4 drops Route: Otic; Site: left ear; vg1 09:53 Follow up: Response: No adverse reaction; RASS: Alert and Calm (0) kr3 09:54 Follow up: Response: No adverse reaction kr3 09:40 Drug: morphine 2 mg Route: IVP; Infused Over: 4 mins; Site: right wrist; kr3 09:54 Follow up: Response: No adverse reaction; RASS: Alert and Calm (0) kr3 Disposition Summary: 05/04/22 09:27 Discharge Ordered Location: Home siomara Problem: new siomara Symptoms: have improved siomara Condition: Stable siomara Diagnosis - Other otitis externa, left ear siomara - Impacted cerumen, left ear - mild siomara Followup: siomara - With: Private Physician - When: 2 - 3 days - Reason: Recheck today's complaints, Continuance of care, Re-evaluation by your physician Followup: siomara - With: - When: 2 - 3 days - Reason: Recheck today's complaints, Re-evaluation by your physician Discharge Instructions: - Discharge Summary Sheet siomara - Otitis Externa siomara - Otitis Externa, Vics-ab-Tyus siomara Forms: - Medication Reconciliation Form siomara - Thank You Letter siomara - Antibiotic Education siomara - Prescription Opioid Use [facility] Prescriptions: - Cortisporin-TC 3.3-3-10-0.5 mg/mL Otic Suspension - instill 4 drops by OTIC route every 6 hours; 1 bottle; Refills: 0, Product [facility] Selection Permitted - Doxycycline Hyclate 100 mg Oral Tablet - take 1 tablet by ORAL route every 12 hours; 20 tablet; Refills: 0, Product [facility] Selection Permitted - Bactrim DS 800-160 mg Oral Tablet - take 1 tablet by ORAL route every 12 hours for 10 days; 20 tablet; Refills: 0, [facility] Product Selection Permitted - Tylenol-Codeine #3 300 mg-30 mg Oral - take 2 tablet by ORAL route every 6 hours; 24 tablet; Refills: 0, Product [facility] Selection Permitted Signatures: Dispatcher [employer] Asad Taylor MD MD cha Smirch, Shelby, RN RN ss Tatiana Herrera, RN RN vg1 Daria Mueller RN RN kr3
[2022-05-04 10:25] VITALS: TEMP 98.8
[2022-05-04 10:26] VITALS: BP 148/75; O2SAT 96
--- NOTE | 2022-05-05 19:14 | EKG ---
Test Date: 2022-05-04 Test Time: 08:29:14 Staff Research Associate: MAIN MEASUREMENT RESULTS: Intervals: Rate: 74 CT: 160 QRSD: 132 QT: 424 QTc: 470 [place]: P: 25 CT: 160 QRS: -52 T: -17 INTERPRETIVE STATEMENTS: Normal sinus rhythm Right bundle branch block Left anterior fascicular block Bifascicular block Voltage criteria for left ventricular hypertrophy Abnormal ECG Compared to ECG 01/11/2020 14:39:34 T-wave abnormality no longer present Possible ischemia no longer present Bifascicular block still present Electronically Signed On 05-05-22 19:10:38 RESPIRATORY MANAGER by Dylan Quintero
== END 2022-05-04 09:55 | disposition home or self-care (01) ==
LOC: ER 06:51
DX: H60.8X2 Other otitis externa, left ear (principal); H61.22 Impacted cerumen, left ear; Z88.1 Allergy status to other antibiotic agents; Z88.8 Allergy status to other drugs, medicaments and biological substances; Z91.040 Latex allergy status; Z91.048 Other nonmedicinal substance allergy status
CPT/HCPCS: 93005; 85025; 36415; 84484; 80053; 70450; 99284; J2270 ×2; J2405

== ENCOUNTER 2023-03-02 21:51 | Inpatient (IN) | payer OTHER ==
--- OUTSIDE RECORDS SUMMARY | 2023-03-02 22:52 | XMS REPORT | Continuity of Care Document ---
:1945 Author Organization [facility] t Address [address] [place] [address] [address] [place] [address] Care Team Providers Name Role Phone Greta Younger Primary Care Physician GRETA WARNER Attending Clinician Unavailable LD HUGHES Attending Clinician Unavailable ANGELITA CORDOVA Attending Clinician Unavailable BRADLEY BROUSSARD Attending Clinician Unavailable LAZ SHRESTHA Attending Clinician Unavailable AUNG CASTANEDA Attending Clinician Unavailable RADHA CRUZ Attending Clinician Unavailable KARLI SAM Attending Clinician Unavailable RAVEN COY Attending Clinician Unavailable SHRUTHI RUBY Attending Clinician Unavailable SLADE MAN Attending Clinician Unavailable LAB47 Attending Clinician Unavailable [id number] Attending Clinician Unavailable DOREEN MISTRY Attending Clinician Unavailable LAB90 Attending Clinician Unavailable Raven Lerma Attending Clinician Ld Hughes MD Attending Clinician [phone] Yordan Ho DO Attending Clinician YORDAN HO Attending Clinician Unavailable JOSE A PITTS Attending Clinician Unavailable MD MARINA Attending Clinician Unavailable [id number] Attending Clinician Unavailable TESTING, PL COVID Attending Clinician Unavailable Damian DO Aung Neptali Attending Clinician SILKE BUI Attending Clinician Unavailable Candido SCHULZ,Hunter GAFFNEY Attending Clinician Unavailable HUNTER REY Attending Clinician Unavailable EDUARDO OLMEDO Attending Clinician Unavailable LENY GALLAGHER Attending Clinician Unavailable AVRIL SPRAGUE Attending Clinician Unavailable Salima Reis RN Attending Clinician Unavailable Lab, Adc Fam Pob I Attending Clinician Unavailable Chase JIN, Alicia Attending Clinician ALICIA HAMILTON Attending Clinician Unavailable Doctor Unassigned, [place] Attending Clinician Unavailable Gramm TIRE BAGGER, Avril A Attending Clinician Dao Schuler Attending Clinician [phone] Dao Schuler Admitting Clinician [phone] Payers Payer Name Policy Type Policy Number Effective Date Expiration Date S yobany [facility] [place] FFS 5 [id number] 2022 00:00:00 [facility] MA AARP PLAN 7 [id number] 2022 1 HMO 00:00:00 KCA [id number] HMO 7 [id number] 2021 00:00:00 MEDICARE PART A [id number] 2011 \\T\\ B 00:00:00 [place] [id number] 2017 HEALTHCARE 00:00:00 MEDICARE SUPPLEMENT MEDICARE NOVITAS MB [id number] [facility] AAR C1 [id number] [facility] MEDICARE NOVITAS MB [id number] [facility] AAR C1 [id number] [facility] MEDICARE NOVITAS MB [id number] [facility] AAR C1 [id number] [facility] Problems Condition Condition Condition Status Onset Resolution Last Treating Co mments Source Name Details Category Date Date Treatment Clinician Date Neuropathy Neuropathy Disease Active 2021-06 Last K vishy 15 Assessmen Pino 00:00: t & Plan: [...] testing 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 Shubham [place] instabilit instabilit 1-15 Assessmen Seybold y y [...] Repeated Disease Active Kelse y falls falls 02-21 Seybold 00:00: - 00 Externa l 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 00:00: - 00 Externa [...] hyperlipid 8-30 Se ybold emia emia 00:00: - 00 [...] ce, request Branch female) female) for surgery [id number] Active Diagnosis Active 2015-062016-06-29 Memoria 06/12/2016 2-27 09:48:00 l 00:00: [facility] 00 [id number] Tear of Problem Active Common left [facility] rotator - [facility] extent, Center unspecifie d whether traumatic [id number] Pain, Problem Active Commo n [id number] joint, [facility] shoulder, - [facility] left [place] [id number] Arthritis Problem Active Co mmon [id number] of left [facility] knee [facility] Osteoarthr Primary Problem Active Comm on itis of osteoarthr Spiri t knee itis of - [facility] left knee [place] CHEST CHEST Diagnosis Active 2016-06-29 Mem oria PAIN, PAIN, 09:48:00 l UNSPECIFIE UNSPECIFIE He rmann D D Active [facility] Allergies, Adverse Reactions, Alerts Allergy Allergy [...] to Branch drug Ketorola Propensi Active Rash 2018-0 Univer s c ty to 8-15 ity of adverse 00:00: [place] reaction 00 Medical s to Branch drug ACYCLOVI DRUG Active Rash 0 Univers R INGREDI 8-15 ity of 00:00: [place] 00 Medical Branch CIPROFLO DRUG Active Rash 0 Univers XACIN INGREDI 8-15 ity of 00:00: [place] 00 Medical Branch ATORVAST DRUG Active Other-Cmnt 0 Univ ers ATIN INGREDI 8-15 ity of 00:00: [place] 00 Medical Branch KETOROLA DRUG Active Rash Univers C INGREDI 8-15 ity of 00:00: [place] 00 Medical Branch Adhesive Propensi Active Rash 0 Univer s Tape-Giselle ty to 8-13 ity of icones adverse 00:00: [place] reaction 00 Medical s Branch Latex Propensi Active Rash Univers ty to 8-13 ity of adverse 00:00: [place] reaction 00 Medical s Branch ADHESIVE DRUG Active Rash 0 Univers TAPE-GISELLE 8-13 ity of ICONES 00:00: [place] 00 Medical Branch LATEX DRUG Active Rash 0 Univers INGREDI 8-13 ity of 00:00: [place] 00 Medical Branch Mirtazap Propensi Active Other - See 0 Night U nivers ine ty to comments 7 daigle ity of adverse 00:00: [place] reaction 00 Medical s Branch MIRTAZAP DRUG Active Hallucinates 0 Un kitty INE INGREDI 7- ity of 00:00: [place] 00 Medical Branch Zolpidem Propensi Active Hallucinatio Univers Tartrate ty to ns 5-31 ity of adverse 00:00: [place] reaction 00 Medical s to Branch drug ZOLPIDEM DRUG Active Med Hallucinates 2015-0 Un kitty TARTRATE INGREDI 5-31 ity of 00:00: [place] 00 Medical Branch Zolpidem Propensi Active Hallucinatio 2011-0 Anisha ty to ns 4-09 Seybold adverse 00:00: - reaction 00 Externa s l zolpidem zolpidem Active Unknown Commo n Spirit - [facility] Social History Social Habit Start Date Stop Date Quantity Comments Source Exposure to Yes Anisha harry SARS-CoV-2 (event) Sex Assigned At Common Sp jin - [facility] History of Common Spirit - Tobacco Use [facility] Tobacco use and 2021-01-17 2021-01-17 Smokeless tobacco Ke micha Seybold - exposure 00:00:00 00:00:00 non-user External Alcohol intake 2019-02-11 2019-02-11 Current University of 00:00:00 00:00:00 non-drinker of [facility] alcohol (finding) Branch Smoking Status Start Date Stop Date Source Tobacco smoking consumption [facility] Never smoked tobacco Anisha Seyb old - External Medications Ordered Filled Start Stop Current Ordering Indication Dosage Frequency Signature Comments Components Source Medication Medication Date Date Medication? Clinician (SIG) Name Name Ciprofloxac 2021-06 Yes [id number] 3[drp] Place 3 Anisha in-Dexameth 2-01 drops into Se ybold asone 00:00: the left - 0.3-0.1 % 00 ear 2 Externa otic times l Suspension daily Amoxicillin 2021-06 Yes [id number] 1{tbl} Take 1 Anisha -Pot 2-01 tablet by Seybold Clavulanate 00:00: mouth 2 - 875-125 MG 00 times Externa oral Tablet daily l methylPREDN 2021-06 Yes [id number] 1{cuco} Take 1 cuco Anisha ISolone 4 2-01 by mouth Seybol d MG oral 00:00: See Admin - Tablet 00 Instructio Externa Therapy ns Use as l Pack directed Aspirin 81 2021-06 Yes [id number] 81mg Take 81 mg Anisha MG oral 1-15 00 by mouth Seybold Tablet 09:38: daily - Delayed 31 Externa Response l Magnesium 2021-06 Yes Take by Tawanna y 250 MG oral 1-15 mouth Seybold [...] Capsule 09:38: daily - 31 Externa l Aspirin 81 2021-06 Yes [id number] 81mg Take 81 mg Anisha MG oral 1-15 00 by mouth Seybold Tablet 09:38: daily - Delayed 31 Externa Response l Magnesium 2021-06 Yes Take by Brijeshse y 250 MG oral 1-15 mouth Seybold Tablet 09:38: - 31 Externa l Cyanocobala 2021-[address] Tawanna y min 1-15 under the Seybold (Vitamin [...] 31 Externa l NovoLIN N 2021-06 Yes [id number] Inject 14 Anisha FlexPen 100 1-03 00 units Seybold UNIT/ML 00:00: twice a - subcutaneou 00 day Externa s l Suspension Pen-injecto r NovoLIN N 2021-06 Yes [id number] Inject 14 Anisha FlexPen 100 1-03 00 units Seybold UNIT/ML 00:00: twice a - subcutaneou 00 day Externa s l Suspension Pen-injecto r Mupirocin 2021-06 Yes [id number] Apply 1 Anisha (BACTROBAN) 0-17 applicatio Se ybold 2 % apply 00:00: n - externally 00 topically Exte rna Ointment 2 times l daily Mupirocin 2021-06 Yes [id number] Apply 1 Anisha (BACTROBAN) 0-17 applicatio Se ybold 2 % apply 00:00: n - externally 00 topically Exte rna Ointment 2 times l daily PILOCARPINE 2021-06 Yes [id number] 5mg Take 1 Anisha HCL, ORAL, 0-04 tablet (5 Seyb old 5 MG oral 00:00: mg total) - Tablet 00 by mouth 3 Externa times l daily PILOCARPINE 2021-06 Yes [id number] 5mg Take 1 Anisha HCL, ORAL, 0-04 tablet (5 Seyb old 5 MG oral 00:00: mg total) - Tablet 00 by mouth 3 Externa times l daily Aspirin 81 2021-06 Yes [id number] 81mg Take 81 mg Anisha MG oral 0-03 00 by mouth Seybold Tablet 12:50: daily - Delayed 45 Externa Response l Magnesium 2021-06 Yes Take by Tawanna y 250 MG oral 0-03 mouth Seybold Tablet 12:50: - 45 Externa l Cyanocobala 2021-[address] Tawanna y min 0-03 under the Seybold (Vitamin 12:50: tongue - B-12) 2500 45 Externa MCG l sublingual SL Tab Cholecalcif 2021-06 Yes Take by Brijesh griffiny andrei 0-03 mouth Seybold (Vitamin 12:50: - D3) 25 MCG 45 Externa (1000 UT) l oral Capsule Loratadine 2021-06 Yes 10mg Take 10 mg K elsey 10 MG oral 0-03 by mouth Seybo ld Capsule 12:50: daily - 45 Externa l Lidocaine 2021-06 Yes [id number] 5mL Q.25D Swish and Anisha Viscous 0-03 swallow 5 Seybold HCl, 00:00: mL every 6 - Nystatin 00 hours as Externa (Magic needed l Mouthwash-E qual Ratio) Lidocaine 2021-06 Yes [id number] 5mL Q.25D Swish and Anisha Viscous 0-03 swallow 5 Seybold HCl, 00:00: mL every 6 - Nystatin 00 hours as Externa (Magic needed l Mouthwash-E qual Ratio) Lidocaine 2021-06 Yes [id number] 5mL Q.25D Swish and Anisha Viscous 0-03 swallow 5 Seybold HCl, 00:00: mL every 6 - Nystatin 00 hours as Externa (Magic needed l Mouthwash-E qual Ratio) PILOCARPINE 2021-06 Yes [id number] 5mg Take 1 Anisha HCL, ORAL, 0-02 tablet (5 Seyb old 5 MG oral 00:00: mg total) - Tablet 00 by mouth 3 Externa times l daily Aspirin 81 Yes [id number] 81mg Take 81 mg Anisha MG oral - 00 by mouth Seybold Tablet 09:47: daily - Delayed 46 Externa Response l Magnesium Yes Take by Tawanna y 250 MG oral -28 mouth Seybold Tablet 09:47: - 46 Externa l Cyanocobala Yes Place Tawanna castellanos min 03-14 under the Seybold (Vitamin 09:47: tongue - B-12) 2500 46 Externa MCG l sublingual SL Tab Cholecalcif Yes Take by Brijesh fitch andrei 03-14 mouth Seybold (Vitamin 09:47: - D3) 25 MCG 46 Externa (1000 UT) l oral Capsule Loratadine Yes 10mg Take 10 mg K elsey 10 MG oral 9-28 by mouth Seybo ld Capsule 09:47: daily - 46 Externa l Benzonatate Yes [id number] TAKE 1 Anisha 100 MG oral 9-28 CAPSULE BY Se ybold Capsule 00:00: MOUTH - 00 EVERY 8 Externa HOURS l NEEDED FOR COUGH AND CONGESTION Benzonatate Yes [id number] TAKE 1 Anisha 100 MG oral 9-28 CAPSULE BY Se ybold Capsule 00:00: MOUTH - 00 EVERY 8 Externa HOURS l NEEDED FOR COUGH AND CONGESTION Benzonatate Yes [id number] TAKE 1 Anisha 100 MG oral 9-28 CAPSULE BY Se ybold Capsule 00:00: MOUTH - 00 EVERY 8 Externa HOURS l NEEDED FOR COUGH AND CONGESTION Benzonatate Yes [id number] TAKE 1 Anisha 100 MG oral 9-28 CAPSULE BY Se ybold Capsule 00:00: MOUTH - 00 EVERY 8 Externa HOURS l NEEDED FOR COUGH AND CONGESTION Albuterol Yes [id number] 2{puff} Q.25D Inhale 2 Anisha HFA 108 (90 9-23 puffs into Se ybold Base) 00:00: the lungs - MCG/ACT IN 00 every 6 Regional Engineer a AERS hours as l needed for wheezing Guaifenesin Yes [id number] 1200mg Take 2 Anisha (Mucinex) 9-23 tablets Seybold 600 MG oral 00:00: (1,200 mg - Tablet 12 00 total) by Exter na Hour mouth 2 l Sustained times Release daily Albuterol Yes [id number] 2{puff} Q.25D Inhale 2 Anisha HFA 108 (90 9-23 puffs into Se ybold Base) 00:00: the lungs - MCG/ACT IN 00 every 6 Regional Engineer a AERS hours as l needed for wheezing Guaifenesin Yes [id number] 1200mg Take 2 Anisha (Mucinex) 9-23 tablets Seybold 600 MG oral 00:00: (1,200 mg - Tablet total) by Exter na Hour mouth 2 l Sustained times Release daily Albuterol Yes [id number] 2{puff} Q.25D Inhale 2 Anisha HFA 108 (90 9-23 puffs into Se ybold Base) 00:00: the lungs - MCG/ACT IN 00 every 6 Regional Engineer a AERS hours as l needed for wheezing Guaifenesin Yes [id number] 1200mg Take 2 Anisha (Mucinex) 9-23 tablets Seybold 600 MG oral 00:00: (1,200 mg - Tablet total) by Exter na Hour mouth 2 l Sustained times Release daily Albuterol Yes [id number] 2{puff} Q.25D Inhale 2 Anisha HFA 108 (90 9-23 puffs into Se ybold Base) 00:00: the lungs - MCG/ACT IN 00 every 6 Regional Engineer a AERS hours as l needed for wheezing Guaifenesin Yes [id number] 1200mg Take 2 Anisha (Mucinex) 9-23 tablets Seybold 600 MG oral 00:00: (1,200 mg - Tablet total) by Exter na Hour mouth 2 l Sustained times Release daily PAXLOVID 2021- No [id number] Take two Anisha STANDARD 03-09 150 mg Seybold (30) 00:00: 00:00 nirmatrelv - (300/100) 00 :00 ir (pink) Exter na Therapy tablets l Pack with one 100 mg ritonavir (white) tablet by mouth two times daily for 5 days Dexamethaso 2021- No [id number] 4mg Take 1 Anisha ne 03-09 tablet (4 Seybold (DECADRON) 00:00: 00:00 mg total) - 4 MG oral 00 :00 by mouth Regional Engineer a tablet daily l (with breakfast) Benzonatate 2021- No TAKE 1 Brijesh sey 100 MG oral 03-09 CAPSULE BY S eybold Capsule 00:00: 00:00 MOUTH - 00 :00 EVERY 8 Externa HOURS l NEEDED FOR COUGH AND CONGESTION Amoxicillin 2021- No [id number] 1{tbl} Take 1 Anisha -Pot 9-16 03-14 tablet by Seybold Clavulanate 00:00: 00:00 mouth [...] Tablet 00 EVERY DAY Externa l OneTouch Yes 1{each} 1 EACH BY Lauryn Winslow in 7-15 OTHER Seybold vitro Strip 00:00: ROUTE 3 - 00 TIMES Externa DAILY TEST l OneTouch Yes 1{each} 1 EACH BY Lauryn wahlemanuel Ultra in 7-15 OTHER Seybold vitro Strip 00:00: ROUTE 3 - 00 TIMES Externa DAILY TEST l OneTouch 2021-0 Yes 1{each} 1 EACH BY Lauryn [facility] Ultra in 7-15 OTHER Seybold vitro Strip 00:00: ROUTE 3 - 00 TIMES Externa DAILY TEST l OneTouch 2021-0 Yes 1{each} 1 EACH BY Lauryn [employer] Ultra in 7-15 OTHER Seybold vitro Strip 00:00: ROUTE 3 - 00 TIMES Externa DAILY TEST l Sertraline 0 Yes TAKE 1 Kelse [...] DAY Externa l Multiple 2021-0 2021- No [id number] Take by Anisha Vitamin 11-1602 00 mouth Seybold (MULTIVITAM 13:39: 00:00 IN ADULT 40 :00 OR) Aspirin 81 2021-0 Yes [id number] 81mg Take 81 mg Anisha MG oral 11-16 00 by mouth Seybold Tablet 13:26: daily Delayed 34 Response Azelastine 0 Yes 1{spray 1 spray by Anisha HCl 0.15 % 11-16 } nasal Seybold nasal 13:26: route 2 Solution 34 times daily Diclofenac 2021-0 Yes every 6 Kathleen ey Sodium 1 % 11-16 (six) Seybold apply 13:26: hours externally 34 Gel Magnesium Yes Take by Tawanna y 250 MG oral 11-16 mouth Seybold Tablet 13:26: 34 Mupirocin 0 Yes [id number] Apply 1 Anisha (BACTROBAN) 11-16 applicatio Se ybold 2 % apply 00:00: n externally 00 topically Ointment 2 times daily Amoxicillin 0 2021- No [id number] 1{tbl} Take 1 Anisha -Pot 11-16-13 tablet by Seybold Clavulanate 00:00: 04:59 mouth 3 500-125 MG 00 :00 times oral Tablet daily for 10 days Triamcinolo 0 2021- No [id number] Apply 1 Anisha ne 11-16-10 applicatio Seybold Acetonide 00:00: 04:59 n 0.1 % apply 00 :00 topically externally 2 times Cream daily for 7 days Aspirin 81 Yes [id number] 81mg Take 81 mg Anisha MG oral [...] mouth Externa daily with l food Metoprolol 2022-0 Yes 25mg Take 1 Kelse y Tartrate 25 4-15 tablet (25 Se ybold MG oral 00:00: mg total) - Tablet 00 by mouth Externa daily with l food Aspirin 81 2021-0 Yes [id number] 81mg Take 81 mg Anisha MG oral 06-29 00 by mouth Seybold Tablet 11:11: daily Delayed 07 Response Multiple 2021-0 Yes [id number] Take by Anisha Vitamin 06-29 00 mouth Seybold (MULTIVITAM 11:11: IN ADULT 07 OR) Azelastine 2021-0 Yes 1{spray 1 spray by Anisha HCl 0.15 % 06-29 } nasal Seybold nasal 11:11: route 2 Solution 07 times daily Cholecalcif 0 Yes Take by Brijesh sey andrei 50 MCG 06-29 mouth Seybold (1999) 11:11: oral 07 Capsule Diclofenac 2021-0 Yes every 6 Kathleen ey Sodium 06-29 (six) Seybold (Voltaren) 11:11: hours 1 % apply 07 externally Gel Magnesium Yes Take by Tawanna y 250 MG oral 06-29 mouth Seybold Tablet 11:11: 07 Multiple 2021-0 Yes [id number] Take by Anisha Vitamin 06-29 00 mouth Seybold (MULTIVITAM 11:11: IN ADULT 07 OR) Cholecalcif 0 Yes Take by Brijesh sey andrei 50 MCG 13 mouth Seybold (1999) 11:11: oral 07 Capsule Cholecalcif 2021-0 Yes Take by Brijesh sey andrei 50 MCG 06-29 mouth Seybold (1999) 11:11: oral 07 Capsule Celecoxib 2021-0 Yes [id number] 200mg Take 1 Anisha (CeleBREX) 06-29 9104 capsule Seybol d 200 MG oral 00:00: (200 mg Capsule 00 total) by mouth 2 times daily Celecoxib 2021-0 Yes [id number] 200mg Take 1 Anisha (CeleBREX) 06-29 4105 capsule Seybol d 200 MG oral 00:00: (200 mg Capsule 00 total) by mouth 2 times daily Celecoxib 2021-0 2- No [id number] 200mg Take 1 Anisha (CeleBREX) 06-29- 4105 capsule Seybo ld 200 MG oral 00:00: 00:00 (200 mg Capsule 00 :00 total) by mouth 2 times daily Aspirin 81 2020-06 Yes [id number] 81mg Take 81 mg Anisha MG oral 2-16 00 by mouth Seybold Tablet 10:52: daily Delayed 56 Response Multiple 2020-06 Yes [id number] Take by Anisha Vitamin 2-16 00 mouth [...] Tablet 10:52: 56 Aspirin 81 2020-06 Yes [id number] 81mg Take 81 mg Anisha MG oral 1-15 00 by mouth Seybold Tablet 13:30: daily Delayed 57 Response Multiple 2020-06 Yes [id number] Take by Anisha Vitamin 1-15 00 mouth Seybold (MULTIVITAM 13:30: IN ADULT 57 OR) Azelastine 2020-06 Yes 1{spray 1 spray by Anisha HCl 0.15 % 1-15 } nasal Seybold nasal 13:30: route 2 Solution 57 times daily Cholecalcif 2020-06 Yes Take by Rbijesh sey andrei 50 MCG 1-15 mouth Seybold [...] Tablet 48 :00 Aspirin 81 2020-06 Yes [id number] 81mg Take 81 mg Anisha MG oral 0-20 00 by mouth Seybold Tablet 13:37: daily Delayed 27 Response Multiple 2020-06 Yes [id number] Take by Anisha Vitamin 0-20 00 mouth [...] fitch andrei 50 MCG 0-20 mouth Seybold (2000 UT) 13:37: oral 27 Capsule Diclofenac 2020-06 Yes every 6 Kathleen ey Sodium 0-20 (six) Seybold (Voltaren) 13:37: hours 1 % apply 27 externally Gel Magnesium 2020-06 Yes Take by Tawanna y 250 MG oral 0-20 mouth Seybold Tablet 13:37: 27 Pravastatin 2020-06 Yes [id number] 40mg Take 1 Anisha Sodium 40 0-18 tablet (40 Seyb old MG oral 00:00: mg total) Tablet 00 by mouth daily Sertraline 2020-06 Yes 100mg Take 1 Kathleen ey HCl 100 MG 0-18 tablet Seybold oral Tablet 00:00: (100 mg 00 total) by mouth daily Pravastatin 2020-06- No [id number] 40mg Take 1 Anisha Sodium 40 0-18 [...] times vitro Strip daily TEST Amoxicillin Yes [id number] 500mg Take 1 Anisha 500 MG oral 9-17 capsule Seybo ld Capsule 00:00: (500 mg 00 total) by mouth 3 times daily Amoxicillin Yes [id number] 500mg Take 1 Anisha 500 MG oral -17 capsule Seybo ld Capsule 00:00: (500 mg 00 total) by mouth 3 times daily Amoxicillin 2020- No [id number] 500mg Take 1 Anisha 500 MG oral -17 11-15 capsule Seyb old Capsule 00:00: 00:00 (500 mg 00 :00 total) by mouth 3 times daily Cyanocobala 2020- No Inject Brijesh fitch min (VIT 02-23 into the Seybol d B12) 1000 14:31: 00:00 muscle MCG/ML 33 :00 once injection Solution Multiple 2020- No 2{each} Take 2 Brijesh fitch Vitamins-Mi 02-23 each by [place] frank nerals 14:31: 00:00 mouth (Alive 33 :00 daily Womens Gummy) oral Chewable Tablet Empaglifloz 2020- No Tawanna castellanos in 02-23 Seybold (Jardiance) 14:31: 00:00 10 MG oral 33 :00 Tablet Mirabegron 2020- No Anisha ER 02-23 Seybold (Myrbetriq) 14:31: 00:00 25 MG oral 33 :00 TABLET SR 24 HR Magnesium Yes Take by Tawanna castellanos 250 MG oral 02-16 mouth Seybold Tablet 10:22: 12 Pravastatin Yes Anisha Sodium 10 02-16 Seybold MG oral 10:22: Tablet 12 Magnesium Yes Take by Tawanna y 250 MG oral 02 mouth Seybold Tablet 10:22: 12 Pravastatin Yes Anisha Sodium 10 -02 Seybold MG oral 10:22: Tablet 12 Aspirin Yes 1{tbl} Take 1 Anisha Buf,CaCarb- 02-16 tablet by Dee montez MgCarb-MgO, 10:20: mouth 81 MG oral 16 daily Tablet Azelastine Yes 1{spray 1 spray by Anisha HCl 0.15 % 02-16 } nasal Seybold nasal 10:20: route 2 Solution 16 times daily Cholecalcif Yes Take by Brijesh fitch andrei 50 MCG 9-02 mouth Seybold (1999) 10:20: oral 16 Capsule Diclofenac Yes every 6 Kathleen ey Sodium 9-02 (six) Seybold (Voltaren) 10:20: hours 1 % apply 16 externally Gel Montelukast Yes 10mg Take 10 mg Anisha (SINGULAIR) 02 by mouth Seyb old 10 MG oral 10:20: Tablet 16 tablet Aspirin 81 Yes 81mg Take 81 mg K elsey MG oral 02 by mouth Seybold Tablet 10:20: daily Delayed 16 Response Multiple Yes Take by Anisha Vitamin 02 mouth Seybold (MULTIVITAM 10:20: IN ADULT 16 OR) Aspirin Yes 1{tbl} Take 1 Anisha Buf,CaCarb- 02-16 tablet by Dee bold MgCarb-MgO, 10:20: mouth 81 MG oral 16 daily Tablet Azelastine Yes 1{spray 1 spray by Anisha HCl 0.15 % 02-16 } nasal Seybold nasal 10:20: route 2 Solution 16 times daily Cholecalcif Yes Take by Brijesh fitch andrei 50 MCG 02-16 mouth Seybold (1999) 10:20: oral 16 Capsule Diclofenac Yes every 6 Kathleen ey Sodium -02 (six) Seybold (Voltaren) 10:20: hours 1 % apply 16 externally Gel Montelukast Yes 10mg Take 10 mg Anisha (SINGULAIR) 02-16 by mouth Seyb old 10 MG oral 10:20: Tablet 16 tablet Aspirin 81 Yes [id number] 81mg Take 81 mg Anisha MG oral 02-16 00 by mouth Seybold Tablet 10:20: daily Delayed 16 Response Multiple Yes [id number] Take by Anisha Vitamin 02-16 00 mouth Seybold (MULTIVITAM 10:20: IN ADULT 16 OR) Insulin Pen Yes [id number] Takes Anisha Needle 31G 8-30 00 insulin Seybol d X 5 MM does 00:00: once not apply 00 nightly Misc B-D Yes Anisha ULTRAFINE 830 Seybold III SHORT 00:00: PEN 31G X 8 00 MM does not apply Misc Pravastatin 2020-0 Yes [id number] 20mg Take 1 Anisha Sodium 20 02-13 tablet (20 Seyb old MG oral 00:00: mg total) Tablet 00 by mouth daily Insulin Yes [id number] Takes up Anisha NPH, 02-13 00 to 15 Seybold Human,, 00:00: units SQ Isophane, 00 once (NovoLIN N nightly at FlexPen) bedtime 100 UNIT/ML subcutaneou s Suspension Pen-injecto r Insulin Pen 0 Yes [id number] Takes Anisha Needle 31G 8-30 00 insulin Seybol d X 5 MM does 00:00: once not apply 00 nightly Misc B-D 0 Yes Anisha ULTRAFINE 8-30 Seybold III SHORT 00:00: PEN 31G X 8 00 MM does not apply Misc Insulin 0 Yes [id number] Takes up Anisha NPH, 02-13 to 15 Seybold Human,, 00:00: units SQ Isophane, 00 once (NovoLIN N nightly at FlexPen) bedtime 100 UNIT/ML subcutaneou s Suspension Pen-injecto r Insulin Pen 0 Yes [id number] Takes Anisha Needle 31G 8-30 00 insulin Seybol d X 5 MM does 00:00: once not apply 00 nightly Misc B-D 0 Yes Anisha ULTRAFINE 8-30 Seybold III SHORT 00:00: PEN 31G X 8 00 MM does not apply Misc Insulin 0 Yes [id number] Takes up Anisha NPH, 02-13 to 15 Seybold Human,, 00:00: units SQ Isophane, 00 once (NovoLIN N nightly at FlexPen) bedtime 100 UNIT/ML subcutaneou s Suspension Pen-injecto r Insulin Pen 2020-0 Yes [id number] Takes Anisha Needle 31G 8-30 00 insulin Seybol d X 5 MM does 00:00: once not apply 00 nightly Misc B-D 2020-0 Yes Anisha ULTRAFINE 8-30 Seybold III SHORT 00:00: PEN 31G X 8 00 MM does not apply Misc Insulin 2020-0 Yes [id number] Takes up Anisha NPH, 8 00 to 15 Seybold Human,, 00:00: units SQ Isophane, 00 once (NovoLIN N nightly at FlexPen) bedtime 100 UNIT/ML subcutaneou s Suspension Pen-injecto r Insulin Pen 2020-0 Yes [id number] Takes Anisha Needle 31G 8-30 00 insulin Seybol d X 5 MM does 00:00: once not apply 00 nightly Misc B-D 0 Yes Anisha ULTRAFINE 8-30 Seybold III SHORT 00:00: PEN 31G X 8 00 MM does not apply Misc Insulin 0 Yes [id number] Takes up Anisha NPH, 02-13 to 15 Seybold Human,, 00:00: units SQ Isophane, 00 once (NovoLIN N nightly at FlexPen) bedtime 100 UNIT/ML subcutaneou s Suspension Pen-injecto r Insulin Pen 0 Yes [id number] Takes Anisha Needle 31G 8 00 insulin Seybol d X 5 MM does 00:00: once not apply 00 nightly Misc B-D 0 Yes Anisha ULTRAFINE 8-30 Seybold III SHORT 00:00: PEN 31G X 8 00 MM does not apply Misc Insulin 0 Yes [id number] Takes up Anisha NPH, 02-13 to 15 Seybold Human,, 00:00: units SQ Isophane, 00 once (NovoLIN N nightly at FlexPen) bedtime 100 UNIT/ML subcutaneou s Suspension Pen-injecto r Insulin Pen 0 Yes [id number] Takes Anisha Needle 31G 8 00 insulin Seybol d X 5 MM does 00:00: once not apply 00 nightly Misc B-D 0 Yes Anisha ULTRAFINE 8-30 Seybold III SHORT 00:00: PEN 31G X 8 00 MM does not apply Misc Pravastatin 0 Yes [id number] 20mg Take 1 Anisha Sodium 20 02-13 tablet (20 Seyb old MG oral 00:00: mg total) Tablet 00 by mouth daily Insulin Yes [id number] Takes up Anisha NPH, 02-13 to 15 Seybold Human,, 00:00: units SQ Isophane, 00 once (NovoLIN N nightly at FlexPen) bedtime 100 UNIT/ML subcutaneou s Suspension Pen-injecto r Insulin Pen Yes [id number] Takes Anisha Needle 31G 8-30 00 insulin Seybol d X 5 MM does 00:00: once not apply 00 nightly Misc Insulin Yes [id number] Takes up Anisha NPH, 8 00 to 15 Seybold Human,, 00:00: units SQ - Isophane, 00 once Externa (NovoLIN N nightly at l FlexPen) bedtime 100 UNIT/ML subcutaneou s Suspension Pen-injecto r Insulin Pen Yes [id number] Takes Anisha Needle 31G 8-30 00 insulin Seybol d X 5 MM does 00:00: once - not apply 00 nightly Externa Misc l B-D Yes Anisha ULTRAFINE 8-30 Seybold III SHORT 00:00: - PEN 31G X 8 00 Externa MM does not l apply Misc Insulin Yes [id number] Takes up Anisha NPH, 02-13 00 to 15 Seybold Human,, 00:00: units SQ - Isophane, 00 once Externa (NovoLIN N nightly at l FlexPen) bedtime 100 UNIT/ML subcutaneou s Suspension Pen-injecto r Insulin Pen Yes [id number] Takes Anisha Needle 31G 8-30 00 insulin Seybol d X 5 MM does 00:00: once - not apply 00 nightly Externa Misc l B-D Yes Anisha ULTRAFINE 8-30 Seybold III SHORT 00:00: - PEN 31G X 8 00 Externa MM does not l apply Misc Insulin Pen Yes [id number] Takes Anisha Needle 31G 8-30 00 insulin [...] 00 MM does not apply Misc Insulin Pen Yes [id number] Takes Anisha Needle 31G 02-13 00 insulin Seybol d X 5 MM does 00:00: once - not apply 00 nightly Externa Misc l B-D Yes Anisha ULTRAFINE 02-13 Seybold III SHORT 00:00: - PEN 31G X 8 00 Externa MM does not l apply Misc Pravastatin Yes [id number] 20mg Take 1 Anisha Sodium 20 02-13 00 tablet (20 Seyb old MG oral 00:00: mg total) Tablet 00 by mouth daily Insulin Yes [id number] Takes up Anisha NPH, 02-13 00 to 15 Seybold Human,, 00:00: units SQ Isophane, 00 once (NovoLIN N nightly at FlexPen) bedtime 100 UNIT/ML subcutaneou s Suspension Pen-injecto r Pravastatin 2020- No [id number] 20mg Take 1 Anisha Sodium 20 02-13 [...] Tablet 00 by mouth tablet daily Sertraline 2021-0 Yes 50mg Take 0.5 Brijesh sey HCl 100 MG 8-11 tablets Seybol d oral Tablet 00:00: (50 mg 00 total) by mouth daily PILOCARPINE 0 Yes [id number] 5mg Take 1 Anisha HCL, ORAL, 8-11 tablet (5 Seyb old 5 MG oral 00:00: mg total) Tablet 00 by mouth 3 times daily Montelukast 0 Yes 10mg Take 1 Kathleen ey (SINGULAIR) 8-11 tablet (10 Se ybold 10 MG oral 00:00: mg total) Tablet 00 by mouth tablet daily Montelukast 2020-0 Yes 10mg Take 1 Kathleen ey (SINGULAIR) 8-11 tablet (10 Se ybold 10 MG oral 00:00: mg total) Tablet 00 by mouth tablet daily PILOCARPINE Yes [id number] 5mg Take 1 Anisha HCL, ORAL, 8-11 tablet (5 Seyb old 5 MG oral 00:00: mg total) Tablet 00 by mouth 3 times daily Montelukast Yes 10mg Take 1 Kathleen ey (SINGULAIR) 8-11 tablet (10 Se ybold 10 MG oral 00:00: mg total) Tablet 00 by mouth tablet daily PILOCARPINE 2020- No [id number] 5mg Take 1 Anisha HCL, ORAL, 8-11 10-20 tablet (5 Sey bold 5 MG oral 00:00: 00:00 mg total) Tablet 00 :00 by mouth 3 times daily Alcohol 2020-0 Yes USE TWO Anisha Swabs 7-08 TIMES Seybold (Alcohol 00:00: DAILY Prep) 70 % 00 does not apply Pads Blood Yes See Admin Anisha Glucose 7- Instructio Seybol d Calibration 00:00: ns (OT 00 ULTRA/FASTT K CNTRL SOLN) in vitro Solution Blood Yes See Admin Anisha Glucose 7-08 Instructio Seybol d Monitoring 00:00: ns Suppl (ONE 00 TOUCH ULTRA 2) w/Device does not apply Kit Lancet Yes See Admin Anisha Devices 7-08 Instructio Seybol d (Easy Mini 00:00: ns Eject 00 Lancing Device) does not apply Misc Easy Yes 2 times Anisha Comfort 7-08 daily [...] l Device) does not apply Misc Easy 2021-0 Yes 2 times Anisha Comfort 7-08 daily TEST Seybol d Lancets 00:00: - does not 00 Externa apply Misc l Blood 2021-0 Yes See Admin Anisha Glucose 7-08 Instructio Seybol d Calibration 00:00: ns (OT 00 ULTRA/FASTT K CNTRL SOLN) in vitro Solution Blood 2021-0 Yes See Admin Anisha Glucose 7-08 Instructio Seybol d Monitoring 00:00: ns Suppl (ONE 00 TOUCH ULTRA 2) w/Device does not apply Kit Blood 2021-0 Yes See Admin Anisha Glucose [...] 2020-0 Yes 2 times Anisha Ultra in 08 daily TEST Seybo ld vitro Strip 00:00: 00 Lancet 2020-0 Yes See Admin Anisha Devices 7- Instructio Seybol d (Easy Mini 00:00: ns [...] Lancets 00:00: does not 00 apply Misc Blood 2020-0 Yes See Admin Anisha Glucose 7-08 Instructio Seybol d Calibration 00:00: ns - (OT 00 Externa ULTRA/FASTT l K CNTRL SOLN) in vitro Solution Blood 2020-0 Yes See Admin Anisha Glucose 7-08 Instructio Seybol d Monitoring 00:00: ns - Suppl (ONE 00 Externa TOUCH ULTRA l 2) w/Device does not apply Kit Lancet 2021-0 Yes See Admin Anisha Devices 7- Instructio Seybol d (Easy Mini 00:00: ns - Eject 00 Externa Lancing l Device) does not apply Misc Easy 2020-0 Yes 2 times Anisha Comfort 7-08 daily TEST Seybol d Lancets 00:00: - does not 00 Externa apply Misc l Metoprolol 2020-0 Yes 20mg Take 20 mg [...] - Release 00 Externa Capsule l Omeprazole Yes 40mg Take 40 mg K elsey 40 MG oral 6-08 by mouth Seybo ld Delayed 00:00: daily Release 00 Capsule Sertraline 2020-0 Yes 50mg Take 50 mg K elsey HCl 100 MG 4-07 by mouth Seybo ld oral Tablet 00:00: daily 00 Sertraline 2020- Yes 100mg Take 100 Ke lsey HCl 100 MG 4-07 mg by Seybold oral Tablet 00:00: mouth 00 daily Sertraline Yes 50mg Take 50 mg K elsey HCl 100 MG 4-07 by mouth Seybo ld oral Tablet 00:00: daily 00 oxybutynin 2020-0 Yes [id number] 5mg Take 1 Univers XL 5 mg 24 3-27 tablet by ity of hr tablet 00:00: mouth [place] 00 daily. Medical Branch oxybutynin 2019-0 Yes [id number] 5mg Take 1 Univers XL 5 mg 24 3-27 tablet by ity of hr tablet 00:00: mouth [place] 00 daily. Medical Branch oxybutynin 2020-0 Yes [id number] 5mg Take 1 [facility] XL 5 mg 24 3-27 tablet by ity of hr tablet 00:00: mouth [place] 00 daily. Medical Branch oxybutynin 20200 Yes [id number] 5mg Take 1 Univers XL 5 mg [...] IS LESS THAN 140. mirabegron 2018-06 Yes [id number] 50mg Take 1 U nivers (MYRBETRIQ) 0-21 tablet by ity of 50 mg 00:00: mouth [place] tablet 00 daily. [facility] Branch mirabeon 2018-06 Yes [id number] 50mg Take 1 U nivers (MYRBETRIQ) 0-21 tablet by ity of 50 mg 00:00: mouth [place] tablet 00 daily. [facility] mirabegron 2018-06 Yes [id number] 50mg Take 1 U nivers (MYRBETRIQ) 0-21 tablet by ity of 50 mg 00:00: mouth [place] tablet 00 daily. [facility] Branch mirabegron 2018-06 Yes [id number] 50mg Take 1 U nivers (MYRBETRIQ) 0-21 tablet by ity of 50 mg 00:00: mouth [place] tablet 00 daily. [facility] Branch PILOCARPINE 2018-06 Yes TK 1 T [...] MG oral 00:00: Tablet 00 conjugated Yes [id number] .5g Insert 0.5 Univers estrogens 8-28 101 g into ity of (PREMARIN) 00:00: vagina 2 [place] 0.625 00 (two) Medical mg/gram times per Branch vaginal week cream (dryness). conjugated Yes [id number] .5g Insert 0.5 Univers estrogens 8-28 101 g into ity of (PREMARIN) 00:00: vagina 2 [place] 0.625 00 (two) Medical mg/gram times per Branch vaginal week cream (dryness). conjugated Yes [id number] .5g Insert 0.5 Univers estrogens 8-28 101 g into ity of (PREMARIN) 00:00: vagina 2 [place] 0.625 00 (two) Medical mg/gram times per Branch vaginal week cream (dryness). conjugated Yes [id number] .5g Insert 0.5 Univers estrogens 8-28 101 g into ity of (PREMARIN) 00:00: vagina 2 [place] 0.625 00 (two) Medical mg/gram times per Branch vaginal week cream (dryness). conjugated Yes [id number] .5g Insert 0.5 Univers estrogens 8-28 101 g into ity of (PREMARIN) 00:00: vagina 2 [place] 0.625 00 (two) Medical mg/gram times per Branch vaginal week cream (dryness). conjugated Yes [id number] .5g Insert 0.5 Univers estrogens 8-28 101 [...] 00:00 Release 00 :00 Capsule mirabegron Yes [id number] 50mg Take 1 U nivers (MYRBETRIQ) 2-20 tablet by ity of 50 mg 00:00: mouth [place] tablet 00 daily. Medical Branch mirabegron Yes [id number] 50mg Take 1 U nivers (MYRBETRIQ) 2-20 tablet by ity of 50 mg 00:00: mouth [place] tablet 00 daily. Medical Branch conjugated Yes [id number] .5g Insert 0.5 [facility] estrogens 2-20 101 g into ity of (PREMARIN) 00:00: vagina 2 [place] 0.625 00 (two) Medical mg/gram times per Branch vaginal week cream (dryness). mirabegron Yes [id number] 50mg Take 1 U nivers (MYRBETRIQ) 2-20 tablet by ity of 50 mg 00:00: mouth [place] tablet 00 daily. Medical Branch conjugated 2018- No [id number] .5g Insert 0.5 Univers estrogens 2-20 08-28 101 g into ity of (PREMARIN) 00:00: 00:00 vagina 2 [place] 0.625 00 :00 (two) Medical mg/gram times per Branch vaginal week cream (dryness). conjugated 2018- No [id number] .5g Insert 0.5 Univers estrogens 2-20 08-28 [...] by mouth ity of tablet 19:30: daily. [place] [address] Medical Branch metoprolol 0 Yes [id number] 50mg Take 50 mg Univers succinate 1-18 by mouth ity of XL 50 mg 24 19:30: [place]. [place] tablet 45 [facility] insulin 2018-0 Yes 14U inject 14 Unive rs degludec 1-18 Units ity of (TRESIBA 19:30: [facility] skin. Medical U-100 SC) Branch SERTraline 0 Yes 100mg Take 100 Un kitty (ZOLOFT) 1-18 mg by ity of 100 mg 19:30: mouth [place] tablet 45 daily. Medical Branch omeprazole 0 Yes 40mg Take 40 mg U nivers (PRILOSEC) 1-18 by mouth ity o f 20 mg 19:30: daily. [address] Branch aspirin 81 Yes 81mg Take 81 mg U nivers mg EC 1-18 by mouth ity of tablet 19:30: daily. [address] Branch metoprolol Yes [id number] 50mg Take 50 mg Univers succinate 1-18 by mouth ity of XL 50 mg 24 19:30: [facility]. [facility] Branch insulin 0 Yes 14U inject 14 Unive rs degludec 1-18 Units ity of (TRESIBA 19:30: under the [facility] FLEXTOUCH 45 skin. Medical U-100 SC) Branch SERTraline Yes 100mg Take 100 Un kitty (ZOLOFT) 1-18 mg by ity of 100 mg 19:30: mouth [place] tablet 45 daily. Medical Branch omeprazole 0 Yes 40mg Take 40 mg U nivers (PRILOSEC) 1-18 by mouth ity o f 20 mg 19:30: daily. [place] capsule Medical Branch aspirin 81 0 Yes 81mg Take 81 mg U nivers mg EC 1-18 by mouth ity of tablet 19:30: daily. [address] Branch metoprolol 0 Yes [id number] 50mg Take 50 mg Univers succinate 1-18 by mouth ity of XL 50 mg 24 19:30: [place]. [place] tablet 45 [facility] Branch insulin 2018-0 Yes 14U inject 14 [...] ity o f 20 mg 19:30: daily. [place] capsule Medical Branch aspirin 81 0 Yes 81mg Take 81 mg U nivers mg EC 1-18 by mouth ity of tablet 19:30: daily. [place] [address] Medical Branch metoprolol 0 Yes [id number] 50mg Take 50 mg Univers succinate 1-18 by mouth ity of XL 50 mg 24 19:30: [facility]. [facility] Branch insulin 0 Yes 14U inject 14 Unive rs degludec 1-18 Units ity of (TRESIBA 19:30: under the [facility] FLEXTOUCH 45 skin. Medical U-100 SC) Branch SERTraline 0 Yes 100mg Take 100 Un kitty (ZOLOFT) 1-18 mg by ity of 100 mg 19:30: mouth [place] tablet 45 daily. Medical Branch omeprazole 0 Yes 40mg Take 40 mg U nivers (PRILOSEC) 1-18 by mouth ity o f 20 mg 19:30: daily. [address] Branch aspirin 81 0 Yes 81mg Take 81 mg U nivers mg EC 1-18 by mouth ity of tablet 19:30: daily. [place] [address] Medical Branch metoprolol 0 Yes [id number] 50mg Take 50 mg Univers succinate 1-18 by mouth ity of XL 50 mg 24 19:30: [facility]. [facility] Branch insulin 0 Yes 14U inject 14 Unive rs degludec 1-18 Units ity of (TRESIBA 19:30: under the [facility] s FLEXTOUCH 45 skin. Medical U-100 SC) Branch SERTraline 0 Yes 100mg Take 100 Un kitty (ZOLOFT) 1-18 mg by ity of 100 mg 19:30: mouth [place] tablet 45 daily. Medical Branch omeprazole 0 Yes 40mg Take 40 mg U nivers (PRILOSEC) 1-18 by mouth ity o f 20 mg 19:30: daily. [place] capsule 45 Medical Branch aspirin 81 0 Yes 81mg Take 81 mg U nivers mg EC 1-18 by mouth ity of tablet 19:30: daily. [address] Branch metoprolol 0 Yes [id number] 50mg Take 50 mg Univers succinate 1-18 by mouth ity of XL 50 mg 24 19:30: [facility]. [facility] Branch insulin 2018-0 Yes 14U inject 14 Unive rs degludec 1-18 Units ity of (TRESIBA 19:30: under the [facility] s FLEXTOUCH 45 skin. Medical U-100 SC) Branch SERTraline 0 Yes 100mg Take 100 Un kitty (ZOLOFT) 1-18 mg by ity of 100 mg 19:30: mouth [place] tablet 45 daily. Medical Branch omeprazole 0 Yes 40mg Take 40 mg U nivers (PRILOSEC) 1-18 by mouth ity o f 20 mg 19:30: daily. [place] capsule [address] [place] [address] Branch aspirin 81 0 Yes 81mg Take 81 mg U nivers mg EC 1-18 by mouth ity of tablet 19:30: daily. [address] metoprolol 0 Yes [id number] 50mg Take 50 mg Univers succinate 1-18 by mouth ity of XL 50 mg 24 19:30: [facility]. [facility] Branch insulin 2018-0 Yes 14U inject 14 Unive rs degludec 1-18 Units ity of (TRESIBA 19:30: under the [facility] FLEXTOUCH 45 skin. Medical U-100 SC) Branch multivit-mi 2017-06 Yes 2{each} Take 2 U nivers n-FA-herbal 1-14 Each by ity o f no.245 18:17: mouth [place] (ALIVE 58 daily. Medical WOMEN'S Branch GUMMY VITAMINS) 200 mcg- 37.5 mg Chew PILOCARPINE 2017-06 Yes Take by Uni vers HCL ORAL 1-14 mouth. ity of 18:17: [place] [address] Medical Branch dulaglutide 2017-06 Yes [id number] inject Univers (TRULICITY) 1-14 under the ity of 0.75 mg/0.5 18:17: skin. [facility] PnIj 58 Medical Branch cyanocobala 2017-06 Yes [id number] by Un kitty min 1,000 1-14 Intramuscu ity of mcg/mL 18:17: lar route [place] injection 58 once now. Medic al [place] montelukast 2017-06 Yes [id number] 10mg Take 10 mg Univers 10 mg 1-14 by mouth. ity of tablet 18:17: [address] Cholecalcif 2017-06 Yes [id number] Take by Univers andrei, 1-14 mouth. ity of Vitamin D3, 18:17: [place] (VITAMIN Medical D3) 2,000 [place] unit capsule Magnesium 2017-06 Yes [id number] Take by U nivers 250 mg Tab 1-14 mouth. ity of 18:17: [address] docusate 2017-06 Yes [id number] 100mg Take 100 Univers (STOOL 1-14 mg by ity of SOFTENER) 18:17: mouth [place] 100 mg 58 daily. Medical capsule [place] OMEGA 2017-06 Yes [id number] Take by [facility] rs 3-DHA-EPA-F 1-14 mouth. ity of REINA OIL 18:17: [address] L gasseri/B 2017-06 Yes [id number] Take by [facility] bifidum/B 1-14 mouth. ity of longum 18:17: [place] (PROBIOTIC Medical COLON CARE Branch ORAL) insulin 2017-06 Yes 50U inject [facility] Units ity of (TOUJEO 18:17: under the [place] SOLOSTAR 58 skin Medical U-300 daily. [place] INSULIN) 300 unit/mL (1.5 mL) In multivit-mi 2017-06 Yes 2{each} Take 2 U nivers n-FA-herbal 1-14 Each by ity o f no.245 18:17: mouth [place] (ALIVE 58 daily. Medical WOMEN'S [place] GUMMY VITAMINS) 200 mcg- 37.5 mg Chew PILOCARPINE 2017-06 Yes Take by Uni vers HCL ORAL 1-14 mouth. ity of 18:17: [address] dulaglutide 2017-06 Yes [id number] inject Univers (TRULICITY) 1-14 under the ity of 0.75 mg/0.5 18:17: skin. [place] mL PnIj 58 [facility] cyanocobala 2017-06 Yes [id number] by Un kitty min 1,000 1-14 Intramuscu ity of mcg/mL 18:17: lar route [place] injection 58 once now. Medic al Branch montelukast 2017-06 Yes [id number] 10mg Take 10 mg Univers 10 mg 1-14 by mouth. ity of tablet 18:17: [address] Cholecalcif 2017-06 Yes [id number] Take by [facility] andrei, 1-14 mouth. ity of Vitamin D3, 18:17: [place] (VITAMIN [address] [place] [address] D3) 2,000 [place] unit capsule Magnesium 2017-06 Yes [id number] Take by U nivers 250 mg Tab 1-14 mouth. ity of 18:17: [address] docusate 2017-06 Yes [id number] 100mg Take 100 Univers (STOOL 1-14 mg by ity of SOFTENER) 18:17: mouth [place] 100 mg 58 daily. Medical capsule Branch OMEGA 2017-06 Yes [id number] Take [facility] 3-DHA-EPA-F 1-14 mouth. ity of REINA OIL 18:17: [address] L gasseri/B 2017-06 Yes [id number] Take by [facility] bifidum/B 1-14 mouth. ity of longum 18:17: [place] (PROBIOTIC [address] [place] [address] COLON CARE Branch ORAL) insulin 2017-06 Yes 50U inject 50 [facility]-14 Units ity of (TOUJEO 18:17: under the [place] SOLOSTAR 58 skin Medical U-300 daily. [place] INSULIN) 300 unit/mL (1.5 mL) In multivit-mi 2017-06 Yes 2{each} Take 2 U nivers n-FA-herbal 1-14 Each by ity o f no.245 18:17: mouth [place] (ALIVE 58 daily. Medical WOMEN'S Branch GUMMY VITAMINS) 200 mcg- 37.5 mg Chew PILOCARPINE 2017-06 Yes Take by Uni vers HCL ORAL 1-14 mouth. ity of 18:17: [address] dulaglutide 2017-06 Yes [id number] inject Univers (TRULICITY) 1-14 under the ity of 0.75 mg/0.5 18:17: skin. [facility] PnIj [address] [place] [address] cyanocobala 2017-06 Yes [id number] by Un kitty min 1,000 1-14 Intramuscu ity of mcg/mL 18:17: lar route [place] injection 58 once now. Medic al [place] montelukast 2017-06 Yes [id number] 10mg Take 10 mg Univers 10 mg 1-14 by mouth. ity of tablet 18:17: [address] Cholecalcif 2017-06 Yes [id number] Take by Univers andrei, 1-14 mouth. ity of Vitamin D3, 18:17: [place] (VITAMIN [address] [place] [address] D3) 2,000 [place] unit capsule Magnesium 2017-06 Yes [id number] Take by U nivers 250 mg Tab 1-14 mouth. ity of 18:17: [address] docusate 2017-06 Yes [id number] 100mg Take 100 Univers (STOOL 1-14 mg by ity of SOFTENER) 18:17: mouth [place] 100 mg 58 daily. Medical capsule [place] OMEGA 2017-06 Yes [id number] Take by [facility] rs 3-DHA-EPA-F 1-14 mouth. ity of REINA OIL 18:17: [address] L gasseri/B 2017-06 Yes [id number] Take by [facility] bifidum/B 1-14 mouth. ity of longum 18:17: [place] (PROBIOTIC Medical COLON CARE Branch ORAL) insulin 2017-06 Yes 50U inject 50 [facility] rs glargine 1-14 Units ity of (TOUJEO 18:17: under the [place] SOLOSTAR skin Medical U-300 daily. [place] INSULIN) 300 unit/mL (1.5 mL) InPn multivit-ok 2017-06 Yes 2{each} Take 2 U nivers n-FA-herbal 1-14 Each by ity o f no.245 18:17: mouth [place] (ALIVE 58 daily. Medical WOMEN'S Branch GUMMY VITAMINS) 200 mcg- 37.5 mg Chew PILOCARPINE 2017-06 Yes Take by Uni vers HCL ORAL 1-14 mouth. ity of 18:17: [address] dulaglutide 2017-06 Yes [id number] inject Univers (TRULICITY) 1-14 under the ity of 0.75 mg/0.5 18:17: skin. [facility] PnIj [address] [place] [address] cyanocobala 2017-06 Yes [id number] by Un kitty min 1,000 1-14 Intramuscu ity of mcg/mL 18:17: lar route [place] injection 58 once now. Medic al [place] montelukast 2017-06 Yes [id number] 10mg Take 10 mg Univers 10 mg 1-14 by mouth. ity of tablet 18:17: [address] Cholecalcif 2017-06 Yes [id number] Take by Univers andrei, 1-14 mouth. ity of Vitamin D3, 18:17: [place] (VITAMIN [address] [place] [address] D3) 2,000 [place] unit capsule Magnesium 2017-06 Yes [id number] Take by U nivers 250 mg Tab 1-14 mouth. ity of 18:17: [address] docusate 2017-06 Yes [id number] 100mg Take 100 Univers (STOOL 1-14 mg by ity of SOFTENER) 18:17: mouth [place] 100 mg 58 daily. Medical capsule Branch OMEGA 2017-06 Yes [id number] [facility] 3-DHA-EPA-F 1-14 mouth. ity of REINA OIL 18:17: [address] L gasseri/B 2017-06 Yes [id number] Take by [facility] bifidum/B 1-14 mouth. ity of longum 18:17: [place] (PROBIOTIC Medical COLON CARE Branch ORAL) insulin 2017-06 Yes 50U inject 50 [facility] rs glargine 1-14 Units ity of (TOUJEO 18:17: under the [place] SOLOSTAR 58 skin Medical U-300 daily. [place] INSULIN) 300 unit/mL (1.5 mL) InPn multivit-mi 2017-06 Yes 2{each} Take 2 U nivers n-FA-herbal 1-14 Each by ity o f no.245 18:17: mouth [place] (ALIVE 58 daily. Medical WOMEN'S [place] GUMMY VITAMINS) 200 mcg- 37.5 mg Chew PILOCARPINE 2017-06 Yes Take by Uni vers HCL ORAL 1-14 mouth. ity of 18:17: [address] dulaglutide 2017-06 Yes [id number] inject Univers (TRULICITY) 1-14 under the ity of 0.75 mg/0.5 18:17: skin. [facility] PnIj [address] [place] [address] cyanocobala 2017-06 Yes [id number] by Un kitty min 1,000 1-14 Intramuscu ity of mcg/mL 18:17: lar route [place] injection 58 once now. Medic al [place] montelukast 2017-06 Yes [id number] 10mg Take 10 mg Univers 10 mg 1-14 by mouth. ity of tablet 18:17: [address] Cholecalcif 2017-06 Yes [id number] Take by Univers andrei, 1-14 mouth. ity of Vitamin D3, 18:17: [place] (VITAMIN [address] [place] [address] D3) 2,000 [place] unit capsule Magnesium 2017-06 Yes [id number] Take by U nivers 250 mg Tab 1-14 mouth. ity of 18:17: [address] docusate 2017-06 Yes [id number] 100mg Take 100 Univers (STOOL 1-14 mg by ity of SOFTENER) 18:17: mouth [place] 100 mg 58 daily. Medical capsule Branch OMEGA 2017-06 Yes [id number] Take [facility] 3-DHA-EPA-F 1-14 mouth. ity of REINA OIL 18:17: [address] L gasseri/B 2017-06 Yes [id number] Take by Univers bifidum/B 1-14 mouth. ity of longum 18:17: [place] (PROBIOTIC [address] [place] [address] COLON CARE [place] ORAL) insulin 2017-06 Yes 50U inject 50 [facility] rs glargine 1-14 Units ity of (TOUJEO 18:17: under the [place] SOLOSTAR 58 skin Medical U-300 daily. [place] INSULIN) 300 unit/mL (1.5 mL) InPn multivit-mi 2017-06 Yes 2{each} Take 2 U nivers n-FA-herbal 1-14 Each by ity o f no.245 18:17: mouth [place] (ALIVE 58 daily. Medical WOMEN'S Branch GUMMY VITAMINS) 200 mcg- 37.5 mg Chew PILOCARPINE 2017-06 Yes Take by Uni vers HCL ORAL 1-14 mouth. ity of 18:17: [address] dulaglutide 2017-06 Yes [id number] inject Univers (TRULICITY) 1-14 under the ity of 0.75 mg/0.5 18:17: skin. [facility] PnIj [address] [place] [address] cyanocobala 2017-06 Yes [id number] by Un kitty min 1,000 1-14 Intramuscu ity of mcg/mL 18:17: lar route [place] injection 58 once now. Medic al [place] montelukast 2017-06 Yes [id number] 10mg Take 10 mg Univers 10 mg 1-14 by mouth. ity of tablet 18:17: [address] Cholecalcif 2017-06 Yes [id number] Take by Univers andrei, 1-14 mouth. ity of Vitamin D3, 18:17: [place] (VITAMIN 58 Medical D3) 2,000 [place] unit capsule Magnesium 2017-06 Yes [id number] Take by U nivers 250 mg Tab 1-14 mouth. ity of 18:17: [address] docusate 2017-06 Yes [id number] 100mg Take 100 Univers (STOOL 1-14 mg by ity of SOFTENER) 18:17: mouth [place] 100 mg 58 daily. Medical capsule Branch OMEGA 2017-06 Yes [id number] Take [facility] 3-DHA-EPA-F 1-14 mouth. ity of REINA OIL 18:17: [address] L gasseri/B 2017-06 Yes [id number] Take by [facility] bifidum/B 1-14 mouth. ity of longum 18:17: [place] (PROBIOTIC [address] [place] [address] COLON CARE Branch ORAL) insulin 2017-06 Yes 50U inject 50 [facility] rs glargine 1-14 Units ity of (TOUJEO 18:17: under the [place] SOLOSTAR 58 skin Medical U-300 daily. Branch INSULIN) 300 unit/mL (1.5 mL) InPn multivit-mi 2017-06 Yes 2{each} Take 2 U nivers n-FA-herbal 1-14 Each by ity o f no.245 18:17: mouth [place] (ALIVE 58 daily. Medical WOMEN'S Branch GUMMY VITAMINS) 200 mcg- 37.5 mg Chew PILOCARPINE 2017-06 Yes Take by Uni vers HCL ORAL 1-14 mouth. ity of 18:17: [address] dulaglutide 2017-06 Yes [id number] inject Univers (TRULICITY) 1-14 under the ity of 0.75 mg/0.5 18:17: skin. [place] mL PnIj [address] [place] [address] Branch cyanocobala 2017-06 Yes [id number] by Un kitty min 1,000 1-14 Intramuscu ity of mcg/mL 18:17: lar route [place] injection 58 once now. Medic al Branch montelukast 2017-06 Yes [id number] 10mg Take 10 mg Univers 10 mg 1-14 by mouth. ity of tablet 18:17: [address] Cholecalcif 2017-06 Yes [id number] Take by Univers andrei, 1-14 mouth. ity of Vitamin D3, 18:17: [place] (VITAMIN 58 Medical D3) 2,000 Branch unit capsule Magnesium 2017-06 Yes [id number] Take by U nivers 250 mg Tab 1-14 mouth. ity of 18:17: [place] [address] Medical Branch docusate 2017-06 Yes [id number] 100mg Take 100 Univers (STOOL 1-14 mg by ity of SOFTENER) 18:17: mouth [place] 100 mg 58 daily. Medical capsule Branch OMEGA 2017-06 Yes [id number] Take by Unive rs 3-DHA-EPA-F 1-14 mouth. ity of REINA OIL 18:17: [place] ORAL Medical Branch L gasseri/B 2017-06 Yes [id number] Take by Univers bifidum/B 1-14 mouth. ity of longum 18:17: [place] (PROBIOTIC Medical COLON CARE Branch ORAL) insulin 2017-06 Yes 50U inject 50 Unive rs glargine 1-14 Units ity of (TOUJEO 18:17: under the [place] SOLOSTAR skin Medical U-300 daily. Branch INSULIN) 300 [...] :00 daily Capsule Albuterol Yes Comments: Brijesh fitch HFA 108 (90 5-26 | Filled [employer] [facility] [employer]) 00:00: Date: October MCG/ACT IN 2016 AERS 12:00AM | Patient Notes: INL 1 TO 2 PFS PO Q 4 H PRF SOB OR WHZ Duration: 16 Albuterol Yes Comments: Brijesh emanuel HFA 108 (90 5-26 | Filled [employer]) 00:00: Date: October MCG/ACT IN 2016 AERS 12:00AM | Patient Notes: INL 1 TO 2 PFS PO Q 4 H PRF SOB OR WHZ Duration: 16 Albuterol Yes Comments: Brijesh KEEN 108 (90 5-26 | Filled [employer]) 00:00: Date: October MCG/ACT IN 2016 AERS 12:00AM | Patient Notes: INL 1 TO 2 PFS PO Q 4 H PRF SOB OR WHZ Duration: 16 Albuterol 2017 Yes Comments: Brijesh BRYANTA 108 (90 5-26 | Filled [employer]) 00:00: Date: October MCG/ACT 2016 AERS 12:00AM | Patient Notes: INL 1 TO 2 PFS PO Q 4 H PRF SOB OR WHZ Duration: 16 Albuterol 2017 Yes Comments: Brijesh BRYANTA 108 (90 5-26 | Filled [employer]) 00:00: Date: October MCG/ACT IN 2016 AERS 12:00AM | Patient Notes: INL 1 TO 2 PFS PO Q 4 H PRF SOB OR WHZ Duration: 16 Albuterol 2017 Yes Comments: Brijesh KEEN 108 (90 5-26 | Filled [employer]) 00:00: Date: October MCG/ACT IN 2016 AERS 12:00AM | Patient Notes: INL 1 TO 2 PFS PO Q 4 H PRF SOB OR WHZ Duration: 16 Albuterol 2017 Yes Comments: Brijesh KEEN 108 (90 5-26 | Filled [employer]) 00:00: Date: October MCG/ACT IN 2016 AERS 12:00AM | Patient Notes: INL 1 TO 2 PFS PO Q 4 H PRF SOB OR WHZ Duration: 16 Albuterol Yes Comments: Brijesh KEEN 108 (90 5-26 | Filled [employer] [facility] [employer]) 00:00: Date: October MCG/ACT IN 2016 AERS 12:00AM | Patient Notes: INL 1 TO 2 PFS PO Q 4 H PRF SOB OR WHZ Duration: 16 Metoprolol Metoprolol Yes Dao as Common Tartrate Tartrate [place] directed Spi rit [facility] Voltaren Voltaren Yes Dao apply Com mon [place] small Spirit amount to - [facility] affected [facility] Aspirin Aspirin Yes Dao 1 tablet Co mmon [place] [facility] - [facility] [place] Pilocarpine Pilocarpine Yes Dao 1 drop Common HCl HCl [place] into Spirit affected - [facility] eye [place] Cyanocobala Cyanocobala Yes Dao as Common min min [place] directed [facility] Sertraline Sertraline Yes Dao 1 tablet Common HCl HCl [place] [facility] Jardiance Jardiance Yes Dao not Co mmon [place] defined [facility] Myrbetriq Myrbetriq Yes Dao not Co mmon [place] defined [facility] Rosuvastati Rosuvastati Yes Dao 1 tablet Common n Calcium n Calcium [place] Spiri [facility] Hydrocodone Hydrocodone Yes Dao (Schedule Common -Acetaminop -Acetaminop [place] II Drug) Spirit hen hen TK 1 T PO - CHI Q 4 H PRN [facility] Doxycycline Doxycycline No Doxycyclin Hyclate Hyclate e [...] Myrbetriq Myrbetriq No Myrbetriq Common Spirit - [facility] Sertraline Sertraline No 1{table QD Sertraline Common HCl 100 MG HCl 100 MG t} HCl 100 MG Spirit [facility] Hydrocodone Hydrocodone No Hydrocodon Common -Acetaminop -Acetaminop e-Acetamin Spirit hen 7.5-325 hen 7.5-325 ophen - CHI MG MG 7.5-325 MG [place] Voltaren 1 Voltaren 1 No QID Voltaren 1 Common % % % Spirit [facility] Pilocarpine Pilocarpine No 1{drop_ TID Pilocarpin Common HCl 1 % HCl 1 % into_af e HCl 1 % S pirit fected_ - [facility] eye} [place] Montelukast Montelukast No Montelukas Common Sodium Sodium t Sodium [facility] Oxybutynin Oxybutynin No Oxybutynin Common Chloride ER Chloride ER Chloride [facility] ER [facility] Tramadol Tramadol No Tramadol Com mon HCl HCl HCl [facility] Doxycycline Doxycycline No Doxycyclin Common Hyclate Hyclate e Hyclate Spir it [facility] Omeprazole Omeprazole No Omeprazole Common [facility] Metoprolol Metoprolol No Metoprolol Common Tartrate 5 Tartrate 5 Tartrate 5 Spirit MG/5ML MG/5ML MG/5ML [facility] Dexamethaso Dexamethaso No Dexamethas Common ne ne one [facility] Aspirin 81 Aspirin 81 No 1{table QD Aspirin 81 Common MG MG t} MG [facility] Jardiance Jardiance No Jardiance Common [facility] Rosuvastati Rosuvastati No 1{table QD Rosuvastat Common n Calcium n Calcium t} in Calcium Spirit 10 MG 10 MG 10 MG [facility] Pravastatin Pravastatin No Pravastati Common Sodium Sodium n Sodium [facility] Cyanocobala Cyanocobala No Cyanocobal Common min 100 MCG min 100 MCG segura 100 [facility] MCG [facility] Immunizations Ordered Immunization Filled Immunization Date Status Commen ts Source Name Name Tdap- (Boostrix, 2022-04-02 Completed Anisha bates Adacel) 00:00:00 - External Tdap- (Boostrix, 2022-04-02 Completed Anisha bates Adacel) 00:00:00 - External Influenza Virus 2022-02-21 Completed Anisha raymond Vaccine, 00:00:00 - External Quadrivalent, High Dose, Age 65 And Up Influenza Virus 2022-02-21 Completed Anisha raymond Vaccine, 00:00:00 - External Quadrivalent, High Dose, Age 65 And Up Influenza Virus 2022-02-21 Felipe raymond Vaccine, 00:00:00 - External Quadrivalent, High Dose, [...] 100 Mcg/0.5ml,IM Covid-19 Vaccine 2020-09-11 Completed Anisha bates (Moderna), Mrna-lnp, 00:00:00 Tray Protein, Pf, 100 Mcg/0.5ml,IM Covid-19 Vaccine 2020-09-11 Completed Anisha Hunt eybold (Moderna), Mrna-lnp, 00:00:00 Tray Protein, Pf, 100 Mcg/0.5ml,IM Covid-19 Vaccine 2020-09-11 Completed Anisha Hunt eybold (Moderna), Mrna-lnp, 00:00:00 Tray Protein, Pf, 100 Mcg/0.5ml,IM Covid-19 Vaccine 2020-09-11 Completed Anisha S eybold (Moderna), Mrna-lnp, 00:00:00 Tray Protein, Pf, 100 Mcg/0.5ml,IM Covid-19 Vaccine 2020-09-11 Completed Anisha Hunt eybold (Moderna), Mrna-lnp, 00:00:00 Tray Protein, Pf, 100 Mcg/0.5ml,IM Covid-19 Vaccine 2020-09-11 Completed Anisha pazbold (Moderna), Mrna-lnp, 00:00:00 Tray Protein, Pf, 100 Mcg/0.5ml,IM Covid-19 Vaccine 2020-09-11 Completed Anisha Hunt eybold (Moderna), Mrna-lnp, 00:00:00 Tray Protein, Pf, 100 Mcg/0.5ml,IM Covid-19 Vaccine 2020-09-11 Completed Anisha Hunt eybold (Moderna), Mrna-lnp, 00:00:00 Tray Protein, Pf, 100 Mcg/0.5ml,IM Covid-19 Vaccine 2020-09-11 Completed Anisha Hunt eybold Moderna (Spikevax), 00:00:00 Mrna-lnp, Tray Protein, Pf Covid-19 Vaccine 2020-09-11 Completed Anisha Hunt eybold Moderna (Spikevax), 00:00:00 Mrna-lnp, Tray Protein, Pf Covid-19 Vaccine 2020-09-11 Completed Anisha S eybold Moderna (Spikevax), 00:00:00 Mrna-lnp, Tray Protein, Pf Covid-19 Vaccine 2020-09-11 Completed Anisha Hunt eybold Moderna (Spikevax), 00:00:00 Mrna-lnp, Tray Protein, [...] 100 Mcg/0.5ml,IM Covid-19 Vaccine 2020-08-14 Completed Anisha Hunt eybold (Moderna), Mrna-lnp, 00:00:00 Tray Protein, Pf, 100 Mcg/0.5ml,IM Covid-19 Vaccine 2020-08-14 Completed Anisha Hunt eybold (Moderna), Mrna-lnp, 00:00:00 Tray Protein, Pf, 100 Mcg/0.5ml,IM Covid-19 Vaccine 2020-08-14 Completed Anisha Hunt eybold (Moderna), Mrna-lnp, 00:00:00 Tray Protein, Pf, 100 Mcg/0.5ml,IM Covid-19 Vaccine 2020-08-14 Completed Anisha Hunt eybold (Moderna), Mrna-lnp, 00:00:00 Tray Protein, Pf, 100 Mcg/0.5ml,IM Covid-19 Vaccine 2020-08-14 Completed Anisha Hunt eybold (Moderna), Mrna-lnp, 00:00:00 Tray Protein, Pf, 100 Mcg/0.5ml,IM Covid-19 Vaccine 2020-08-14 Completed Anisha Hunt eybold (Moderna), Mrna-lnp, 00:00:00 Tray Protein, Pf, 100 Mcg/0.5ml,IM Covid-19 Vaccine 2020-08-14 Completed Anisha Hunt eybold (Moderna), Mrna-lnp, 00:00:00 Tray Protein, Pf, 100 Mcg/0.5ml,IM Covid-19 Vaccine 2020-08-14 Completed Anisha eliasld Moderna (Spikevax), 00:00:00 Mrna-lnp, Tray Protein, Pf Covid-19 Vaccine 2020-08-14 Completed Anisha Hunt eybold Moderna (Spikevax), 00:00:00 Mrna-lnp, Tray Protein, Pf Covid-19 Vaccine 2020-08-14 Completed Anisha Hunt eybold Moderna (Spikevax), 00:00:00 Mrna-lnp, Tray Protein, Pf Covid-19 Vaccine 2020-08-14 Completed Anisha Hunt eybold Moderna (Spikevax), 00:00:00 Mrna-lnp, Tray Protein, [...] 100 Mcg/0.5ml,IM Shingles SQ 2019-06-01 Completed Anisha Griffinybol d (Zostavax) 00:00:00 Shingles SQ 2019-06-01 Completed [...] And Up Influenza Virus 2019-04-04 Completed Anisha Griffin ybold Vaccine, High Dose, 00:00:00 - Ext ernal Age 65 And Up Influenza Virus 2019-04-04 Completed Anisha Griffin ybold Vaccine, High Dose, 00:00:00 Age 65 And Up Hyalgan 20 mg Hyalgan 20 mg 2018-02-13 Completed Common S pirit - 14:27:00 [facility] Hyalgan 20 mg Hyalgan 20 mg 2018-02-13 Completed Common S pirit - 14:27:00 [facility] Hyalgan 20 mg Hyalgan 20 mg 2018-02-13 Completed Common S pirit - 14:27:00 [facility] Hyalgan 20 mg Hyalgan 20 mg 2018-02-13 Completed Common S pirit - 14:26:00 [facility] Hyalgan 20 mg Hyalgan 20 mg 2018-02-13 Completed Common S pirit - 14:26:00 [facility] Hyalgan 20 mg Hyalgan 20 mg 2018-02-13 Completed Common S pirit - 14:26:00 [facility] Hyalgan 20 mg Hyalgan 20 mg 2018-02-06 Completed Common S pirit - 10:02:00 [facility] Hyalgan 20 mg Hyalgan 20 mg 2018-02-06 Completed Common S pirit - 10:02:00 [facility] Hyalgan 20 mg Hyalgan 20 mg 2018-02-06 Completed Common S pirit - 10:02:00 [facility] Hyalgan 20 mg Hyalgan 20 mg 2018-02-06 Completed Common S pirit - 10:00:00 [facility] Hyalgan 20 mg Hyalgan 20 mg 2018-02-06 Completed Common S pirit - 10:00:00 [facility] Hyalgan 20 mg Hyalgan 20 mg 2018-02-06 Completed Common S pirit - 10:00:00 [facility] Hyalgan 20 mg Hyalgan 20 mg 2018-01-21 Completed Common S pirit - 15:51:00 [facility] Hyalgan 20 mg Hyalgan 20 mg 2018-01-21 Completed Common S pirit - 15:51:00 [facility] Hyalgan 20 mg Hyalgan 20 mg 2018-01-21 Completed Common S pirit - 15:51:00 [facility] Hyalgan 20 mg Hyalgan 20 mg 2018-01-21 Completed Common S pirit - 15:46:00 [facility] Hyalgan 20 mg Hyalgan 20 mg 2018-01-21 Completed Common S pirit - 15:46:00 [facility] Hyalgan 20 mg Hyalgan 20 mg 2018-01-21 Completed Common S pirit - 15:46:00 [facility] Influenza Virus 2017-09-03 Completed Anisha Se ybold [...] And Up Influenza Virus 2015-04-17 Completed Anisha raymond Vaccine, High Dose, 00:00:00 - Ext ernal Age 65 And Up Influenza Virus 2015-04-17 Completed Anisha Griffin ybold Vaccine, High Dose, 00:00:00 - Ext ernal Age 65 And Up Influenza Virus 2015-04-17 Completed Anisha raymond Vaccine, High Dose, 00:00:00 - Ext ernal Age 65 And Up Influenza Virus 2015-04-17 Completed Anisha andresold Vaccine, High Dose, 00:00:00 Age 65 And Up Vital Signs Vital Name Observation Time Observation Value Comments Source Systolic blood 2022-05-17 18:58:00 132 mm[Hg] Anisha Seybold - pressure External Diastolic blood 2022-05-17 18:58:00 67 mm[Hg] Tawanna castellanos Seybold - pressure External Heart rate 2022-05-17 18:58:00 79 /min Anisha Marilee eybold - External Body temperature 2022-05-17 18:58:00 36.56 Re Kathleen paz Seybold - External Respiratory rate 2022-05-17 18:58:00 14 /min Kathleen ey Seybold - External Body height 2022-05-17 18:58:00 165.1 cm Anisha S eybold - External Body weight 2022-05-17 18:58:00 76.204 kg Anisha S eybold - External BMI 2022-05-17 18:58:00 27.96 kg/m2 Anisha S eybold - External Oxygen saturation in 2022-05-17 18:58:00 99 /min Anisha Pringle - Arterial blood by External Pulse oximetry Body weight 2022-05-01 15:35:00 76.204 kg Anisha S eybold - External BMI 2022-05-01 15:35:00 27.96 kg/m2 Anisha S eybold - External Systolic blood 2022-05-01 15:35:00 135 mm[Hg] Anisha Seybold - pressure External Diastolic blood 2022-05-01 15:35:00 73 mm[Hg] Tawanna castellanos Seybold - pressure External Heart rate 2022-05-01 15:35:00 74 /min Anisha Marilee eybold - External Body temperature 2022-05-01 15:35:00 37.06 Re Kathleen ey Seybold - External Respiratory rate 2022-05-01 15:35:00 18 /min Kathleen ey Seybold - External Body height 2022-05-01 15:35:00 165.1 cm Anisha S eybold - External Systolic blood [...] Body height 2022-03-19 17:49:00 165.1 cm Anisha S eybold - External Body weight 2022-03-19 17:49:00 74.39 kg Anisha S eybold - External BMI 2022-03-19 17:49:00 27.29 kg/m2 Anisha S eybold - External Oxygen saturation in 2022-03-19 17:49:00 99 /min Anisha Pringle - Arterial blood by External Pulse oximetry Systolic blood 2022-03-14 14:41:00 144 mm[Hg] Anisha Seybold - pressure External Diastolic blood 2022-03-14 14:41:00 80 mm[Hg] Tawanna y Seybold - pressure External Heart rate 2022-03-14 14:41:00 64 /min Anisha S eybold - External Body temperature 2022-03-14 14:41:00 36.78 Re Kathleen ey Seybold - External Respiratory rate 2022-03-14 14:41:00 14 /min Kathleen ey Seybold - External Body height 2022-03-14 14:41:00 165.1 cm Anisha S eybold - External Body weight 2022-03-14 14:41:00 77.111 kg Anisha S eybold - External BMI 2022-03-14 14:41:00 28.29 kg/m2 Anisha S eybold - External Oxygen saturation in 2022-03-14 [...] eybold Systolic blood 2021-02-23 19:28:00 138 mm[Hg] Anisah Griffinybmonika pressure Diastolic blood 2021-02-23 19:28:00 74 mm[Hg] Kelse y Seybold pressure Heart rate 2021-02-23 19:28:00 98 /min Anisha bates Body temperature 2021-02-23 19:28:00 36.89 Re Kathleen paz Seybmonika Respiratory rate 2021-02-23 19:28:00 16 /min Kathleen paz Seybmonika Body height 2021-02-23 19:28:00 165.1 cm Anisha pazboarpan Body weight 2021-02-23 19:28:00 77.293 kg Ansiha pazboarpan BMI 2021-02-23 19:28:00 28.36 kg/m2 Anisha bates Oxygen saturation in 2021-02-23 19:28:00 95 /min Anisha Pringle Arterial blood by Pulse oximetry temperature 2020-05-05 10:00:00 97.3 [degF] Common S pirit [facility] bmi 2020-05-05 10:00:00 27.39 kg/m2 [facility] S pirit [facility] blood pressure 2020-05-05 10:00:00 130 mm[Hg] [facility] - systolic [facility] blood pressure 2020-05-05 10:00:00 75 mm[Hg] [facility] - diastolic [facility] height 2020-05-05 10:00:00 65 [in_i] Common S pirit [facility] weight 2020-05-05 10:00:00 164.6 [lb_av] [facility] height 2020-03-11 10:30:00 65 [in_i] Common S pirit - [facility] weight 2020-03-11 10:30:00 167 [lb_av] Common S pirit [facility] temperature 2020-03-11 10:30:00 97.5 [degF] Common S pirit [facility] bmi 2020-03-11 10:30:00 27.79 kg/m2 [facility] S pirit [facility] blood pressure 2020-03-11 10:30:00 132 mm[Hg] [facility] - systolic [facility] blood pressure 2020-03-11 10:30:00 84 mm[Hg] [facility] - diastolic [facility] Systolic blood 2019-02-11 19:52:00 135 mm[Hg] Univer sity of pressure [facility] Diastolic blood 2019-02-11 19:52:00 77 mm[Hg] Unive rsity of pressure [facility] Heart rate 2019-02-11 19:52:00 80 /min Universi ty of [facility] Body temperature 2019-02-11 19:52:00 36.83 Re [facility] ersity of [facility] Respiratory rate 2019-02-11 19:49:00 18 /min [facility] ersity of [facility] Body height 2019-02-11 19:49:00 167.6 cm Universi ty of [facility] Body weight 2019-02-11 19:49:00 83.462 kg Universi ty of [place] [facility] [place] BMI 2019-02-11 19:49:00 29.70 kg/m2 Universi ty of [facility] Systolic blood 2019-02-11 19:52:00 135 mm[Hg] Univer sity of pressure [facility] Diastolic blood 2019-02-11 19:52:00 77 mm[Hg] Unive rsity of pressure [facility] Heart rate 2019-02-11 19:52:00 80 /min Universi ty of [facility] Body temperature 2019-02-11 19:52:00 36.83 Re [facility] ersity of [place] [facility] [place] Respiratory rate 2019-02-11 19:49:00 18 /min [facility] ersity of [facility] Body height 2019-02-11 19:49:00 167.6 cm [facility] [place] [facility] Body weight 2019-02-11 19:49:00 83.462 kg [facility] [place] [facility] BMI 2019-02-11 19:49:00 29.70 kg/m2 Universi ty of [facility] Procedures Procedure Date / Time Performing Clinician Source Performed EXTERNAL IMAGING 2021-06-29 20:14:00 Raven Coy REAGENT STRIP/BLOOD 2021-05-01 19:31:00 Aung Castaneda eybold GLUCOSE LS RAPID STREP ASSAY-LAB 2021-02-23 20:15:01 Ld Hughes TEST Somogyi PATIENT QUESTIONNAIRE 2020-02-16 05:01:00 Doctor Unassigned, No [facility] POCT URINALYSIS AUTO 2019-02-11 20:02:00 Avril Sprague [facility] ASSIGNMENT OF BENEFITS 2019-02-11 19:32:20 Doctor Unassigned, No [facility] Plan of Care Planned Activity Planned Date Details Comments Source Future Scheduled 2022-04-19 COVID-19 VACCINE (#1) [facility] Hospital Test 02:29:57 [code = COVID-19 VACCINE (#1)] Future Scheduled 2022-04-19 COLONOSCOPY SCREENING [facility] Hospital Test 02:29:57 [code = COLONOSCOPY SCREENING] Future Scheduled 2022-04-19 SHINGLES VACCINES (1 [facility] Test 02:29:57 of 2) [code = SHINGLES VACCINES (1 of 2)] Future Scheduled 2022-04-19 65+ PNEUMOCOCCAL [facility] Test 02:29:57 VACCINE (1 - PCV) [code = 65+ PNEUMOCOCCAL VACCINE (1 - PCV)] Future Scheduled 2022-04-19 INFLUENZA VACCINE [facility] Test 02:29:57 [code = INFLUENZA VACCINE] Future Scheduled 2022-04-19 HEPATITIS B VACCINES [facility] Test 02:29:57 (1 of 3 - 3-dose series) [code = HEPATITIS B VACCINES (1 of 3 - 3-dose series)] Future Scheduled 2022 HEPATITIS B VACCINES [facility] Hospital Test 01:57:16 (1 of 3 - 3-dose series) [code = HEPATITIS B VACCINES (1 of 3 - 3-dose series)] Future Scheduled 2022 COVID-19 VACCINE (#1) [facility] Hospital Test 01:57:16 [code = COVID-19 VACCINE (#1)] Future Scheduled 2022 COLONOSCOPY SCREENING [facility] Hospital Test 01:57:16 [code = COLONOSCOPY SCREENING] Future Scheduled 2022 SHINGLES VACCINES (1 [facility] Test 01:57:16 of 2) [code = SHINGLES VACCINES (1 of 2)] Future Scheduled 2022 65+ [facility]OCOCCAL [facility] Test 01:57:16 VACCINE (1 - PCV) [code = 65+ PNEUMOCOCCAL VACCINE (1 - PCV)] Future Scheduled 2022 INFLUENZA VACCINE [facility] Test 01:57:16 [code = INFLUENZA VACCINE] Future Scheduled 2021-07-18 [facility] 15:18:23 SCREENING [code = BREAST CANCER SCREENING] Future Scheduled 2021-07-18 COLONOSCOPY SCREENING [facility] Hospital Test 15:18:23 [code = COLONOSCOPY SCREENING] Future Scheduled 2021-07-18 SHINGLES VACCINES (#1) [facility] Test 15:18:23 [code = SHINGLES VACCINES (#1)] Future Scheduled 2021-07-18 65+ PNEUMOCOCCAL [facility] Test 15:18:23 VACCINE (1 of 1 - PPSV23) [code = 65+ PNEUMOCOCCAL VACCINE (1 of 1 - PPSV23)] Future Scheduled 2021-07-18 INFLUENZA VACCINE [facility] Test 15:18:23 [code = INFLUENZA VACCINE] Future Scheduled 2021-07-18 COVID-19 VACCINE (1) [facility] Test 15:18:23 [code = COVID-19 VACCINE (1)] Future Scheduled COVID-19 VACCINE (1) [facility] Test [code = COVID-19 VACCINE (1)] Future Scheduled [facility] SCREENING [code = BREAST CANCER SCREENING] Future Scheduled COLONOSCOPY SCREENING [facility] Hospital Test [code = COLONOSCOPY SCREENING] Future Scheduled SHINGLES VACCINES (#1) [facility] Test [code = SHINGLES VACCINES (#1)] Future Scheduled 65+ [facility]OCOCCAL [facility] Test VACCINE (1 of 1 - PPSV23) [code = 65+ PNEUMOCOCCAL VACCINE (1 of 1 - PPSV23)] Future Scheduled INFLUENZA VACCINE [facility] Test [code = INFLUENZA VACCINE] Encounters Start End Encounter Admission Attending Care Care Encounter Source Date/Time Date/Time Type Type Clinicians Facility Department ID 2022-09-[address] [facility] [id number] Common 11:05:00 GRETA [address] [facility] 2022-08-[address] [facility] [id number] Common 15:07:00 GRETA 134[address] [facility] 2021-07-12 [facility] [id number] Common 14:37:16 GRETA [facility] 2021-07-12 Outpatient TIMMY STSRIRAM [facility] [id number] Common 14:37:06 GRETA [facility] 2021-07-12 Outpatient TIMMY STSRIRAM STLMLC [id number] Common 11:32:37 GRETA 14768 [facility] 2021-07-12 Outpatient WARNER, STSRIRAM STLMLC [id number] Common 11:13:10 GRETA 37284 [facility] 2021-07-12 Outpatient TIMMY STSRIRAM STLMLC [id number] Common 11:11:31 GRETA 13680 [facility] 2021-07-12 Outpatient TIMMY STSRIRAM STLMLC [id number] Common 11:06:40 GRETA 57458 [facility] 2022-11-05 2022-11-05 Outpatient ANISHA HUGHES [id number] Anisha 00:00:00 00:00:00 LD Seybol d 2022-10-31 2022-10-31 Outpatient ANISHA HUGHES [id number] Anisha 00:00:00 00:00:00 LD Seybol d 2022-09-26 2022-09-26 Outpatient ANISHA CORDOVA [id number] Anisha 14:45:00 14:45:00 JALAJA Seybol d 2022-09-05 2022-09-05 Outpatient ANISHA HUGHES [id number] Anisha 00:00:00 00:00:00 LD Seybol d 2022-08-01 2022-08-01 Outpatient ANISHA BROUSSARD [id number] Anisha 15:45:00 15:45:00 BRADLEY Seyb old 2022-07-17 2022-07-17 Outpatient ANISHA SHRESTHA [id number] Anisha 09:20:00 09:20:00 LAZ Seybol d 2022-07-09 2022-07-09 Outpatient ANISHA CORDOVA ANISHA [id number] Anisha 00:00:00 00:00:00 JALAJA Seybol d 2022-07-04 2022-07-04 Outpatient AUNG CASTANEDA ANISHA [place] [id number] Anisha 00:00:00 00:00:00 Seybol d 2022-06-30 2022-06-30 Outpatient SAULANISHA [id number] Anisha 00:00:00 00:00:00 LD Seybol d 2022-06-12 2022-06-12 Outpatient OU, ANISHA [place] [id number] Anisha 14:45:00 14:45:00 BRADLEY Seyb old 2022-06-06 2022-06-06 Outpatient ANISHA CRUZ [id number] Anisha 09:30:00 09:30:00 RADHA Seybol d 2022-05-29 2022-05-29 Outpatient OU, ANISHA [place] [id number] Anisha 15:45:00 15:45:00 BRADLEY Seyb old 2022-05-22 2022-05-22 Outpatient ANISHA SAM [id number] Anisha 15:00:00 15:00:00 FAYYAZ Seybol d 2022-05-22 2022-05-22 Outpatient OU, ANISHA [place] [id number] Anisha 10:00:00 10:00:00 BRADLEY Seyb old 2022-05-21 2022-05-21 Outpatient ANISHA COY [id number] Anisha 00:00:00 00:00:00 RAVEN Seybol d 2022-05-21 2022-05-21 Outpatient ANISHA [place] [id number] Anisha 00:00:00 00:00:00 Seybol d 2022-05-17 2022-05-17 Outpatient ANISHA COY [id number] Anisha 13:00:00 13:00:00 RAVEN Seybol d 2022-05-15 2022-05-15 Outpatient OU, ANISHA [place] [id number] Anisha 10:45:00 10:45:00 BRADLEY Seyb old 2022-05-14 2022-05-14 Outpatient ANISHA SHRESTHA [id number] Anisha 08:00:00 08:00:00 LAZ Seybol d 2022-05-11 2022-05-11 Outpatient ANISHA COY [id number] Anisha 13:00:00 13:00:00 RAVEN Seybol d 2022-05-08 2022-05-08 Outpatient ANISHA RUBY [id number] Anisha 14:15:00 14:15:00 SHRUTHI Seybo ld 2022-05-08 2022-05-08 Outpatient ANISHA SHRESTHA [id number] Anisha 10:40:00 10:40:00 LAZ Seybol d 2022-05-07 2022-05-07 Outpatient ANISHA MAN [id number] Anisha 00:00:00 00:00:00 SLADE Seybol d 2022-05-01 2022-05-01 Outpatient OMAR ANISHA LANCASTER [id number] Anisha 11:15:00 11:15:00 Seybol d 2022-05-01 2022-05-01 Outpatient ANISHA BROUSSARD [id number] Anisha 10:30:00 10:30:00 BRADLEY Seyb old 2022-04-19 2022-04-19 Outpatient ANISHA CORDOVA [id number] Anisha 00:00:00 00:00:00 JALAJA Seybol d 2022-04-11 2022-04-11 Outpatient ANISHA CORDOVA [id number] Anisha 10:45:00 10:45:00 JALAJA Seybol d 2022-04-09 2022-04-09 Outpatient AUNG CASTANEDA [id number] Anisha 10:45:00 10:45:00 Seybol d 2022-04-03 2022-04-03 Outpatient ANISHA RUBY [id number] Anisha 11:30:00 11:30:00 SHRUTHI Seybo ld 2022-04-02 2022-04-02 Outpatient ANISHA MAN [id number] Anisha 11:15:00 11:15:00 SLADE Seybol d 2022-03-28 2022-03-28 Outpatient ANISHA CORDOVA [id number] Anisha 15:45:00 15:45:00 JALAJA Seybol d 2022-03-20 2022-03-20 Outpatient ANISHA HUGHES [id number] Anisha 00:00:00 00:00:00 LD Seybol d 2022-03-19 2022-03-19 Outpatient [id number]-[id number] ANISHA LANCASTER [id number] Anisha 13:55:00 13:55:00 Seybol d 2022-03-19 2022-03-19 Outpatient ANISHA COY [id number] Anisha 13:00:00 13:00:00 RAVEN Seybol d 2022-03-14 2022-03-14 Outpatient ANNELIESE, ANISHA LANCASTER [id number] Anisha 10:00:00 10:00:00 RAVEN Seybol d 2022-03-09 2022-03-09 Outpatient ANISHA COY [id number] Anisha 00:00:00 00:00:00 RAVEN Seybol d 2022 2022 Outpatient HUNDGwyn, ANISHA LANCASTER [id number] Anisha 00:00:00 00:00:00 RAVEN Seybol d 2022-03-07 2022-03-07 Outpatient ANISHA HUGHES [id number] Anisha 00:00:00 00:00:00 LD Seybol d 2022-03-06 2022-03-06 Outpatient ANISHA HUGHES [id number] Anisha 00:00:00 00:00:00 LD Seybol d 2022-03-03 2022-03-03 Outpatient FIDELIA, DOREEN ANISHA LANCASTER [id number] Ainsha 00:00:00 00:00:00 Seybol d 2022-03-02 2022-03-02 Outpatient LAB90 ANISHA LANCASTER [id number] Anisha 10:45:00 10:45:00 Seybol d 2022-03-02 2022-03-02 Outpatient ANISHA COY [id number] Anisha 09:30:00 09:30:00 RAVEN Seybol d 2022-03-01 2022-03-01 Outpatient ANISHA HUGHES [id number] Anisha 00:00:00 00:00:00 LD Seybol d 2022-03-01 2022-03-01 Outpatient ANISHA COY ANISHA [id number] Anisha 00:00:00 00:00:00 RAVEN Seybol d 2022-02-21 2022-02-21 Outpatient LAB90 ANISHA ANISHA [id number] Anisha 10:50:00 10:50:00 Seybol d 2022-02-21 2022-02-21 Office Eduardo Coy 1.2.840.114 [id number] Anisha 09:30:00 10:30:00 Visit Raven López 350.1.13.13 Se ybold 1.2.7.2.686 [id number] 2022-02-20 2022-02-20 Outpatient ANISHA COY ANISHA [id number] Anisha 09:30:00 09:30:00 RAVEN Seybol d 2022-02-05 2022-02-05 Outpatient AUNG CASTANEDA ANISHA LANCASTER [id number] Anisha 13:30:00 13:30:00 Seybol d 2021-12-25 2021-12-25 Outpatient AUNG CASTANEDA ANISHA LANCASTER [id number] Anisha 10:15:00 10:15:00 Seybol d 2021-12-22 2021-12-22 Outpatient ANISHA HUGHES ANISHA [id number] Anisha 00:00:00 00:00:00 LD Seybol d 2021-11-27 2021-11-27 Outpatient AUNG CASTANEDA ANISHA LANCASTER [id number] Anisha 08:45:00 08:45:00 Seybol d 2021-11-16 2021-11-16 Office Eduardo Hughes 1.2.840.114 [id number] Anisha 13:30:00 14:00:00 Visit Ld López 350.1.13.13 Se ybold Somogyi 1.2.7.2.686 [id number] 2021-10-19 2021-10-19 Office JOSE A Ho 1.2.840.114 [id number] Anisha 11:00:00 11:20:00 Visit Yordan Wolff 350.1.13.13 Seybold 1.2.7.2.686 [id number] 2021-10-19 2021-10-19 Outpatient ANISHA LANCASTER [id number] Anisha 09:45:00 09:45:00 Seybol d 2021-10-18 2021-10-18 Outpatient ANISHA HO [id number] Anisha 00:00:00 00:00:00 YORDAN Seybol d 2021-10-16 2021-10-16 Outpatient ANISHA HUGHES [id number] Anisha 00:00:00 00:00:00 LD Seybol d 2021-10-10 2021-10-10 Outpatient ANISHA PITTS [id number] Anisha 15:00:00 15:00:00 PEARLAND Seybo ld 2021-10-09 2021-10-09 Outpatient ANISHA HUGHES [id number] Anisha 00:00:00 00:00:00 LD Seybol d 2021-07-11 2021-07-11 Outpatient SHELLY LANCASTER [id number] Anisha 00:00:00 00:00:00 MD GENTRY Seybol d 2021-06-29 2021-06-29 Outpatient LAB90 ANISHA LANCASTER [id number] Anisha 11:50:00 11:50:00 Seybol d 2021-06-29 2021-06-29 Office Eduardo Coy 1.2.840.114 [id number] Anisha 11:00:00 11:30:00 Visit Raven Dawn 350.1.13.13 Se ybold 1.2.7.2.686 [id number] 2021-06-27 2021-06-27 Outpatient HBB43-HGB ANISHA LANCASTER [id number] Anisha 16:35:00 16:35:00 Seybol d 2021-06-27 2021-06-27 Outpatient TESTING, PL ANISHA LANCASTER [id number] Anisha 15:50:00 15:50:00 Seybol d 2021-06-27 2021-06-27 Outpatient ANISHA HUGHES [id number] Anisha 10:00:00 10:00:00 LD Seybol d 2021-06-27 2021-06-27 Outpatient ANISHA HUGHES [id number] Anisha 00:00:00 00:00:00 LD Seybol d 2021-06-20 2021-06-20 Outpatient ANISHA HUGHES [id number] Anisha 10:15:00 10:15:00 LD Seybol d 2021-06-14 2021-06-14 Outpatient ANISHA HUGHES [id number] Anisha 08:45:00 08:45:00 LD Seybol d 2021-06-08 2021-06-08 Outpatient PRADEEPANISHASTEPHANIEGwyn LANCASTER [id number] Anisha 00:00:00 00:00:00 MD GENTRY Seybol d 2021-06-01 2021-06-01 Outpatient LAB90 ANISHA LANCASTER [id number] Anisha 11:45:00 11:45:00 Seybol d 2021-06-01 2021-06-01 Office Eduardo Hughes 1.2.840.114 [id number] Anisha 11:00:00 11:30:00 Visit Ld Dawn 350.1.13.13 Se ybold Somogyi 1.2.7.2.686 [id number] 2021-05-31 2021-05-31 Outpatient ANISHA LANCASTER [id number] Anisha 14:30:00 14:30:00 Seybol d 2021-05-01 2021-05-01 Office Aung Castaneda .2.840.114 1 [id number] Anisha 12:47:27 13:02:27 Visit 350.1.13.13 Se ybold 1.2.7.2.686 [id number] 2021-04-27 2021-04-27 Outpatient ANISHA HUGHES [id number] Anisha 00:00:00 00:00:00 LD Seybol d 2021-04-24 2021-04-24 Outpatient ANISHA HUGHES [id number] Anisha 00:00:00 00:00:00 LD Seybol d 2021-04-07 2021-04-07 Outpatient ANISHA BUI [id number] Anisha 09:00:00 09:00:00 SILKE Seybol d 2021-04-05 2021-04-05 Office Eduardo Hughes 1.2.840.114 [id number] Anisha 13:22:17 13:52:17 Visit Ld Dawn 350.1.13.13 Se ybold Somogyi 1.2.7.2.686 [id number] 2021-04-05 2021-04-05 Outpatient ANISHA HUGHES [id number] Anisha 00:00:00 00:00:00 LD Seybol d 2021-04-04 2021-04-04 Education Hunter Rey 1.2.840.114 [id number] Anisha 09:42:50 10:42:50 Hunter Rey 350.1.13.13 Seybold 1.2.7.2.686 [id number] 2021-04-03 2021-04-03 Outpatient AUNG CASTANEDA [id number] Anisha 09:45:00 09:45:00 Seybol d 2021-03-27 2021-03-27 Outpatient HUNTER REY [id number] Anisha 11:30:00 11:30:00 Seybol d 2021-03-21 2021-03-21 Outpatient AUNG CASTANEDA [id number] Anisha 00:00:00 00:00:00 Seybol d 2021-03-01 2021-03-01 Outpatient AUNG CASTANEDA [id number] Anisha 00:00:00 00:00:00 Seybol d 2021-03-01 2021-03-01 Outpatient ANISHA HUGHES [id number] Anisha 00:00:00 00:00:00 LD Seybol d 2021-02-27 2021-02-27 Outpatient AUNG CASTANEDA [id number] Anisha 00:00:00 00:00:00 Seybol d 2021-02-23 2021-02-23 Office Eduardo Hughes 1.2.840.114 [id number] Anisha 13:31:23 14:01:23 Visit Ld Dawn 350.1.13.13 segundo [place] 1.2.7.2.686 [id number] 2021-02-23 2021-02-23 Outpatient ANISHA HUGHES [id number] Anisha 00:00:00 00:00:00 LD Seybol d 2021-02-22 2021-02-22 Outpatient ANISHA HUGHES [id number] Anisha 00:00:00 00:00:00 LD Seybol d 2021-02-17 2021-02-17 Outpatient ANISHA HUGHES [id number] Anisha 00:00:00 00:00:00 LD Seybol d 2021-02-16 2021-02-16 Outpatient EDUARDO OLMEDO [id number] Anisha 13:30:00 13:30:00 Seybol d 2021-02-16 2021-02-16 Outpatient ANISHA HUGHES [id number] Anisha 10:45:00 10:45:00 LD Seybol d 2021-02-13 2021-02-13 Outpatient [facility] ANISHA LANCASTER [id number] Anisha 15:45:00 15:45:00 Seybol d 2021-02-13 2021-02-13 Outpatient AUNG CASTANEDA [id number] Anisha 15:00:00 15:00:00 Seybol d 2021-02-08 2021-02-08 Outpatient ANISHA SHRESTHA [id number] Anisha 14:40:00 14:40:00 LAZ Seybol d 2021-01-24 2021-01-24 Outpatient ANISHA HUGHES [id number] Anisha 00:00:00 00:00:00 LD Seybol d 2021-01-17 2021-01-17 Outpatient ANISHA HUGHES [id number] Anisha 13:30:00 13:30:00 LD Seybol d 2020-09-11 2020-09-11 Outpatient [facility] [id number] Univers 13:30:00 13:30:00 [facility] 2020-08-14 2020-08-14 Outpatient Mariella GALLAGHER [facility] [id number] Univers 13:25:00 13:25:00 LENY damon [facility] 2020-05-05 2020-05-05 OFFICE STLMLC STLMLC [id number] Co mmon 00:00:00 00:00:00 VISIT EST Spir it PT LEVEL 3 - [facility] 2020-03-16 2020-03-16 (TEL) STLMLC STLMLC [id number] Co mmon 00:00:00 00:00:00 Spirit - [facility] 2020-03-11 2020-03-11 OFFICE STLMLC STLMLC [id number] Co mmon 00:00:00 00:00:00 VISIT EST Spir it PT LEVEL 3 - [facility] 2020-03-09 2020-03-09 Outpatient Mariella SPRAGUE [facility] [id number] Univers 10:30:00 10:30:00 AVRILMILANA jose [facility] 2020-02-17 2020-02-17 Outpatient R DARCIE [facility] [id number] Univers 15:00:00 15:00:00 [facility] 2020-02-17 2020-02-17 Letter GENE Reis 1.2.840.114 [id number] Univers 00:00:00 00:00:00 (Out) Salima CASEY 350.1.13.[address] [facility] 4.2.7.2.686 [place] [id number] [address] 2020-02-17 2020-02-17 Letter GENE Reis 1.2.840.114 [id number] 00:00:00 00:00:00 (Out) Salima CASEY 350.1.13.10 [facility] 4.2.7.2.686 [id number] [facility] 2020-02-16 2020-02-16 Laboratory Lab, [facility] Fam Pob I [facility] 1.2. 840.114 [id number] Univers 11:36:48 11:56:48 Only Chase Alicia E-Diversify Yourself 350.1.13.10 ity [facility] 4.2.7.2.686 [place] as Professio [id number] N[place] dical [address] Office [address] 2020-02-16 2020-02-16 Laboratory Lab, [facility] 1.2.840.114 [id number] 11:36:48 11:56:48 Only Fam Pob I Health 350.1.13.10 [place] 4.2.7.2.686 Professio [phone] nal 0[address] 2020-02-16 2020-02-16 Outpatient R CHASE, [facility] [id number] Univers 11:40:00 11:40:00 ALICIA ity [facility] 2020-02-16 2020-02-16 Orders Doctor GENE 1.2.840.114 [id number] Univers 00:00:00 00:00:00 Only Unassigned, CARMELA 350.1.13.10 ity of [facility] 4.2.7.2.686 Dav[place] as [id number] [address] 2020-02-16 2020-02-16 Orders Doctor GENE 1.2.840.114 [id number] 00:00:00 00:00:00 Only Unassigned, CARMELA 350.1.13.[address] [place] [facility] 4.2.7.2.686 [id number] [facility] 2020-02-01 2020-02-01 Outpatient R [facility] [id number] Univers 14:20:00 14:20:00 ity [facility] 2020-01-21 2020-01-21 Outpatient COH COH PDPFEIQ SIV COH 00:00:00 00:00:00 -[id number] 2020-01-14 2020-01-14 Outpatient Miguel Angel Hand [id number] Common 09:58:00 09:58:00 t Bone Bone and Spiri t [facility] 2020-01-11 2020-01-11 [facility] [id number] Common 10:11:00 10:11:00 t Bone Bone and Spiri t and Joint [facility] - [facility] 2019-12-24 2019-12-24 [facility] [id number] Common 14:32:00 14:32:00 t Bone Bone and Spiri t and Joint [facility] - [facility] 2019-11-30 2019-11-30 [facility] [id number] Common 09:30:00 09:30:00 t Bone Bone and Spiri t and Joint [facility] - [facility] 2019-11-30 2019-11-30 [facility] [id number] Common 08:27:00 08:27:00 t Bone Bone and Spiri t and Joint [facility] - [facility] 2019-11-12 2019-11-12 [facility] [id number] Common 10:30:00 10:30:00 t Bone Bone and Spiri t and Joint [facility] - [facility] 2019-11-04 2019-11-04 [facility] [id number] Common 15:17:00 15:17:00 t Bone Bone and Spiri t and Joint [facility] - [facility] 2019-10-29 2019-10-29 Out[facility] [id number] Common 09:45:00 09:45:00 t Bone Bone and Spiri t and Joint [facility] - [facility] 2019-10-26 2019-10-26 [facility] [id number] Common 11:02:00 11:02:00 t Bone Bone and Spiri t and Joint [facility] - [facility] 2019-10-13 2019-10-13 Out[facility] [id number] Common 09:44:00 09:44:00 t Bone Bone and Spiri t and Joint [facility] 2019-10-12 2019-10-12 [facility] [id number] Common 10:00:00 10:00:00 t Bone Bone and Spiri t and Joint [facility] - [facility] 2019-09-11 2019-09-11 Ohiopyle Gramm, [facility] 1.2.840.895 [id number] Univers 00:00:00 00:00:00 Avril Rico [facility].13.10 [facility] 4.2.7.2.686 Kelli Garcia [id number] Nj dical [address] 2019-09-11 2019-09-[address] [facility] [id number] [id number] 00:00:00 00:00:00 Avril Rico 350.1.13.10 [place] 4.2.7.2.686 Radha [id number] [address] 2019-09-02 2019-09-02 Out[facility] [id number] Common 11:29:00 11:29:00 t Bone Bone and Spiri t and Joint [facility] - [facility] 2019-08-26 2019-08-26 Out[facility] [id number] Common 09:55:00 09:55:00 t Bone Bone and Spiri t and Joint [facility] - [facility] 2019-08-21 2019-08-21 Outpatient [facility] [id number] Common 08:15:00 08:15:00 t Bone Bone and Spiri t and Joint [facility] - [facility] 2019-08-11 2019-08-11 Outpatient [facility] [id number] Common 08:31:00 08:31:00 t Bone Bone and Spiri t and Joint [facility] - [facility] 2019-08-10 2019-08-10 Out[facility] [id number] Common 09:37:00 09:37:00 t Bone Bone and Spiri t and Joint [facility] - [facility] 2019-08-07 2019-08-07 Out[facility] [id number] Common 15:44:00 15:44:00 t Bone Bone and Spiri t and Joint [facility] - [facility] 2019-07-27 2019-07-27 Out[facility] [id number] Common 09:30:00 09:30:00 t Bone Bone and Spiri t and Joint [facility] - [facility] 2019-02-11 2019-02-[address] [facility] 1.2.840.114 [id number] Univers 14:32:34 15:19:14 Visit Avril Rico 350.1.13.10 ity of [place] 4.2.7.2.686 Kelli hunt Professio [phone] Nj dical formerly [facility] 204 [facility] 2019-02-11 2019-02-11 Office RUFUS Sprague 1.2.840.114 [id number] 14:32:34 15:19:14 Visit Avril Rico 350.1.13.10 [place] 4.2.7.2.686 Professio [phone] formerly [facility] [address] [facility] 2019-02-11 2019-02-11 Orders Doctor GENE 1.2.840.114 [id number] Univers 00:00:00 00:00:00 Only Unassigned, CARMELA 350.1.13.[address] [place] [facility] 4.2.7.2.686 [place] as [id number] [address] 2018-02-13 2018-02-13 Outpatient [facility] [id number] Common 14:30:00 14:30:00 t Bone Bone and Spiri t and Joint [facility] 2016-06-29 2016-06-30 Outpatient [facility] [id number] Memoria 15:39:00 05:59:00 r Shan 00 [facility] 2016-06-29 2016-06-30 Outpatient [facility] [id number] Memoria 15:39:00 05:59:00 r Shan [address] [facility] 2016-06-29 2016-06-29 Outpatient [place] [facility] [id number] 09:39:00 23:59:00 , Dao 00 Tommy Results Test Description Test Time Test Comments Results Result Comments Source EXTERNAL IMAGING 2021-06-29 21:21:00 Test Item Value Reference Range Interpretation Comme [facility] Radiology Study observation (narrative) (test code = 14392-9) CLIFFORD (test code = CLIFFORD) [facility] Rad Knee Right 3 view. Clinical History: ?M25.561, M79.605, m79.604 Exam Description: ?Rad Knee Right 3 view 06/29/2021 1414 Comparison: ?No comparisons Findings: ?No acute fracture. ?No malalignment. ?No significant focal degenerative changes. ? Impression: ?No acute osseous abnormality involving the right knee. Dictated and signed by: ?Suresh Camarena Lab Interpretation (test code = 65216-3) Normal Anisha PringleEXTERNAL [id number] 20:59:00 Test Item Value Reference Range Interpretation Comments Radiology Study observation (narrative) (test code = 84396-3) CLIFFORD (test code = CLIFFORD) [facility] Imaging Rad-Pelvis ?06/29/2021 1414Clinical History : ?M25.561, [...] Camarena Lab Interpretation (test Normal code = 91632-2) Anisha PringleREAGENT STRIP/BLOOD [id number] 19:31:00 Test Item Value Reference Range Interpretation Comments BLOOD SUGAR (test code = 652271) 118 mg/dL 65-99 A Lab Interpretation (test code = Abnormal 10212-7) Anisha Farias RAPID STREP ASSAY-LAB [id number] 20:32:08 Test Item Value Reference Range Interpretation Comments STREP GP A AG, IA (test Negative Negative Infe ction due to code = 64110-1) Strep A kike ot be ruled-out becau se the antigen present in the sample may be below the detec tion limit of the te st. Specimen has be en sent for confir mation of negative. Lab Interpretation (test Normal code = 40994-7) [facility]INAL[facility], [id number] 20:03:00 Test Item Value Reference Range Interpretation [...] 3267) Lab Interpretation (test code Abnormal = 27704-9) [facility] URINALYSIS, [id number] 20:03:00 Test Item Value Reference Range Interpretation [...] 3267) Lab Interpretation (test code Abnormal = 47872-0) [facility] [id number] 17:10:00 Test Item Value Reference Range Interpretation Comments eGFR (test code = eGFR) 32 [facility] [id number] 17:10:00 Test Item Value Reference Range Interpretation Comments POC Creatinine (test code = POC 1.6 0.5-1.4 Creatinine) [facility]2017-01-13 17:10:00 Test Item Value Reference Range Interpretation Comments eGFR (test code = eGFR) 32 [facility]2017-01-13 17:10:00 Test Item Value Reference Range Interpretation Comments POC Creatinine (test code = POC 1.6 0.5-1.4 Creatinine) [facility]2017-01-13 17:10:00 Test Item Value Reference Range Interpretation Comments eGFR (test code = eGFR) 32 [facility]2017-01-13 17:10:00 Test Item Value Reference Range Interpretation Comments POC Creatinine (test code = POC 1.6 0.5-1.4 Creatinine) [facility] Notes Date/Time Note Provider Source 2016-06-29 10:12:00-00:00 Study: CT CHEST WITHOUT CONTRAST [facility] Clinical Indication: shortne ss of breath [...] 1. No acute abnormality. 2. Emphysema. SL: [id number]"
[2023-03-02] MEDS ORDERED: ONDANSETRON 4 MG/2 ML VIAL IV PRN (23:02)
--- NOTE | 2023-03-02 23:29 | P.HP ---
Certification for Inpatient Patient admitted to: Inpatient With expected LOS: >2 Midnights Patient will require the following post-hospital care: None Practitioner: I am a practitioner with admitting privileges, knowledge of patient current condition, hospital course, and medical plan of care. Services: Services provided to patient in accordance with Admission requirements found in Title 42 Section 412.3 of the Code of Federal Regulations Patient History Date of Service: 03/02/23 History of Present Illness: 77-year-old female with history of insulin-dependent diabetes, hypertension, hyperlipidemia, GERD presented to outside hospital emergency department on the morning of 03/02/2023 with chief complaint of chest pain, shortness of breath. She reports waking up from her sleep around 5 AM and walking to the bathroom when she developed a sharp chest pain radiating under her left breast with associated shortness of breath as well as coughing. She reports the pain lasted for approximate 30 minutes. She was evaluated in the emergency department outside facility her initial high-sensitivity opponent in the emergency department was 13, follow-up troponins trended upwards initially 13.5 up to 155.8 then down to 139.3. Her other labs were significant for normal CBC glucose 136 GFR 46 chest x-ray was negative for acute findings, EKG without STEMI criteria. Physician at outside hospital spoke with patient's primary die trouble shooter Dr. Grissom who recommended transfer to our facility for further evaluation of NSTEMI. Allergies ciprofloxacin [From Cipro] Allergy (Verified 10/15/19 11:18) palpitations formoterol [From Foradil Aerolizer] Allergy (Verified 10/15/19 11:18) palpitations latex Allergy (Verified 10/15/19 11:18) Rash zolpidem [From Ambien] Allergy (Verified 10/15/19 11:18) hallucinations Home Medications: Aspirin [Aspirin EC 81 MG] 81 mg PO DAILY 10/03/16 Cholecalciferol (Vitamin D3) [Vitamin D3] 2,000 unit PO DAILY 10/03/16 Cyanocobalamin [B12 Injection] 1,000 mcg IM ONCE 10/03/16 Docusate Sodium [Stool Softener] 100 mg PO BID 10/03/16 Krill/Om-3/Dha/Epa/Phospho/Ast [Krill Oil 1,000 mg Softgel] 1 each PO DAILY 10/03/16 Lactobacillus Rhamnosus R0011 [Probiotic Digestive Care] 1 each PO DAILY 10/03/16 Magnesium Oxide [Magnesium] 250 mg PO BID 10/03/16 Pilocarpine HCl 5 mg PO TID 10/03/16 Sertraline [Zoloft] 100 mg PO DAILY 10/03/16 Atorvastatin Calcium 20 mg PO DAILY 10/15/19 Diclofenac Sodium [Voltaren] 100 gm TP PRN PRN 10/15/19 Empagliflozin [Jardiance] 25 mg PO DAILY 10/15/19 Metoprolol Tartrate 25 mg PO DAILY 10/15/19 Oxybutynin Chloride [Oxybutynin Chloride ER] 10 mg PO DAILY 10/15/19 - Past Medical/Surgical History -: Insulin-dependent diabetes -: Hypertension -: Hyperlipidemia -: GERD -: Cholecystectomy -: Gastric band -: Hysterectomy Psychosocial/ Personal History: Lives at home with family - Family History Family History: Reviewed- Non-Contributory - Social History Smoking Status: Never smoker Alcohol use: No CD- Drugs: No Caffeine use: Yes Place of Residence: Home Review of Systems 10-point ROS is otherwise unremarkable Respiratory: Shortness of Breath Cardiovascular: Chest Pain Physical Examination - Physical Exam General: Alert, In no apparent distress, Oriented x3 HEENT: Atraumatic, PERRLA, Mucous membr. moist/pink, EOMI, Sclerae nonicteric Neck: Supple, 2+ carotid pulse no bruit, No LAD, Without JVD or thyroid abnormality Respiratory: Clear to auscultation bilaterally, Normal air movement Cardiovascular: Regular rate/rhythm, Normal S1 S2, Edema (Trace edema lower extremities) Capillary refill: <2 Seconds Gastrointestinal: Normal bowel sounds, No tenderness Musculoskeletal: No tenderness Integumentary: No rashes Neurological: Normal speech, Normal strength at 5/5 x4 extr, Normal tone, Normal affect Lymphatics: No axilla or inguinal lymphadenopathy Assessment and Plan - Plan Assessment: NSTEMI Diabetes mellitus type 2insulin-dependent Hypertension Hyperlipidemia GERD Plan: NSTEMI Troponin trend thus far [id number]. Will obtain another troponin this morning, monitor on telemetry continue aspirin, statin, beta-lucrecia. Cardiology consult, echocardiogram ordered. Repeat EKG. Reports stress test approximate 1 year ago that was normal. We will also obtain D-dimer. Diabetes mellitus type 2insulin-dependent ACHS Accu-Chek, sliding scale insulin. A1c in the morning. Hypertension Hyperlipidemia GERD Continue home medications. DVT PPX: Therapeutic Lovenox Code status: Full Discharge Plan: Home Plan to discharge in: 48 Hours - Advance Directives Does patient have a Living Will: No Does patient have a Durable POA for Healthcare: No - Code Status/Comfort Care Code Status Assessed: Yes (Full code) Critical Care: No Time Spent Managing Pts Care (In Minutes): 55
[2023-03-03] MEDS: ACETAMINOPHEN 500 MG TAB PO PRN ×2 (00:04→17:26)
[2023-03-03 03:40] LABS: Absolute Lymphocytes (CBC) 1.9 K/uL (0.7-4.9); Hematocrit 34.5 % (36.0-45.0); Lymphocytes % 29.6 % (15.3-44.8); MCV 88.9 fL (80-100); MPV 8.2 fL (7.6-11.3); Platelets 154 thou/uL (152-406); RBC Red Blood Cell Count 3.88 M/uL (3.86-4.86)
[2023-03-03 03:44] VITALS: BMI 25.6
[2023-03-03 04:11] LABS: Potassium 4.3 mEq/L (3.5-5.1); Thyroid Stimulating Hormone 0.42 uIU/mL (0.358-3.740)
[2023-03-03 04:25] LABS: Troponin High Sensitivity 69.4 pg/mL (<58.9)
[2023-03-03] MEDS: METOPROLOL TAR 25 MG TAB PO SCH (06:00)
[2023-03-03] MEDS: INSULIN -REGULAR HUMAN 50 UNIT/0.5 ML ML SQ SCH ×4 (07:30→21:00)
[2023-03-03] MEDS: ASPIRIN EC 81 MG TAB PO SCH (08:16)
--- NOTE | 2023-03-03 12:20 | P.PN ---
Subjective Date of Service: 03/03/23 No acute events since admission. She reports that, yesterday, she developed an episode of chest pain, which occurred at rest. She states that this occurred, without any obvious inciting or alleviating factors. She presented to [facility], but was transferred here overnight due to her troponin levels being elevated. This morning, she denies any chest pain, palpitations, or shortness of breath. Review of Systems 10-point ROS is otherwise unremarkable Physical Examination - Vital Signs Temperature: 97.0 F Blood Pressure: 132/73 Pulse: 57 Respirations: 18 Pulse Ox (%): 94 - Physical Exam General: Alert, In no apparent distress, Oriented x3 HEENT: Atraumatic, Mucous membr. moist/pink, Sclerae nonicteric Neck: JVD not distended Respiratory: Clear to auscultation bilaterally, Normal air movement Cardiovascular: No edema, Regular rate/rhythm, Normal S1 S2, No gallops, No rubs, No murmurs Gastrointestinal: Normal bowel sounds, Soft and benign, Non-distended, No tenderness, No rebound, No guarding Musculoskeletal: No clubbing Integumentary: No rashes Neurological: Normal speech, Normal affect - Studies Laboratory Data (last 24 hrs) 03/03/23 03/03/23 03:22 03:22 WBC 6.40 Hgb 12.1 Hct 34.5 L Plt Count 154 Sodium 143 Potassium 4.3 BUN 22 H Creatinine 1.04 H Glucose 148 H Triglycerides 151 H Cholesterol 119 HDL Cholesterol 38 L Cholesterol/HDL Ratio 3.13 Assessment And Plan - Plan # Non-ST Segment Elevation Myocardial Infarction # Hypertension # Hyperlipidemia - Evaluation thus far: - EKG: without STEMI criteria, trend - Serial troponin: 13.5 -> 155.8 -> 139.3 (at [facility]), -> 69.4 - Ordered transthoracic echocardiogram - D-Dimer = 628, within normal limits when age-adjusted - Requested outside records to determine if a CXR or CTA chest was obtained - Management plan: - Consult Cardiology - recommendations appreciated - Continue aspirin, atorvastatin, metoprolol - Started enoxaparin - Consider starting KULDIP-inhibitor/ARB as tolerated # Type II Diabetes Mellitus - Hgb A1c pending - Correction scale insulin # Gastroesophageal Reflux Disease - Reconcile home medications once verified Kaleb Uribe M.D.
[2023-03-03] MEDS: ENOXAPARIN 80 MG/0.8 ML SQ SCH ×2 (13:38→21:27)
--- NOTE | 2023-03-03 19:21 | P.PN ---
Date of Service: 03/04/23 Subjective: Physical Exam: Vitals: Reviewed Gen: Alert, Oriented, NAD CV: regular rate & rhythm, no edema Pulm: Respirations are clear bilaterally Abd: soft, nontender, nondistended MSK: no joint tenderness Integumentary: No rashes Neuro: normal speech, normal affect Problem List: 1. NSTEMI 2. Hypertension 3. Hyperlipidemia 4. DM2 5. GERD PLAN: EKG without STEMI criteria, trend troponins elevated - peak 155.8 at orr -> 69.4 Cardiology Consulted Echo ordered Continue aspirin, atorvastatin, metoprolol Consider starting KULDIP-inhibitor/ARB as tolerated Sliding scale insulin Confirm home medications, restart as appropriate DVT prophylaxis with Lovenox
[2023-03-03] MEDS ORDERED: ATORVASTATIN 10 MG TAB PO SCH (21:00)
[2023-03-04] MEDS: METOPROLOL TAR 25 MG TAB PO SCH (06:00)
[2023-03-04] MEDS: INSULIN -REGULAR HUMAN 50 UNIT/0.5 ML ML SQ SCH ×3 (07:30→16:19)
[2023-03-04] MEDS: ENOXAPARIN 80 MG/0.8 ML SQ SCH (07:50)
[2023-03-04] MEDS: ASPIRIN EC 81 MG TAB PO SCH (07:50)
[2023-03-04] MEDS: ACETAMINOPHEN 500 MG TAB PO PRN (11:36)
[2023-03-04] MEDS ORDERED: NA CHLORIDE 0.9% 500 ML ONE (15:13)
[2023-03-04] MEDS ORDERED: HEPA 1000U/500MLS 2,000 UNIT/1,000 ML BAG IV ONE (16:22)
[2023-03-04] MEDS ORDERED: HEPARIN 5000 UNIT/ML 1 ML VIAL ONE (16:23)
[2023-03-04] MEDS ORDERED: MIDAZOLAM HCL 2 MG/2 ML INJ ONE (16:23)
[2023-03-04] MEDS ORDERED: FENTANYL CITR 100 MCG/2 ML ONE (16:23)
[2023-03-04] MEDS ORDERED: NITROGLYCERIN/D5W 0 MG/0 ML BTL IV ONE (16:24)
[2023-03-04] MEDS ORDERED: NITROGLYCERIN 0.4 MG/TAB SL PRN (17:28)
[2023-03-04] MEDS ORDERED: ACETAMINOPHEN 325 MG TABLET PO PRN (17:28)
[2023-03-04 17:31] VITALS: O2SAT 95
[2023-03-04] MEDS ORDERED: NA CHLORIDE 0.9% 1,000 ML IV SCH (18:00)
[2023-03-04 18:37] VITALS: BP 139/74; TEMP 97
--- NOTE | 2023-03-04 21:52 | CON ---
Date of Consultation: 03/04/2023 Reason For Consultation: Chest pain with positive troponin. History Of Present Illness: 77-year-old female with history of diabetes, hypertension, dyslipidemia, acid reflux. She was admitted initially to [place] with chest pain, left-sided, radiated to left upp er extremity and it happened at rest and has been having frequently. Troponin was borderline elevate d. I was contacted by the hospitalist at [place] and recommended to transfer for coronary angiogram. I saw her by bedside. She is feeling well. No further chest pain. Past Medical History: As outlined above in HPI. Medications: Refer to reconciliation sheet for detailed list. Allergies: CIPROFLOXACIN, AMBIEN, AND FORMOTEROL. Family History: No mention of coronary artery disease or cancer. Social History: Does not smoke or drink. Does not use any drugs. Review of Systems: All systems reviewed. They are negative except what was mentioned in HPI. Physical Examination: Vital Signs: Reviewed. Head and Neck: Pupils are equal, reactive to light. Intact eye movements. No JVD. No cervical lym phadenopathy. Neck: Supple. Thyroid is not enlarged. Lungs: Clear to auscultation bilaterally. No rhonchi, wheezing or crackles. No accessory muscle us e. Heart: Regular rate and rhythm. No extra sounds. Abdomen: Soft, nontender. Bowel sounds positive. No organomegaly. No masses or hernia. No rigidit y or rebound. Extremities: No edema, clubbing, cyanosis. Intact pulses. Skin: No rash. Neurologic: Alert, awake, oriented x3. No acute focal deficits appreciated. Investigations: Labs were reviewed. BUN 17, creatinine 0.88. Troponin was 69 initially and trended down. Assessment/recommendations: 1.Chest pain with positive troponin and she is n.p.o. Plan for coronary angiogram today. Continue baby aspirin. 2.Dyslipidemia. Continue statin. 3.Hypertension. Blood pressure is well controlled. Continue current management. SR/MODL Voice ID: [id number] Report ID: [id number]
--- NOTE | 2023-03-05 03:10 | OP ---
Date of Procedure: 03/04/2023 Surgeon: PRASANNA PARKER Procedures Performed: 1.Selective coronary angiogram. 2.Left heart catheterization. Indication: Kog-[id number] myocardial infarction. Access: Right femoral artery 6-Burkinan closed with 6-Burkinan Angio-Seal. Complications: None. Bleeding: Less than 20 mL. Anesthesia: Total sedation time was 15 minutes. Description Of Procedure: After risks, benefits, and alternatives were explained, the patient agreed to procedure, signed informal consent. The patient was brought into the cardiac catheterization lab oratory, prepped and draped in the usual sterile fashion and then, I accessed the right femoral arter y using micropuncture kit, ultrasound guidance, and fluoroscopy, placed a 6-Burkinan [place] sheath an d took 6-Burkinan JL4 catheter and aortic root over a J-wire, engaged left main, took standard views, a nd exchanged for 6-Burkinan JR4 catheter, engaged the RCA, took standard views and then, the catheter w as pushed over the wire into the LV, measured the LVEDP and pullback did not record any gradient. Th en, catheter was removed. Sheath was removed and 6-Burkinan Angio-Seal was used for closure with good hemostasis. Findings: 1.Left main, large and normal. 2.LAD, large and normal. Normal diagonal branches. 3.Left circumflex, moderate size and normal. 4.RCA, moderate size and normal. 5.Normal LVEDP at 6 mmHg. Conclusion: 1.Normal coronary arteries. 2.Normal LVEDP. Recommendation: Medical management. The patient can be released from cardiology standpoint after be drest. /FREDOL Voice ID: [id number] Report ID: [id number]
--- NOTE | 2023-03-05 07:10 | ECHO ---
HEIGHT: 5 ft 5 in WEIGHT: 154 lb 0 oz DATE OF STUDY: 03/04/[address]: Rohan Moreland NP 2-DIMENSIONAL: YES M.MODE: YES DOPPLER: YES COLOR FLOW: YES TDS: PORTABLE: YES DEFINITY: BUBBLE STUDY: DIAGNOSIS: CHEST PAIN, ELEVATED TROPONIN CARDIAC HISTORY: CATHERIZATION: NO SURGERY: NO PROSTHETIC VALVE: NO PACEMAKER: NO MEASUREMENTS (cm) DIASTOLIC (NORMALS) SYSTOLIC (NORMALS) IVSd 1.1 (0.6-1.2) LA Diam 2.5 (1.9-4.0) LVEF 69% LVIDd 3.8 (3.5-5.7) LVIDs 2.3 (2.0-3.5) %FS 38% LVPWd 1.1 (0.6-1.2) Ao Diam 2.3 (2.0-3.7) 2 DIMENSIONAL ASSESSMENT: RIGHT ATRIUM: NORMAL LEFT ATRIUM: NORMAL RIGHT VENTRICLE: NORMAL LEFT VENTRICLE: NORMAL TRICUSPID VALVE: NORMAL MITRAL VALVE: MITRAL ANNULAR CALCIFICATION WITH MILD MITRAL REGURGITATION PULMONIC VALVE: NORMAL AORTIC VALVE: NORMAL PERICARDIAL EFFUSION: NONE AORTIC ROOT: NORMAL LEFT VENTRICULAR WALL MOTION: NORMAL DOPPLER/COLOR FLOW: SEE BELOW COMMENTS: 1. NORMAL LEFT VENTRICULAR EJECTION FRACTION 60-65% WITH NORMAL WALL MOTION 2. MILD MITRAL ANNULAR CALCIFICATION 3. MILD MITRAL REGURGITATION TECHNOLOGIST: TALIB DELGADO
== END 2023-03-04 21:20 | disposition home or self-care (01) | DRG 282 ==
LOC: 2ND 22:46
PROVIDERS: ADMIT Internal Medicine; ATTEND Hospitalist
PROC: 4A023N7 Measurement of Cardiac Sampling and Pressure, Left Heart, Percutaneous Approach (ICD-10-PCS; principal; 2023-03-04)
PROC: B2111ZZ Fluoroscopy of Multiple Coronary Arteries using Low Osmolar Contrast (ICD-10-PCS; 2023-03-04)
DX: I21.4 Non-ST elevation (NSTEMI) myocardial infarction (principal); E11.9 Type 2 diabetes mellitus without complications; I10 Essential (primary) hypertension; E78.5 Hyperlipidemia, unspecified; K21.9 Gastro-esophageal reflux disease without esophagitis; Z88.1 Allergy status to other antibiotic agents; Z88.8 Allergy status to other drugs, medicaments and biological substances; Z79.82 Long term (current) use of aspirin; Z90.49 Acquired absence of other specified parts of digestive tract; Z98.84 Bariatric surgery status; Z90.710 Acquired absence of both cervix and uterus; Z91.040 Latex allergy status; Z79.899 Other long term (current) drug therapy
CPT/HCPCS: 36415; 76937; 80048; 80061; 82947; 83036; 84439; 84443; 84484; 85025; 85379; 93306; 93458; C1760; C1893; G0269; J1644; J2250; J3010; J7040; Q9966

== ENCOUNTER 2023-12-20 18:05 | Emergency (ER) | payer MEDICARE ==
[2023-12-20] MEDS ORDERED: methocarbamoL 500 MG TAB ONE (21:14)
[2023-12-20] MEDS ORDERED: FENTANYL CITR 100 MCG/2 ML ONE (21:14)
--- NOTE | 2023-12-20 21:32 | RAD REPORT ---
EXAM DESCRIPTION: CT - Stone Protocol - 12/20/2023 9:05 pm CLINICAL HISTORY: Abdominal pain. Fall with back pain COMPARISON: None. TECHNIQUE: Computed axial tomography of the abdomen pelvis was obtained without oral or IV contrast. Lack of IV and oral contrast limits evaluation of solid organs, appendix, bowel, and vessels. Fuentes l reformatted images were obtained and reviewed. All CT scans are performed using dose optimization technique as appropriate and may include automated exposure control or mA/KV adjustment according to patient size. FINDINGS: Liver, spleen, pancreas and adrenals grossly normal. Left kidney grossly normal. 2.3 centimeter right renal cyst. No hydronephrosis. Ureteral calculus is not seen. No bladder calculu s. Hysterectomy. No adnexal mass. No evidence diverticulitis. Small umbilical hernia Compression deformity superior vertebral endplate of L2 estimated 13%. No retropulsion bone into the spinal canal. Postsurgical changes stomach IMPRESSION: Negative for a genitourinary calculus Acute/subacute mild compression fracture L2 vertebral body
[2023-12-20 21:54] LABS: Specific Gravity 1.021 (1.005-1.030); Sqamous Epithelial None Seen /HPF (None Seen); Urine Bacteria None Seen /HPF (<20); Urine Bilirubin NEGATIVE (Negative); Urine Blood Negative (Negative); Urine Clarity Turbid (Clear); Urine Color Yellow (Yellow); Urine Culture Reflex Order NOT NEEDED; Urine Glucose NEGATIVE (Negative); Urine Ketones NEGATIVE (Negative); Urine Micro Reflex YN NO BILL MICROSCOPIC; Urine Mucus Slight /HPF (None Seen); Urine Nitrite NEGATIVE (Negative); Urine Protein NEGATIVE (Negative); Urine Urobilinogen Normal (Normal); Urine WBC <5 /HPF (<5); Urine pH 5.5 (5.0-7.0)
--- NOTE | 2023-12-20 23:31 | ER ---
Nurse's Notes [facility] Name: Genny Mccall Age: 78 yrs Sex: Female : 1945 Arrival Date: 12/20/2023 Time: 18:05 Bed 9 Private MD: Diagnosis: Other fracture of second lumbar vertebra, initial encounter for closed fracture-compression type Presentation: 12/19 18:36 Chief complaint: Patient states: 12/11 fell and hit lower back. Went to Urgent Care, ll1 muscle relaxers didn't help. Coronavirus screen: Client denies travel out of the [place] in the last 14 days. At this time, the client does not indicate any symptoms associated with coronavirus-19. Ebola Screen: Patient denies travel to an Ebola-affected area in the 21 days before illness onset. Initial Sepsis Screen: Does the patient meet any 2 criteria? No. Patient's initial sepsis screen is negative. Does the patient have a suspected source of infection? No. Patient's initial sepsis screen is negative. Risk Assessment: Do you want to hurt yourself or someone else? Patient reports no desire to harm self or others. Onset of symptoms was December 12, 2023. 18:36 Method Of Arrival: Ambulatory ll1 18:36 Acuity: [place] 3 ll1 Triage Assessment: 18:36 General: Appears uncomfortable, Behavior is calm, cooperative, appropriate for age. ll1 Pain: Complains of pain in back. Neuro: No deficits noted. Cardiovascular: No deficits noted. Musculoskeletal: Reports pain in back. Historical: - Allergies: 18:19 Ciprofloxacin; ll1 18:19 formoterol fumarate; ll1 18:19 Latex; ll1 18:19 zolpidem; ll1 - PMHx: 18:19 diabetes mellitus; Gastroesophageal reflux disease; R BBB; Sjogrens; Broken back ll1 (Sjogrens); - Immunization history:: Adult Immunizations up to date. - Infectious Disease History:: Denies. - Social history:: Smoking status: Patient denies any tobacco usage or history of. Screenin:23 [facility] ED Fall Risk Assessment (Adult) History of falling in the last 3 months, as6 including since admission Yes- single mechanical fall (1 pt) Confusion or Disorientation No (0 pts) Intoxicated or Sedated No (0 pts) Impaired Gait No (0 pts) Mobility Assist Device Used No (0 pt) Altered Elimination No (0 pt) Score/Fall Risk Level 0 - 2 = Low Risk Oriented to surroundings, Maintained a safe environment, Educated pt \T\ family on fall prevention, incl call for assistance when getting out of bed, Assessed \T\ reinforced patient's understanding of fall precautions. Abuse screen: Denies threats or abuse. Denies injuries from another. Nutritional screening: No deficits noted. Tuberculosis screening: No symptoms or risk factors identified. Assessment: 21:22 General: Appears in no apparent distress. Behavior is calm, cooperative. Pain: as6 Complains of pain in low back area. Respiratory: Respiratory effort is even, unlabored, Respiratory pattern is regular, symmetrical. Musculoskeletal: Reports pain in low back area. Vital Signs: 18:36 BP 144 / 67; Pulse 66; Resp 17; Temp 97.6; Pulse Ox 97% on R/A; Pain 10/10; ll1 21:22 BP 141 / 80; Pulse 65; Resp 16; Pulse Ox 100% ; as6 18:36 Pain Scale: Adult ll1 ED Course: 18:14 Patient arrived in ED. mg5 18:27 Arm band placed on. ll1 18:38 Triage completed. ll1 19:16 Asad Salas PA is PHCP. cp 19:16 John Morales MD is Attending Physician. cp 20:41 Josh Guillen, JAZZ is Primary Nurse. as6 21:06 CT Stone Protocol In Process Unspecified. EDMS 21:25 Bed in low position. Call light in reach. Side rails up X 1. Warm blanket given. as6 21:44 Urinalysis W/Microscopic Sent. as6 23:59 Provided Education on: medication, follow up care, referrals. al5 23:59 Patient did not have IV access during this emergency room visit. al5 23:59 No provider procedures requiring assistance completed. al5 Administered Medications: 21:18 Drug: Methocarbamol PO 500 mg PO once Route: PO; as6 23:58 Follow up: Response: No adverse reaction al5 21:18 Drug: fentaNYL (PF) IM 25 mcg IM once Route: IM; Site: right deltoid; as6 23:58 Follow up: Response: No adverse reaction al5 23:39 Drug: Acetaminophen-Codeine PO (300 mg-30 mg) 2 tabs PO once; RASS on ADMIN: Combtv4, al5 Very Agttd3, Agttd2, Rstlss1, AlertClm0, Drwsy-1, Lt Sdtn-2, Mod Sdtn-3, Dp Sdtn-4, UnArsble-5 Route: PO; 23:58 Follow up: Response: No adverse reaction al5 Medication: 21:25 VIS not applicable for this client. as6 Outcome: 23:30 Discharge ordered by MD. martinez 12/20 00:00 Discharged to home ambulatory, with significant other, al5 Condition: good Discharge instructions given to patient, Instructed on discharge instructions, follow up and referral plans. medication usage, Demonstrated understanding of instructions, follow-up care, medications, 00:00 Patient left the ED. al5 Signatures: Dispatcher [employer] EDMS Asad Salas PA PA cp Lewis, Lynsay, RN RN ll1 Josh Guillen RN RN as6 Una Fuentes mg5 Carol Doyle RN RN al5
--- NOTE | 2023-12-20 23:31 | EDPHYS ---
Physician Documentation [facility] Name: Genny Mccall Age: 78 yrs Sex: Female : 1945 Arrival Date: 12/20/2023 Time: 18:05 Bed 9 Private MD: ED Physician John Morales HPI: 12/19 22:00 This 78 yrs old Female presents to ER via Ambulatory with complaints of Back Pain, Fall cp Injury. 22:00 The patient presents with pain that is acute. cp 22:00 Onset: The symptoms/episode began/occurred 12/11. The pain does not radiate. Associated cp signs and symptoms: Pertinent negatives: abdominal pain, chest pain, constipation, dysuria, hematuria, incontinence, numbness, tingling, urinary retention, weakness. The problem was sustained during a fall, while standing. Modifying factors: the patient symptoms are aggravated by movement, standing, walking. Patient reports she was seen at Urgent Care and prescribed muscle relaxers for pain. no xrays taken. 22:00 The symptoms are located in the low back. cp Historical: - Allergies: 18:19 Ciprofloxacin; ll1 18:19 formoterol fumarate; ll1 18:19 Latex; ll1 18:19 zolpidem; ll1 - PMHx: 18:19 diabetes mellitus; Gastroesophageal reflux disease; R BBB; Sjogrens; Broken back ll1 (Sjogrens); - Immunization history:: Adult Immunizations up to date. - Infectious Disease History:: Denies. - Social history:: Smoking status: Patient denies any tobacco usage or history of. ROS: 22:05 Constitutional: HX per HPI cp 22:05 Constitutional: Negative for body aches, chills, fever, poor PO intake, cp 22:05 Neck: Negative for pain with movement, pain at rest, stiffness, 22:05 Cardiovascular: Negative for chest pain, 22:05 Respiratory: Negative for cough, shortness of breath, wheezing, 22:05 Abdomen/GI: Negative for abdominal pain, nausea, vomiting, and diarrhea, 22:05 Back: Positive for pain at rest, pain with movement, of the lumbar area, 22:05 : Negative for bladder incontinence, vaginal bleeding, 22:05 Neuro: Negative for altered mental status, headache, numbness, tingling, weakness, 22:05 All other systems are negative, Exam: 22:10 Constitutional: The patient appears in no acute distress, alert, awake, cp non-diaphoretic, non-toxic, well developed, well nourished, uncomfortable, 22:10 Head/Face: Normocephalic, atraumatic. cp 22:10 Eyes: Periorbital structures: appear normal, Conjunctiva: normal, no exudate, no injection, Sclera: no appreciated abnormality, Lids and lashes: appear normal, bilaterally, 22:10 ENT: External ear(s): are unremarkable, Nose: is normal, Mouth: Lips: moist, Oral mucosa: pink and intact, moist, Posterior pharynx: is normal, airway is patent, no erythema, no exudate, 22:10 Neck: C-spine: vertebral tenderness, is not appreciated, crepitus, is not appreciated, ROM/movement: is normal, is supple, without pain, no range of motions limitations, 22:10 Chest/axilla: Inspection: normal, Palpation: is normal, no crepitus, no tenderness, 22:10 Cardiovascular: Rate: normal, Rhythm: regular, Edema: is not appreciated, JVD: is not appreciated, 22:10 Respiratory: the patient does not display signs of respiratory distress, Respirations: normal, no use of accessory muscles, no retractions, labored breathing, is not present, Breath sounds: are clear throughout, no decreased breath sounds, 22:10 Abdomen/GI: Inspection: abdomen appears normal, Palpation: abdomen is soft and non-tender, in all quadrants, 22:10 Back: pain, that is moderate, of the lumbar area, ROM is painful, with all movement, vertebral tenderness, is appreciated at T12 and L1, Straight leg raises: pain bilaterally, 22:10 Skin: cellulitis, is not appreciated, no rash present. 22:10 Neuro: Motor: moves all fours, strength is normal, Sensation: is normal, Gait: is steady, Vital Signs: 18:36 BP 144 / 67; Pulse 66; Resp 17; Temp 97.6; Pulse Ox 97% on R/A; Pain 10/10; ll1 21:22 BP 141 / 80; Pulse 65; Resp 16; Pulse Ox 100% ; as6 18:36 Pain Scale: Adult ll1 MDM: 19:16 Patient medically screened. cp 23:30 Data reviewed: vital signs, nurses notes, lab test result(s), radiologic studies, CT cp scan. 23:30 Differential diagnosis: Cholelithiasis chronic back pain, Fracture Pyelonephritis cp vertebral fracture, contusion. I considered the following discharge prescriptions or medication management in the emergency department Medications were administered in the Emergency Department. See MAR. Counseling: I had a detailed discussion with the patient and/or guardian regarding the historical points, exam findings, and any diagnostic results supporting the discharge/admit diagnosis, radiology results, the need for outpatient follow up, a orthopedic surgeon, neurosurgery, to return to the emergency department if symptoms worsen or persist or if there are any questions or concerns that arise at home. Response to treatment: the patient's symptoms have markedly improved after treatment, and as a result, I will discharge patient. 12/19 20:47 Order name: Urinalysis W/Microscopic; Complete Time: 22:52 cp 12/19 22:52 Interpretation: Normal except: [facility] Turbid; UESTR 250; URBC 11-20. 12/19 20:48 Order name: CT Stone Protocol; Complete Time: 22:52 12/19 22:53 Interpretation: Report reviewed. cp Administered Medications: 21:18 Drug: Methocarbamol PO 500 mg PO once Route: PO; as6 23:58 Follow up: Response: No adverse reaction al5 21:18 Drug: fentaNYL (PF) IM 25 mcg IM once Route: IM; Site: right deltoid; as6 23:58 Follow up: Response: No adverse reaction al5 23:39 Drug: Acetaminophen-Codeine PO (300 mg-30 mg) 2 tabs PO once; RASS on ADMIN: Combtv4, al5 Very Agttd3, Agttd2, Rstlss1, AlertClm0, Drwsy-1, Lt Sdtn-2, Mod Sdtn-3, Dp Sdtn-4, UnArsble-5 Route: PO; 23:58 Follow up: Response: No adverse reaction al5 Disposition Summary: 12/20/23 23:30 Discharge Ordered Notes: Location: Home cp Problem: new cp Symptoms: have improved cp Condition: Stable cp Diagnosis - Other fracture of second lumbar vertebra, initial encounter for closed fracture - cp compression type Followup: cp - With: Private Physician - When: 5 - 6 days - Reason: Recheck today's complaints Discharge Instructions: - Discharge Summary Sheet cp - Spinal Compression Fracture cp Forms: - Medication Reconciliation Form cp - Antibiotic Education cp - Prescription Opioid Use cp - Patient Portal Instructions cp - Leadership Thank You Letter cp Prescriptions: - acetaminophen-codeine 300-30 mg Oral tablet - take 1 tablet ORAL route every 8 hours as needed for pain; 16 tablet; Refills: cp 0, Product Selection Permitted - Mobic 7.5 mg Oral Tablet - take 1 tablet ORAL route once daily take with food; 20 tablet; Refills: 0, cp Product Selection Permitted Addendum: 12/22/2023 18:12 Co-signature as Attending Physician, John Morales MD I reviewed the patient's care r t provided by the Advanced Practice Provider and agree with the diagnosis and treatment plan. Signatures: Dispatcher [employer] EDSC Asad Salas PA PA cp Lewis, Lynsay, RN RN ll1 Josh Guillen RN RN as6 John Morales MD MD rt Carol Doyle RN RN al5 Corrections: (The following items were deleted from the chart) 12/19 21:05 20:47 Spine Lumbar Wo Con+CT.RAD.BRZ ordered. EDSC EDSC 21: 20:47 Pelvis Wo Cont+CT.RAD.BRZ ordered. EDSC EDSC 12/20 18:12/18 22:00 This 78 yrs old Female presents to ER via Ambulatory with complaints of cp Back Pain, Fall Injury. cp 12/20 18:12/18 22:00 The patient presents with pain that is acute, cp cp 12/20 18:12/18 22:00 The symptoms are located in the low back, cp cp
[2023-12-20] MEDS ORDERED: CODEINE 30MG/APAP 300MG TAB ONE (23:38)
[2023-12-21 00:31] VITALS: BP 141/80; TEMP 97.6; O2SAT 100
== END 2023-12-21 | disposition home or self-care (01) ==
LOC: ER 18:05
DX: S32.028A Other fracture of second lumbar vertebra, initial encounter for closed fracture (principal)
CPT/HCPCS: 81001; 76377; 74176; 96372; 99284; J3010